=== PATIENT | male | born 2005 | race Caucasian/White ===

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

== ENCOUNTER 2024-08-09 22:30 | Emergency (ER) | payer SELFPAY ==
[2024-08-09 22:30] VITALS: BP 145/86; PULSE 87; RESP 18; TEMP 37.2; O2SAT 100; BMI 18.8
[2024-08-09] MEDS: KETOROLAC 30MG/ML VIAL 15 MG IV (22:37)
[2024-08-09 22:50] VITALS: BP 111/86; PULSE 67; RESP 18; TEMP 36.8; O2SAT 98
[2024-08-09] MEDS: ONDANSETRON 4MG/2ML VIAL 4 MG IV (22:50)
[2024-08-09] MEDS: LACTATED RINGERS 1000ML 1,000 ML 999 ML IV (22:50)
[2024-08-09] MEDS: ACETAMINOPHEN 500MG TAB 1000 MG PO (22:50)
[2024-08-10 01:16] LABS: Hematocrit 45.5 % (42.0-52.0); Hemoglobin 14.8 g/dL (14.1-18.0); Mean Corpuscular HGB Conc 32.6 g/dL (31.8-35.4); Mean Corpuscular Hemoglobin 31.8 pg (27.0-31.2); Mean Corpuscular Volume 97.8 fl (80-94); Mean Platelet Volume 7.8 fl (7.4-10.4); Platelet Count 264 K/mm3 (142-424); Red Blood Count 4.65 M/mm3 (4.60-6.20); Red Cell Distribution Width 13.8 % (11.5-17.5); White Blood Count 8.4 K/mm3 (4.5-13.0)
[2024-08-10 01:17] LABS: Basophils # 0.1 K/mm3 (0-0.2); Basophils % 0.6 % (0.1-2.0); Eosinophils # 0.2 K/mm3 (0.0-0.4); Eosinophils % 2.5 % (0.1-12.0); Lymphocytes # 2.5 K/mm3 (0.7-4.5); Monocytes # 0.5 K/mm3 (0.1-1.0); Monocytes % 5.4 % (1.7-9.3); Neutrophils # 5.2 K/mm3 (1.8-7.8)
[2024-08-10 01:18] LABS: Anion Gap 12.8 mEq/L (5-15); Blood Urea Nitrogen 16 mg/dl (9-20); Calcium 9.6 mg/dl (8.4-10.2); Carbon Dioxide 27 mmol/L (22.0-30.0); Chloride 104 mmol/L (98-107); Creatinine Clearance Estimated 85 mL/min (50-200); Estimated Glomerular Filt Rate 77 ml/min (>60); GFR (African American) 93 ML/MIN (>60); Glucose 101 mg/dl (74-100); Potassium 3.8 mmoL/L (3.5-5.1); Sodium 140 mmol/L (136-145)
[2024-08-10 01:19] LABS: Alanine Aminotransferase 23 U/L (12-78); Albumin Level 5.5 g/dl (3.5-5.0); Albumin/Globulin Ratio 1.6 (1.1-1.8); Aspartate Amino Transferase 32 U/L (17-59); Globulin 3.5 g/dL (1.3-3.2)
[2024-08-10 01:20] LABS: Alkaline Phosphatase 58 U/L (38-126); Amylase 76 U/L (30-110); Lipase 36 U/L (23-300)
--- NOTE | 2024-08-10 01:24 | PC.NURSE ---
2340- pt states he feels a little bit better. Decreased headache, nausea, abdominal pain. VS 111/66, HR60, RR 20 O2 sat 100%.
[2024-08-10 01:49] LABS: HIV (1&2) Antibody Rapid NONREACTIVE (NONREACTIVE)
--- NOTE | 2024-08-10 15:29 | HMH.EDGENADL ---
Discharge Plan Disposition Patient Disposition: Home, Self-Care Condition: Good Prescriptions Prescriptions: No Action ondansetron 4 MG tablet,disintegrating 4 mg PO BIDP PRN (Reason: Nausea) Qty: 10 0RF hydrocodone-acetaminophen 1 TAB tablet 1 tab PO Q6HP PRN (Reason: Moderate Pain) Qty: 10 0RF tamsulosin 0.4 MG capsule 0.4 mg PO DAILY Qty: 10 0RF Referrals Follow up/Referrals: Provider,Referral, MD [Primary Care Provider] - See instructions Clinical Impressions Clinical Impression: Abdominal pain, Hyperbilirubinemia Instructions Patient Instructions: DI for Acute Abdominal Pain Print Language Print Language: German Discharge ED Provider: Mee Douglas General Adult HPI <DO Leopoldo Fontanez Last Filed: 08/10/24 15:31> General Chief complaint: Abdominal Pain Stated complaint: nausea, FRITZ, abd pain Time Seen by Provider: 08/09/24 22:40 Mode of Arrival: Ambulatory Source of Information: Patient Limitations: No Limitations Description of Symptoms (Recalled from ER Triage Doc. by RN): pt ambulatory to ED with c/o nausea, headache, and generalized abd pain. History of Present Illness HPI narrative: This patient is a 18-year-old male who reports history of kidney stones in the past presenting to the emergency department for evaluation with concern for abdominal pain, nausea, and headache. Patient reports that he started feeling bad this morning with nausea and some upper abdominal pain, but no true localizable pain he just has overall his stomach does not feel well. He has had no vomiting. No changes in bowel movements, no urinary symptoms. He has mild headache but no visual disturbance, numbness, tingling, sore throat, cough, congestion, neck pain, or other concerns. Related Data Previous Rx's ?Medication ?Instructions ?Recorded hydrocodone 5 mg-acetaminophen 325 1 tab PO Q6HP PRN Moderate Pain 06/10/22 mg tablet #10 tabs ondansetron 4 mg disintegrating 4 mg PO BIDP PRN Nausea #10 tabs 06/10/22 tablet tamsulosin 0.4 mg capsule 0.4 mg PO DAILY #10 caps 06/10/22 Allergies Allergy/AdvReac Type Severity Reaction Status Date / Time No Known Allergies Allergy Verified 11/06/19 10:30 PFSH <DO Leopoldo Fontanez Last Filed: 08/10/24 15:31> PFSH Disclaimer: The information contained in this section may have been updated after the patient was seen, as this information can be updated by other users. Social History Smoking Status: Unknown if ever smoked alcohol intake: never substance use type: denies use current occupational status: student Travel in the last 8 weeks: None household members: family housing: house <Mee Douglas DO - Last Filed: 08/10/24 15:31> ROS Obtained: Yes All systems reviewed & no additional complaints except as documented Physical Exam <Mee Douglas DO - Last Filed: 08/10/24 15:31> General General appearance: alert and in no apparent distress Head Head exam: atraumatic and normocephalic Eye Eye exam: Present normal appearance, PERRL and EOMI ENT ENT exam: Present normal exam, normal oropharynx, mucous membranes moist and normal external ear exam Neck Neck exam: Present normal inspection, full ROM and trachea midline; Absent tenderness Chest Chest inspection: Present normal inspection and symmetric chest wall rise; Absent tenderness Respiratory Respiratory exam: Present normal lung sounds bilaterally; Absent respiratory distress, wheezes, stridor or accessory muscle use Cardiovascular Cardiovascular exam: Present regular rate and normal rhythm Abdominal Exam Abdominal exam: Present soft; Absent distention, tenderness or guarding Extremities Exam Extremities exam: Present normal inspection, full ROM and normal capillary refill; Absent tenderness or edema Back Exam Back exam: Present normal inspection and full ROM; Absent tenderness Neurological Exam Neurological exam: Present alert, oriented X3, CN II-XII intact and normal gait; Absent motor sensory deficit Psychiatric Psychiatric exam: Present normal affect and normal mood Skin Skin exam: Present warm and dry Medical Decision Making <Mee Douglas DO - Last Filed: 08/10/24 15:31> Medical Records Medical records reviewed: Yes I reviewed the patient's medical records. Screening: Per USPSTF and CDC recommendations, given the prevalence of disease in our region, it is our hospital?s policy to screen for HIV and viral Hepatitis for all patients aged 18 and over and those with ongoing risk factors. Jeferson Inquiry Pt receiving controlled substance: No Vital Signs: 08/09/24 22:30 08/09/24 22:50 Temperature 98.9 F 98.2 F Temperature Source Oral Oral Pulse Rate 67 Pulse Rate [Left Radial] 87 Respiratory Rate 18 18 Blood Pressure 111/86 Blood Pressure [Right Arm] 145/86 H Blood Pressure Mean [Right Arm] 105 Blood Pressure Source Automatic Cuff Blood Pressure Source [Right Arm] Automatic Cuff Blood Pressure Position Supine Blood Pressure Position [Right Arm] Sitting 02 Sat by Pulse Oximetry 100 Oxygen Delivery Method Room Air Room Air Lab Data Lab results reviewed: Yes I reviewed the patient's lab results. Lab Results 08/10/24 00:00: WBC 8.4, RBC 4.65, Hgb 14.8, Hct 45.5, MCV 97.8 H, MCH 31.8 H, MCHC 32.6, RDW 13.8, Plt Count 264, MPV 7.8, Neut % (Auto) 61.0, Lymph % (Auto) 29.0, [place] % (Auto) 5.4, Eos % (Auto) 2.5, Baso % (Auto) 0.6, Neut # (Auto) 5.2, Lymph # (Auto) 2.5, [place] # (Auto) 0.5, Eos # (Auto) 0.2, Baso # (Auto) 0.1, Sodium 140, Potassium 3.8, Chloride 104, Carbon Dioxide 27, Anion Gap 12.8, BUN 16, Creatinine 1.20, Estimated Creat Clear 85, Estimated GFR 77, Est GFR ( Amer) 93, Glucose 101 H, Calcium 9.6, Total Bilirubin 9.0 H, AST 32, ALT 23, Alkaline Phosphatase 58, Total Protein 9.0 H, Albumin 5.5 H, Globulin 3.5 H, Albumin/Globulin Ratio 1.6, Amylase 76, Lipase 36, HIV 1&2 Antibody Rapid Nonreactive 08/10/24 00:00 08/10/24 00:00 Orders (Tests/Meds): ED MEDICATIONS Discontinued Medications Generic Name Dose Route Start Last Admin Trade Name Freq PRN Reason Stop Dose Admin Acetaminophen 1,000 mg 08/09/24 22:37 08/09/24 22:50 Acetaminophen 500mg Tab PO 08/09/24 22:38 1,000 mg ONCE ONE Administration Lactated Ringer's 1,000 mls @ 999 mls/hr 08/09/24 22:37 08/09/24 22:50 Lactated Ringer's 1000 Ml Bag IV 08/09/24 23:37 999 mls/hr .Q1H1M ONE Administration Ketorolac Tromethamine 15 mg 08/10/24 22:37 Ketorolac 30mg/Ml Vial IV 08/10/24 22:38 ONCE ONE Ketorolac Tromethamine 15 mg 08/09/24 22:37 08/09/24 22:37 Ketorolac 30mg/Ml Vial IV 08/09/24 22:38 15 mg ONCE ONE Administration Ondansetron HCl 4 mg 08/09/24 22:37 08/09/24 22:50 Ondansetron 4mg/2ml Vial IV 08/09/24 22:38 4 mg ONCE ONE Administration ORDERS Category Date Time Status Amylase Stat Lab 08/10/24 00:00 Completed Complete Blood Count Auto Diff Stat Lab 08/10/24 00:00 Completed Comprehensive Metabolic Panel Stat Lab 08/10/24 00:00 Completed HIV (1&2) Antibody Rapid Stat Lab 08/10/24 00:00 Completed Hep C Ab with Reflex to RNA Stat Lab 08/10/24 00:00 Received Lipase Stat Lab 08/10/24 00:00 Completed Medical Decision Narrative: In summary, this patient is a 18-year-old male presenting to the Emergency Department for evaluation of headache, nausea, and abdominal discomfort. Differential diagnoses considered include but are not limited to viral syndrome, pancreatitis, gastritis, colitis, dehydration. Ruling out the most morbid conditions drove assessment. On exam, the patient is very well-appearing with benign abdominal exam. No localizable abdominal tenderness. He is neurologically intact. No pharyngeal exudates, sore throat, or other concerns to suggest acute bacterial pharyngitis. I feel he likely has a viral syndrome causing his symptoms, but will obtain basic labs to evaluate for other acute pathology. workup included CBC, CMP, lipase, urinalysis. He was given a bolus of IV fluids as well as IV Toradol, oral Tylenol, and IV Zofran. Will assess his ability to tolerate oral intake afterward and assess him for symptomatic improvement. Patient care signed out to Dr. Briceño. <Grayson Briceño MD - Last Filed: 08/11/24 01:22> Vital Signs: 08/09/24 22:30 08/09/24 22:50 Temperature 98.9 F 98.2 F Temperature Source Oral Oral Pulse Rate 67 Pulse Rate [Left Radial] 87 Respiratory Rate 18 18 Blood Pressure 111/86 Blood Pressure [Right Arm] 145/86 H Blood Pressure Mean [Right Arm] 105 Blood Pressure Source Automatic Cuff Blood Pressure Source [Right Arm] Automatic Cuff Blood Pressure Position Supine Blood Pressure Position [Right Arm] Sitting 02 Sat by Pulse Oximetry 100 Oxygen Delivery Method Room Air Room Air Lab Data Lab Results 08/10/24 00:00: WBC 8.4, RBC 4.65, Hgb 14.8, Hct 45.5, MCV 97.8 H, MCH 31.8 H, MCHC 32.6, RDW 13.8, Plt Count 264, MPV 7.8, Neut % (Auto) 61.0, Lymph % (Auto) 29.0, [place] % (Auto) 5.4, Eos % (Auto) 2.5, Baso % (Auto) 0.6, Neut # (Auto) 5.2, Lymph # (Auto) 2.5, [place] # (Auto) 0.5, Eos # (Auto) 0.2, Baso # (Auto) 0.1, Sodium 140, Potassium 3.8, Chloride 104, Carbon Dioxide 27, Anion Gap 12.8, BUN 16, Creatinine 1.20, Estimated Creat Clear 85, Estimated GFR 77, Est GFR ( Amer) 93, Glucose 101 H, Calcium 9.6, Total Bilirubin 9.0 H, AST 32, ALT 23, Alkaline Phosphatase 58, Total Protein 9.0 H, Albumin 5.5 H, Globulin 3.5 H, Albumin/Globulin Ratio 1.6, Amylase 76, Lipase 36, HIV 1&2 Antibody Rapid Nonreactive Orders (Tests/Meds): ED MEDICATIONS Discontinued Medications Generic Name Dose Route Start Last Admin Trade Name Mehdiq PRN Reason Stop Dose Admin Acetaminophen 1,000 mg 08/09/24 22:37 08/09/24 22:50 Acetaminophen 500mg Tab PO 08/09/24 22:38 1,000 mg ONCE ONE Administration Lactated Ringer's 1,000 mls @ 999 mls/hr 08/09/24 22:37 08/09/24 22:50 Lactated Ringer's 1000 Ml Bag IV 08/09/24 23:37 999 mls/hr .Q1H1M ONE Administration Ketorolac Tromethamine 15 mg 08/10/24 22:37 Ketorolac 30mg/Ml Vial IV 08/10/24 22:38 ONCE ONE Ketorolac Tromethamine 15 mg 08/09/24 22:37 08/09/24 22:37 Ketorolac 30mg/Ml Vial IV 08/09/24 22:38 15 mg ONCE ONE Administration Ondansetron HCl 4 mg 08/09/24 22:37 08/09/24 22:50 Ondansetron 4mg/2ml Vial IV 08/09/24 22:38 4 mg ONCE ONE Administration ORDERS Category Date Time Status Amylase Stat Lab 08/10/24 00:00 Completed Complete Blood Count Auto Diff Stat Lab 08/10/24 00:00 Completed Comprehensive Metabolic Panel Stat Lab 08/10/24 00:00 Completed HIV (1&2) Antibody Rapid Stat Lab 08/10/24 00:00 Completed Hep C Ab with Reflex to RNA Stat Lab 08/10/24 00:00 Received Lipase Stat Lab 08/10/24 00:00 Completed Medical Decision Narrative: In summary, this patient is a 18-year-old male presenting to the Emergency Department for evaluation of headache, nausea, and abdominal discomfort. Differential diagnoses considered include but are not limited to viral syndrome, pancreatitis, gastritis, colitis, dehydration. Ruling out the most morbid conditions drove assessment. On exam, the patient is very well-appearing with benign abdominal exam. No localizable abdominal tenderness. He is neurologically intact. No pharyngeal exudates, sore throat, or other concerns to suggest acute bacterial pharyngitis. I feel he likely has a viral syndrome causing his symptoms, but will obtain basic labs to evaluate for other acute pathology. workup included CBC, CMP, lipase, urinalysis. He was given a bolus of IV fluids as well as IV Toradol, oral Tylenol, and IV Zofran. Will assess his ability to tolerate oral intake afterward and assess him for symptomatic improvement. Patient care signed out to Dr. Briceño. On reassessment patient reports significant symptomatic improvement. Laboratory results interpreted by me and showed no evidence of leukocytosis, normal renal function. I communicated these findings with the patient. He was discharged in stable condition with prescription for Zofran. The laboratory results that I reviewed prior to discharge were on paper because our system was in downtime. Unfortunately, when I reentered the EMR in the next day to write his note, I reviewed his labs and noticed that his bilirubin was 9, which is markedly elevated. His previous bilirubin levels have been normal. I may have misread his bilirubin level on the paper chart at the time. I immediately called the patient. He reports that his nausea was improved but he was still having some discomfort. I have recommended that he return immediately to the ER for further assessment, he reported understanding and states that he will return to the ER. Critical Care <Mee Douglas, DO - Last Filed: 08/10/24 15:31> Critical Care Time Critical Care Time: No
[2024-08-11 06:15] LABS: HCV Ab Non Reactive (Non Reactive)
== END 2024-08-10 02:08 | disposition home or self-care (01) ==
PROVIDERS: Emergency Provider Emergency Medicine
DX: R10.84 Generalized abdominal pain (principal); E80.6 Other disorders of bilirubin metabolism; R11.0 Nausea; R51.9 Headache, unspecified
CPT/HCPCS: 80053; 82150; 83690; 85025; 86803; 87389; 96361; 96374; 96375; 99284; J1885; J2405; J7120

== ENCOUNTER 2025-04-02 15:46 | Emergency (ER) | payer BC, SELFPAY ==
--- NOTE | 2025-04-02 16:43 | ED_ITS ---
<Statement entered by Mee Douglas DO - 04/02/25 19:25> I was consulted by the MATI, and we discussed the complexity of the problems being addressed. I approved the treatment and management plan for this patient's care in the emergency department, thus performing a substantive portion of the medical decision making. Mee Douglas DO Discharge Plan Disposition Patient Disposition: Home, Self-Care Condition: Good Prescriptions Prescriptions: New zeisrpyzbujeful-zzavlobgm-NW [Bromfed DM] 2-30-10 mg/5 mL syrup 5 ml PO Q4H PRN (Reason: sinus symptoms) Qty: 118 0RF No Action ondansetron 4 MG tablet,disintegrating 4 mg PO BIDP PRN (Reason: Nausea) Qty: 10 0RF hydrocodone-acetaminophen 1 TAB tablet 1 tab PO Q6HP PRN (Reason: Moderate Pain) Qty: 10 0RF tamsulosin 0.4 MG capsule 0.4 mg PO DAILY Qty: 10 0RF Referrals Follow up/Referrals: Provider,Referral, MD [Primary Care Provider] - See instructions Activity Restrictions/Add. Instructions Additional Instructions/Restrictions: Recommend taking Tylenol alternating Motrin for your symptoms. Please check your portal tomorrow for your respiratory panel results. If you have any continued new or worsening signs or symptoms follow-up with your PCP return to the ER as needed. Clinical Impressions Clinical Impression: Pharyngitis Qualifiers: Pharyngitis/tonsillitis etiology: unspecified etiology Qualified Code(s): J02.9 - Acute pharyngitis, unspecified Stand Alone Forms Stand Alone Forms: Work/School Release Print Language Print Language: Persian Discharge ED Provider: Mee Douglas General Adult HPI General Chief complaint: Upper Respiratory Infection Stated complaint: Sore throat,FRITZ,Stuffy nose Time Seen by Provider: 04/02/25 16:43 History of Present Illness HPI narrative: Patient presents for evaluation of sore throat. Patient states that his symptoms began yesterday with a headache and sore throat. He reports myalgias and bodyaches no shortness of breath cough nausea vomiting diarrhea. He has not taken his temperature at home but feels like he has a fever. Related Data Previous Rx's ?Medication ?Instructions ?Recorded hydrocodone 5 mg-acetaminophen 325 1 tab PO Q6HP PRN Moderate Pain 06/10/ mg tablet #10 tabs ondansetron 4 mg disintegrating 4 mg PO BIDP PRN Nausea #10 tabs 06/10/22 tablet tamsulosin 0.4 mg capsule 0.4 mg PO DAILY #10 caps 06/10/22 xuelaicoshhiizl-edhujexencsixip-WN 5 ml PO Q4H PRN sinus symptoms 04/02/25 2 mg-30 mg-10 mg/5 mL oral syrup #118 mL (Bromfed DM) Allergies Allergy/AdvReac Type Severity Reaction Status Date / Time No Known Allergies Allergy Verified 11/06/19 10:30 [facility] Disclaimer: The information contained in this section may have been updated after the patient was seen, as this information can be updated by other users. Social History Smoking Status: Never smoker alcohol intake: never substance use type: denies use current occupational status: student Travel in the last 8 weeks?: None household members: family housing: house Have you lived/traveled outside [place] in past 30 days?: No Contact w/someone who lives/traveled outside [place] past 30 days?: No Exposure to someone with infectious disease in past 14 days?: No Do you have a fever (greater than 100.4 F or 38 C)?: No Have you tested positive for COVID-19?: No Exposed to someone with COVID-19 in past 14 days?: No Do you have a sore throat?: No Do you have a cough?: No Do you have any weakness?: No Do you have any diarrhea?: No Are you experiencing any unusual bleeding?: No Do you have any muscle aches/pain?: No Do you have any abdominal pain?: No Are you experiencing loss of taste or smell?: No Other Medical History Have you received the Flu Vaccine for this season: No Have you received the Pneumonia Vaccine: No ROS Obtained: Yes Systems reviewed as appropriate & no additional complaints except as documented Physical Exam General General appearance: alert and in no apparent distress Respiratory Respiratory exam: Present normal lung sounds bilaterally Cardiovascular Cardiovascular exam: Present regular rate Neurological Exam Neurological exam: Present alert and oriented X3 Medical Decision Making Medical Records Medical records reviewed: Yes I reviewed the patient's medical records. Screening: Per USPSTF and CDC recommendations, given the prevalence of disease in our region, it is our hospital?s policy to screen for HIV and viral Hepatitis for all patients aged 18 and over and those with ongoing risk factors. Jeferson Inquiry Pt receiving controlled substance: No Vital Signs: 04/02/25 16:48 Temperature 100.8 F H Temperature Source Oral Pulse Rate [Radial] 99 H Respiratory Rate 18 Blood Pressure [Right Arm] 122/78 Blood Pressure Mean [Right Arm] 92 Blood Pressure Source [Right Arm] Automatic Cuff Blood Pressure Position [Right Arm] Sitting 02 Sat by Pulse Oximetry 100 Oxygen Delivery Method Room Air Lab Data Lab results reviewed: Yes I reviewed the patient's lab results. Lab Results 04/02/25 16:51: Group A Strep Rapid Negative Orders (Tests/Meds): ED MEDICATIONS Discontinued Medications Generic Name Dose Route Start Last Admin Trade Name Freq PRN Reason Stop Dose Admin Acetaminophen 1,000 mg 04/02/25 16:48 04/02/25 17:00 Acetaminophen 500mg Tab PO 04/02/25 16:49 1,000 mg ONCE ONE Administration Ibuprofen 800 mg 04/02/25 16:48 04/02/25 17:00 Ibuprofen 400 Mg Tablet PO 04/02/25 16:49 800 mg ONCE ONE Administration ORDERS Category Date Time Status Full Resp Panel w/COVID ([facility]) Routine Lab 04/02/25 17:12 Ordered Rapid Strep Scrn Group A [Strep Scrn Group A (Rapid)] Lab 04/02/25 16:51 Completed Stat Strep Screen Confirmation Stat Micro 04/02/25 16:51 Received Medical Decision Narrative: In summary patient is a 19-year-old male who presents to the emergency department for evaluation of sore throat headache and fever. Patient is normotensive and hemodynamically stable upon arrival, with a temperature of 100. Physical exam is remarkable for erythematous posterior pharynx without do not see any exudate he does have bilateral cervical lymphadenopathy. Breath sounds critical bilaterally to the bases that adventitious sounds.. Differential diagnosis includes viral versus bacterial pharyngitis. Initial workup will be conducted with strep screen. Initial interventions include Tylenol and ibuprofen. Initial workup reviewed by me and a strep screen is negative. Given that I have ordered a full respiratory panel however I am not going to make the patient wait as its undetermined time for the results. I have recommended patient continue Tylenol alternating Motrin and should he have continued new or worsening signs or symptoms to follow-up with PCP return to the ER as needed.. Upon repeat evaluation Patient's temperatures come down to 99.8 after initial intervention. Critical Care Critical Care Time Critical Care Time: No
[2025-04-02 16:48] VITALS: BP 122/78; PULSE 99; RESP 18; TEMP 38.2; O2SAT 100; BMI 23.1
[2025-04-02] MEDS: IBUPROFEN 400 MG TABLET 800 MG PO (17:00)
[2025-04-02] MEDS: ACETAMINOPHEN 500MG TAB 1000 MG PO (17:00)
[2025-04-02 17:10] LABS: Strep Scrn Group A (Rapid) Negative (Negative)
[2025-04-02 17:17] VITALS: BP 113/59; PULSE 94; O2SAT 97
[2025-04-02 17:22] LABS: Adenovirus,PCR Not Detected (NotDetected); Bordetella Pertussis Not Detected (NotDetected); Chlamydophila Pneumoniae, PCR Not Detected (NotDetected); Coronavirus 19, PCR Not Detected (NotDetected); Coronavirus 229E Not Detected (NotDetected); Coronavirus NL63 Not Detected (NotDetected); Coronavirus OC43 Not Detected (NotDetected); Coronovirus HKU1,PCR Not Detected (NotDetected); Human Metapneumovirus Not Detected (NotDetected); Influenza A, PCR Not Detected (NotDetected); Influenza AH1, 2009 Not Detected (NotDetected); Influenza AH1, PCR Not Detected (NotDetected); Influenza AH3,PCR Not Detected (NotDetected); Influenza B, PCR Not Detected (NotDetected); Mycoplasma Pneumoniae, PCR Not Detected (NotDetected); Parainfluenza 1, PCR Not Detected (NotDetected); Parainfluenza 2, PCR Not Detected (NotDetected); Parainfluenza 3, PCR Not Detected (NotDetected); Parainfluenza 4, PCR Not Detected (NotDetected); Respiratory Syncytial Virus Not Detected (NotDetected)
[2025-04-02 17:41] VITALS: BP 116/78; PULSE 85; RESP 18; TEMP 37.2; O2SAT 98
[2025-04-02 19:15] LABS: Rhinovirus/Enterovirus Detected (NotDetected)
== END 2025-04-02 17:44 | disposition home or self-care (01) ==
PROVIDERS: Physician Assistant; Emergency Provider Emergency Medicine
DX: J02.8 Acute pharyngitis due to other specified organisms (principal); R50.9 Fever, unspecified; B34.1 Enterovirus infection, unspecified
CPT/HCPCS: 0223U; 87430; 87633; 99283

== ENCOUNTER 2025-04-23 12:14 | Emergency (ER) | payer BC, SELFPAY ==
[2025-04-23 12:30] VITALS: BP 142/74; PULSE 72; RESP 18; TEMP 36.7; O2SAT 100; BMI 22.1
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
--- NOTE | 2025-04-23 13:50 | PC.NURSE ---
Dr Wade and Meet in triage room assessing pt. XR looks ok. Giving him a sling and follow up with ortho Dr Veloz for possible tear
[2025-04-23 13:53] VITALS: BP 128/87; PULSE 78; RESP 16; TEMP 36.6; O2SAT 98
--- NOTE | 2025-04-23 14:12 | PC.NURSE ---
Made appointment for pt at Dr Veloz on 05/01/25 at 0930. Arm in sling, ice pack applied, work restrictions and note provided. No questions at this time
== END 2025-04-23 14:12 | disposition home or self-care (01) ==
PROVIDERS: Emergency Provider Emergency Medicine
DX: S49.92XA Unspecified injury of left shoulder and upper arm, initial encounter (principal); X50.0XXA Overexertion from strenuous movement or load, initial encounter
CPT/HCPCS: 73030; 99283

== ENCOUNTER 2025-06-05 13:14 | Emergency (ER) | payer BC, SELFPAY ==
--- OUTSIDE RECORDS SUMMARY | 2025-04-25 01:01 | XMS_ITS | Encounter Summary ---
Author Organization Healthcare Address [address] [place] [address] Care Team Providers Care Molder Machine Name Role Phone Unavailable Primary Care Provider Unavailabl e Reason for Visit * Reason Comments Shoulder Pain Encounter Details Date Type Department Care Team (Late st Contact Info) Description 04/25/2025 1:01 AM EDT - 04/25/2025 2:49 AM EDT Emergency [facility] [address] [place] [address] Gideon Carpenter MD [address] [place] [address] Acute pain of left shoulder (Primary Dx) Discharge Disposition: Home or Self Care Social History Tobacco Use Types Packs/Day Years Used Date Smoking Tobacco: Never Assessed Sex and Gender Information Value Date Recorded Sex Assigned at Not on file Legal Sex Male 12:56 AM EDT Gender Identity Not on file Sexual Orientation Not on file documented as of this encounter Last Filed Vital Signs Vital Sign Reading Time Taken Comments Blood Pressure 146/85 04/25/2025 1:01 AM EDT Pulse 73 04/25/2025 1:01 AM EDT Temperature 36.8 C (98.3 F) 04/25/2025 1:01 AM EDT Respiratory Rate 18 04/25/2025 1:01 AM EDT Oxygen Saturation 97% 04/25/2025 1:01 AM EDT Inhaled Oxygen Concentration - - Weight 68 kg (150 lb) 04/25/2025 1:01 AM EDT Height 177.8 cm (5' 10 ) 04/25/2025 1:01 AM EDT Body Mass Index 21.52 04/25/2025 1:01 AM EDT documented in this encounter Functional Status * Calculated C-SSRS Risk Score (Lifetime/Recent) Answer Date of Assessment Author No Risk Indicated 04/25/2025 1:56 AM EDT Elyse Muller RN * Question Answer Date of Assessment Author 1. Wish to be (Past 1 Month) No 025 1:56 AM EDT Elyse Muller RN 2. Non-Specific Active Suici abdullahi Thoughts (Past 1 Month) No 04/25/2025 1:56 AM EDT Vini Muller RN 6. Suicidal Behavior (Lifetime) No 1:56 AM EDT Elyse Muller RN documented as of this encounter Discharge Instructions * Discharge Instructions* Gideon Carpenter MD - 04/25/2025 2:18 AM EDT Please follow up with Orthopedics as previously scheduled. Please continue to keep your shoulder inthe sling. Please return to ED if your symptoms worsen, change in location, change in severity, new symptoms develop or if you become concerned for your health. [facility] [place] [address] 7 - 8 a.m., Mon - Fri. We treat sprains, strains, breaks and other unexpected injuries in patients 8 years and older, and sports-related concussions in patients 12 years and older. While your injury may not call for a tripto the emergency room, it may require the expertise of a application development specialist. Thanks to our narrative writer [facility], staffed by our Sports Medicine experts, receiving treatment for an injury is easy. Walk in, see a provider, receive a diagnosis and get treated -- all in one location. If you already have X-rays or other information about your injury from a associate trainer or another care provider, please bring that with you to the [facility]. The [facility] Medicine narrative writer [facility] offers care for: Broken bones Muscle sprains and strains Ligament tears Other sports injuries Imaging, casting and bracing is available at the [facility]. documented in this encounter Medications at Time of Discharge methocarbamol (Robaxin) 500 MG tablet Take 2 tablets by mouth 4 times a day as needed for muscle spasms for up to 10 days. 100 tablet 04/25/2025 lidocaine (Lidoderm) 5 % patch Apply 1 patch topically daily over 12 hours for 7 days. Remove & discard patch within 12 hours or as directed by . 20 patch 04/25/2025 5 documented as of this encounter Miscellaneous Notes * ED Provider Notes - Ina Diop MD - 04/25/2025 12:56 AM EDT Images from the original note were not included. - HPI Chief Complaint Patient presents with Shoulder Pain HPI Helder Montero is a 19 y.o. male who presents with Shoulder Pain Patient reports that 3 days ago he was lifting a heavy we will when he felt a pop in his left shoulder. Since that he has been having significant pain particularly with movement of his left arm. He was seen at outside hospital yesterday and had negative x-rays. He was given a sling and orthopedics referral with concern for possible rotator cuff injury. States that since then his pain has been worsening and he was concerned because earlier today he felt that his hand was locking up in his shoulder was spasming. He denies any fever, chills, paresthesias or numbness in his left arm. Patient History Past Medical History[1] Surgical History[2] Family History[3] Social History[4] Allergies: Allergies[5] Physical Exam ED Triage Vitals [04/25/25 0101] Temp Heart Rate Resp BP 36.8 ??C (98.3 ??F) 73 18 (!) 146/85 SpO2 Temp Source Heart Rate Source Patient Position 97 % Oral -- Sitting BP Location FiO2 (%) Right arm -- Physical Exam Vitals and nursing note reviewed. Constitutional: General: He is not in acute distress. Appearance: He is well-developed. HENT: Head: Normocephalic and atraumatic. Eyes: Conjunctiva/sclera: Conjunctivae normal. Cardiovascular: Rate and Rhythm: Normal rate and regular rhythm. Heart sounds: No murmur heard. Pulmonary: Effort: Pulmonary effort is normal. No respiratory distress. Breath sounds: Normal breath sounds. Abdominal: Palpations: Abdomen is soft. Tenderness: There is no abdominal tenderness. Musculoskeletal: General: No swelling. Left shoulder: Tenderness present. No swelling or deformity. Decreased range of motion (pain with AROM greater than PROM). Cervical back: Neck supple. Skin: General: Skin is warm and dry. Capillary Refill: Capillary refill takes less than 2 seconds. Neurological: Mental Status: He is alert. Psychiatric: Mood and Affect: Mood normal. No data recorded ED Course & MDM - Assessment: 19 y.o. male presents to ED with complaint of left shoulder pain. It should be noted that the chronic conditions includes none. Differential Diagnosis: Shoulder dislocation, rotator cuff injury, septic joint, among others In order to fully explore the differential diagnosis the following treatments and tests were ordered: ED Medication Administration from 04/25/2025 0056 to 04/25/20254 Date/Time Order Dose Route Action 04/25/2025209 EDT acetaminophen (Tylenol) tablet 1,000 mg 1,000 mg Oral Given 04/25/2025209 EDT ketorolac (Toradol) injection 30 mg 30 mg Intramuscular Given 04/25/2025209 EDT lidocaine (Lidoderm) 5 % patch 1 patch 1 patch Apply externally Medication Applied 04/25/2025209 EDT methocarbamol (Robaxin) tablet 1,500 mg 1,500 mg Oral Given All Other Orders Ordered Status Ordering Provider 04/25/25 0159 XR Shoulder Left 2+ Views (AP, Y-Lateral, Axillary) Once In process IAN DIOP ED Course as of 04/25/254 WedApr 25, 2025 020 Patient with clear mechanism of injury, no fevers or chills, vital signs stable. Concern for septic joint low at this point. Discussed possibility of obtaining labs to evaluate for possible septic joint which could lead to a arthrocentesis of the shoulder, however patient declined it at this point and would like to obtain x-rays and treat pain. [RM] 0217 XR Shoulder Left 2+ Views (AP, Y-Lateral, Axillary) On my interpretation of x-ray prior to formal radiology reading, I do not appreciate any obvious fracture, dislocation, bony malalignment, foreign body or other acute process. Will wait for formal radiology read to confirm. [RM] 0244 Patient reported improvement in his pain with multimodal pain control in the emergency department. Patient was given information for walking and sports Medicine Clinic. [RM] ED Course User Index [RM] Ina Diop MD Clinical Impressions as of 04/25/25 0244 Acute pain of left shoulder Social Determinates of Health Risks (including Economic Stability, Education and level of understanding, Healthcare access and quality and concerning social factors): Lives far away Ultimately, this patient was Was discharged Home (Discharge) The encounter diagnosis was Acute pain of left shoulder. . Patient was counseled on thediagnoses. Discharge medications if any are listed below. Listed medications are thought be either curative for listed diagnoses or will help control ongoing symptoms. Patient is requested to follow up with Sports medicine in order to obtain specialty care. Instructions on follow up as well as precautions to return to the ER provided verbally by the EM provider, as well as written in patients discharge education packet. ED Prescriptions Medication Sig Dispense Start Date End Date Auth. Provider methocarbamol (Robaxin) 500 MG tablet Take 2 tablets by mouth 4 times a day as needed for muscle spasms for up to 10 days. 100 tablet 04/25/2025 05/05/2025 Gideon Carpenter MD lidocaine (Lidoderm) 5 % patch Apply 1 patch topically daily over 12 hours for 7 days. Remove &discard patch within 12 hours or as directed by . 20 patch 04/25/2025 05/02/2025 Gideon Carpenter MD Discharge Instructions Please follow up with Orthopedics as previously scheduled. Please continue to keep your shoulder inthe sling. Please return to ED if your symptoms worsen, change in location, change in severity, new symptoms develop or if you become concerned for your health. [facility] [place] [id number] 7 - 8 a.m., Mon - Fri. We treat sprains, strains, breaks and other unexpected injuries in patients 8 years and older, and sports-related concussions in patients 12 years and older. While your injury may not call for a tripto the emergency room, it may require the expertise of a application development specialist. Thanks to our narrative [facility], staffed by our Sports Medicine experts, receiving treatment for an injury is easy. Walk in, see a provider, receive a diagnosis and get treated -- all in one location. If you already have X-rays or other information about your injury from a associate trainer or another care provider, please bring that with you to the [facility]. The [facility] narrative [facility] offers care for: Broken bones Muscle sprains and strains Ligament tears Other sports injuries Imaging, casting and bracing is available at the [facility]. Disposition Discharge - [1] History reviewed. No pertinent past medical history. [2] History reviewed. No pertinent surgical history. [3] No family history on file. [4] [5] No Known Allergies Ina Diop MD Resident 04/25/254 Cosigned by Gideon Carpenter MD at 04/25/2025 3:38 AM EDT Associated attestation - Gideon Carpenter MD - 04/25/2025 3:38 AM EDT I saw and evaluated the patient with the resident/fellow. I discussed the case with the resident/fellow and agree with the findings and plan as documented. * ED Triage Notes - Juana Yan RN - 04/25/2025 12:56 AM EDT Pt to ED c/o left shoulder pain since Wednesday. Pt went to OSH Wednesday and was referred to ortho outpt, but states the pain has gotten too severe and he is hardly able to move that arm anymore. +PMS, no obvious deformity. documented in this encounter Plan of Treatment Not on file documented as of this encounter Procedures Procedure Name Priority Date/Time Associated Diagnosis Comments XR SHOULDER LEFT 2+ VIEWS STAT 04/25/2025 2:17 AM EDT documented in this encounter Results * XR Shoulder Left 2+ Views (AP, Y-Lateral, Axillary) (04/25/2025 2:17 AM EDT) Anatomical Region Laterality Modality Upper Extremities, Shoulder Left Comp uted Radiography Impressions 04/25/2025 2:47 AM EDT No acute osseous findings of the left shoulder. CRITICAL RESULT: No. COMMUNICATION: Per this written report. Preliminary report signed by Osvaldo Mar MD on 04/25/2025 2:44 AM By electronically signing this report, I, the attending physician, attest that I have personally reviewed the images/data for the above examination(s) and agree with the final edited report. Drafted by Osvaldo Mar MD on 04/25/2025 2:40 AM Final report signed by Roxanne Skaggs MD on 04/25/2025 2:47 AM Narrative 04/25/2025 2:47 AM EDT CLINICAL INDICATION: felt pop when lifting tire, pain with active ROM TECHNIQUE: XR SHOULDER LEFT 2+ VIEWS COMPARISON: None. FINDINGS: No acute fracture or dislocation. Glenohumeral joint and AC joints are intact. No significant soft tissue swelling. No pneumothorax. Procedure Note Roxanne Skaggs MD - 04/25/2025 CLINICAL INDICATION: felt pop when lifting tire, pain with active ROM TECHNIQUE: XR SHOULDER LEFT 2+ VIEWS COMPARISON: None. FINDINGS: No acute fracture or dislocation. Glenohumeral joint and AC joints areintact. No significant soft tissue swelling. No pneumothorax. IMPRESSION: No acute osseous findings of the left shoulder. CRITICAL RESULT: No. COMMUNICATION: Per this written report. Preliminary report signed by Osvaldo Mar MD on 04/25/2025 2:44 AM By electronically signing this report, I, the attending physician, attestthat I have personally reviewed the images/data for the aboveexamination(s) and agree with the final edited report. Drafted by Osvaldo Mar MD on 04/25/2025 2:40 AM Final report signed by Roxanne Skaggs MD on 04/25/2025 2:47 AM Gideon Carpenter MD IMG XR PROCEDURES Final Resul t documented in this encounter Visit Diagnoses Diagnosis Acute pain of left shoulder- Primary documented in this encounter Administered Medications Inactive Administered Medications - up to 3 most recent administrations Medication Order MAR Action Action Date Dose Rate Site acetaminophen (Tylenol) tablet 1,000 mg 1,000 mg, Oral, Once, 1 dose, On Wed04/25/25 at 0200, STAT Given 04/25/2025 2:10 AM EDT 1,000 mg ketorolac (Toradol) injection 30 mg 30 mg, Intramuscular, Once, 1 dose, On Wed04/25/25 at 0200, STAT Given 04/25/2025 2:10 AM EDT 30 mg Right Deltoid lidocaine (Lidoderm) 5 % patch 1 patch 1 patch, Apply externally, Once, 1 dose, On Wed04/25/25 at 0200, Administer over 12 Hours, STAT Medication Applied 04/25/2025 2:10 AM EDT 1 patch Left Arm documented in this encounter Active and Recently Administered Medications Times are shown in EDT. Scheduled Medication Order 04/23/2025 04/24/2025 04/25/2025 acetaminophen (Tylenol) tablet 1,000 mg (COMPLETED) 1,000 mg, Oral, Once, 1 dose, On Wed04/25/25 at 0200, STAT 0210 (Given - Provid er: Elyse Muller RN) ketorolac (Toradol) injection 30 mg (COMPLETED) 30 mg, Intramuscular, Once, 1 dose, On Wed04/25/25 at 0200, STAT 0210 (Given - Provid er: Elyse Muller RN) lidocaine (Lidoderm) 5 % patch 1 patch 1 patch, Apply externally, Once, 1 dose, On Wed04/25/25 at 0200, Administer over 12 Hours, STAT 0210 (Medication Vu lied - Provider: Elyse Muller RN)0249 (Due: Medication Removed - Provider: Automatic Discharge Provider - Comment: Time automatically adjusted from order being discontinued) methocarbamol (Robaxin) tablet 1,500 mg 1,500 mg, Oral, Once, 1 dose, On Wed04/25/25 at 0200, STAT 0210 (Not Given - Pr ovider: Elyse Muller RN - Reason: Patient/family refused) documented in this encounter
[2025-06-05 13:14] VITALS: BP 89/49; PULSE 89; RESP 19; TEMP 36.7; O2SAT 99; BMI 24.7
[2025-06-05] MEDS: SODIUM CHLORIDE 0.9% 10ML FLUSH SYRINGE 10 ML IV ×2 (13:14→13:17)
[2025-06-05] MEDS: ETOMIDATE 40MG/20ML VIAL 20 MG IV (13:20)
[2025-06-05] MEDS: SUCCINYLCHOLINE 20MG/ML 10 ML MDV 100 MG IV (13:21)
[2025-06-05] MEDS: LACTATED RINGERS 1000ML 1,000 ML 999 ML IV ×3 (13:23→14:16)
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
[2025-06-05 13:50] LABS: Hematocrit 33.8 % (42.0-52.0); Hemoglobin 11.0 g/dL (14.1-18.0); Immature Granulocytes % 3.8 %; Mean Corpuscular HGB Conc 32.5 g/dL (31.8-35.4); Mean Corpuscular Hemoglobin 31.0 pg (27.0-31.2); Mean Corpuscular Volume 95.2 fl (80-94); Nucleated Red Blood Cells % 0.4 %; Platelet Count 239 K/mm3 (142-424); Red Blood Count 3.55 M/mm3 (4.60-6.20); Red Cell Distribution Width-SD 44.0 fL; White Blood Count 16.3 K/mm3 (4.8-10.8)
[2025-06-05 13:52] LABS: INR 1.43 (0.9-1.1); Prothrombin Time 15.5 seconds (10.1-12.5)
[2025-06-05 13:53] LABS: Alanine Aminotransferase 108 U/L (12-78); Albumin Level 3.0 g/dl (3.5-5.0); Albumin/Globulin Ratio 1.3 (1.1-1.8); Alkaline Phosphatase 49 U/L (38-126); Anion Gap 15.1 mEq/L (5-15); Aspartate Amino Transferase 171 U/L (17-59); Bilirubin,Total 0.4 mg/dl (0.2-1.3); Blood Urea Nitrogen 17 mg/dl (9-20); Calcium 7.7 mg/dl (8.4-10.2); Carbon Dioxide 22 mmol/L (22.0-30.0); Chloride 103 mmol/L (98-107); Creatinine,Serum 1.10 mg/dl (0.66-1.25); Estimated Glomerular Filt Rate 85 ml/min (>60); GFR (African American) 102 ML/MIN (>60); Globulin 2.3 g/dL (1.3-3.2); Glucose 254 mg/dl (74-100); Potassium 4.1 mmoL/L (3.5-5.1); Sodium 136 mmol/L (136-145); Total Protein,Serum 5.3 g/dl (6.3-8.2)
--- NOTE | 2025-06-05 13:54 | PC.NURSE ---
dr leung speaking with [facility]
--- NOTE | 2025-06-05 13:54 | PC.NURSE ---
at 1315 lab notified for emergent blood
[2025-06-05 13:55] LABS: Activated Partial Thrombo Time 66.1 seconds (22.8-30.6)
--- NOTE | 2025-06-05 13:55 | PC.NURSE ---
critical ptt 66.1. pt name and r/v. dr leung notified
--- NOTE | 2025-06-05 13:55 | PC.NURSE ---
1320 lab arrived with emergent blood
--- NOTE | 2025-06-05 13:56 | PC.NURSE ---
13[address] [place] [address] [place] declined for weather at 1325
--- NOTE | 2025-06-05 13:56 | PC.NURSE ---
1976 Nurse Dennis spoke with pts mother
--- OUTSIDE RECORDS SUMMARY | 2025-06-05 13:56 | XMS_ITS | Clinical Summary ---
Author Organization [facility] Address [address] [place] [address] Care Team Providers Care Clam Treader Name Role Phone Unavailable Primary Care Provider Unavailabl e Allergies No known active allergies Medications methocarbamol (Robaxin) 500 MG tablet Take 2 tablets by mouth 4 times a day as needed for muscle spasms for up to 10 days. 100 tablet 04/25/2025 Active Encounters Date Type Department Care Team Description 04/25/2025 1:01 AM EDT - 04/25/2025 2:49 AM EDT Emergency [facility] Emergency Department [address] [place] [address] Gideon Carpenter MD Acute pain of left shoulder (Primary Dx) Discharge Disposition: Home or Self Care 04/25/2025 Travel from Last 3 Months Social History Tobacco Use Types Packs/Day Years Used Date Smoking Tobacco: Never Assessed Sex and Gender Information Value Date Recorded Sex Assigned at Not on file Legal Sex Male 12:56 AM EDT Gender Identity Not on file Sexual Orientation Not on file Last Filed Vital Signs Vital Sign Reading [...] Mass Index 21.52 04/25/2025 1:01 AM EDT Plan of Treatment Health Maintenance Due Date Last Done Comments [facility]-Depression Screening 2003 [facility]-HIV Screening 2003 [facility]Hepatitis C Screening 2003 [facility]-Infant/Child/Adol SDOH Screenings 2003 HPV Vaccines (2 - Male 2-dose series) 12/16/2018 06/15/2018 [facility]-Hepatitis A Vaccines (2 of 2 - 2-dose series) 12/16/2018 06/15/2018 [facility]- SDOH Screenings 2021 [facility]-Adult SDOH Screenings 2021 DIF-ENXZT-35 Vaccine (1 - season) 2024 [facility]-DTaP,Tdap,and Td Vaccines (7 - Td or Tdap) 04/16/2025 04/16/2015, 11/25/2007, 11/26/2004, Additional history exists [facility]-Influenza Vaccine (#1) 2025 [facility]-Zoster Vaccines (1 of 2) 2053 04/16/2015, 11/26/2004 [facility]-HIB Vaccines Completed 11/26/2004, , 2003 [facility]-Hepatitis B Vaccines Completed 005, 03/06/2004, 2003 [facility]-IPV Vaccines Completed 11/25/2007, , 03/06/2004, Additional history exists [facility]-Varicella Vaccines Completed 04/16/2015, 2004 [facility]-Pneumococcal Vaccine: Pediatrics (0 to 5 Years) and At-Risk Patients (6 to 49 Years) Aged Out No longer eligible based on patient's age to complete this topic [facility]-Rotavirus Vaccines Aged Out No lo nger eligible based on patient's age to complete this topic Procedures Procedure Name Priority Date/Time Associated Diagnosis Comments XR SHOULDER LEFT 2+ VIEWS STAT 04/25/2025 2:17 AM EDT from Last 3 Months Results * XR Shoulder Left 2+ Views [...] the final edited report. Drafted by Osvaldo Mra MD on 04/25/2025 2:40 AM Final report signed by Roxanne Skaggs MD on 04/25/2025 2:47 AM us Gideon Carpenter MD IMG XR PROCEDURES Final Resul t from Last 3 Months Insurance [employer]
--- OUTSIDE RECORDS SUMMARY | 2025-06-05 13:56 | XMS_ITS | Encounter Summary ---
Author Organization Healthcare Address [address] [place] [address] Care Team Providers Care Airline Captain Name Role Phone Unavailable Primary Care Provider Unavailabl e Encounter Details Date Type Department Care Team (Latest Contact Info) Description 04/25/2025 Travel Social History Tobacco Use Types Packs/Day Years Used Date Smoking Tobacco: Never Assessed Sex and Gender Information Value Date Recorded Sex Assigned at Not on file Legal Sex Male 12:56 AM EDT Gender Identity Not on file Sexual Orientation Not on file documented as of this encounter Functional Status * Calculated C-SSRS [...] Muller RN documented as of this encounter Plan of Treatment Not on file documented as of this encounter Visit Diagnoses Not on filedocumented in this encounter
--- NOTE | 2025-06-05 13:57 | PC.NURSE ---
1345 family arrived for pt.
--- NOTE | 2025-06-05 13:57 | PC.NURSE ---
1350 lab platelet also called [facility] and they declined
--- NOTE | 2025-06-05 13:59 | PC.NURSE ---
1355 notified lab that we did not need the plasma
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
[2025-06-05 14:11] LABS: VBG HCO3 19.7 mmol/L (23-30); VBG PCO2 87.1 mmol/L (35-51); VBG PH 6.97 mmol/L (7.31-7.41); VBG PO2 50.4 mmol/L (28-40)
[2025-06-05 14:12] LABS: Lactate Venous 4.9 mmol/L (0.4-2.0)
[2025-06-05 14:24] LABS: Total Cells Counted 100
[2025-06-05] MEDS: IOPAMIDOL-370 (76%);100ML BOTTLE 80 ML IV ×2 (14:24)
[2025-06-05] MEDS: 0.9 % SODIUM CHLORIDE 50 ML VIAL IV ×2 (14:24)
[2025-06-05] MEDS: SODIUM CHLORIDE 0.9% 10ML SYR (RAD ONLY) 10 ML IV ×2 (14:24)
[2025-06-05 14:25] LABS: RBC Morphology Normal
[2025-06-05 14:26] LABS: ABG PH 7.04 mmol/L (7.35-7.45)
[2025-06-05 14:27] LABS: ABG HCO3 20.2 mmhg (22.0-26.0); ABG PCO2 76.3 mmhg (35.0-45.0); ABG PO2 181.4 mmhg (80-100); ABG TCO2 22.6 mmhg (23-27)
[2025-06-05 14:28] LABS: Source Right Femoral
--- NOTE | 2025-06-05 14:29 | XR_ITS ---
PROCEDURE INFORMATION: Exam: XR Chest Exam date and time: 06/05/2025 2:20 PM Age: 19 years old Clinical indication: Device placement; Chest tube; Additional info: Post chest tube TECHNIQUE: Imaging protocol: Radiologic exam of the chest. Views: 1 view. COMPARISON: CT ANGIO CHEST 06/05/2025 2:02 PM FINDINGS: Tubes, catheters and devices: Status post left-sided thoracostomy and chest tube placement with tip projecting over the left lung apex. Status post placement of transesophageal enteric tube with tip extending below the diaphragm and out of the field of view. Endotracheal tube in grossly stable position accounting for differences in projection/technique. Lungs: Airspace opacities, unchanged. Pleural spaces: Small bilateral pneumothoraces, not significantly changed. Heart/Mediastinum: Unchanged. Bones/joints: Unchanged. IMPRESSION: 1. Status post left-sided thoracostomy and chest tube placement with tip projecting over the left lung apex. 2. Status post placement of transesophageal enteric tube with tip extending below the diaphragm and out of the field of view. 3. No other significant interval change.
[2025-06-05 14:30] VITALS: BP 111/24; TEMP 35.2
[2025-06-05] MEDS: FENTANYL 100MCG/2ML VIAL 75 MCG IV (14:34)
[2025-06-05] MEDS: CALCIUM GLUC IN NACL, ISO-OSM 2 GM/100 ML BAG IV (14:34)
[2025-06-05] MEDS: FENTANYL CITRATE/PF 1,000 MCG in 0.9 % SODIUM CHLORIDE 80 ML 5 MCG IV (14:37)
--- NOTE | 2025-06-05 14:37 | PC.NURSE ---
SPEAKING WITH [facility]. FAMILY AT BEDSIDE WITH SECURITY INSPECTOR
[2025-06-05] MEDS: EPINEPHrine 0.1 MG/ML 10ML SYRINGE (CRASH CART) 1 MG IV (14:45)
[2025-06-05] MEDS: EPINEPHrine 5 MG in 0.9 % SODIUM CHLORIDE 250 ML 6.12 MG IV (14:45)
--- NOTE | 2025-06-05 14:46 | PC.NURSE ---
lab called for 1 unit emergent blood at this time.
--- NOTE | 2025-06-05 14:58 | PC.NURSE ---
1448 CRITICAL FINDINGS FROM [facility], PT NAME AND R/V REPORTED TO DR BLAND 1452 ADDITIONAL CRITICAL FINDINGS FROM [facility]. REPORTED TO DR BLAND. NO NEW ORDERS
[2025-06-05 15:00] VITALS: BP 91/43; PULSE 155; TEMP 35.3
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
[2025-06-05 15:15] VITALS: BP 91/43; PULSE 155; RESP 22; TEMP 35.3
[2025-06-05 15:28] VITALS: BMI 24.9
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
--- NOTE | 2025-06-05 16:09 | PC.NURSE ---
BLOOD ADMINISTRATION: UNIT #1: [id number] START:1328 STOP: 1330 UNIT# 2: [id number] START:1330 STOP:1345 UNIT #3: [id number] START: 1345 STOP: 1352 UNIT # 4: [id number] START:1352 STOP:1402 UNIT #5: [id number] START: 1452 STOP:1500 UNIT #6: FFP [id number] START: 1440 STOP: 1445 BLOOD ADMINISTERED PER Araceli GOLDEN RN
[2025-06-05] MEDS: NOREPINEPHRINE BITARTRATE 8 MG in 0.9 % SODIUM CHLORIDE 250 ML 15.48 MG IV (16:38)
[2025-06-05 17:26] LABS: Reflex Lactic Add Lactic Reflex
== END 2025-06-05 15:15 | disposition other institution (70) ==
PROVIDERS: Nurse Practitioner; Emergency Provider Student in an Organized Health Care Education/Training Program
DX: S72.91XB Unspecified fracture of right femur, initial encounter for open fracture type I or II (principal); J93.83 Other pneumothorax; S36.039A Unspecified laceration of spleen, initial encounter; S36.113A Laceration of liver, unspecified degree, initial encounter; S22.42XA Multiple fractures of ribs, left side, initial encounter for closed fracture; S27.322A Contusion of lung, bilateral, initial encounter; S01.01XA Laceration without foreign body of scalp, initial encounter; R40.2432 Glasgow coma scale score 3-8, at arrival to emergency department; V29.99XA Rider (driver) (passenger) of other motorcycle injured in unspecified traffic accident, initial encounter; Y92.410 Unspecified street and highway as the place of occurrence of the external cause
CPT/HCPCS: 12002; 31500; 32551; 36430; 51702; 70450; 70496; 70498; 71045; 71275; 72125; 72128; 72131; 72170; 74174; 80053; 82803; 85007; 85025; 85027; 85610; 85730; 86850; 92950; 96361; 96365; 96366; 96375; 99291; 99292; C1751; G0390; J0169; J0330; J0612; J3010; J7050; J7120; P9016; P9017; Q9967

== ENCOUNTER 2025-09-28 13:32 | Outpatient (CLI) | payer BC, SELFPAY ==
--- OUTSIDE RECORDS SUMMARY | 2025-08-17 16:49 | XMS_ITS | Encounter Summary ---
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 of your catheter vigorously with an antiseptic, such as a 70% alcohol swab, before each use. ? Checking for infection. The line is checked often for infection. It's removed as soon as you no longer need it. ? Cleaning your body every day with a soap called chlorhexidine gluconate (CHG). This soap helps reduce the risk for infection. ? Swabbing your nose with a povidine-iodine antiseptic several times during your hospital stay. This helps to prevent infections such as methyllin-resistant staphylococcus aureus (MRSA). What you can do to prevent infection Good handwashing helps prevent central line infections. Before you get a central line, ask questions. Find out why you need the line and where it will be placed. Learn what steps the hospital is taking to reduce your infection risk. After the line has been placed, you, your caregivers, and any visitors can help prevent infection by doing the following: ? Use good hand hygiene. Wash your hands often with soap and clean, running water (warm or cold), and use alcohol-based hand guide delegate with at least 60% alcohol as directed. To clean your hands well,follow the guidelines on this sheet. Visitors should wash their hands well when they arrive and when they leave. ? Make sure the health care staff and your visitors clean their hands. They should use soap and clean, running water or an alcohol-based hand guide delegate before and after checking the line. Don?t be afraid to remind them. ? Follow your hospital team's personal hygiene instructions. This may include bathing every day with CHG soap. ? Talk with your care team about how often your line needs to be used for drawing blood. If possible, have them draw blood from lower risk veins in your arm. ? Keep the line dry. Follow your doctor?s guidelines for bathing. If the dressing does get wet, tell your doctor right away. ? Limit touching your line. Even when your hands are clean, try not to touch the catheter or dressing. Remind visitors not to touch your line. ? Learn the sterile dressing technique. This is important if you will be caring for the line at home. Your care team will show you how to use sterile method to change your dressing. Tell your team ifthe dressing or area around it gets wet, dirty, or if the bandage is loose. ? At home, follow all instructions from your care team about how to care for your line and dressing. Change your dressing right away if it's loose or gets dirty. Risk for blood clot If a blood clot forms, it can block blood flow through the vein where the catheter is placed. Signsof a blood clot include pain or swelling in the neck, face, chest, or arm. If you have any of thesesymptoms, contact your doctor right away. You may need an ultrasound exam to locate the blood clot and receive treatment. Handwashing To protect the central line from germs, it?s very important to wash your hands often and clean themwell. You and anyone who comes in contact with you should follow these steps: ? Wet your hands with clean, running water (cold or warm). Don't use hot water. It can cause skin irritation when you wash your hands often. ? Apply enough soap to cover the entire surface of your hands, including your fingers. ? Rub your hands together briskly for at least 20 seconds. Make sure to rub the front and back of each hand up to the wrist, your fingers and fingernails, between the fingers, and each thumb. ? Rinse your hands with clean, running water. ? Dry your hands completely with a new, unused paper towel. Don?t use a cloth towel or other reusable towel. These can hold germs. ? Use the paper towel to turn off the faucet, then throw it away. If you?re in a bathroom, also usea paper towel to open the door instead of touching the handle. When you can't use soap and water, alcohol-based hand sanitizers are a good choice for cleaning your hands. The guide delegate should have at least 60% alcohol. Note that some germs can't be killed by alcohol. Your care team can answer any questions you have about when to use a hand guide delegate, or when it?s better to wash with soap and water. Follow these steps: ? Spread the hand guide delegate in the palm of one hand. (Check the package for specific guidelines.) ? Rub your hands together briskly. Clean the backs of your hands, the palms, between your fingers, and up your wrists. ? Rub until the guide delegate is gone and your hands are completely dry. When to contact your doctor Contact your doctor right away if you have a central line and: ? You have pain or burning in your shoulder, chest, back, arm, or leg. ? You have a fever of 100.4?? F ( 38??C) or higher, or as advised by your doctor. ? You have chills. ? You have pain, redness, drainage, burning, or stinging at the catheter site. ? You are coughing, wheezing, or feeling short of breath. ? You have a racing or irregular heartbeat. ? You have muscle stiffness or trouble moving. ? You hear gurgling noises coming from the catheter. ? Your catheter falls out, breaks, cracks, leaks, or has other damage. ? You bleed from the catheter or where it enters the skin. Last Reviewed Date: 2025 00:00:00 ?? [id number] [employer]. All rights reserved. This information is not intended as a substitute for professional medical care. Always follow your healthcare professional's instructions. * Efren Pitts - Niko Parikh RN - 08/23/2025 2:42 PM EDT Images from the original note were not included. [id number] Discharge Instructions: Caring for Your Peripherally Inserted Central Catheter (PICC) You are going home with a peripherally inserted central catheter (PICC). This small, soft tube has been placed in a vein in your arm. The tube was passed through a vein that leads to a larger vein near the heart (superior vena cava). A PICC is often used when treatment needs I.V. medicines, fluids,or nutrition for weeks or months. At home, you need to take care of your PICC to keep it working. APICC line has a high infection risk. So take extra care washing your hands and preventing the spread of germs. This sheet will help you remember what to do to care for your PICC at home. Understanding your role A nurse or other health care provider will teach you and your caregivers how to care for the PICC. Before leaving the hospital, make sure you understand what to do at home. Also ask how long you may need the PICC and when to have a follow-up visit. Write down important details about caring for your PICC, including: Follow-up visit date: PICC dressing change due date: Health care provider in charge of PICC care and their phone number: Who to contact with concerns about your PICC line and their phone number: Any other important information: Protecting the PICC If the PICC gets damaged, it won?t work right and could raise your chance of infection. Contact your care team right away if any damage occurs. To protect the PICC at home: ? Prevent infection. Use good hand hygiene by following the guidelines on this sheet. Don?t touch the catheter or dressing unless you need to. Always clean your hands before and after you come in contact with any part of the PICC. Your caregivers, family members, and any visitors should use good hand hygiene, too. ? Keep the PICC dry. The catheter and dressing must stay dry. Don?t take baths, go swimming, use a hot tub, or do other things that could get the PICC wet. Take a sponge bath to prevent getting your catheter wet, unless your health care provider tells you otherwise. Ask your provider about the bestway to keep your catheter dry when bathing or showering. If the dressing does get wet, change it only if you have been shown how. Otherwise, contact your care team right away for help. ? Don't damage the catheter. Don?t use any sharp or pointy objects around the catheter. This includes scissors, pins, knives, razors, or anything else that could cut it or put a hole in it (puncture it). Also, don?t let anything pull or rub on the catheter, such as clothing. Keep pets away from thePICC catheter. ? Watch for signs of problems. Pay attention to how much of the catheter sticks out from your skin.If this changes at all, let your provider know. Also watch for cracks, leaks, or other damage. If the dressing becomes dirty, loose, or wet, change it (if you have been directed to). Or contact your care team right away. ? Tell your care team if you vomit or have severe coughing. Although uncommon, coughing or vomitingmay move your catheter from its place. If a catheter moves, it may need to be inserted again. Protecting your arm The arm with the PICC is at risk for developing blood clots (thrombosis). This is a serious problem. To help prevent it: ? As much as possible, use the arm with the PICC in it for normal daily activities. Lack of movement can lead to blood clots. It?s important to move your arm as you normally would. Your care team maysuggest light arm exercises. ? Don't do activities or exercises that need major use of your arm, such as sports, unless your health care provider says it?s OK. ? Don't do any activities that cause pain in your arm. Talk to your care team if you have concerns about pain or range of motion. ? Don?t lift anything heavier than 10 pounds with the affected arm. ? Drink plenty of water. Staying hydrated helps keep clots from forming. Prevent infection with good hand hygiene A PICC can let germs into your body. This can lead to serious and sometimes deadly infections. To prevent infection, you, your caregivers, and others around you must practice good hand hygiene. This means washing your hands well with soap and water and cleaning them with an alcohol-based hand gel as directed. Never touch the PICC or dressing without first using one of these methods. To wash your hands with soap and water: ? Wet your hands with clean water. (Don't use hot water. It can irritate your skin when you wash your hands often.) ? Apply enough soap to cover the whole surface of your hands, including your fingers. ? Rub your hands together vigorously (using a lot of energy) for at least 20 seconds. Make sure to rub the front and back of each hand up to the wrist. Also rub your fingers and fingernails, between the fingers, and each thumb. ? Rinse your hands with clean water. ? Dry your hands completely with a new, unused paper towel. Don?t use a cloth towel or other reusable towel. These can harbor germs. ? Use the paper towel to turn off the faucet. Then throw it away. If you are in a bathroom, also use a paper towel to open the door instead of touching the handle. When you don?t have access to soap and water: Use an alcohol-based hand gel to clean your hands. The gel should have at least 60% alcohol. Let the alcohol fully dry. Follow the directions on the package. Your care team can answer any questions you have about when to use hand gel, or when it?s better to wash with soap and water. When to contact your doctor Contact your health care provider right away if you have: ? Pain or burning in your shoulder, chest, back, arm, or leg. ? A fever of 100.4??F ( 38??C) or higher, or as directed by your provider. ? Chills. ? Signs of infection at the catheter site (pain, redness, drainage, burning, or stinging). ? Coughing, wheezing, or shortness of breath. ? A racing or irregular heartbeat. ? Muscle stiffness or trouble moving. ? Tightness in your arm, above the catheter site. ? Gurgling noises coming from the catheter. ? A catheter that falls out, breaks, cracks, leaks, or has other damage. Last Reviewed Date: 2025 00:00:00 ?? [id number] [employer]. All rights reserved. This information is not intended as a substitute for professional medical care. Always follow your healthcare professional's instructions. * Efren Pitts - Niko Parikh RN - 08/23/2025 2:42 PM EDT Images from the original note were not included. Flushing Your Peripherally Inserted Central Catheter - Video Watch how regularly and safely cleaning your PICC line helps to keep your device working properly and prevent infection. To view the video go to this web address: [email or web address] Or, scan this QR code with your smart phone ?? [employer] * Efren OnSUKH - Niko Parikh RN - 08/23/2025 2:42 PM EDT Images from the original note were not included. [id number] Flushing Your PICC Line at Home Your peripherally inserted central catheter (PICC) line is used to deliver medicine or feedings. It?s a long, flexible tube (catheter) that goes into your vein, runs into larger veins, and ends up with the tip near where the superior vena cava enters your heart. To care for your PICC line, you willneed to flush it. This means you?ll need to clean it with a solution as directed by your health care provider. This keeps it from getting clogged or blocked. A clogged or blocked PICC line will need to be taken out and replaced. When to flush your PICC line You?ll need to flush your PICC line as often as directed by your health care provider. You may needto flush it after each use. If the PICC line is not in active use, you may need to flush it once a day. Or you may only need to flush it once a week. Talk with your provider about how often you should do this. What you?ll need ? Flushing solution. This is the liquid that you will send through the PICC line. Your health care provider will tell you what kind to use. In most cases, it is saline solution. This is a sterile mixof water and a tiny amount of salt. Your provider will also tell you how much to use. You may also need to flush with a heparin solution after the saline. Heparin is a medicine that thins the blood. It helps prevent blood from clotting in and around the catheter. ? A syringe. This is the device used to give an injection, or shot. A syringe is used to flush yourPICC line with the solution. You will probably use prefilled syringes. ? Alcohol wipes or rubbing alcohol and cotton balls. You?ll use these to clean some of the tools used to flush your line. This helps to prevent germs from going into your PICC line. ? Clean medical gloves. How to flush your PICC line Repeat these steps as often as your health care provider has instructed. Skip steps 2 and 3 if you are using prefilled syringes. Step 1. Wash your hands ? Wash your hands well with soap and clean running water for at least 20 seconds. Scrub them well, including the backs of your hands and between your fingers. ? If you don?t have access to soap and water, use an alcohol-based hand guide delegate. The gel should have at least 60% alcohol. Let the hands dry. ? Put on clean medical gloves. ? Only touch your PICC line with clean hands and when wearing clean gloves. This is to protect you from infection and to keep the line free from germs. Step 2. Fill the syringe ? Open a new bottle of the flushing solution. If you?re using a bottle that?s already open, use thealcohol to clean the top of the bottle. ? Remove the cap from the needle or tip of the syringe. Push the plunger of the syringe down all the way. ? Put the needle or tip of the syringe into the flushing solution. ? Pull the syringe plunger out. Stop when you have the right amount of flushing solution in the syringe. Your health care provider will tell you how much to use. Step 3. Remove air from the syringe ? Hold the syringe with the tip pointing up. ? Flick or tap the syringe with your finger. This will cause any large air bubbles to rise into thetip. ? Slowly push on the plunger until a tiny drop of flushing solution comes out of the needle or tip. ? Put the cap back on the needle or tip of the syringe. This will keep it germ- free until you use it. Step 4. Inject the flushing solution ? Scrub the top and sides of the port (end of the catheter) with an alcohol wipe for 15 seconds. Scrub using a twisting motion as if juicing an orange. Let it dry completely. Prevent it from touchinganything while drying. Don't blow on it. Don't reuse the alcohol wipe. Keep the port from touching anything until you connect the syringe. If you accidentally touch the port, clean it again. ? Open the clamp, if there is one. ? Take the cap off the needle or tip of the syringe. Insert the needle or tip into the port. Make sure you know if your PICC has a needleless connector. Ask your health care provider if you aren't sure. ? Push the plunger in slowly and smoothly. Don?t force the plunger. You shouldn?t feel any pressurewhen you push the fluid into the PICC line. If you do, stop and call your provider right away. Step 5. Finish flushing ? If there is a clamp, close it just before the syringe is empty. This stops blood from flowing back into the catheter. ? Remove the needle or tip of the syringe from the port. ? Put the syringe into a special container ([employer] container). When to contact your doctor Contact your health care provider right away if you have: ? A fever of 100.4??F (38??C) or higher, or as directed by your provider. ? Chills during or after flushing your line. ? Swelling, redness, drainage, or pain around the PICC site. ? Bleeding from the PICC site. ? Tubing that leaks or is pulling out. ? A feeling of new resistance when flushing the PICC line, or you can't flush it at all. ? Medicine or fluids that don't drain from the bag into your PICC. Last Reviewed Date: 2025 00:00:00 ?? [id number] [employer]. All rights reserved. This information is not intended as a substitute for professional medical care. Always follow your healthcare professional's instructions. * Efren Pitts - Niko Parikh RN - 08/23/2025 2:42 PM EDT Images from the original note were not included. [id number] PICC Line Care PICC stands for peripherally inserted central catheter. This is a short-term (temporary) tube that's used instead of a regular I.V. (intravenous) line. Reasons for using a PICC line A PICC line may be used because: ? It reduces the discomfort of putting in a new I.V. every time it's needed. ? Medicine or nutrition needs to be given over a period of weeks or even months. ? A PICC can stay in place longer than an I.V., so it reduces needle sticks. ? It reduces damage to small veins, where an I.V. is normally inserted. This can allow some substances that damage small veins to be infused safely and comfortably. ? A PICC may have more than one channel, so different fluids or medicines can be given at the same time. ? A PICC line allows for home therapy. Your PICC will need some care to keep it clean and working. This care includes: ? Changing the bandage (dressing). ? Flushing the catheter with fluids. ? Changing the cap on the end of the catheter. A nurse or other health care provider will teach you how to do each of these things. If you have any questions, contact your care team. Home care The following are general care guidelines that will help you care for your PICC line at home: ? You can use your arm. But stay away from any activity that causes pain. ? Don't pick at it or pull on the tubing. ? Don?t lift anything heavier than 10 pounds with the arm on the side of the PICC line. ? The PICC line and dressing should not get wet. When you bathe or shower, tape plastic wrap over the site to keep it dry. ? Don't put the PICC site under water. No swimming or hot tubs. If the dressing gets wet, change itright away if you've been trained to do so. If not, contact your care team. ? Always wash your hands with soap and clean, running water before and after touching any part of your PICC. ? Don't allow the tubing to hang freely. Make sure to keep the tubing covered and secured to your arm to prevent the PICC line from being pulled out by accident. ? Don?t use any sharp or pointy objects around the catheter. This includes scissors, pins, knives, and razors. The following tips will help you with dressing changes: ? Change the dressing over the site as directed. This is usually once a week. Change it sooner if the dressing gets wet or soiled. Check the dressing daily. ? You or a family member may be able to do the dressing change at home. Or you may be instructed toreturn to the office or clinic for dressing changes. ? Sterile technique must be used for PICC dressing change. If your dressing is changed at home, be sure you or your family member knows the sterile dressing technique. Contact your health care provider for instructions if you need them. Follow-up care Follow up as advised by your health care provider. When to get medical care Contact your health care provider right away if any of these occur: ? Fever of 100.4??F (38??C) or higher, or as advised by your provider ? Drainage from the PICC site ? Swelling or bulging around the PICC site, or anywhere above the insertion site ? Bleeding from the PICC site ? Skin pulling away from the PICC site ? Redness, warmth, or pus at the PICC site ? Tubing breaks, splits, or leaks ? More exposed tubing (tubing seems longer), or the tubing is pulled out completely ? Medicine or fluids don't drain from the bag into your PICC ? Coughing, wheezing, or shortness of breath ? A racing or irregular heartbeat ? Muscle stiffness or trouble moving the arm Last Reviewed Date: 2025 00:00:00 ?? [id number] [employer]. All rights reserved. This information is not intended as a substitute for professional medical care. Always follow your healthcare professional's instructions. * Niko Arambula RN - 08/23/2025 2:42 PM EDT Images from the original note were not included. [id number] * Niko Arambula RN - 08/23/2025 2:41 PM EDT Images from the original note were not included. [id number] Frequently Asked Questions about OPAT - Outpatient Parental Antimicrobial Therapy What is OPAT? Antibiotics are used to treat infections. They are often given either as pill to take by mouth or as a fluid to inject into a vein. Injecting medicines is called IV (intravenous) therapy or parenteral therapy. When IV antibiotic therapy is given at home, it?s called OPAT (Outpatients Parental Antibiotic therapy). To qualify for OPAT, you must: (1) be ready to leave the hospital, and (2) still need antibiotics. The OPAT team will also need to make sure you?ll be safe at home. What types of long-term IV lines are there? Peripherally Inserted Central Catheter (PICC)/Midline Central Venous Catheter (CVC) Port-a-Cath (PORT) After I leave the hospital, who will give me the IV antibiotics and care for my central line? 1. Before you leave the hospital, an OPAT Nurse Navigator will assess you. Then the nurse will teach you or a caregiver how to safely give IV antibiotics and care for the line. 2. You will receive supplies from the infusion company. The company will teach you about the IV antibiotics and delivery system. 3. At least once a week, you will need labs and PICC line care (dressing change). This will be doneby a home health nurse at your house or a medical facility. The wrapper caser/elementary school social worker will setthat up based on your insurance. Your infectious disease provider will check these labs. 4. The OPAT team may call to review your lab results. It?s important to answer your phone or returnthe phone call within 24 hours. How long will my antibiotic treatment last? This will depend on your infection and your infectious disease provider. Is it important to show up for OPAT clinic follow-up appointments? Yes. It is very important. During your appointment, the infectious disease provider will go over your labs and check for responses to the antibiotics. The provider will make sure the PICC line is safe and the antibiotics are working. What if I have questions or concerns about OPAT treatment? ? Call the OPAT team at (Select Option 3 for IV Antibiotics/PICC Issues) between 8 a.m.-5 p.m. ? After 5 p.m. or during weekends/[place] holidays, call the paging shell reprint operator at . Ask for the infectious disease fellow web content coordinator. Call the clinic if you have any of these: ? Fevers greater than 100.5??F ? An allergic reaction, such as rash ? Nausea, vomiting, or diarrhea ? New or returning redness near the IV line ? Redness, pain, swelling, or pus around the IV line * Progress Notes - Niko Parikh RN - 08/23/2025 2:31 PM EDT OPAT Enrollment Progress Note Patient: Helder Montero : 2005 Referring ID Team: Bone and Joint Indications for Use: Osteoarticular Infection, non-prosthetic (Additional Indications for Use comments may be attached to the order. To view those comments, please review the order in Chart Review) Evaluation Start Date: 08/23/25 Evaluation Status: Complete Enrollment Status: Standard OPAT Appropriate Standard Enrollment Plan: Rehab to Home Number of IV Medications: 1 Delivery Method: Elastomeric Continuous OPAT Nurse Navigator Eligibility and Assessment Note (Standard OPAT) Patient has met all established OPAT criteria to safely and successfully administer IV antibiotics at home via a central venous access device. It is the opinion of the ID team that the patient can bedischarged home to complete their IV antibiotic course. Patient Name: Helder Montero Primary ID Diagnosis: Osteoarticular Infection, non-prosthetic Referring ID Provider: Dr. Johnny Suresh IV Antimicrobial Therapy Plan: See OPAT MD intake note for final recommendations IV Recommendation: Single Lumen PICC Patient Specific Outpatient Circumstances: [address] [place] [address] [place] [address] Family Support: Extended Emergency Contact Information Primary Emergency Contact: Tyler Montero Mobile Relation: Father Secondary Emergency Contact: DonovanririIsabella Mobile Relation: Mother Jane Duong(grandmother) [phone] Contact information: Helder Montero [phone] (home) Outpatient services (including home infusion, home health, facility referral: See recent [facility] case management/social work note for finalization of services ID follow up appointment: Future Appointments Date Time Provider Department Center 09/14/2025 2:00 PM Inocente West MD [facility] 09/18/2025 9:30 AM Tyler Suresh MD [email or web address] [place] 09/21/2025 9:40 AM Chelsea Waters PA [facility] 09/21/2025 11:10 AM [facility] 09/27/2025 11:00 AM Michael Scales MD [facility] Patient Assessment I spoke with patient significant other and grandmother at bedside and completed an initial assessment with regarding eligibility for the Outpatient Parenteral Antimicrobial Therapy (OPAT) program. I explained the OPAT program and its service including IV antimicrobial management, lab monitoring, follow up appointments' reminders. Patient states Vianca Brown (significant other) [phone] and Jane Duong(grandmother) [phone] can help with IV antimicrobial administration at home. I have reached out to the patients' recognized support and family confirmed they will be able to assist the patient in IV antimicrobial a dministration after discharged. Transportation were identified and confirmed with help of significant other and grandmother. No barriers identified that would preclude participation in the Standard OPAT program at this time, the patient appeared to be a good candidate for the Standard OPAT program. Patient, significant other and grandmother was educated about how PICC line is placed, s/s of infection at the PICC line insertion site, how to keep the PICC line dressing dry while bathing, weight lifting limitations of 10 pounds or more, avoiding intense physical work and any repetitive motion within arm the PICC line was placed and how the PICC line dressing must be changed each week, weekly lab monitoring, and OPAT availability. Additionally, the patient was informed about IV antimicrobial therapy, including possible administration methods (continuous infusion, IV push, gravity method, IVpump), estimated duration of therapy, and the possibility of treatment adjustments based on cultureresults. Patient and family prefers elastomeric delivery system. Patient, significant other and grandmother verbalized understanding of information provided. They completed verbal teach-back and demonstrated teach- back to confirm competency regarding topics discussed above. Patient was provided the PICC /MIDLINE/CVC/PORT/ agreement and signed prior to conclusionof the discussion by the nurse navigator. Patient also consented to receive voicemail messages fromthe OPAT team on their cell phone. An OPAT program packet, including patient treatment information, education checklist and contact information, was provided to patient and significant other and grandmother for reference in case of questions or concerns. The OPAT nurse navigator will continue to follow the patient for any changes inthe discharge plan. Please direct questions to myself, another member of the OPAT team, or the ID consulting provider via secure chat or staff messaging in [employer]. Thank you for allowing us to participate in this patient's care. This note is not the final recommendations from the infectious diseases team, please refer to the most recent note for this information. *If patient is discharged Home, [facility] needs to Educate patient/ spouse/family/friend/significant other, prior to discharge. * Niko BENAVIDEZ, RN 08/23/2025 * Care Plan - Isabella Dunlap RN - 08/23/2025 1:51 PM EDT Problem: Wound Goal: Skin Health and Integrity Outcome: Ongoing, Progressing Intervention: Optimize Skin Protection Flowsheets (Taken 08/23/2025 1351) Pressure Reduction Techniques: weight shift assistance provided Skin Protection: protective dressing applied Note: Patient evaluated by WOCN, individualized orders placed and care plan interventions placed, see wound care note for further details. * Progress Notes - Isabella Dunlap RN - 08/23/2025 1:39 PM EDT Images from the original note were not included. Wound Care Consult Visit Date: 08/23/2025 Patient Name: Helder Montero Date of : 2005 Admit Date: 08/17/2025 Reason for Visit: Instillation wound vac placement Wound Assessment: Wound 07/17/25 Pressure Injury Coccyx (Active) Date First Assessed: 07/17/25 Present on Original Admission: No Primary Wound Type: Pressure InjuryVerified by WOCN?: Verified Pressure Injury Stage: Deep Tissue Injury Location: Coccyx Wound Description (Comments): deep purple non blanching Assessments 08/23/2025 10:58 AM Wound Image Discussed vac therapy with patient to provide education, patient agreeable to placement. Turned with one assist, cleansed wound and surrounding skin, placed one piece cleanse choice complete. Dermatec drape placed, suction achieved at 125mmHg. Instill 6ml for 10 minutes every 2 hours. Taped tubing to heel allevyn up to left hip to prevent pressure injury from tubing. Patient turned with pillows; discussed most vital aspect of wound care is offloading. Per primary RN patient refused 10am turn; pillow was present under patient but demonstrated to patient it was notproviding any offload. Demonstrated 30 degree turn with hand check to patient. Wound Assessment Red;White;Sloughing Mary-Wound Assessment Hyperpigmented Wound Length (cm) 5.5 cm Wound Width (cm) 5.7 cm Wound Surface Area (cm^2) 24.62 cm^2 Drainage Description Serosanguineous Drainage Amount Scant Treatments Cleansed;Saline Dressing Vacuum dressing Dressing Changed New Pressure Injury Stage Stage 4 Active Orders Date Order Priority Status Authorizing Provider 08/23/25 1335 Wound Vac Dressing Changes (With Instillation) Coccyx Pressure Injury Routine Active Monica Denny, DO - Who is to perform dressing change:: Nursing Staff - Wound Vac Instillation schedule: 10 minute instillation every 2 hours - mmHg:: 125 mmHg Change Saturday 08/25 then M/W/ Instillation 6ml every 2 hours for 10 minutes; instill fluid 0.125% Dakin's/sodium hypochlorite. With each change cleanse periwound skin with soap and water and pat dry. One piece cleanse choice complete foam cut to fit wound base with holes-side down, dermatec drape over top. (Dermatec drape does not require cavilon or window pane drape before foam placement). Wound team will follow weekly and PRN to support changes by nursing staff. Contact wound vac competent user on floor or super user for assistance with troubleshooting and MWF change. If unavailable, please contact wound ostomy team. Per policy, if vac off suction for more than 2 hours and unable to troubleshoot to achieve seal or replace vac, wound vac must be taken down and packed wet to dry until vac can be replaced. If new kati (bright red) blood/uncontrolled bleeding is noted in tubing or canister, immediately stop vac therapy, leave dressing in place, contact first call provider immediately. 08/18/25 0858 Positioning Patient (Pressure injury prevention) -No Supine. Reposition from side to side; Float Heels off the bed all times; Reposition patient while on bed every two hours, Repositionpatient in the chair at least every hour. Limit sitting to no... Routine Active Lena Sanchez R, DO - Supine:: No Supine. Reposition from side to side - Float heels:: Float Heels off the bed all times - Reposition patient:: Reposition patient while on bed every two hours - Reposition patient:: Reposition patient in the chair at least every hour. Limit sitting to no more than 2 hours at a time. Use air cushion while sitting - Reposition patient:: Float heels off the bed all times - Reposition patient:: Turn patient to 30 degress as medically appropriate Wound Team Plan: Wound care will follow up at regular intervals while inpatient; bedside nursing tofollow wound care recommendations as ordered and please re- consult sooner for new changes or concerns prior to follow up. Isabella Dunlap RN 08/23/2025 1:39 PM * Care Plan - Rebecca Kamara RN - 08/23/2025 10:16 AM EDT Problem: Adult Inpatient Plan of Care Goal: Plan of Care Review Outcome: Ongoing, Progressing Flowsheets (Taken 08/23/2025 0056 by Dorcas Anthony) Progress: no change Outcome Evaluation: Patient withdrawn and depressed. Not wanting to participate in POC planning. Plan of Care Reviewed With: patient Goal: Patient-Specific Goal (Individualized) Outcome: Ongoing, Progressing Flowsheets (Taken 08/23/2025 0900) Patient/Family-Specific Goals (Include Timeframe): pt will get wound vac placed today Individualized Care Needs: safety, wound care Anxieties, Fears or Concerns: None Goal: Absence of Hospital-Acquired Illness or Injury Outcome: Ongoing, Progressing Intervention: Identify and Manage Fall Risk Flowsheets (Taken 08/23/20251012) Safety Promotion/Fall Prevention: clutter-free environment maintained Intervention: Prevent Skin Injury Flowsheets (Taken 08/23/20251012) Body Position: refused by patient education provided Skin Protection: incontinence pads utilized Intervention: Prevent and Manage VTE (Venous Thromboembolism) Risk Flowsheets (Taken 08/23/20251012) VTE Prevention/Management: medication Intervention: Prevent Infection Flowsheets (Taken 08/23/20251012) Infection Prevention: hand hygiene promoted Goal: Optimal Comfort and Wellbeing Outcome: Ongoing, Progressing Intervention: Monitor Pain and Promote Comfort Flowsheets (Taken 08/23/20251012) Pain Management Interventions: pillow support provided Intervention: Provide Person-Centered Care Flowsheets (Taken 08/23/20251012) Trust Relationship/Rapport: care explained Problem: Wound Goal: Optimal Coping Outcome: Ongoing, Progressing Intervention: Support Patient and Family Response Flowsheets (Taken 08/23/20251012) Supportive Measures: active listening utilized Goal: Optimal Functional Ability Outcome: Ongoing, Progressing Intervention: Optimize Functional Ability Flowsheets (Taken 08/23/20251012) Activity Management: activity adjusted per tolerance Goal: Absence of Infection Signs and Symptoms Outcome: Ongoing, Progressing Intervention: Prevent or Manage Infection Flowsheets (Taken 08/23/20251012) Infection Management: aseptic technique maintained Goal: Improved Oral Intake Outcome: Ongoing, Progressing Intervention: Promote and Optimize Oral Intake Flowsheets (Taken 08/23/20251012) Nutrition Interventions: food preferences provided Goal: Optimal Pain Control and Function Outcome: Ongoing, Progressing Intervention: Prevent or Manage Pain Flowsheets (Taken 08/23/20251012) Pain Management Interventions: pillow support provided Sleep/Rest Enhancement: awakenings minimized Goal: Skin Health and Integrity Outcome: Ongoing, Progressing Intervention: Optimize Skin Protection Flowsheets (Taken 08/23/20251012) Activity Management: activity adjusted per tolerance Pressure Reduction Techniques: positioned off wounds Pressure Reduction Devices: heel offloading device utilized Head of Bed (HOB) Positioning: HOB at 30-45 degrees Goal: Optimal Wound Healing Outcome: Ongoing, Progressing Intervention: Promote Wound Healing Flowsheets (Taken 08/23/20251012) Sleep/Rest Enhancement: awakenings minimized Problem: Infection Goal: Absence of Infection Signs and Symptoms Outcome: Ongoing, Progressing Intervention: Prevent or Manage Infection Flowsheets (Taken 08/23/2025 1013) Infection Management: aseptic technique maintained Problem: Self-Care Deficit Goal: Improved Ability to Complete Activities of Daily Living Outcome: Ongoing, Progressing Intervention: Promote Activity and Functional [place] Flowsheets (Taken 08/23/2025 1013) Self-Care Promotion: meal set-up provided Problem: Mobility Impairment Goal: Optimal Mobility Outcome: Ongoing, Progressing Intervention: Optimize Mobility Flowsheets (Taken 08/23/2025 1013) Activity Management: activity adjusted per tolerance Problem: Fall Injury Risk Goal: Absence of Fall and Fall-Related Injury Outcome: Ongoing, Progressing Intervention: Identify and Manage Contributors Flowsheets (Taken 08/23/2025 1013) Self-Care Promotion: meal set-up provided Intervention: Promote Injury-Free Environment Flowsheets (Taken 08/23/2025 101) Safety Promotion/Fall Prevention: clutter-free environment maintained * Care Plan - Yohanl, Summer - 08/23/2025 1:01 AM EDT Care plan reviewed. Problem: Skin Injury Risk Increased Goal: Skin Health and Integrity Outcome: Ongoing, Not Progressing Intervention: Optimize Skin Protection Flowsheets Taken 08/23/2025 0000 Head of Bed (HOB) Positioning: HOB at 20-30 degrees Taken 08/22/20251999 Activity Management: activity adjusted per tolerance Pressure Reduction Techniques: heels elevated off bed positioned off wounds Pressure Reduction Devices: heel offloading device utilized Skin Protection: incontinence pads utilized Intervention: Promote and Optimize Oral Intake Flowsheets (Taken 08/22/20251999) Oral Nutrition Promotion: rest periods promoted Nutrition Interventions: food preferences provided Problem: Mobility Impairment Goal: Optimal Mobility Outcome: Ongoing, Not Progressing Intervention: Optimize Mobility Flowsheets (Taken 08/22/20251999) Activity Management: activity adjusted per tolerance Positioning/Transfer Devices: pillows Problem: Adult Inpatient Plan of Care Goal: Plan of Care Review Outcome: Ongoing, Progressing Flowsheets (Taken 08/23/2025 0056) Progress: no change Outcome Evaluation: Patient withdrawn and depressed. Not wanting to participate in POC planning. Plan of Care Reviewed With: patient Goal: Patient-Specific Goal (Individualized) Outcome: Ongoing, Progressing Flowsheets (Taken 08/22/20251999) Patient/Family-Specific Goals (Include Timeframe): pt. will remain free from further skin breakdownduring this shift Individualized Care Needs: turns Q2, wound care, emotional support, safety Anxieties, Fears or Concerns: having to stay in the hospital longer Goal: Absence of Hospital-Acquired Illness or Injury Outcome: Ongoing, Progressing Intervention: Identify and Manage Fall Risk Flowsheets (Taken 08/23/2025 0000) Safety Promotion/Fall Prevention: clutter-free environment maintained fall prevention program maintained room organization consistent safety round/check completed Intervention: Prevent Skin Injury Flowsheets Taken 08/23/2025 0056 Body Position: turned heels elevated Taken 08/22/20251999 Skin Protection: incontinence pads utilized Intervention: Prevent and Manage VTE (Venous Thromboembolism) Risk Flowsheets (Taken 08/22/20251999) VTE Prevention/Management: medication Intervention: Prevent Infection Flowsheets (Taken 08/22/20251999) Infection Prevention: environmental surveillance performed Goal: Optimal Comfort and Wellbeing Outcome: Ongoing, Progressing Intervention: Monitor Pain and Promote Comfort Flowsheets (Taken 08/22/20251999) Pain Management Interventions: pillow support provided position adjusted rest Intervention: Provide Person-Centered Care Flowsheets (Taken 08/22/20251999) Trust Relationship/Rapport: care explained choices provided emotional support provided empathic listening provided thoughts/feelings acknowledged Problem: Wound Goal: Optimal Coping Outcome: Ongoing, Progressing Intervention: Support Patient and Family Response Flowsheets (Taken 08/22/20251999) Supportive Measures: active listening utilized verbalization of feelings encouraged Family/Support System Care: presence promoted Goal: Optimal Functional Ability Outcome: Ongoing, Progressing Intervention: Optimize Functional Ability Flowsheets (Taken 08/22/20251999) Activity Management: activity adjusted per tolerance Goal: Absence of Infection Signs and Symptoms Outcome: Ongoing, Progressing Intervention: Prevent or Manage Infection Flowsheets (Taken 08/22/20251999) Infection Management: aseptic technique maintained Fever Reduction/Comfort Measures: lightweight bedding lightweight clothing Isolation Precautions: precautions maintained Goal: Improved Oral Intake Outcome: Ongoing, Progressing Intervention: Promote and Optimize Oral Intake Flowsheets (Taken 08/22/20251999) Nutrition Support Management: weight trending reviewed Oral Nutrition Promotion: rest periods promoted Nutrition Interventions: food preferences provided Goal: Optimal Pain Control and Function Outcome: Ongoing, Progressing Intervention: Prevent or Manage Pain Flowsheets (Taken 08/22/20251999) Pain Management Interventions: pillow support provided position adjusted rest Goal: Skin Health and Integrity Outcome: Ongoing, Progressing Intervention: Optimize Skin Protection Flowsheets Taken 08/23/2025 Head of Bed (HOB) Positioning: HOB at 20-30 degrees Taken 08/22/20251999 Activity Management: activity adjusted per tolerance Pressure Reduction Techniques: heels elevated off bed positioned off wounds Pressure Reduction Devices: heel offloading device utilized Skin Protection: heel offloading device utilized incontinence pads utilized Goal: Optimal Wound Healing Outcome: Ongoing, Progressing Intervention: Promote Wound Healing Flowsheets (Taken 08/22/20251999) Sleep/Rest Enhancement: awakenings minimized family presence promoted natural light exposure provided room darkened Problem: Infection Goal: Absence of Infection Signs and Symptoms Outcome: Ongoing, Progressing Intervention: Prevent or Manage Infection Flowsheets (Taken 08/22/20251999) Infection Management: aseptic technique maintained Fever Reduction/Comfort Measures: lightweight bedding lightweight clothing Isolation Precautions: precautions maintained Problem: Self-Care Deficit Goal: Improved Ability to Complete Activities of Daily Living Outcome: Ongoing, Progressing Intervention: Promote Activity and Functional [place] Flowsheets Taken 08/22/20251999 Self-Care Promotion: meal set-up provided Taken 08/21/20251999 Adaptive Equipment Use: use encouraged Problem: Fall Injury Risk Goal: Absence of Fall and Fall-Related Injury Outcome: Ongoing, Progressing Intervention: Identify and Manage Contributors Flowsheets (Taken 08/22/20251999) Medication Review/Management: medications reviewed Self-Care Promotion: meal set-up provided Intervention: Promote Injury-Free Environment Flowsheets (Taken 08/23/2025 0000) Safety Promotion/Fall Prevention: clutter-free environment maintained fall prevention program maintained room organization consistent safety round/check completed * Care Plan - Isabella Dunlap RN - 08/22/2025 5:10 PM EDT Problem: Wound Goal: Skin Health and Integrity Outcome: Ongoing, Progressing Intervention: Optimize Skin Protection Flowsheets (Taken 08/22/2025 1710) Pressure Reduction Techniques: weight shift assistance provided positioned off wounds heels elevated off bed Skin Protection: heel offloading device utilized protective dressing applied Note: Patient evaluated by WOCN, individualized orders placed and care plan interventions placed, see wound care note for further details. * Progress Notes - Isabella Dunlap RN - 08/22/2025 4:57 PM EDT Images from the original note were not included. Wound Care Consult Visit Date: 08/22/2025 Patient Name: Helder Montero Date of : 2005 Admit Date: 08/17/2025 Reason for Consult: IP Wound Orders (From admission, onward) Start Ordered 08/19/25 0240 Wound ostomy eval and treat Coccyx Pressure Injury Once Comments: Patient needs new approach for wound care to sacral area, needs : use santyl applied to wet moistened gauze , into wound bed, as a wet to dry dressing, cover with abd adding and allyven, Changed twice a day Question Answer Comment Reason for consult: Wound/pressure injury 08/19/25 0241 08/18/25 0548 Wound ostomy eval and treat Coccyx Pressure Injury Once Comments: Sacral decubitus ulcer d/t paraplegia and bedridden 08/18/25 0549 Wound Assessment: Wound 06/09/25 Surgical Leg Anterior;Distal;Right;Upper (Active) Date First Assessed: 06/09/25 Present on Original Admission: No Primary Wound Type: Surgical Location: Leg Wound Location Orientation: Anterior;Distal;Right;Upper Assessments 08/22/2025 3:57 PM Wound Image Right leg with scarred incisions; one small scab remaining, open to air. Wound Assessment Dry;Brown (scab) Mary-Wound Assessment Scarred Wound 06/25/25 Pressure Injury Heel Right (Active) Date First Assessed/Time First Assessed: 06/25/25 193 Present on Original Admission: Yes Primary Wound Type: Pressure Injury Pressure Injury Stage: Unstageable Location: Heel Wound Location Orientation: Right Assessments 08/22/2025 3:59 PM Wound Image Right heel pressure injury consistent with unstageable; 50% red granulation 50% soft black eschar. Continue with polymem daily. Heels offloaded in blue boots. Wound Assessment Dry;Black;Eschar;Red;Granulation Treatments Cleansed;Saline Dressing Foam (polymem and heel allevyn) Dressing Changed Changed Pressure Injury Stage Unstageable Active Orders Date Order Priority Status Authorizing Provider 08/22/251655 Apply/Change Wound Dressing 4 Wounds Associated Routine Active EduinTripp laguerrea M, DO - Dressing Type: Other Dressings - Other: Other (Comment) - Other dressing (comment):: Left lateral distal leg, left dorsal foot, bilateral heels - cleanse and apply polymem and dry dressing (allevyn or covaderm). Change polymem daily. Wound 06/25/25 Pressure Injury Heel Left (Active) Date First Assessed/Time First Assessed: 06/25/25 193 Present on Original Admission: Yes Primary Wound Type: Pressure Injury Pressure Injury Stage: Unstageable Location: Heel Wound Location Orientation: Left Assessments 08/22/2025 4:04 PM Wound Image Left heel eschar lifting at margins, trimmed with intact pink skin beneath. Centrally adherent. Placed foam dressing. Wound Assessment Dry;Brown;Eschar (lifting at margins, trimmed) Treatments Cleansed;Saline Dressing Foam (allevyn) Dressing Changed Changed Pressure Injury Stage Unstageable Active Orders Date Order Priority Status Authorizing Provider 08/22/251655 Apply/Change Wound Dressing 4 Wounds Associated Routine Active Tripp Dennya M, DO - Dressing Type: Other Dressings - Other: Other (Comment) - Other dressing (comment):: Left lateral distal leg, left dorsal foot, bilateral heels - cleanse and apply polymem and dry dressing (allevyn or covaderm). Change polymem daily. Wound 06/30/25 Toe (Comment which one) Anterior;Left (Active) Date First Assessed/Time First Assessed: 06/30/251999 Location: Toe (Comment which one) Wound Location Orientation: Anterior;Left Assessments 08/22/2025 3:58 PM Wound Image Continue with betadine for dry necrotic distal toes. Wound Assessment Black;Eschar Active Orders Date Order Priority Status Authorizing Provider 08/22/251654 Apply/Change Wound Dressing 2 Wounds Associated Routine Active Eduin, Monica M, DO - Dressing Type: Other Dressings - Other: Other (Comment) - Other dressing (comment):: Toes with eschar: Clean with soap and water, pat dry, paint with betadine twice daily. allow to dry, wrap with dry gauze or leave open to air Wound 06/30/25 Toe (Comment which one) Anterior;Right (Active) Date First Assessed/Time First Assessed: 06/30/251999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 08/21/2025799) Activity Management: activity adjusted per tolerance Positioning/Transfer Devices: pillows * Niko Arambula RN - 08/21/2025 7:43 AM EDT Images from the original note were not included. Flushing Your Peripherally Inserted Central Catheter - Video Watch how regularly and safely cleaning your PICC line helps to keep your device working properly and prevent infection. To view the video go to this web address: https://bit.[email or web address] Or, scan this QR code with your smart phone ?? [facility] * Niko Arambula RN - 08/21/2025 7:42 AM EDT Images from the original note were not included. Living With Your Peripherally Inserted Central Catheter - Video Watch these tips to keeping your long-term PICC line infection-free and in good working order, and how to recognize infections and serious health complications. To view the video go to this web address: https://bit.[email or web address] Or, scan this QR code with your smart phone ?? [facility] * Niko Arambula RN - 08/21/2025 7:42 AM EDT Images from the original note were not included. What is a Peripherally Inserted Central Catheter? - Video Learn how a peripherally inserted central catheter device is used to safely deliver long-term medications and draw blood samples. To view the video go to this web address: https://bit.ly/3UPNVjA Or, scan this QR code with your smart phone ?? [facility] * Niko Arambula RN - 08/21/2025 7:42 AM EDT Images from the original note were not included. [id number] Central Line Infections You need a central line as part of your treatment. It?s also called a central venous access device (CVAD) or central venous catheter (CVC). A small, soft tube called a catheter is put in a vein that leads to your heart. The central line is used instead of a standard I.V. (intravenous) line. It doesnot need to be replaced as often as a standard I.V. This means less pain and fewer needle sticks during treatment. But central lines come with a risk of infection. This sheet tells you more about central line infections and what hospitals are doing to prevent them. And it explains how an infection is treated if one happens. Types of central lines With a central line, a catheter is inserted into your body through a vein that leads to the large vein near the heart (vena cava). Types of central lines and their risk of infection are listed below.Which type is best for you depends on your needs and your overall health. Your doctor will talk with you which type of line you need, and why. ? Peripherally inserted central catheter (PICC). This is placed in a large vein in the upper arm, or near the bend of the elbow. ? Subclavian line. This is placed in a vein that runs behind the collarbone. ? Internal jugular line. This is placed in a large vein in the neck. Infection risk is higher here than with a PICC or subclavian line, but lower than with a femoral line. ? Femoral line. This may be placed in a large vein in the groin. This site is generally not used because of an increased risk for infection. ? Tunneled catheter. This is run through the soft tissue under the skin before it enters a vein. A small cuff helps hold the catheter in place. Both the tunnel and the cuff help lower your chances for infection. This type of catheter may be placed in any of the above locations. ? Port. This small device is placed completely under the skin on the arm or chest. It?s connected to a catheter that is threaded into the vena cava. Types of infections A central line provides a direct path into your bloodstream. This gives germs possible access into your body. All types of central lines are associated with some risk of infection. Often, the germs that cause a central line infection come from your own skin. There are two possible types of infection: ? Local infection. This can happen where the central line enters your body. Symptoms include redness, pain, or swelling at or near the catheter site. This is the area where the catheter enters your body. You may also have pain or tenderness along the path of the catheter, and drainage from the skinaround the catheter. ? Systemic infection (also called bacteremia). This can happen if germs get into the bloodstream. It is very serious and can be fatal. Symptoms include sudden fever, shaking chills, a racing heartbeat, confusion, changes in behavior, and a skin rash. Risk factors for infection Anyone who has a central line can get an infection. Your risk is higher if you: ? Are in the intensive care unit (ICU). ? Have a weak immune system or serious illness. ? Are getting bone marrow or chemotherapy. ? Have the line in for an extended time. ? Have a central line in your neck or groin. ? Have the catheter used often to draw blood or give you medicines. How central line infections are treated Treatment depends on the type of central line placed, how severe the infection is, and your overallhealth. Your doctor will prescribe antibiotics to fight the infection. The line may also need to beremoved. In some cases, the line may be flushed with high doses of antibiotics. This may kill the germs causing the infection, so the line doesn?t have to be removed. What hospitals do to prevent infection Hospitals have ways to reduce central line infections. They include: ? Using good hand hygiene. Hospital staff clean their hands before and after touching the line. They wash their hands with soap and water. Or they use an alcohol-based hand guide delegate containing at least 60% alcohol. ? Using sterile practices during placement. The doctor who places the line wears germ-free (sterile) clothing including a long-sleeved gown, a mask, hat, and gloves. Before the line is placed, your skin is cleaned with an antiseptic solution. During placement, you are fully covered with a large sterile sheet (a sterile drape). Only the spot where the line is being placed is exposed. After placement, the site where the line enters the body is covered with a sterile bandage (dressing). Whenever the dressing is soiled or loose, they change it right away. ? Choosing a lower-risk vein. Whenever possible, the line is placed in a vein that's right for yourtreatment and has the lowest infection risk. Some hospitals use lines coated with an antimicrobial substance to reduce the chance of infection. An antibiotic patch may also be placed over the line. ? Limiting how often blood is drawn from your central line. Each time your line is used, the risk for infection increases. ? Scrubbing the cap (hub) of your catheter vigorously with an antiseptic, such as a 70% alcohol swab, before each use. ? Checking for infection. The line is checked often for infection. It's removed as soon as you no longer need it. ? Cleaning your body every day with a soap called chlorhexidine gluconate (CHG). This soap helps reduce the risk for infection. ? Swabbing your nose with a povidine-iodine antiseptic several times during your hospital stay. This helps to prevent infections such as methyllin-resistant staphylococcus aureus (MRSA). What you can do to prevent infection Good handwashing helps prevent central line infections. Before you get a central line, ask questions. Find out why you need the line and where it will be placed. Learn what steps the hospital is taking to reduce your infection risk. After the line has been placed, you, your caregivers, and any visitors can help prevent infection by doing the following: ? Use good hand hygiene. Wash your hands often with soap and clean, running water (warm or cold), and use alcohol-based hand guide delegate with at least 60% alcohol as directed. To clean your hands well,follow the guidelines on this sheet. Visitors should wash their hands well when they arrive and when they leave. ? Make sure the health care staff and your visitors clean their hands. They should use soap and clean, running water or an alcohol-based hand guide delegate before and after checking the line. Don?t be afraid to remind them. ? Follow your hospital team's personal hygiene instructions. This may include bathing every day with CHG soap. ? Talk with your care team about how often your line needs to be used for drawing blood. If possible, have them draw blood from lower risk veins in your arm. ? Keep the line dry. Follow your doctor?s guidelines for bathing. If the dressing does get wet, tell your doctor right away. ? Limit touching your line. Even when your hands are clean, try not to touch the catheter or dressing. Remind visitors not to touch your line. ? Learn the sterile dressing technique. This is important if you will be caring for the line at home. Your care team will show you how to use sterile method to change your dressing. Tell your team ifthe dressing or area around it gets wet, dirty, or if the bandage is loose. ? At home, follow all instructions from your care team about how to care for your line and dressing. Change your dressing right away if it's loose or gets dirty. Risk for blood clot If a blood clot forms, it can block blood flow through the vein where the catheter is placed. Signsof a blood clot include pain or swelling in the neck, face, chest, or arm. If you have any of thesesymptoms, contact your doctor right away. You may need an ultrasound exam to locate the blood clot and receive treatment. Handwashing To protect the central line from germs, it?s very important to wash your hands often and clean themwell. You and anyone who comes in contact with you should follow these steps: ? Wet your hands with clean, running water (cold or warm). Don't use hot water. It can cause skin irritation when you wash your hands often. ? Apply enough soap to cover the entire surface of your hands, including your fingers. ? Rub your hands together briskly for at least 20 seconds. Make sure to rub the front and back of each hand up to the wrist, your fingers and fingernails, between the fingers, and each thumb. ? Rinse your hands with clean, running water. ? Dry your hands completely with a new, unused paper towel. Don?t use a cloth towel or other reusable towel. These can hold germs. ? Use the paper towel to turn off the faucet, then throw it away. If you?re in a bathroom, also usea paper towel to open the door instead of touching the handle. When you can't use soap and water, alcohol-based hand sanitizers are a good choice for cleaning your hands. The guide delegate should have at least 60% alcohol. Note that some germs can't be killed by alcohol. Your care team can answer any questions you have about when to use a hand guide delegate, or when it?s better to wash with soap and water. Follow these steps: ? Spread the hand guide delegate in the palm of one hand. (Check the package for specific guidelines.) ? Rub your hands together briskly. Clean the backs of your hands, the palms, between your fingers, and up your wrists. ? Rub until the guide delegate is gone and your hands are completely dry. When to contact your doctor Contact your doctor right away if you have a central line and: ? You have pain or burning in your shoulder, chest, back, arm, or leg. ? You have a fever of 100.4?? F ( 38??C) or higher, or as advised by your doctor. ? You have chills. ? You have pain, redness, drainage, burning, or stinging at the catheter site. ? You are coughing, wheezing, or feeling short of breath. ? You have a racing or irregular heartbeat. ? You have muscle stiffness or trouble moving. ? You hear gurgling noises coming from the catheter. ? Your catheter falls out, breaks, cracks, leaks, or has other damage. ? You bleed from the catheter or where it enters the skin. Last Reviewed Date: 2025 00:00:00 ?? [id number] [employer]. All rights reserved. This information is not intended as a substitute for professional medical care. Always follow your healthcare professional's instructions. * [facility] - Niko Parikh RN - 08/21/2025 7:39 AM EDT Images from the original note were not included. [id number] Flushing Your PICC Line at Home Your peripherally inserted central catheter (PICC) line is used to deliver medicine or feedings. It?s a long, flexible tube (catheter) that goes into your vein, runs into larger veins, and ends up with the tip near where the superior vena cava enters your heart. To care for your PICC line, you willneed to flush it. This means you?ll need to clean it with a solution as directed by your health care provider. This keeps it from getting clogged or blocked. A clogged or blocked PICC line will need to be taken out and replaced. When to flush your PICC line You?ll need to flush your PICC line as often as directed by your health care provider. You may needto flush it after each use. If the PICC line is not in active use, you may need to flush it once a day. Or you may only need to flush it once a week. Talk with your provider about how often you should do this. What you?ll need ? Flushing solution. This is the liquid that you will send through the PICC line. Your health care provider will tell you what kind to use. In most cases, it is saline solution. This is a sterile mixof water and a tiny amount of salt. Your provider will also tell you how much to use. You may also need to flush with a heparin solution after the saline. Heparin is a medicine that thins the blood. It helps prevent blood from clotting in and around the catheter. ? A syringe. This is the device used to give an injection, or shot. A syringe is used to flush yourPICC line with the solution. You will probably use prefilled syringes. ? Alcohol wipes or rubbing alcohol and cotton balls. You?ll use these to clean some of the tools used to flush your line. This helps to prevent germs from going into your PICC line. ? Clean medical gloves. How to flush your PICC line Repeat these steps as often as your health care provider has instructed. Skip steps 2 and 3 if you are using prefilled syringes. Step 1. Wash your hands ? Wash your hands well with soap and clean running water for at least 20 seconds. Scrub them well, including the backs of your hands and between your fingers. ? If you don?t have access to soap and water, use an alcohol-based hand guide delegate. The gel should have at least 60% alcohol. Let the hands dry. ? Put on clean medical gloves. ? Only touch your PICC line with clean hands and when wearing clean gloves. This is to protect you from infection and to keep the line free from germs. Step 2. Fill the syringe ? Open a new bottle of the flushing solution. If you?re using a bottle that?s already open, use thealcohol to clean the top of the bottle. ? Remove the cap from the needle or tip of the syringe. Push the plunger of the syringe down all the way. ? Put the needle or tip of the syringe into the flushing solution. ? Pull the syringe plunger out. Stop when you have the right amount of flushing solution in the syringe. Your health care provider will tell you how much to use. Step 3. Remove air from the syringe ? Hold the syringe with the tip pointing up. ? Flick or tap the syringe with your finger. This will cause any large air bubbles to rise into thetip. ? Slowly push on the plunger until a tiny drop of flushing solution comes out of the needle or tip. ? Put the cap back on the needle or tip of the syringe. This will keep it germ- free until you use it. Step 4. Inject the flushing solution ? Scrub the top and sides of the port (end of the catheter) with an alcohol wipe for 15 seconds. Scrub using a twisting motion as if juicing an orange. Let it dry completely. Prevent it from touchinganything while drying. Don't blow on it. Don't reuse the alcohol wipe. Keep the port from touching anything until you connect the syringe. If you accidentally touch the port, clean it again. ? Open the clamp, if there is one. ? Take the cap off the needle or tip of the syringe. Insert the needle or tip into the port. Make sure you know if your PICC has a needleless connector. Ask your health care provider if you aren't sure. ? Push the plunger in slowly and smoothly. Don?t force the plunger. You shouldn?t feel any pressurewhen you push the fluid into the PICC line. If you do, stop and call your provider right away. Step 5. Finish flushing ? If there is a clamp, close it just before the syringe is empty. This stops blood from flowing back into the catheter. ? Remove the needle or tip of the syringe from the port. ? Put the syringe into a special container (sharps container). When to contact your doctor Contact your health care provider right away if you have: ? A fever of 100.4??F (38??C) or higher, or as directed by your provider. ? Chills during or after flushing your line. ? Swelling, redness, drainage, or pain around the PICC site. ? Bleeding from the PICC site. ? Tubing that leaks or is pulling out. ? A feeling of new resistance when flushing the PICC line, or you can't flush it at all. ? Medicine or fluids that don't drain from the bag into your PICC. Last Reviewed Date: 2025 00:00:00 ?? [id number] [employer]. All rights reserved. This information is not intended as a substitute for professional medical care. Always follow your healthcare professional's instructions. * Efren SimmsSUKH - Niko Parikh RN - 08/21/2025 7:39 AM EDT Images from the original note were not included. [id number] PICC Line Care PICC stands for peripherally inserted central catheter. This is a short-term (temporary) tube that's used instead of a regular I.V. (intravenous) line. Reasons for using a PICC line A PICC line may be used because: ? It reduces the discomfort of putting in a new I.V. every time it's needed. ? Medicine or nutrition needs to be given over a period of weeks or even months. ? A PICC can stay in place longer than an I.V., so it reduces needle sticks. ? It reduces damage to small veins, where an I.V. is normally inserted. This can allow some substances that damage small veins to be infused safely and comfortably. ? A PICC may have more than one channel, so different fluids or medicines can be given at the same time. ? A PICC line allows for home therapy. Your PICC will need some care to keep it clean and working. This care includes: ? Changing the bandage (dressing). ? Flushing the catheter with fluids. ? Changing the cap on the end of the catheter. A nurse or other health care provider will teach you how to do each of these things. If you have any questions, contact your care team. Home care The following are general care guidelines that will help you care for your PICC line at home: ? You can use your arm. But stay away from any activity that causes pain. ? Don't pick at it or pull on the tubing. ? Don?t lift anything heavier than 10 pounds with the arm on the side of the PICC line. ? The PICC line and dressing should not get wet. When you bathe or shower, tape plastic wrap over the site to keep it dry. ? Don't put the PICC site under water. No swimming or hot tubs. If the dressing gets wet, change itright away if you've been trained to do so. If not, contact your care team. ? Always wash your hands with soap and clean, running water before and after touching any part of your PICC. ? Don't allow the tubing to hang freely. Make sure to keep the tubing covered and secured to your arm to prevent the PICC line from being pulled out by accident. ? Don?t use any sharp or pointy objects around the catheter. This includes scissors, pins, knives, and razors. The following tips will help you with dressing changes: ? Change the dressing over the site as directed. This is usually once a week. Change it sooner if the dressing gets wet or soiled. Check the dressing daily. ? You or a family member may be able to do the dressing change at home. Or you may be instructed toreturn to the office or clinic for dressing changes. ? Sterile technique must be used for PICC dressing change. If your dressing is changed at home, be sure you or your family member knows the sterile dressing technique. Contact your health care provider for instructions if you need them. Follow-up care Follow up as advised by your health care provider. When to get medical care Contact your health care provider right away if any of these occur: ? Fever of 100.4??F (38??C) or higher, or as advised by your provider ? Drainage from the PICC site ? Swelling or bulging around the PICC site, or anywhere above the insertion site ? Bleeding from the PICC site ? Skin pulling away from the PICC site ? Redness, warmth, or pus at the PICC site ? Tubing breaks, splits, or leaks ? More exposed tubing (tubing seems longer), or the tubing is pulled out completely ? Medicine or fluids don't drain from the bag into your PICC ? Coughing, wheezing, or shortness of breath ? A racing or irregular heartbeat ? Muscle stiffness or trouble moving the arm Last Reviewed Date: 2025 00:00:00 ?? [id number] [employer]. All rights reserved. This information is not intended as a substitute for professional medical care. Always follow your healthcare professional's instructions. * [facility] - Niko Parikh RN - 08/21/2025 7:38 AM EDT Images from the original note were not included. [id number] Discharge Instructions: Caring for Your Peripherally Inserted Central Catheter (PICC) You are going home with a peripherally inserted central catheter (PICC). This small, soft tube has been placed in a vein in your arm. The tube was passed through a vein that leads to a larger vein near the heart (superior vena cava). A PICC is often used when treatment needs I.V. medicines, fluids,or nutrition for weeks or months. At home, you need to take care of your PICC to keep it working. APICC line has a high infection risk. So take extra care washing your hands and preventing the spread of germs. This sheet will help you remember what to do to care for your PICC at home. Understanding your role A nurse or other health care provider will teach you and your caregivers how to care for the PICC. Before leaving the hospital, make sure you understand what to do at home. Also ask how long you may need the PICC and when to have a follow-up visit. Write down important details about caring for your PICC, including: Follow-up visit date: PICC dressing change due date: Health care provider in charge of PICC care and their phone number: Who to contact with concerns about your PICC line and their phone number: Any other important information: Protecting the PICC If the PICC gets damaged, it won?t work right and could raise your chance of infection. Contact your care team right away if any damage occurs. To protect the PICC at home: ? Prevent infection. Use good hand hygiene by following the guidelines on this sheet. Don?t touch the catheter or dressing unless you need to. Always clean your hands before and after you come in contact with any part of the PICC. Your caregivers, family members, and any visitors should use good hand hygiene, too. ? Keep the PICC dry. The catheter and dressing must stay dry. Don?t take baths, go swimming, use a hot tub, or do other things that could get the PICC wet. Take a sponge bath to prevent getting your catheter wet, unless your health care provider tells you otherwise. Ask your provider about the bestway to keep your catheter dry when bathing or showering. If the dressing does get wet, change it only if you have been shown how. Otherwise, contact your care team right away for help. ? Don't damage the catheter. Don?t use any sharp or pointy objects around the catheter. This includes scissors, pins, knives, razors, or anything else that could cut it or put a hole in it (puncture it). Also, don?t let anything pull or rub on the catheter, such as clothing. Keep pets away from thePICC catheter. ? Watch for signs of problems. Pay attention to how much of the catheter sticks out from your skin.If this changes at all, let your provider know. Also watch for cracks, leaks, or other damage. If the dressing becomes dirty, loose, or wet, change it (if you have been directed to). Or contact your care team right away. ? Tell your care team if you vomit or have severe coughing. Although uncommon, coughing or vomitingmay move your catheter from its place. If a catheter moves, it may need to be inserted again. Protecting your arm The arm with the PICC is at risk for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 Therapeutic decision making should be based on absolute values, rather than percentages. us Monica Denny DO LAB BLOOD ORDERABLES Final Re sult [facility] [address] [place] [address] * (ABNORMAL) C-Reactive Protein, Plasma (08/21/2025 4:08 AM EDT) CRP, Plasma 79.7(H) <=8.0 mg/L 08/21/2025 5:03 AM EDT [facility] Blood Venous blood specimen / Unknown Venipuncture / Unknown 08/21/2025 4:08 AM EDT 08/21/2025 4:16 AM EDT Narrative [facility] - 08/21/2025 5:03 AM EDT This CRP test is appropriate for assessment of infection, systemic inflammation and/or tissue injury. To assess cardiovascular disease risk order high sensitivity CRP (CRPH). us Monica Denny DO LAB BLOOD ORDERABLES Final Re sult [facility] [address] [place] [address] * (ABNORMAL) Comprehensive Metabolic Panel, Plasma (08/21/2025 4:08 AM EDT) Glucose, Plasma 81 74 - 99 mg/dL 08/21/2025 5:03 AM EDT [facility] BUN, Plasma 6(L) 7 - 21 mg/dL 08/21/2025 5:03 AM EDT [facility] Creatinine, Plasma 0.82 0.70 - 1.20 mg/dL 08/21/2025 5:03 AM EDT [facility] BUN/Creatinine Ratio 7 08/21/2025 5:03 AM EDT [facility] Sodium, Plasma 139 136 - 145 mmol/L 08/21/2025 5:03 AM EDT [facility] Potassium, Plasma 4.0 3.6 - 4.9 mmol/L 08/21/2025 5:03 AM EDT [facility] Chloride, Plasma 103 97 - 107 mmol/L 08/21/2025 5:03 AM EDT [facility] CO2, Plasma 23 22 - 29 mmol/L 08/21/2025 5:03 AM EDT [facility] Anion Gap 13 6 - 16 mmol/L 08/21/2025 5:03 AM EDT [facility] Total Calcium, Plasma 9.7 8.9 - 10.2 mg/dL 08/21/2025 5:03 AM EDT [facility] Total Protein 7.5 6.3 - 7.9 g/dL 08/21/2025 5:03 AM EDT [facility] Albumin, Plasma 3.4(L) 3.5 - 5.2 g/dL 08/21/2025 5:03 AM EDT [facility] AST, Plasma 18 10 - 50 U/L 08/21/2025 5:03 AM EDT [facility] ALT, Plasma 9(L) 10 - 50 U/L 08/21/2025 5:03 AM EDT [facility] Alkaline Phosphatase, Plasma 76 40 - 115 U/L 08/21/2025 5:03 AM EDT [facility] Total Bilirubin, Plasma 0.3 0.2 - 1.1 mg/dL 08/21/2025 5:03 AM EDT [facility] eGFRcr 128.2 mL/min/1.7 3m*2 08/21/2025 5:03 AM EDT [facility] Comment:Reported eGFRcr in m L/min/1.73m2 is based the CKD-EPI 2020 equation that does not use a race coefficient. Blood Venous blood specimen / Unknown Venipuncture / Unknown 08/21/2025 4:08 AM EDT 08/21/2025 4:16 AM EDT us Monica Denny DO LAB BLOOD ORDERABLES Final Re sult [facility] [address] [place] [address] * PICC SINGLE LUMEN (SMARTFORM LINK) (08/21/2025 3:10 AM EDT) Narrative Vamsi Garza RN - 08/21/2025 3:10 AM EDT Vamsi Garza RN 08/21/2025 4:03 AM Insert PICC line Performed by: Vamsi Garza, RN Authorized by: Monica Denny DO [place] Protocol: Verbal consent obtained?: Yes Written consent obtained?: Yes Risks and benefits: Risks, benefits and alternatives were discussed Consent given by: Patient Patient states understanding of procedure being performed: Yes Patient's understanding of procedure matches consent: Yes Procedure consent matches procedure scheduled: Yes Relevant documents present and verified: Yes Test results available and properly labeled: Yes Site marked: Yes Imaging studies available: Yes Patient identity confirmed: Verbally with patient, arm band and hospital-assigned identification number Time out: Immediately prior to the procedure a time out was called Indications: Vascular access (ID recommendations/antibiotics from 08/17-09/27/25.) Local anesthetic: Lidocaine 1% without epinephrine (3 ml) Sedation: Patient sedated: No Preparation: Skin prepped with 2% chlorhexidine and skin prepped with alcohol Skin prep agent dried: Skin prep agent completely dried prior to procedure Sterile barriers: All five maximal sterile barriers used - gloves, gown, cap, mask and large sterile sheet Hand hygiene: Hand hygiene performed prior to catheter insertion Orientation: Left Location (Adult): Basilic vein (largest vein, [id number] ratio 21%) Site selection rationale: Patient's preference, non-dominate arm. Patient position: Supine Catheter Lot #: [id number] Catheter modeler: Bard Power PICC Solo Catheter placed: Single lumen Catheter size: 4 Fr Catheter trimmed length: 46 Catheter threaded length: 46 Vein placed in: SVC Catheter cm indwellin Catheter cm outside: 0 Placement confirmed by: Sherlock 3CG technology Pre-procedure: Landmarks identified Ultrasound guidance: Yes Sterile ultrasound techniques: Sterile gel and sterile probe covers were used Number of attempts: 1 Post-procedure: Adhesive securement device and sterile access caps placed on each lumen Dressing applied: CHG tegaderm Assessment: Blood return through all ports Patient tolerated the procedure well with no immediate complications.: Yes PICC kit educational material was given to the patient.: Yes Comments: VAT consult for SL PICC per ID recommendations. Images of vein and Sherlock 3CG uploaded to PACS. Green alcohol cap placed on end of lumen hub/heplock. Roy limb precaution armband placed on left wrist for PICC precautions while PICC is in place (No sticks/BP's). VAT consult completed. us Monica Denny DO IV THERAPY ORDERABLES Edited Result - Final * Vancomycin, Peak, Plasma Please draw ~2 hours after 1630 dose of vancomycin finishes infusing. Consider obtaining level via peripheral stick. If peripheral stick is not feasible, please ensure that line is flushed well prior to drawing level. Tim... (08/19/2025 8:07 PM EDT) Vancomycin, Peak, Plasma 27.5 20.0 - 40.0 ug/mL 08/19/2025 8:53 PM EDT [facility] Blood Venous blood specimen / Unknown Venipuncture / Unknown 08/19/2025 8:07 PM EDT 08/19/2025 8:15 PM EDT Narrative [facility] - 08/19/2025 8:53 PM EDT Therapeutic Peak level: 20-40ug/mL Supra-therapeutic Peak level: >40 ug/mL [facility] [employer] LAB BLOOD ORDERABLES Final Resu lt Performing Organization Address [facility] Co de Phone Number [facility] [address] [place] [address] * Vancomycin, Trough, Plasma Please draw ~30 minutes prior to dose due at 1700 on Sunday 08/19. [place] NOT hold dose awaiting level to return.Consider obtaining level via peripheral stick. If peripheral stick is not feasible, please ensure that l... (08/19/2025 4:41 PM EDT) Vancomycin, Trough, Plasma 14.6 10.0 - 20.0 ug/mL 08/19/2025 5:27 PM EDT [facility] Blood Venous blood specimen / Unknown Venipuncture / Unknown 08/19/2025 4:41 PM EDT 08/19/2025 4:47 PM EDT Narrative [facility] - 08/19/2025 5:27 PM EDT Therapeutic Trough level: 10-20ug/mL Supra-therapeutic Trough level: >20 ug/mL [facility] Booster.lyLaura DO LAB BLOOD ORDERABLES Final Resu lt Performing Organization Address [facility] Co de Phone Number [facility] [address] [place] [address] * (ABNORMAL) Comprehensive metabolic panel (08/19/2025 4:43 AM EDT) Glucose, Plasma 121(H) 74 - 99 mg/dL 08/19/2025 5:29 AM EDT [facility] BUN, Plasma 6(L) 7 - 21 mg/dL 08/19/2025 5:29 AM EDT [facility] Creatinine, Plasma 0.31(L) 0.70 - 1.20 mg/dL 08/19/2025 5:29 AM EDT [facility] BUN/Creatinine Ratio 19 08/19/2025 5:29 AM EDT [facility] Sodium, Plasma 137 136 - 145 mmol/L 08/19/2025 5:29 AM EDT [facility] Potassium, Plasma 3.2(L) 3.6 - 4.9 mmol/L 08/19/2025 5:29 AM EDT [facility] Chloride, Plasma 100 97 - 107 mmol/L 08/19/2025 5:29 AM EDT [facility] CO2, Plasma 24 22 - 29 mmol/L 08/19/2025 5:29 AM EDT [facility] Anion Gap 13 6 - 16 mmol/L 08/19/2025 5:29 AM EDT [facility] Total Calcium, Plasma 9.7 8.9 - 10.2 mg/dL 08/19/2025 5:29 AM EDT [facility] Total Protein 7.4 6.3 - 7.9 g/dL 08/19/2025 5:29 AM EDT [facility] Albumin, Plasma 3.5 3.5 - 5.2 g/dL 08/19/2025 5:29 AM EDT [facility] AST, Plasma 10 10 - 50 U/L 08/19/2025 5:29 AM EDT [facility] ALT, Plasma 10 10 - 50 U/L 08/19/2025 5:29 AM EDT [facility] Alkaline Phosphatase, Plasma 77 40 - 115 U/L 08/19/2025 5:29 AM EDT [facility] Total Bilirubin, Plasma 0.3 0.2 - 1.1 mg/dL 08/19/2025 5:29 AM EDT [facility] eGFRcr 171.9 mL/min/1.7 3m*2 08/19/2025 5:29 AM EDT [facility] Comment:Reported eGFRcr in m L/min/1.73m2 is based the CKD-EPI 2020 equation that does not use a race coefficient. Blood Venous blood specimen / Unknown Venipuncture / Unknown 08/19/2025 4:43 AM EDT 08/19/2025 4:59 AM EDT us Lena Sanchez DO LAB BLOOD ORDERABLES Final Resu lt [facility] [address] [place] [address] * (ABNORMAL) CBC W/O Differential (08/19/2025 4:43 AM EDT) WBC Count 13.72(H) 3.70 - 10.30 10*3/uL LAB HEMATOLOGY METHOD 08/19/2025 4:52 AM EDT [facility] RBC Count 3.23(L) 4.60 - 6.10 10*6/uL LAB HEMATOLOGY METHOD 08/19/2025 4:52 AM EDT [facility] HGB 9.7(L) 13.7 - 17.5 g/dL LAB HEMATOLOGY METHOD 08/19/2025 4:52 AM EDT [facility] HCT 29.2(L) 40.0 - 51.0 % LAB HEMATOLOGY METHOD 08/19/2025 4:52 AM EDT [facility] Platelet Count 673(H) 155 - 369 10*3/uL LAB HEMATOLOGY METHOD 08/19/2025 4:52 AM EDT [facility] MCV 90 79 - 98 fL LAB HEMATOLOGY METHOD 08/19/2025 4:52 AM EDT [facility] MCH 30.0 26.0 - 32.0 pg LAB HEMATOLOGY METHOD 08/19/2025 4:52 AM EDT [facility] MCHC 33.2 30.7 - 35.5 g/dL LAB HEMATOLOGY METHOD 08/19/2025 4:52 AM EDT [facility] RDW 15.9(H) 11.5 - 14.5 % LAB HEMATOLOGY METHOD 08/19/2025 4:52 AM EDT [facility] MPV 8.9 8.8 - 12.5 fL LAB HEMATOLOGY METHOD 08/19/2025 4:52 AM EDT [facility] nRBC 0.0 <=0.0 per 100 WBCs LAB HEMATOLOGY METHOD 08/19/2025 4:52 AM EDT [facility] Blood Venous blood specimen / Unknown Venipuncture / Unknown 08/19/2025 4:43 AM EDT 08/19/2025 4:51 AM EDT Lena Sanchez DO LAB BLOOD ORDERABLES Final Resu lt Performing Organization Address [facility]/ZIP Co de Phone Number [facility] [address] [place] [address] * Methicillin Resistant Staphylococcus aureus (MRSA) by PCR (08/18/2025 6:30 AM EDT) Methicillin Resistant Staphylococcus aureus (MRSA) by PCR Not Detected Not Detected 08/18/2025 8:50 AM EDT [facility] Swab Both anterior nares / Unknown Non-blood Collection / Unknown 08/18/2025 6:30 AM EDT 08/18/2025 7:18 AM EDT Narrative [facility] - 08/18/2025 8:50 AM EDT This test is FDA approved for use with nares swab specimens using the eSwabs. This test is used for clinical purposes. It should not be regarded as investigational or for research. This laboratory is certified under the Clinical Laboratory improvement Amendments of 1988 (CLIA-88 as qualified to perform high complexity clinical laboratory testing. [facility] Tiffanie Laura DO LAB MICROBIOLOGY - GENERAL ORDE RABLES Final Result Performing Organization Address [facility] Co de Phone Number [facility] [address] [place] [address] * MR Pelvis w and wo IV Contrast (08/18/2025 4:48 AM EDT) Anatomical Region Laterality Modality Abdomen Magnetic Resonan ce Impressions 08/18/2025 1:43 PM EDT Osteomyelitis involving the S5 segment as well as the first and second coccygeal segment and likely the distal portion of the fourth sacral segment with associated right-sided sacrococcygeal decubitus ulcer with cellulitis and presacral fluid and inflammation. Edema within the gluteal and adductor musculature which may be related to denervation changes. CRITICAL RESULT: No. COMMUNICATION: Per this written report. Drafted by Bridger Calderon MD on 08/18/2025 1:37 PM Final report signed by Bridger Calderon MD on 08/18/2025 1:43 PM Narrative 08/18/2025 1:43 PM EDT CLINICAL INDICATION: Osteomyelitis suspected, pelvis, xray done TECHNIQUE: Multiplanar multisequence imaging of the bony pelvis was performed prior to and following intravenous administration of 6.1 mL Gadavist COMPARISON: CT scan 08/17/2025 FINDINGS: Artifact from right femoral nail and left femoral nail with femoral neck screw limits evaluation. Bone and bone marrow: Abnormally increased T2 signal with low T1 signal and enhancement is seen involving the fifth sacral segment with subtle bony destructive changes. There is similar but less pronounced signal abnormality involving the distal aspect of the fourth sacral segment. There is marked deformity of the first coccygeal segment with abnormal signal and enhancement involving the first and second coccygeal segments. Joints: No hip effusion. The sacroiliac joints and pubic symphysis are intact. Soft tissues: Edema is seen in the adductor musculature bilaterally. There is extensive edema in the bilateral gluteal musculature. There is a large sacrococcygeal decubitus ulcer seen right of midline with peripheral enhancement of the wound margins. There is associated cellulitis. No peripheral enhancing fluid collection to suggest abscess. Bladder catheter in place. Moderate presacral edema and enhancement. Small amount of presacral fluid. Procedure Note Bridger Claderon MD - 08/18/2025 CLINICAL INDICATION: Osteomyelitis suspected, pelvis, xray done TECHNIQUE: Multiplanar multisequence imaging of the bony pelvis was performed priorto and following intravenous administration of 6.1 mL Gadavist COMPARISON: CT scan 08/17/2025 FINDINGS: Artifact from right femoral nail and left femoral nail with femoral neckscrew limits evaluation. Bone and bone marrow: Abnormally increased T2 signal with low T1 signaland enhancement is seen involving the fifth sacral segment with subtlebony destructive changes. There is similar but less pronounced signalabnormality involving the distal aspect of the fourth sacral segment.There is marked deformity of the first coccygeal segment with abnormalsignal and enhancement involving the first and second coccygealsegments. Joints: No hip effusion. The sacroiliac joints and pubic symphysis areintact. Soft tissues: Edema is seen in the adductor musculature bilaterally. Thereis extensive edema in the bilateral gluteal musculature. There is a large sacrococcygeal decubitus ulcer seen right of midline withperipheral enhancement of the wound margins. There is associatedcellulitis. No peripheral enhancing fluid collection to suggest abscess. Bladder catheter in place. Moderate presacral edema and enhancement. Smallamount of presacral fluid. IMPRESSION: Osteomyelitis involving the S5 segment as well as the first and secondcoccygeal segment and likely the distal portion of the fourth sacralsegment with associated right-sided sacrococcygeal decubitus ulcer withcellulitis and presacral fluid and inflammation. Edema within the gluteal and adductor musculature which may be related todenervation changes. CRITICAL RESULT: No. COMMUNICATION: Per this written report. Drafted by Bridger Calderon MD on 08/18/2025 1:37 PM Final report signed by Bridger Calderon MD on 08/18/2025 1:43 PM us Bridger Calderon MD IMG MRI PROCEDURES Final Result * (ABNORMAL) Wound Culture and Gram Stain (08/17/2025 10:50 PM EDT) CULTURE READING WOUND Moderate Growth 08/20/2025 1:55 PM EDT [facility] CULTURE READING WOUND 4+ Mixed skin dedra(A) KLAUDIA 08/20/2025 1:55 PM EDT [facility] Comment:The organism value f or this result has been updated. These results have been appended to the previously preliminary verified report. CULTURE READING WOUND 4+ Staphylococcus aureus(A) KLAUDIA 08/20/2025 1:55 PM EDT [facility] Comment:The organism value f or this result has been updated. These results have been appended to the previously preliminary verified report. CULTURE READING WOUND 1+ Escherichia coli(A) KLAUDIA 08/20/2025 1:55 PM EDT [facility] Comment: This isolate has been identified using the FDA Approved [employer] System The organism value for this result has been updated. These results have been appended to the previously preliminary verified report. Edited result: Previously reported as Gram Negative Jovanny on 08/19/2025 at 1356 EDT. Gram Stain Result Numerous Polymorphonuclear leukocytes(A) 08/20/2025 1:55 PM EDT [facility] Gram Stain Result Numerous Gram positive cocci in pairs(A) 08/20/2025 1:55 PM EDT [facility] Swab Skin structure / Unknown Non-blood Collection / Unknown 08/17/2025 10:50 PM EDT 08/17/2025 11:20 PM EDT Narrative Organism Antibiotic Method Susceptibility Staphylococcus aureus Clindamycin KLAUDIA <=0.5 ug/ml: Susceptible Staphylococcus aureus Daptomycin KLAUDIA <=1 ug/ml: Susceptible Staphylococcus aureus Erythromycin KLAUDIA >4 ug/ml: Resistant Staphylococcus aureus Gentamicin KLAUDIA <=1 ug/ml: Susceptible Staphylococcus aureus Linezolid KLAUDIA <=1 ug/ml: Susceptible Staphylococcus aureus Minocycline KLAUDIA <=1 ug/ml: Susceptible Staphylococcus aureus Oxacillin KLAUDIA <=0.25 ug/ml: Susceptible Staphylococcus aureus Penicillin G KLAUDIA >1 ug/ml: Resistant Staphylococcus aureus Tetracycline KLAUDIA <=0.5 ug/ml: Susceptible Staphylococcus aureus Trimethoprim/Sulfa methoxazol e KLAUDIA <=0.5/9.5 ug/ml: Susceptible Staphylococcus aureus Vancomycin KLAUDIA 1 ug/ml: Susceptible Escherichia coli Amoxicillin/Clavulanate KLAUDIA <=4/2 ug/ml: Susceptible Escherichia coli Ampicillin KLAUDIA <=4 ug/ml: Susceptible Escherichia coli Ampicillin/Sulbactam KLAUDIA 2/1 ug/ml: Susceptible Escherichia coli Aztreonam KLAUDIA <=2 ug/ml: Susceptible Escherichia coli Cefazolin KLAUDIA <=1 ug/ml: Susceptible Escherichia coli Cefepime KLAUDIA <=0.5 ug/ml: Susceptible Escherichia coli Ceftriaxone KLAUDIA <=1 ug/ml: Susceptible Escherichia coli Ciprofloxacin KLAUDIA <=0.25 ug/ml: Susceptible Escherichia coli Ertapenem KLAUDIA <=0.25 ug/ml: Susceptible Escherichia coli Gentamicin KLAUDIA <=2 ug/ml: Susceptible Escherichia coli Levofloxacin KLAUDIA <=0.25 ug/ml: Susceptible Escherichia coli Meropenem KLAUDIA <=0.5 ug/ml: Susceptible Escherichia coli Piperacillin/Tazobactam KLAUDIA <=2/4 ug/ml: Susceptible Escherichia coli Tetracycline KLAUDIA <=2 ug/ml: Susceptible Escherichia coli Tobramycin KLAUDIA <=2 ug/ml: Susceptible Escherichia coli Trimethoprim/Sulfame thoxazol e KLAUDIA <=0.5/9.5 ug/ml: Susceptible us Jyoti Olivares MD LAB MICROBIOLOGY - GE NERAL ORDERABLES Final Result [address] [address] * CT Abdomen Pelvis w IV Contrast (08/17/2025 10:36 PM EDT) Anatomical Region Laterality Modality Abdomen, Pelvis Computed Tomogra phy Impressions 08/17/2025 11:07 PM EDT Decubitus ulcer extends to the coccyx and S5 sacral segment with changes of osteomyelitis as described above. No fluid collection to suggest abscess. Slightly irregular enhancement pattern of the left kidney suggestive of pyelonephritis. CRITICAL RESULT: No. COMMUNICATION: Per this written report. Drafted by Haresh Carranza MD on 08/17/2025 11:03 PM Final report signed by Haresh Carranza MD on 08/17/2025 11:07 PM Narrative 08/17/2025 11:07 PM EDT CLINICAL INDICATION: Abdominal pain, acute, nonlocalized TECHNIQUE: Imaging of the abdomen and pelvis was performed, from lung bases through pubic symphysis, using spiral technique, following administration of IV contrast, Omnipaque 300, 100 mL. Delayed (excretory phase) images were performed through the kidneys. Reformatted images in the coronal and sagittal planes were generated from the axial data set to facilitate diagnostic accuracy. Bone algorithm reformatted images of pelvis performed from previously performed CT abdomen and pelvis Total DLP (Dose-Length Product): 458.21 mGy.cm. Please note: The reported value represents the total of one or more individual components during the CT acquisition on this date and at this time, and as such, the same value may appear in more than one CT report depending on the interpreting/reporting physicians. COMPARISON: July 03, 2025 FINDINGS: Lung Bases: Dependent atelectasis Liver/Gallbladder/Biliary system: The liver demonstrates homogeneous enhancement. Normal Gallbladder. No intra- or extra-hepatic biliary ductal dilatation. Spleen: Absent. Pancreas: The pancreas enhances homogeneously. Adrenals: The adrenals are morphologically unremarkable. Kidneys: Left nephrolithiasis. No hydronephrosis or hydroureter. Slightly irregular enhancement pattern of the left kidney suggestive of pyelonephritis. Bowel/Mesentery: The small bowel loops are not dilated. The large bowel loops are not dilated. The appendix is visualized and normal. Vessels/Lymph Nodes: The abdominal aorta is unremarkable. No lymphadenopathy within the abdomen or pelvis. Fluid Survey: No free fluid in the abdomen. No free fluid in the pelvis. Pelvis: Urinary catheter in place. Layering dependent hyperdense material within the urinary bladder likely calculi. Body Wall: Decubitus ulcer overlying the coccyx extends to the coccyx with changes of osteomyelitis in the coccyx. There is also ostial lysis of the S5 sacral segment consistent with ostial lysis. No fluid collection to suggest abscess. There is presacral fat stranding related to the adjacent inflammation. Bones: No acute fracture. Procedure Note Haresh Carranza MD - 08/17/2025 CLINICAL INDICATION: Abdominal pain, acute, nonlocalized TECHNIQUE: Imaging of the abdomen and pelvis was performed, from lung bases throughpubic symphysis, using spiral technique, following administration of IVcontrast, Omnipaque 300, 100 mL. Delayed (excretory phase) images wereperformed through the kidneys. Reformatted images in the coronal andsagittal planes were generated from the axial data set to facilitatediagnostic accuracy. Bone algorithm reformatted images of pelvis performedfrom previously performed CT abdomen and pelvis Total DLP (Dose-Length Product): 458.21 mGy.cm. Please note: The reportedvalue represents the total of one or more individual components during theCT acquisition on this date and at this time, and as such, the same valuemay appear in more than one CT report depending on theinterpreting/reporting physicians. COMPARISON: July 03, 2025 FINDINGS: Lung Bases: Dependent atelectasis Liver/Gallbladder/Biliary system: The liver demonstrates homogeneousenhancement. Normal Gallbladder. No intra- or extra-hepatic biliary ductaldilatation. Spleen: Absent. Pancreas: The pancreas enhances homogeneously. Adrenals: The adrenals are morphologically unremarkable. Kidneys: Left nephrolithiasis. No hydronephrosis or hydroureter. Slightly irregular enhancement pattern of the left kidney suggestive ofpyelonephritis. Bowel/Mesentery: The small bowel loops are not dilated. The large bowelloops are not dilated. The appendix is visualized and normal. Vessels/Lymph Nodes: The abdominal aorta is unremarkable. Nolymphadenopathy within the abdomen or pelvis. Fluid Survey: No free fluid in the abdomen. No free fluid in the pelvis. Pelvis: Urinary catheter in place. Layering dependent hyperdense materialwithin the urinary bladder likely calculi. Body Wall: Decubitus ulcer overlying the coccyx extends to the coccyx withchanges of osteomyelitis in the coccyx. There is also ostial lysis of theS5 sacral segment consistent with ostial lysis. No fluid collection tosuggest abscess. There is presacral fat stranding related to the adjacentinflammation. Bones: No acute fracture. IMPRESSION: Decubitus ulcer extends to the coccyx and S5 sacral segment with changesof osteomyelitis as described above. No fluid collection to suggestabscess. Slightly irregular enhancement pattern of the left kidney suggestive ofpyelonephritis. CRITICAL RESULT: No. COMMUNICATION: Per this written report. Drafted by Haresh Carranza MD on 08/17/2025 11:03 PM Final report signed by Haresh Carranza MD on 08/17/2025 11:07 PM Jyoti Olivares MD IMG CT PROCEDURES Fin al Result * CT Bony Pelvis (08/17/2025 10:36 PM EDT) Anatomical Region Laterality Modality Pelvis Computed Tomogra phy Impressions 08/17/2025 11:58 PM EDT No pelvic fracture. Decubitus ulcer extends to the coccyx and S5 sacral segment with changes of osteomyelitis in the underlying bones. No fluid collection to suggest abscess. CRITICAL RESULT: No. COMMUNICATION: Per this written report. Drafted by Haresh Carranza MD on 08/17/2025 11:58 PM Final report signed by Haresh Carranza MD on 08/17/2025 11:58 PM Narrative 08/17/2025 11:58 PM EDT CLINICAL INDICATION: Sacral osteomyelitis TECHNIQUE: Bone algorithm reformatted images of pelvis performed from previously performed CT abdomen and pelvis Total DLP (Dose-Length Product): . Please note: The reported value represents the total of one or more individual components during the CT acquisition on this date and at this time, and as such, the same value may appear in more than one CT report depending on the interpreting/reporting physicians. COMPARISON: None. FINDINGS: No pelvic fracture. Decubitus ulcer extends to the coccyx and S5 sacral segment with changes of osteomyelitis in the underlying bones. No fluid collection to suggest abscess. Procedure Note Haresh Carranza MD - 08/17/2025 CLINICAL INDICATION: Sacral osteomyelitis TECHNIQUE: Bone algorithm reformatted images of pelvis performed from previouslyperformed CT abdomen and pelvis Total DLP (Dose-Length Product): . Please note: The reported valuerepresents the total of one or more individual components during the CTacquisition on this date and at this time, and as such, the same value mayappear in more than one CT report depending on the interpreting/reportingphysicians. COMPARISON: None. FINDINGS: No pelvic fracture. Decubitus ulcer extends to the coccyx and [id number] segment with changes of osteomyelitis in the underlying bones. Nofluid collection to suggest abscess. IMPRESSION: No pelvic fracture. Decubitus ulcer extends to the coccyx and S5 sacralsegment with changes of osteomyelitis in the underlying bones. No fluidcollection to suggest abscess. CRITICAL RESULT: No. COMMUNICATION: Per this written report. Drafted by Haresh Carranza MD on 08/17/2025 11:58 PM Final report signed by Haresh Carranza MD on 08/17/2025 11:58 PM Jyoti Olivares MD IMG CT PROCEDURES Fin al Result * SEND LUZMARIA MESSAGE (08/17/2025 9:14 PM EDT) Urine Urine specimen obtained by clean catch procedure / Unknown Non-blood Collection / Unknown 08/17/2025 9:14 PM EDT 08/17/2025 9:47 PM EDT Jyoti Olivares MD LAB URINE ORDERABLES Final Result [facility] [address] [place] [address] * Urine Culture (08/17/2025 9:14 PM EDT) Culture >=100,000 CFU/mL Mixed urogenital, fecal, or skin dedra present. 08/19/2025 7:46 AM EDT [facility] Urine Urine specimen obtained by clean catch procedure / Unknown Non-blood Collection / Unknown 08/17/2025 9:14 PM EDT 08/17/2025 9:47 PM EDT us Jyoti Olivares MD LAB MICROBIOLOGY - GE NERAL ORDERABLES Final Result Performing Organization Address [facility] Co de Phone Number [facility] [address] [place] [address] * Urinalysis Microscopic Examination (08/17/2025 9:14 PM EDT) Urine Urine specimen obtained by clean catch procedure / Unknown Non-blood Collection / Unknown 08/17/2025 9:14 PM EDT 08/17/2025 9:19 PM EDT us Jyoti Olivares MD LAB URINE ORDERABLES Final Result Performing Organization Address [facility] Phone Number [facility] [address] [place] [address] * Urine Venegas Panel (08/17/2025 9:14 PM EDT) Extra Sent for Culture 08/17/2025 11:01 PM EDT [facility] Urine Urine specimen obtained by clean catch procedure / Unknown Non-blood Collection / Unknown 08/17/2025 9:14 PM EDT 08/17/2025 9:47 PM EDT us Jyoti Olivares MD LAB URINE ORDERABLES Final Result Performing Organization Address [facility] de Phone Number [facility] [address] [place] [address] * (ABNORMAL) Urinalysis with reflex microscopic (Culture NOT Included) (08/17/2025 9:14 PM EDT) Color, Urine Yellow LAB URINALYSIS - AUTOMATED METHOD 08/17/2025 10:13 PM EDT [facility] Clarity, Urine Cloudy LAB URINALYSIS - AUTOMATED METHOD 08/17/2025 10:13 PM EDT [facility] Spec [place], Urine 1.018 1.005 - 1.030 LAB URINALYSIS - AUTOMATED METHOD 08/17/2025 10:13 PM EDT [facility] pH, Urine 6.0 5.0 - 8.0 LAB URINALYSIS - AUTOMATED METHOD 08/17/2025 10:13 PM EDT [facility] Protein, Urine Trace(A) Negative mg/dL LAB URINALYSIS - AUTOMATED METHOD 08/17/2025 10:13 PM EDT [facility] Glucose, Urine Negative Negative mg/dL LAB URINALYSIS - AUTOMATED METHOD 08/17/2025 10:13 PM EDT [facility] Ketones, Urine Negative Negative mg/dL LAB URINALYSIS - AUTOMATED METHOD 08/17/2025 10:13 PM EDT [facility] Blood, Urine Trace(A) Negative LAB URINALYSIS - AUTOMATED METHOD 08/17/2025 10:13 PM EDT [facility] Bilirubin, Urine Negative Negative LAB URINALYSIS - AUTOMATED METHOD 08/17/2025 10:13 PM EDT [facility] Urobilinogen, Urine 1.0 0.2 to 1.0 mg/dL LAB URINALYSIS - AUTOMATED METHOD 08/17/2025 10:13 PM EDT [facility] Leukocytes, Urine Large(A) Negative LAB URINALYSIS - AUTOMATED METHOD 08/17/2025 10:13 PM EDT [facility] Nitrite, Urine Negative Negative LAB URINALYSIS - AUTOMATED METHOD 08/17/2025 10:13 PM EDT [facility] RBC, Urine 1 0 to 3 /HPF LAB URINALYSIS - AUTOMATED METHOD 08/17/2025 10:13 PM EDT [facility] Comment:This result was prev iously suppressed from the chart. WBC, Urine >50(A) 0 to 5 /HPF LAB URINALYSIS - AUTOMATED METHOD 08/17/2025 10:13 PM EDT [facility] Comment:This result was prev iously suppressed from the chart. Squamous Epithelial Cells 0 - 2 0 to 5 /HPF LAB URINALYSIS - AUTOMATED METHOD 08/17/2025 10:13 PM EDT [facility] Comment:This result was prev iously suppressed from the chart. Hyaline Casts 0 - 2 0 to 5 /LPF LAB URINALYSIS - AUTOMATED METHOD 08/17/2025 10:13 PM EDT [facility] Comment:This result was prev iously suppressed from the chart. Bacteria, Urine Present Negative LAB URINALYSIS - AUTOMATED METHOD 08/17/2025 10:13 PM EDT [facility] Comment:This result was prev iously suppressed from the chart. Renal Tubular Cells Present Absent 08/17/2025 10:13 PM EDT [facility] Comment:This result was prev iously suppressed from the chart. Amorphous Crystals Present Absent 08/17/2025 10:13 PM EDT [facility] Comment:This result was prev iously suppressed from the chart. Urine Urine specimen obtained by clean catch procedure / Unknown Non-blood Collection / Unknown 08/17/2025 9:14 PM EDT 08/17/2025 9:19 PM EDT Narrative [facility] - 08/17/2025 10:13 PM EDT Performed by manual method us Jyoti Olivares MD LAB URINE ORDERABLES Final Result Performing Organization Address [facility]/ZIP Co de Phone Number [facility] [address] [place] [address] * Blood Culture (Aerobic/Anaerobet Set) (08/17/2025 8:17 PM EDT) Culture No growth at day 5 08/22/2025 9:01 PM EDT [facility] Blood Structure of left wrist region / Unknown Venipuncture / Unknown 08/17/2025 8:17 PM EDT 08/17/2025 8:38 PM EDT Narrative [facility] - 08/22/2025 9:01 PM EDT Low blood volume submitted, results may be compromised us Jyoti Olivares MD LAB MICROBIOLOGY - GE NERAL ORDERABLES Final Result [facility] [address] [place] [address] * Blood Culture (Aerobic/Anaerobet Set) (08/17/2025 8:17 PM EDT) Culture No growth at day 5 08/22/2025 9:01 PM EDT [facility] Blood Structure of left hand / Unknown Venipuncture / Unknown 08/17/2025 8:17 PM EDT 08/17/2025 8:38 PM EDT us Jyoti Olivares MD LAB MICROBIOLOGY - GE NERAL ORDERABLES Final Result [facility] [address] [place] [address] * XR Chest 1 View (08/17/2025 7:49 PM EDT) Anatomical Region Laterality Modality Chest Digital Radiogra phy Impressions 08/17/2025 8:31 PM EDT No acute finding CRITICAL RESULT: No. COMMUNICATION: Per this written report. Drafted by Dileep Leija MD on 08/17/2025 8:30 PM Final report signed by Dileep Leija MD on 08/17/2025 8:31 PM Narrative 08/17/2025 8:31 PM EDT CLINICAL INDICATION: Cough TECHNIQUE: XR CHEST 1 VIEW COMPARISON: 08/01/2025 FINDINGS: Tracheostomy tube remains in place. Prior posterior fixation of the upper thoracic spine. Unremarkable cardiomediastinal silhouette. Lungs are clear. Old bilateral rib fractures. Old right scapular fracture. Procedure Note Dileep Leija MD - 08/17/2025 CLINICAL INDICATION: Cough TECHNIQUE: XR CHEST 1 VIEW COMPARISON: 08/01/2025 FINDINGS: Tracheostomy tube remains in place. Prior posterior fixation of the upperthoracic spine. Unremarkable cardiomediastinal silhouette. Lungs areclear. Old bilateral rib fractures. Old right scapular fracture. IMPRESSION: No acute finding CRITICAL RESULT: No. COMMUNICATION: Per this written report. Drafted by Dileep Leija MD on 08/17/2025 8:30 PM Final report signed by Dileep Leija MD on 08/17/2025 8:31 PM us Jyoti Olivares MD IMG XR PROCEDURES Fin al Result * (ABNORMAL) Procalcitonin (08/17/2025 6:52 PM EDT) Procalcitonin, Plasma 0.12(H) <0.09 ng/mL 08/17/2025 7:32 PM EDT [facility] Blood Venous blood specimen / Unknown Venipuncture / Unknown 08/17/2025 6:52 PM EDT 08/17/2025 6:57 PM EDT Narrative [facility] - 08/17/2025 7:32 PM EDT Procalcitonin concentrations in healthy individuals are <0.09 ng/mL. Published data support the following interpretive risk assessment: An elevated procalcitonin result does not always indicate sepsis. Various non-infectious conditions are known to increase procalcitonin. Results should be considered in the context of clinical symptoms and other laboratory tests. Procalcitonin >2.0 ng/mL: Concentrations >2.0 ng/mL on the first day of ICU admission are associated with a higher risk of progression to severe sepsis and/or septic shock. The change in PCT over time may help predict 28 day mortality risk. Please consult www.nttjtp-zhr-iavltzepij.com for more information. Test performed at [facility]. us Jyoti Olivares MD LAB BLOOD ORDERABLES Final Result [facility] [address] [place] [address] * (ABNORMAL) Sed rate, automated (08/17/2025 6:52 PM EDT) Sedimentation Rate 84(H) <15 mm/hr 2024 7:41 PM EDT [facility] Blood Venous blood specimen / Unknown Venipuncture / Unknown 08/17/2025 6:52 PM EDT 08/17/2025 7:00 PM EDT us Jyoti Olivares MD LAB BLOOD ORDERABLES Final Result [facility] [address] [place] [address] * (ABNORMAL) C-Reactive protein (08/17/2025 6:52 PM EDT) CRP, Plasma 123.2(H) <=8.0 mg/L 08/17/2025 7:32 PM EDT [facility] Blood Venous blood specimen / Unknown Venipuncture / Unknown 08/17/2025 6:52 PM EDT 08/17/2025 6:57 PM EDT Narrative [facility] - 08/17/2025 7:32 PM EDT This CRP test is appropriate for assessment of infection, systemic inflammation and/or tissue injury. To assess cardiovascular disease risk order high sensitivity CRP (CRPH). us Jyoti Olivares MD LAB BLOOD ORDERABLES Final Result Performing Organization Address [facility]/ZIP Co de Phone Number [facility] [address] [place] [address] * Lactic acid, venous (08/17/2025 6:52 PM EDT) [facility] Lactate, Venous, Whole Blood 1.6 0.5 - 2.2 mmol/L LAB HEMATOLOGY METHOD 08/17/2025 7:09 PM EDT [facility] Blood Venous blood specimen / Unknown Venipuncture / Unknown 08/17/2025 6:52 PM EDT 08/17/2025 7:07 PM EDT us Jyoti Olivares MD LAB BLOOD ORDERABLES Final Result [facility] [address] [place] [address] * Phosphorus (08/17/2025 6:52 PM EDT) Pathologist [facility] Phosphorus, Plasma 4.2 2.5 - 4.5 mg/dL 08/17/2025 7:32 PM EDT [facility] Blood Venous blood specimen / Unknown Venipuncture / Unknown 08/17/2025 6:52 PM EDT 08/17/2025 6:57 PM EDT us Jyoti Olivares MD LAB BLOOD ORDERABLES Final Result [facility] [address] [place] [address] * (ABNORMAL) Magnesium (08/17/2025 6:52 PM EDT) Magnesium, Plasma 1.6(L) 1.9 - 2.4 mg/dL 08/17/2025 7:32 PM EDT [facility] Blood Venous blood specimen / Unknown Venipuncture / Unknown 08/17/2025 6:52 PM EDT 08/17/2025 6:57 PM EDT Jyoti Olivares MD LAB BLOOD ORDERABLES Final Result Performing Organization Address [facility]/ZIP Co de Phone Number [facility] [address] [place] [address] * (ABNORMAL) CMP (08/17/2025 6:52 PM EDT) Glucose, Plasma 107(H) 74 - 99 mg/dL 08/17/2025 7:32 PM EDT [facility] BUN, Plasma 9 7 - 21 mg/dL 08/17/2025 7:32 PM EDT [facility] Creatinine, Plasma 0.38(L) 0.70 - 1.20 mg/dL 08/17/2025 7:32 PM EDT [facility] BUN/Creatinine Ratio 24 08/17/2025 7:32 PM EDT [facility] Sodium, Plasma 133(L) 136 - 145 mmol/L 08/17/2025 7:32 PM EDT [facility] Potassium, Plasma 3.8 3.6 - 4.9 mmol/L 08/17/2025 7:32 PM EDT [facility] Chloride, Plasma 96(L) 97 - 107 mmol/L 08/17/2025 7:32 PM EDT [facility] CO2, Plasma 23 22 - 29 mmol/L 08/17/2025 7:32 PM EDT [facility] Anion Gap 14 6 - 16 mmol/L 08/17/2025 7:32 PM EDT [facility] Total Calcium, Plasma 10.1 8.9 - 10.2 mg/dL 08/17/2025 7:32 PM EDT [facility] Total Protein 8.1(H) 6.3 - 7.9 g/dL 08/17/2025 7:32 PM EDT [facility] Albumin, Plasma 3.9 3.5 - 5.2 g/dL 08/17/2025 7:32 PM EDT [facility] AST, Plasma 11 10 - 50 U/L 08/17/2025 7:32 PM EDT [facility] ALT, Plasma 10 10 - 50 U/L 08/17/2025 7:32 PM EDT [facility] Alkaline Phosphatase, Plasma 88 40 - 115 U/L 08/17/2025 7:32 PM EDT [facility] Total Bilirubin, Plasma 0.3 0.2 - 1.1 mg/dL 08/17/2025 7:32 PM EDT [facility] eGFRcr 161.7 mL/min/1.7 3m*2 08/17/2025 7:32 PM EDT [facility] Comment:Reported eGFRcr in m L/min/1.73m2 is based the CKD-EPI 2020 equation that does not use a race coefficient. Blood Venous blood specimen / Unknown Venipuncture / Unknown 08/17/2025 6:52 PM EDT 08/17/2025 6:57 PM EDT us Jyoti Olivares MD LAB BLOOD ORDERABLES Final Result [facility] [address] [place] [address] * (ABNORMAL) PT-INR (08/17/2025 6:52 PM EDT) Prothrombin Time 15.7(H) 12.0 - 14.3 sec 08/17/2025 7:18 PM EDT [facility] INR 1.2(H) 0.9 - 1.1 08/17/2025 7:18 PM EDT [facility] Blood Venous blood specimen / Unknown Venipuncture / Unknown 08/17/2025 6:52 PM EDT 08/17/2025 6:57 PM EDT Narrative [facility] - 08/17/2025 7:18 PM EDT OPTIMAL INR RANGES FOR PATIENT ON ORAL ANTICOAGULANT THERAPY Prevention of venous thromboembolism INR 2.0 to 3.0 In patients with heart disease: Atrial fibrillation INR 2.0 to 3.0 Valvular heart disease INR 2.0 to 3.0 Tissue heart valves INR 2.0 to 3.0 Mechanical prosthetic valves INR 2.5 to 3.5 Prevention of recurrent WI INR 2.5 to 3.5 us Jyoti Olivares MD LAB BLOOD ORDERABLES Final Result [facility] [address] [place] [address] * (ABNORMAL) CBC w/diff (08/17/2025 6:52 PM EDT) WBC Count 20.25(H) 3.70 - 10.30 10*3/uL LAB HEMATOLOGY METHOD 08/17/2025 7:04 PM EDT [facility] RBC Count 3.38(L) 4.60 - 6.10 10*6/uL LAB HEMATOLOGY METHOD 08/17/2025 7:04 PM EDT [facility] HGB 10.0(L) 13.7 - 17.5 g/dL LAB HEMATOLOGY METHOD 08/17/2025 7:04 PM EDT [facility] HCT 29.9(L) 40.0 - 51.0 % LAB HEMATOLOGY METHOD 08/17/2025 7:04 PM EDT [facility] Platelet Count 728(H) 155 - 369 10*3/uL LAB HEMATOLOGY METHOD 08/17/2025 7:04 PM EDT [facility] MCV 89 79 - 98 fL LAB HEMATOLOGY METHOD 08/17/2025 7:04 PM EDT [facility] MCH 29.6 26.0 - 32.0 pg LAB HEMATOLOGY METHOD 08/17/2025 7:04 PM EDT [facility] MCHC 33.4 30.7 - 35.5 g/dL LAB HEMATOLOGY METHOD 08/17/2025 7:04 PM EDT [facility] RDW 15.9(H) 11.5 - 14.5 % LAB HEMATOLOGY METHOD 08/17/2025 7:04 PM EDT [facility] MPV 9.2 8.8 - 12.5 fL LAB HEMATOLOGY METHOD 08/17/2025 7:04 PM EDT [facility] nRBC 0.0 <=0.0 per 100 WBCs LAB HEMATOLOGY METHOD 08/17/2025 7:04 PM EDT [facility] Differential Type Automated LAB HEMATOLOGY METHOD 08/17/2025 7:04 PM EDT [facility] Neutrophils % 69 % LAB HEMATOLOGY METHOD 08/17/2025 7:04 PM EDT [facility] Lymphocytes % 19 % LAB HEMATOLOGY METHOD 08/17/2025 7:04 PM EDT [facility] Monocytes % 9 % LAB HEMATOLOGY METHOD 08/17/2025 7:04 PM EDT [facility] Eosinophils % 2 % LAB HEMATOLOGY METHOD 08/17/2025 7:04 PM EDT [facility] Basophils % 0 % LAB HEMATOLOGY METHOD 08/17/2025 7:04 PM EDT [facility] Immature Granulocytes % 1 % LAB HEMATOLOGY METHOD 08/17/2025 7:04 PM EDT [facility] Neutrophils Absolute 14.06(H) 1.60 - 6.10 10*3/uL LAB HEMATOLOGY METHOD 08/17/2025 7:04 PM EDT [facility] Lymphocytes Absolute 3.84 1.20 - 3.90 10*3/uL LAB HEMATOLOGY METHOD 08/17/2025 7:04 PM EDT [facility] Monocytes Absolute 1.84(H) 0.30 - 0.90 10*3/uL LAB HEMATOLOGY METHOD 08/17/2025 7:04 PM EDT [facility] Eosinophils Absolute 0.31 0.00 - 0.50 10*3/uL LAB HEMATOLOGY METHOD 08/17/2025 7:04 PM EDT [facility] Basophils Absolute 0.09 0.00 - 0.10 10*3/uL LAB HEMATOLOGY METHOD 08/17/2025 7:04 PM EDT [facility] Immature Granulocytes Absolute 0.11(H) 0.00 - 0.06 10*3/uL LAB HEMATOLOGY METHOD 08/17/2025 7:04 PM EDT [facility] Blood Venous blood specimen / Unknown Venipuncture / Unknown 08/17/2025 6:52 PM EDT 08/17/2025 7:00 PM EDT Narrative [facility] - 08/17/2025 7:04 PM EDT Therapeutic decision making should be based on absolute values, rather than percentages. Jyoti Olivares MD LAB BLOOD ORDERABLES Final Result [facility] [address] [place] [address] * [place] DEBRIDEMENT OPEN WOUND 20 SQ CM< (08/17/2025 4:42 PM EDT) Narrative Chan Zhang DO - 08/17/2025 4:42 PM EDT Chan Zhang DO 09/20/2025 8:14 PM Debridement Performed by: Shelbi Bowling MD Authorized by: Chan Zhang DO Consent Consent obtained? verbal Consent given by: patient Risks discussed? procedural risks discussed Immediately prior to the procedure a time out was called and the performing provider verified the correct patient, procedure, equipment, senior administrative support, and site/side marked as required. Debridement Details Performed by: resident Debridement type: conservative sharp Is excisional: Yes Pain control: none Pre-debridement measurements Length (cm): 5.5 Width (cm): 5.5 Depth (cm): 0.5 Surface Area (cm^2): 23.76 Post-debridement measurements Length (cm): 6 Width (cm): 5.7 Depth (cm): 0.75 Percent debrided: 5% Surface Area (cm^2): 26.86 Area Debrided (cm^2): 1.34 Volume (cm^3): 13.43 Tissue and other material debrided: dermis, epidermis and subcutaneous tissue Devitalized tissue debrided: callus, exudate, fibrin and necrotic debris Instrument(s) utilized: scissors Bleeding: none Procedural pain (0-10): insensate Post-procedural pain: insensate Response to treatment: procedure was tolerated well Chan Zhang DO IN CLINIC/BEDSIDE ORDERABLES F inal Result documented in this encounter Visit Diagnoses Diagnosis Osteomyelitis of other site, unspecified type- Primary Pyelonephritis Unspecified pyelonephritis Osteomyelitis of other site, unspecified type Skin ulcer of sacrum, unspecified ulcer stage ([facility]) documented in this encounter Admitting Diagnoses Diagnosis Osteomyelitis of other site, unspecified type documented in this encounter Administered Medications Inactive Administered Medications - up to 3 most recent administrations Medication Order MAR Action Action Date Dose Rate Site aspirin chewable tablet 81 mg 81 mg, Oral, Daily, First dose on Wed08/18/25 at 0900, Until Discontinued, Routine Given 08/23/2025 9:32 AM EDT 81 mg Given 08/22/2025 9:07 AM EDT 81 mg Given 08/21/2025 9:40 AM EDT 81 mg bisacodyl (Dulcolax) EC tablet 10 mg 10 mg, Oral, Daily PRN, Starting on Wed08/23/25 at 1329, Until Wed08/23/25 at 1842, Routine, constipation Given 08/23/2025 3:06 PM EDT 10 mg bisacodyl (Dulcolax) suppository 10 mg 10 mg, Rectal, Once, 1 dose, On Wed08/21/25 at 0615, Routine Given 08/21/2025 5:51 AM EDT 10 mg bisacodyl (Dulcolax) suppository 10 mg 10 mg, Rectal, Once, 1 dose, On Wed08/21/25 at 2145, Routine Given 08/21/2025 9:12 PM EDT 10 mg bisacodyl (Dulcolax) suppository 10 mg 10 mg, Rectal, Daily PRN, Starting on Wed08/22/25 at 1112, Until Wed08/23/25 at 1842, Routine, constipation Given 08/22/2025 2:11 PM EDT 10 mg ceFAZolin (Ancef) injection 2 g 2 g, Intravenous, Every 8 hours, 115 doses, First dose on Wed08/20/25 at 2100, Last dose on Wed09/27/25 at 2100, Routine Given 08/23/2025 1:11 PM EDT 2 g Given 08/23/2025 6:00 AM EDT 2 g Given 08/22/2025 10:56 PM EDT 2 g enoxaparin (Lovenox) syringe 40 mg 40 mg, Subcutaneous, Daily, First dose on 08/18/25 at 0900, Until Discontinued, Routine Given 08/23/2025 9:34 AM EDT 40 mg Left Lower Abdomen Given 08/22/2025 9:07 AM EDT 40 mg Le ft Upper Abdomen Given 08/21/2025 9:40 AM EDT 40 mg Ri ght Lower Abdomen esomeprazole (NexIUM) packet for suspension 40 mg 40 mg, Oral, Daily before breakfast, First dose on 08/20/25 at 0730, Until Discontinued, Routine Given 08/21/2025 11:00 AM EDT 40 mg Given 08/20/2025 8:31 AM EDT 40 mg FLUoxetine (PROzac) capsule 10 mg 10 mg, Oral, Daily, First dose on 08/18/25 at 0900, Until Discontinued, Routine Given 08/21/2025 9:41 AM EDT 10 mg Given 08/20/2025 8:31 AM EDT 10 mg Given 08/19/2025 8:25 AM EDT 10 mg gabapentin (Neurontin) capsule 100 mg 100 mg, Oral, 3 times daily, First dose on 08/18/25 at 0900, Until Discontinued, Routine Given 08/22/2025 9:06 AM EDT 100 mg Given 08/21/2025 3:32 PM EDT 100 mg Given 08/21/2025 9:40 AM EDT 100 mg gadobutrol (Gadavist) injection 6.1 mL 6.1 mL (rounded from 6.12 mL = 0.1 mL/kg 61.2 kg), Intravenous, Once in imaging, 1 dose, Starting on 08/18/25 at 0414, Until Wed08/18/25 at 0437, Routine, Imaging Protocol Orders Given 08/18/2025 4:37 AM EDT 6.1 mL Left Forearm iohexol (OMNIPaque) 300 MG/ML injection 100 mL 100 mL, Intravenous, Once in imaging, 1 dose, Starting on Wed08/17/25 at 2217, Until Wed08/17/25 at 2217, Routine, Imaging Protocol Orders Given 08/17/2025 10:17 PM EDT 100 mL Chucho powder 1 packet 1 packet, Oral, 2 times daily, First dose on 08/18/25 at 1050, Until Discontinued, Routine Given 08/21/2025 9:40 AM EDT 1 packet Given 08/20/2025 8:38 PM EDT 1 packet Given 08/19/2025 8:59 AM EDT 1 packet levothyroxine (Synthroid, Levoxyl) tablet 50 mcg 50 mcg, Oral, Every morning, First dose on 08/18/25 at 0620, Until Discontinued, Routine Given 08/23/2025 6:04 AM EDT 50 mcg Given 08/22/2025 5:33 AM EDT 50 mcg Given 08/21/2025 5:51 AM EDT 50 mcg magnesium sulfate IVPB 2 g 2 g, Intravenous, Once, 1 dose, On Wed08/17/25 at 2310, STAT New Bag 08/18/2025 12:05 AM EDT 2 g 25 m L/hr metroNIDAZOLE (Flagyl) tablet 500 mg 500 mg, Oral, 3 times daily, 115 doses, First dose on 08/20/25 at 2100, Last dose on Carlota 09/27/25 at 2100, Routine Given 08/23/2025 3:07 PM EDT 500 mg Given 08/23/2025 9:32 AM EDT 500 mg Given 08/22/2025 9:07 AM EDT 500 mg mirabegron ER (Myrbetriq) tablet 50 mg 50 mg, Oral, Daily, First dose on 08/18/25 at 1640, Until Discontinued, Routine Given 08/23/2025 9:32 AM EDT 50 mg Given 08/22/2025 9:07 AM EDT 50 mg Given 08/21/2025 9:40 AM EDT 50 mg mirtazapine (Remeron) tablet 7.5 mg 7.5 mg, Oral, Nightly, First dose on 08/18/25 at 2100, Until Discontinued, Routine Given 08/22/2025 10:5 8 PM EDT 7.5 mg Given 08/20/2025 8:32 PM EDT 7.5 mg Given 08/19/2025 8:37 PM EDT 7.5 mg mupirocin (Bactroban) 2 % ointment 1 Application Each Nostril, 2 times daily, 18 doses, First dose on 08/18/25 at 2100, Last dose on Wed08/27/25 at 0900, Routine Given 08/22/2025 9:13 AM EDT 1 Application Given 08/21/2025 9:40 AM EDT 1 Application Given 08/20/2025 8:32 PM EDT 1 Application ondansetron (Zofran) 4 MG/5ML solution 4 mg 4 mg, Oral, Every 6 hours PRN, Starting on 08/18/25 at 0602, Until [place]ota 08/23/25 at 1842, Routine, nausea, vomiting ondansetron (Zofran) injection 4 mg 4 mg, Intravenous, Once, 1 dose, On 08/18/25 at 0410, STAT Given 08/18/2025 4:36 AM EDT 4 mg ondansetron (Zofran) injection 4 mg 4 mg, Intravenous, Every 6 hours PRN, Starting on 08/18/25 at 0602, Until [place] 08/23/25 at 1842, Routine, vomiting, nausea ondansetron ODT (Zofran-ODT) disintegrating tablet 4 mg 4 mg, Oral, Every 6 hours PRN, Starting on 08/18/25 at 0602, Until [place] 08/23/25 at 1842, Routine, nausea, vomiting Given 08/22/2025 8:12 PM EDT 4 mg Given 08/22/2025 2:15 PM EDT 4 mg Given 08/21/2025 9:18 PM EDT 4 mg piperacillin-tazobactam (Zosyn) 4.5 g in sodium chloride 0.9% 100 mL IVPB (vial adapter required) 4.5 g, Intravenous, Once, 1 dose, On Wed08/17/25 at 2045, STAT New Bag 08/18/2025 1:51 AM EDT 4.5 g 22 0 mL/hr piperacillin-tazobactam (Zosyn) 4.5 g in sodium chloride 0.9% 100 mL IVPB (vial adapter required) 4.5 g, Intravenous, Once, 1 dose, On 08/18/25 at 0600, STAT New Bag 08/18/2025 9:22 AM EDT 4.5 g 22 0 mL/hr piperacillin-tazobactam (Zosyn) 4.5 g in sodium chloride 0.9% 100 mL IVPB (vial adapter required) 4.5 g, Intravenous, Every 6 hours, First dose on 08/18/25 at 1935, Until Discontinued, STAT New Bag 08/20/2025 1:54 PM EDT 4.5 g 36.7 m L/hr New Bag 08/20/2025 8:30 AM EDT 4.5 g 36.7 mL/hr New Bag 08/20/2025 2:11 AM EDT 4.5 g 36.7 mL/hr polyethylene glycol (Miralax) packet 17 g 17 g, Oral, Daily, First dose on Wed08/21/25 at 1630, Until Discontinued, Routine Given 08/21/2025 3:39 PM EDT 17 g potassium chloride (Klor-Con) packet 40 mEq 40 mEq, Oral, Once, 1 dose, On Wed08/19/25 at 0940, Routine Given 08/19/2025 10:40 AM EDT 40 mEq senna (Senokot) tablet 8.6 mg 8.6 mg, Oral, Nightly, First dose on Wed08/21/25 at 1630, Until Discontinued, Routine Given 08/22/2025 10:5 8 PM EDT 8.6 mg Given 08/21/2025 3:39 PM EDT 8.6 mg sodium chloride 0.9 % flush 10 mL 10 mL, Intravenous, Every 12 hours, First dose on Wed08/18/25 at 0535, Until Discontinued, Routine Given 08/21/2025 6:15 PM EDT 10 mL Given 08/20/2025 5:07 PM EDT 10 mL Given 08/20/2025 6:08 AM EDT 10 mL sodium chloride 0.9 % flush 10 mL 10 mL, Intravenous, As needed, Starting on [facility] 08/18/25 at 0527, Until [place]ota 08/23/25 at 1842, Routine, line care sodium chloride 0.9 % flush 10 mL 10 mL, Intravenous, Every 12 hours, First dose on Wed08/21/25 at 0430, Until Discontinued, Routine Given 08/22/2025 5:01 PM EDT 10 mL Given 08/21/2025 3:32 PM EDT 10 mL sodium chloride 0.9 % flush 10 mL 10 mL, Intravenous, Every 1 hour PRN, Starting on Wed08/21/25 at 0339, Until [place] 08/23/25 at 1842, Routine, Flush Before and After EVERY dose of medication. sodium chloride 0.9 % flush 20 mL 20 mL, Intravenous, Every 1 hour PRN, Starting on Wed08/21/25 at 0339, Until [place] 08/23/25 at 1842, Routine, After blood draws and if any blood seen in tubing. sodium hypochlorite (Dakin's (QUARTER-Strength)) external solution 473 mL Irrigation, 2 times daily PRN, Starting on Wed08/23/25 at 0927, Until Wed08/23/25 at 1842, Routine, wound care Given 08/23/2025 2:32 PM EDT 473 mL vancomycin (Vancocin) 500 mg in sodium chloride 0.9 % 100 mL IVPB 500 mg, Intravenous, Every 8 hours, First dose (after last modification) on 08/20/25 at 0100, Until Discontinued, at 115 mL/hr, Routine New Bag 08/20/2025 4:07 PM EDT 500 mg 115 mL/hr New Bag 08/20/2025 8:31 AM EDT 500 mg 115 mL/hr New Bag 08/20/2025 12:39 AM EDT 500 mg 115 mL/hr vancomycin HCl (Vancocin) 750 mg in sodium chloride 0.9% 250 mL IVPB (vial adapter required) 750 mg, Intravenous, Every 8 hours, First dose on 08/18/25 at 1530, Until Discontinued, at 275 mL/hr, Routine New Bag 08/19/2025 4:41 PM EDT 750 mg 275 mL/hr New Bag 08/19/2025 8:57 AM EDT 750 mg 275 mL/hr New Bag 08/18/2025 11:13 PM EDT 750 mg 275 mL/hr vancomycin in NS (Vancocin) IVPB 1,250 mg 1,250 mg (rounded from 1,224 mg = 20 mg/kg 61.2 kg), Intravenous, Once, 1 dose, On 08/18/25 at 0630, at 200 mL/hr, Routine New Bag 08/18/2025 7:29 AM EDT 1,250 mg 200 mL/hr documented in this encounter Active and Recently Administered Medications Times are shown in EDT. Scheduled Medication Order 08/21/2025 08/22/2025 08/23/2025 aspirin chewable tablet 81 mg 81 mg, Oral, Daily, First dose on Wed08/18/25 at 0900, Until Discontinued, Routine 0940 (Given - Provider: Donna Laboy RN) 0907 (Given - Provider: Keyla Houston) 0932 (Given - Provider: Rebecca Kamara, LETY) bisacodyl (Dulcolax) suppository 10 mg (COMPLETED) 10 mg, Rectal, Once, 1 dose, On Wed08/21/25 at 0615, Routine 0551 (Given - Provider: Dorcas Anthony) bisacodyl (Dulcolax) suppository 10 mg (COMPLETED) 10 mg, Rectal, Once, 1 dose, On Wed08/21/25 at 2145, Routine 2111 (Given - Provider: Dorcas Anthony) ceFAZolin (Ancef) injection 2 g 2 g, Intravenous, Every 8 hours, 115 doses, First dose on Wed08/20/25 at 2100, Last dose on Wed09/27/25 at 2100, Routine 0551 (Given - Provider: Dorcas Anthony)1404 (Given - Provider: Donna Laboy RN)2024 (Given - Provider: Dorcsa Anthony) 0533 (Given - Provider: Dorcas Anthony)1410 (Given - Provider: Keyla Houston)2256 (Given - Provider: Dorcas Anthony) 0600 (Given - Provider: Dorcas Anthony)1311 (Given - Provider: Rebecca Kamara, LETY) enoxaparin (Lovenox) syringe 40 mg 40 mg, Subcutaneous, Daily, First dose on Wed08/18/25 at 0900, Until Discontinued, Routine 0940 (Given - Provider: Donna Laboy RN) 0907 (Given - Provider: Keyla Houston) 0934 (Given - Provider: Rebecca Kamara, LETY) esomeprazole (NexIUM) packet for suspension 40 mg 40 mg, Oral, Daily before breakfast, First dose on Wed08/20/25 at 0730, Until Discontinued, Routine 1100 (Given - Provider: Donna Laboy RN) 0907 (Not Given - Provider: Keyla Houston - Reason: Patient/family refused) 0928 (Not Given - Provider: Rebecca Kamara RN - Reason: Patient/family refused) FLUoxetine (PROzac) capsule 10 mg 10 mg, Oral, Daily, First dose on 08/18/25 at 0900, Until Discontinued, Routine 0941 (Given - Provider: Donna Laboy RN) 09 (Not Given - Provider: Keyla Houston - Reason: Patient/family refused) 09 (Not Given - Provider: Rebecca Kamara RN - Reason: Patient/family refused) gabapentin (Neurontin) capsule 100 mg 100 mg, Oral, 3 times daily, First dose on 08/18/25 at 0900, Until Discontinued, Routine 0940 (Given - Provider: Donna Laboy RN)1532 (Given - Provider: Donna Laboy, LETY)2023 (Not Given - Provider: Dorcas Anthony - Reason: Patient/family refused - Comment: pt. stated he would take later d/t nausea. Later found in bed.) 09 (Given - Provider: Keyla Houston)170 (Not Given - Provider: Keyla Houston - Reason: Patient/family refused)225 (Not Given - Provider: Dorcas Anthony - Reason: Patient/family refused) 09 (Not Given - Provider: Rebecca Kamara RN - Reason: Patient/family refused)1512 (Not Given - Provider: Rebecca Kamara RN - Reason: Patient/family refused) Chucho powder 1 packet 1 packet, Oral, 2 times daily, First dose on 08/18/25 at 1050, Until Discontinued, Routine 0940 (Given - Provider: Donna Laboy RN)2023 (Not Given - Provider: Dorcas Anthony - Reason: Patient/family refused) 0913 (Not Given - Provider: Keyla Houston - Reason: Patient/family refused)225 (Not Given - Provider: Dorcas Anthony - Reason: Patient/family refused) 0928 (Not Given - Provider: Rebecca Kamara RN - Reason: Patient/family refused) levothyroxine (Synthroid, Levoxyl) tablet 50 mcg 50 mcg, Oral, Every morning, First dose on 08/18/25 at 0620, Until Discontinued, Routine 0551 (Given - Provider: Dorcas Anthony) 0533 (Given - Provider: Dorcas Anthony) 0604 (Given - Provider: Dorcas Anthony) metroNIDAZOLE (Flagyl) tablet 500 mg 500 mg, Oral, 3 times daily, 115 doses, First dose on 08/20/25 at 2100, Last dose on [place] 09/27/25 at 2100, Routine 0940 (Given - Provider: Donna Laboy RN)1532 (Given - Provider: Donna Laboy RN)2023 (Not Given - Provider: Dorcas Anthony - Reason: Patient/family refused - Comment: given to pt. for him to take. Pt. stated he would try later. Pt. left on bedside table) 0907 (Given - Provider: Keyla Houston)1658 (Not Given - Provider: Dorcas Anthony - Reason: Patient/family refused - Comment: found on bedside table with nighttime meds)225 (Not Given - Provider: Dorcas Anthony - Reason: Patient/family refused) 0932 (Given - Provider: Rebecca Kamara, LETY)1507 (Given - Provider: Rebecca Kamara, LETY) mirabegron ER (Myrbetriq) tablet 50 mg 50 mg, Oral, Daily, First dose on 08/18/25 at 1640, Until Discontinued, Routine 0940 (Given - Provider: Donna Laboy RN) 0907 (Given - Provider: Keyla Houston) 0932 (Given - Provider: Rebecca Kamara, LETY) mirtazapine (Remeron) tablet 7.5 mg 7.5 mg, Oral, Nightly, First dose on 08/18/25 at 2100, Until Discontinued, Routine 2023 (Not Given - Provider: Dorcas Anthony - Reason: Patient/family refused) 225 (Given - Provider: Dorcas Anthony) mupirocin (Bactroban) 2 % ointment 1 Application Each Nostril, 2 times daily, 18 doses, First dose on 08/18/25 at 2100, Last dose on 08/27/25 at 0900, Routine 0940 (Given - Provider: Donna Laboy RN)2023 (Not Given - Provider: Dorcas Anthony - Reason: Patient/family refused) 0913 (Given - Provider: Keyla Houston)225 (Not Given - Provider: Dorcas Anthony - Reason: Patient/family refused) 0929 (Not Given - Provider: Rebecca Kamara RN - Reason: Patient/family refused) polyethylene glycol (Miralax) packet 17 g (CANCELED) 17 g, Oral, Daily, First dose on Wed08/21/25 at 1630, Until Discontinued, Routine 1539 (Given - Provider: Donna Laboy RN) 0907 (Not Given - Provider: Keyla Houston - Reason: Patient/family refused) senna (Senokot) tablet 8.6 mg 8.6 mg, Oral, Nightly, First dose on Wed08/21/25 at 1630, Until Discontinued, Routine 1539 (Given - Provider: Donna Laboy RN)202 (Not Given - Provider: Dorcas Anthony - Reason: Patient/family refused) 2258 (Given - Provider: Dorcas Anthony) sodium chloride 0.9 % flush 10 mL(Linked Group 1) 10 mL, Intravenous, Every 12 hours, First dose on Wed08/18/25 at 0535, Until Discontinued, Routine 0535 (Canceled Entry - Provider: Dorcas Anthony)1815 (Given - Provider: Donna Laboy RN) 0535 (Canceled Entry - Provider: Dorcas Anthony)1701 (Not Given - Provider: Keyla Houston - Reason: Order parameters not met - Comment: duplicate order) 0535 (Canceled Entry - Provider: Dorcas Anthony)1735 (Canceled Entry - Provider: Automatic Discharge Provider - Comment: Automatically canceled at discontinue of medication order) sodium chloride 0.9 % flush 10 mL 10 mL, Intravenous, Every 12 hours, First dose on Wed08/21/25 at 0430, Until Discontinued, Routine 0340 (Canceled Entry - Provider: Dorcas Anthony)1532 (Given - Provider: Donna Laboy RN) 0430 (Canceled Entry - Provider: Dorcas Anthony)1701 (Given - Provider: Keyla Houston) 0430 (Canceled Entry - Provider: Dorcas Anthony)1630 (Canceled Entry - Provider: Automatic Discharge Provider - Comment: Automatically canceled at discontinue of medication order) PRN Medication Order 08/21/2025 08/22/2025 08/23/2025 bisacodyl (Dulcolax) EC tablet 10 mg 10 mg, Oral, Daily PRN, Starting on [place] 08/23/25 at 1329, Until [place] 08/23/25 at 1842, Routine, constipation 1431 (Not Given - Provider: Rebecca Kamara RN - Reason: Hold for condition: must add comment - Comment: dropped on floor)1506 (Given - Provider: Rebecca Kamara RN) bisacodyl (Dulcolax) suppository 10 mg 10 mg, Rectal, Daily PRN, Starting on 08/22/25 at 1112, Until [place] 08/23/25 at 1842, Routine, constipation 1411 (Given - Provider: Keyla Houston) hydrOXYzine pamoate (Vistaril) capsule 50 mg 50 mg, Oral, Every 6 hours PRN, Starting on 08/18/25 at 0610, Until [place] 08/23/25 at 1842, Routine, anxiety ondansetron (Zofran) 4 MG/5ML solution 4 mg(Linked Group 2) 4 mg, Oral, Every 6 hours PRN, Starting on 08/18/25 at 0602, Until [place]ota 08/23/25 at 1842, Routine, nausea, vomiting 2117 (See Alternative - Provider: Dorcas Anthony) 1415 (See Alternative - Provider: Keyla Houston)2011 (See Alternative - Provider: Dorcas Anthony) ondansetron (Zofran) injection 4 mg(Linked Group 2) 4 mg, Intravenous, Every 6 hours PRN, Starting on 08/18/25 at 0602, Until [place] 08/23/25 at 1842, Routine, vomiting, nausea 2117 (See Alternative - Provider: Dorcas Anthony) 1415 (See Alternative - Provider: Keyla Houston)2011 (See Alternative - Provider: Dorcas Anthony) ondansetron ODT (Zofran-ODT) disintegrating tablet 4 mg(Linked Group 2) 4 mg, Oral, Every 6 hours PRN, Starting on 08/18/25 at 0602, Until [place] 08/23/25 at 1842, Routine, nausea, vomiting 2117 (Given - Provider: Dorcas Anthony) 1415 (Given - Provider: Keyla Houston)2011 (Given - Provider: Dorcas Kaiser sodium chloride 0.9 % flush 10 mL(Linked Group 1) 10 mL, Intravenous, As needed, Starting on 08/18/25 at 0527, Until [place]ota 08/23/25 at 1842, Routine, line care sodium chloride 0.9 % flush 10 mL 10 mL, Intravenous, Every 1 hour PRN, Starting on 08/21/25 at 0339, Until [place]ota 08/23/25 at 1842, Routine, Flush Before and After EVERY dose of medication. sodium chloride 0.9 % flush 20 mL 20 mL, Intravenous, Every 1 hour PRN, Starting on 08/21/25 at 0339, Until [place]ota 08/23/25 at 1842, Routine, After blood draws and if any blood seen in tubing. sodium hypochlorite (Dakin's (QUARTER-Strength)) external solution 473 mL Irrigation, 2 times daily PRN, Starting on [place] 08/23/25 at 0927, Until [place]ota 08/23/25 at 1842, Routine, wound care 1432 (Given - Provider: Rebecca Kamara RN) Linked Groups Order Group 1: Insert peripheral IV (CANCELED) Once, On 08/18/25 at 0528, For 1 occurrence And Saline lock IV (CANCELED) Once, On 08/18/25 at 0528, For 1 occurrence And sodium chloride 0.9 % flush 10 mLJump to med 10 mL, Intravenous, Every 12 hours, First dose on 08/18/25 at 0535, Until Discontinued, Routine And sodium chloride 0.9 % flush 10 mLJump to med 10 mL, Intravenous, As needed, Starting on 08/18/25 at 0527, Until [place]ota 08/23/25 at 1842, Routine, line care Group 2: ondansetron ODT (Zofran-ODT) disintegrating tablet 4 mgJump to med 4 mg, Oral, Every 6 hours PRN, Starting on 08/18/25 at 0602, Until [place] 08/23/25 at 1842, Routine, nausea, vomiting Or ondansetron (Zofran) injection 4 mgJump to med 4 mg, Intravenous, Every 6 hours PRN, Starting on 08/18/25 at 0602, Until [place]ota 08/23/25 at 1842, Routine, vomiting, nausea Or ondansetron (Zofran) 4 MG/5ML solution 4 mgJump to med 4 mg, Oral, Every 6 hours PRN, Starting on 08/18/25 at 0602, Until [place]ota 08/23/25 at 1842, Routine, nausea, vomiting documented in this encounter Additional Health Concerns Assessment Noted Time A Body Mass Index follow-up plan has been documented for the patient 08/23/2025 4:03 PM EDT documented as of this encounter Care Teams Manager Sound Relationship Specialty Start Date End Date Pcp, No [address] [place] [address] PCP - General Family Medicine 06/04/25 Mariel Varela Clinical Material Handler Railcar Switchman 08/20/25 08/23/25 documented as of this encounter
--- OUTSIDE RECORDS SUMMARY | 2025-09-05 03:23 | XMS_ITS | Encounter Summary ---
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 for treatment, please order an add on susceptibility for etest Pseudomonas aeruginosa MDR Levofloxacin ETEST 4.0 ug/ml: Resistant Peggy Darper MD LAB MICROBIOLOGY - GENERAL ESTHELA MELISSA Final Result Performing Organization Address [facility] Co de Phone Number [facility] [address] [place] [address] * Urinalysis Microscopic Examination (09/05/2025 9:59 AM EDT) Urine Urine specimen obtained by clean catch procedure / Unknown Non-blood Collection / Unknown 09/05/2025 9:59 AM EDT 09/05/2025 10:02 AM EDT Peggy Draper MD LAB URINE ORDERABLES Final Resu lt Performing Organization Address [facility] Co de Phone Number [facility] [address] [place] [address] * Urine Venegas Panel (09/05/2025 9:59 AM EDT) Extra Sent for Culture 09/05/2025 12:02 PM EDT [facility] Urine Urine specimen obtained by clean catch procedure / Unknown Non-blood Collection / Unknown 09/05/2025 9:59 AM EDT 09/05/2025 10:22 AM EDT Peggy Draper MD LAB URINE ORDERABLES Final Resu lt Performing Organization Address [facility] Co de Phone Number [facility] [address] [place] [address] * (ABNORMAL) Urinalysis with reflex microscopic (Culture NOT Included) (09/05/2025 9:59 AM EDT) Color, Urine Yellow LAB URINALYSIS - AUTOMATED METHOD 09/05/2025 10:39 AM EDT [facility] Clarity, Urine Cloudy LAB URINALYSIS - AUTOMATED METHOD 09/05/2025 10:39 AM EDT [facility] Spec Mather, Urine 1.023 1.005 - 1.030 LAB URINALYSIS - AUTOMATED METHOD 09/05/2025 10:39 AM EDT [facility] pH, Urine 6.0 5.0 - 8.0 LAB URINALYSIS - AUTOMATED METHOD 09/05/2025 10:39 AM EDT [facility] Protein, Urine 30(A) Negative mg/dL LAB URINALYSIS - AUTOMATED METHOD 09/05/2025 10:39 AM EDT [facility] Glucose, Urine Negative Negative mg/dL LAB URINALYSIS - AUTOMATED METHOD 09/05/2025 10:39 AM EDT [facility] Ketones, Urine Trace(A) Negative mg/dL LAB URINALYSIS - AUTOMATED METHOD 09/05/2025 10:39 AM EDT [facility] Blood, Urine Negative Negative LAB URINALYSIS - AUTOMATED METHOD 09/05/2025 10:39 AM EDT [facility] Bilirubin, Urine Negative Negative LAB URINALYSIS - AUTOMATED METHOD 09/05/2025 10:39 AM EDT [facility] Urobilinogen, Urine 0.2 0.2 to 1.0 mg/dL LAB URINALYSIS - AUTOMATED METHOD 09/05/2025 10:39 AM T [facility] Leukocytes, Urine Large(A) Negative LAB URINALYSIS - AUTOMATED METHOD 09/05/2025 10:39 AM EDT [facility] Nitrite, Urine Negative Negative LAB URINALYSIS - AUTOMATED METHOD 09/05/2025 10:39 AM T [facility] RBC, Urine <1 0 to 3 /HPF LAB URINALYSIS - AUTOMATED METHOD 09/05/2025 10:39 AM EDT [facility] Comment:This result was prev iously suppressed from the chart. WBC, Urine >50(A) 0 to 5 /HPF LAB URINALYSIS - AUTOMATED METHOD 09/05/2025 10:39 AM EDT [facility] Comment:This result was prev iously suppressed from the chart. Squamous Epithelial Cells 0 - 2 0 to 5 /HPF LAB URINALYSIS - AUTOMATED METHOD 09/05/2025 10:39 AM EDT [facility] Comment:This result was prev iously suppressed from the chart. Hyaline Casts 3 - 5 0 to 5 /LPF LAB URINALYSIS - AUTOMATED METHOD 09/05/2025 10:39 AM EDT [facility] Comment:This result was prev iously suppressed from the chart. Bacteria, Urine Negative Negative LAB URINALYSIS - AUTOMATED METHOD 09/05/2025 10:39 AM EDT [facility] Comment:This result was prev iously suppressed from the chart. Urine Urine specimen obtained by clean catch procedure / Unknown Non-blood Collection / Unknown 09/05/2025 9:59 AM EDT 09/05/2025 10:02 AM EDT us Peggy Draper MD LAB URINE ORDERABLES Final Resu lt Performing Organization Address City/[facility]/ZIP Co de Phone Number [facility] [address] [place] [address] * POCT glucose meter (09/05/2025 9:35 AM EDT) [facility] POCT Glucose 91 74 - 99 mg/dL 09/05/2025 9:36 AM EDT [facility] Comment:Accuracy of a glucos e result obtained from a capillary whole blood specimen relies upon adequate, non-compromised capillary blood flow. If the capillary glucose result is not consistent with the patient's clinical signs and symptoms, glucose testing should be repeated with either an arterial or venous sample on the glucometer or sent to the main labortory for testing. Comment 09/05/2025 9:36 AM EDT [facility] Supervisor Chlorine Liquefaction ID Ashley Cordero 09/05/2025 9:36 AM EDT [facility] Device ID [id number] 09/05/2025 9:36 AM EDT [facility] Specimen Type POC Capillary 09/05/2025 9:36 AM EDT [facility] Blood Capillary blood specimen / Unknown 09/05/2025 9:35 AM EDT 09/05/2025 9:36 AM EDT us Zenia Velasquez MD LAB POINT OF CARE T EST DOCKED DEVICE UNSOLICITED RESULTS Final Result Performing Organization Address City/[facility] Co de Phone Number [facility] [address] [place] [address] * (ABNORMAL) Troponin T, High Sensitivity, 2 Hour, Plasma (09/05/2025 8:00 AM EDT) [facility] Troponin T, High Sensitivity, 2 Hour 20(H) <19 ng/L 09/05/2025 8:25 AM EDT [facility] Troponin Delta 6 <10 ng/L 09/05/2025 8:25 AM EDT [facility] Troponin Delta Interpretation Not Significant 09/05/2025 8:25 AM EDT [facility] Comment:Not Significant. No acute change in troponin observed between the baseline and 2 hour samples. Blood Venous blood specimen / Unknown Venipuncture / Unknown 09/05/2025 8:00 AM EDT 09/05/2025 8:02 AM EDT us Peggy Draper MD LAB BLOOD ORDERABLES Final Resu lt Performing Organization Address City/[facility] Co de Phone Number [facility] [address] [place] [address] * EKG now - STAT (adult) (09/05/2025 5:05 AM EDT) Pathologist [facility] EKG DIAGNOSIS CLASS Abnormal MUSE ECG Ventricular Rate 93 BPM MUSE ECG Atrial Rate 93 BPM MUSE ECG NE Interval 128 ms MUSE ECG QRSD Interval 88 ms MUSE ECG QT Interval 336 ms MUSE ECG QTC Interval 417 ms MUSE ECG P [place] 58 degrees MUSE ECG R [place] 71 degrees MUSE ECG T Wave [place] -53 degrees MUSE ECG Diagnosis Normal sinus rhythm MUSE ECG Diagnosis Nonspecific T wave abnormality MUSE ECG Diagnosis Abnormal ECG MUSE ECG Diagnosis MUSE ECG Diagnosis Confirmed by Tre Balderas ([id number]) on 09/05/2025 11:43:06 AM MUSE ECG 09/05/2025 5:05 AM EDT 09/05/2025 11:43 AM EDT us Peggy Draper MD ECG ORDERABLES Final Result Performing Organization Address City/[facility]/ZIP Co de Phone Number MUSE ECG * Difficult Crossmatch, Pathologist Interpretation (09/05/2025 5:03 AM EDT) Pathologist [facility] Clinical Diagnosis, Difficult Crossmatch Anemia 09/06/2025 11:03 AM EDT BLOOD BANK Interpretation , Difficult Crossmatch CONSULTATION FOR DIFFICULT CROSSMATCH Blood Bank testing performed on the specimen collected 09/05/2025 revealed the presence of one or more antibodies against the following corresponding antigens (antigen negative prevalence): Antibody of Undetermined Specificity (AUSP). Previously identified and/or historic antibodies against the following corresponding antigens are noted (antigen negative prevalence): None AUSP: weak nonspecific reactivity is seen in 1 of 3 screen cells and in 0 of 11 cells in the associated panel. The presence of inconclusive antibodies is generally considered to be clinically insignificant, although it may prolong the time needed to find crossmatch-compati ble RBC units. RECOMMENDATIONS - This patient should receive crossmatch-compati ble RBCs. - Please prepare an Epic order for anticipated RBC transfusions. As discussed above, advance notice may mitigate delays in making available crossmatch-compati ble RBCs for transfusion. - Platelets, plasma, and cryoprecipitate are not affected by these antibodies. These products may be ordered accordingly. - Please discuss this finding with the patient, patient's parent(s), or legal guardian(s) so they are aware that they are a difficult crossmatch. A resident was involved in the service. I attest I examined the relevant preparations for the specimens and confirmed the diagnosis or interpretation. 09/06/2025 11:03 AM EDT BLOOD BANK Pathologist Signature, Difficult Crossmatch Reviewed by: Danny Jean MD 09/06/2025 11:03 AM EDT [facility]LO[facility]ANK LAB CP ASR DISCLAIMER Yes 09/06/2025 11:03 AM EDT BLOOD BANK Blood Venous blood specimen / Unknown Venipuncture / Unknown 09/05/2025 5:03 AM EDT 09/05/2025 5:10 AM EDT us Peggy Draper MD LAB BLOOD BANK TEST ORDERABLES Final Result BLOOD BANK [address] [place] [address], * Antibody Identification (09/05/2025 5:03 AM EDT) Antibody ID Non-specif ic [place]ia 09/05/2025 8:51 AM EDT BLOOD BANK Blood Venous blood specimen / Unknown Venipuncture / Unknown 09/05/2025 5:03 AM EDT 09/05/2025 5:10 AM EDT Peggy Draper MD LAB BLOOD BANK TEST ORDERABLES Final Result Performing Organization Address City/[facility]/ZIP Co de Phone Number BLOOD BANK [address] [place] [address], [place] * [place] Screen (09/05/2025 5:03 AM EDT) [place] Screen Negative 09/05/2025 7:44 AM EDT BLOOD BANK Blood Venous blood specimen / Unknown Venipuncture / Unknown 09/05/2025 5:03 AM EDT 09/05/2025 5:10 AM EDT Peggy Draper MD LAB BLOOD BANK TEST ORDERABLES Final Result Performing Organization Address [facility] de Phone Number BLOOD BANK [address] [place] [address], [place] * (ABNORMAL) FINN IgG Gel (09/05/2025 5:03 AM EDT) FINN IgG Positive(A) 09/05/2025 7:37 AM EDT BLOOD BANK Blood Venous blood specimen / Unknown Venipuncture / Unknown 09/05/2025 5:03 AM EDT 09/05/2025 5:10 AM EDT Peggy Draper MD LAB BLOOD BANK TEST ORDERABLES Final Result Performing Organization Address City/[facility] Co de Phone Number BLOOD BANK [address] [place] [address], [place] * (ABNORMAL) Sed rate, automated (09/05/2025 5:03 AM EDT) Sedimentation Rate 97(H) <15 mm/hr 2024 6:00 AM EDT [facility] Blood Venous blood specimen / Unknown Venipuncture / Unknown 09/05/2025 5:03 AM EDT 09/05/2025 5:10 AM EDT Peggy Draper MD LAB BLOOD ORDERABLES Final Resu lt [facility] [address] [place] [address] * (ABNORMAL) C-reactive protein (09/05/2025 5:03 AM EDT) CRP, Plasma 67.7(H) <=8.0 mg/L 09/05/2025 6:16 AM EDT [facility] Blood Venous blood specimen / Unknown Venipuncture / Unknown 09/05/2025 5:03 AM EDT 09/05/2025 5:15 AM EDT Narrative [facility] - 09/05/2025 6:16 AM EDT This CRP test is appropriate for assessment of infection, systemic inflammation and/or tissue injury. To assess cardiovascular disease risk order high sensitivity CRP (CRPH). Peggy Draper MD LAB BLOOD ORDERABLES Final Resu lt Performing Organization Address [facility]/ZIP Co de Phone Number [facility] [address] [place] [address] * (ABNORMAL) Troponin now and 120 min (09/05/2025 5:03 AM EDT) [facility] Troponin T, High Sensitivity, 0 Hour 26(H) <19 ng/L 09/05/2025 6:16 AM EDT [facility] Blood Venous blood specimen / Unknown Venipuncture / Unknown 09/05/2025 5:03 AM EDT 09/05/2025 5:15 AM EDT Peggy Draper MD LAB BLOOD ORDERABLES Final Resu lt Performing Organization Address City/[facility]/ZIP Co de Phone Number [facility] [address] [place] [address] * (ABNORMAL) Magnesium (09/05/2025 5:03 AM EDT) Magnesium, Plasma 1.3(L) 1.9 - 2.4 mg/dL 09/05/2025 6:16 AM EDT [facility] Blood Venous blood specimen / Unknown Venipuncture / Unknown 09/05/2025 5:03 AM EDT 09/05/2025 5:15 AM EDT us Peggy Draper MD LAB BLOOD ORDERABLES Final Resu lt Performing Organization Address City/[facility]/ZIP Co de Phone Number [facility] [address] [place] [address] * (ABNORMAL) Type and screen (09/05/2025 5:03 AM EDT) ABO/Rh O Positive 09/05/2025 5:10 AM EDT BLOOD BANK Antibody Screen Positive(A) 09/05/2025 5:10 AM EDT BLOOD BANK Specimen Expiration 09/08/2025 23:59 09/05/2025 5:10 AM EDT BLOOD BANK Blood Venous blood specimen / Unknown Venipuncture / Unknown 09/05/2025 5:03 AM EDT 09/05/2025 5:10 AM EDT us Peggy Draper MD LAB BLOOD BANK TEST ORDERABLES Final Result Performing Organization Address [facility] de Phone Number BLOOD BANK [address] [place] [address], * (ABNORMAL) CMP (09/05/2025 5:03 AM EDT) Glucose, Plasma 86 74 - 99 mg/dL 09/05/2025 6:16 AM EDT [facility] BUN, Plasma 5(L) 7 - 21 mg/dL 09/05/2025 6:16 AM EDT [facility] Creatinine, Plasma 0.26(L) 0.70 - 1.20 mg/dL 09/05/2025 6:16 AM EDT [facility] BUN/Creatinine Ratio 19 09/05/2025 6:16 AM EDT [facility] Sodium, Plasma 136 136 - 145 mmol/L 09/05/2025 6:16 AM EDT [facility] Potassium, Plasma 3.5(L) 3.6 - 4.9 mmol/L 09/05/2025 6:16 AM EDT [facility] Chloride, Plasma 103 97 - 107 mmol/L 09/05/2025 6:16 AM EDT [facility] CO2, Plasma 23 22 - 29 mmol/L 09/05/2025 6:16 AM EDT [facility] Anion Gap 10 6 - 16 mmol/L 09/05/2025 6:16 AM EDT [facility] Total Calcium, Plasma 9.3 8.9 - 10.2 mg/dL 09/05/2025 6:16 AM EDT [facility] Total Protein 7.2 6.3 - 7.9 g/dL 09/05/2025 6:16 AM EDT [facility] Albumin, Plasma 3.2(L) 3.5 - 5.2 g/dL 09/05/2025 6:16 AM EDT [facility] AST, Plasma 12 10 - 50 U/L 09/05/2025 6:16 AM EDT [facility] ALT, Plasma <5(L) 10 - 50 U/L 09/05/2025 6:16 AM EDT [facility] Alkaline Phosphatase, Plasma 63 40 - 115 U/L 09/05/2025 6:16 AM EDT [facility] Total Bilirubin, Plasma 0.2 0.2 - 1.1 mg/dL 09/05/2025 6:16 AM EDT [facility] eGFRcr 181.3 mL/min/1.7 3m*2 09/05/2025 6:16 AM EDT [facility] Comment:Reported eGFRcr in m L/min/1.73m2 is based the CKD-EPI 2020 equation that does not use a race coefficient. Blood Venous blood specimen / Unknown Venipuncture / Unknown 09/05/2025 5:03 AM EDT 09/05/2025 5:15 AM EDT us Peggy Draper MD LAB BLOOD ORDERABLES Final Resu lt [facility] [address] [place] [address] * (ABNORMAL) CBC w/diff (09/05/2025 5:03 AM EDT) WBC Count 10.69(H) 3.70 - 10.30 10*3/uL LAB HEMATOLOGY METHOD 09/05/2025 5:21 AM EDT [facility] RBC Count 2.79(L) 4.60 - 6.10 10*6/uL LAB HEMATOLOGY METHOD 09/05/2025 5:21 AM EDT [facility] HGB 8.1(L) 13.7 - 17.5 g/dL LAB HEMATOLOGY METHOD 09/05/2025 5:21 AM EDT [facility] HCT 25.5(L) 40.0 - 51.0 % LAB HEMATOLOGY METHOD 09/05/2025 5:21 AM EDT [facility] Platelet Count 914(H) 155 - 369 10*3/uL LAB HEMATOLOGY METHOD 09/05/2025 5:21 AM EDT [facility] MCV 91 79 - 98 fL LAB HEMATOLOGY METHOD 09/05/2025 5:21 AM EDT [facility] MCH 29.0 26.0 - 32.0 pg LAB HEMATOLOGY METHOD 09/05/2025 5:21 AM EDT [facility] MCHC 31.8 30.7 - 35.5 g/dL LAB HEMATOLOGY METHOD 09/05/2025 5:21 AM EDT [facility] RDW 16.1(H) 11.5 - 14.5 % LAB HEMATOLOGY METHOD 09/05/2025 5:21 AM EDT [facility] MPV 9.1 8.8 - 12.5 fL LAB HEMATOLOGY METHOD 09/05/2025 5:21 AM EDT [facility] nRBC 0.0 <=0.0 per 100 WBCs LAB HEMATOLOGY METHOD 09/05/2025 5:21 AM EDT [facility] Differential Type Automated LAB HEMATOLOGY METHOD 09/05/2025 5:21 AM EDT [facility] Neutrophils % 52 % LAB HEMATOLOGY METHOD 09/05/2025 5:21 AM EDT [facility] Lymphocytes % 30 % LAB HEMATOLOGY METHOD 09/05/2025 5:21 AM EDT [facility] Monocytes % 15 % LAB HEMATOLOGY METHOD 09/05/2025 5:21 AM EDT [facility] Eosinophils % 2 % LAB HEMATOLOGY METHOD 09/05/2025 5:21 AM EDT [facility] Basophils % 1 % LAB HEMATOLOGY METHOD 09/05/2025 5:21 AM EDT [facility] Immature Granulocytes % 0 % LAB HEMATOLOGY METHOD 09/05/2025 5:21 AM EDT [facility] Neutrophils Absolute 5.64 1.60 - 6.10 10*3/uL LAB HEMATOLOGY METHOD 09/05/2025 5:21 AM EDT [facility] Lymphocytes Absolute 3.16 1.20 - 3.90 10*3/uL LAB HEMATOLOGY METHOD 09/05/2025 5:21 AM EDT [facility] Monocytes Absolute 1.59(H) 0.30 - 0.90 10*3/uL LAB HEMATOLOGY METHOD 09/05/2025 5:21 AM EDT [facility] Eosinophils Absolute 0.19 0.00 - 0.50 10*3/uL LAB HEMATOLOGY METHOD 09/05/2025 5:21 AM EDT [facility] Basophils Absolute 0.08 0.00 - 0.10 10*3/uL LAB HEMATOLOGY METHOD 09/05/2025 5:21 AM EDT [facility] Immature Granulocytes Absolute 0.03 0.00 - 0.06 10*3/uL LAB HEMATOLOGY METHOD 09/05/2025 5:21 AM EDT [facility] Blood Venous blood specimen / Unknown Venipuncture / Unknown 09/05/2025 5:03 AM EDT 09/05/2025 5:10 AM EDT Narrative [facility] - 09/05/2025 5:21 AM EDT Therapeutic decision making should be based on absolute values, rather than percentages. us Peggy Draper MD LAB BLOOD ORDERABLES Final Resu lt [facility] [address] [place] [address] documented in this encounter Visit Diagnoses Diagnosis Abnormal laboratory test result- Primary Other abnormal clinical finding documented in this encounter Administered Medications Inactive Administered Medications - up to 3 most recent administrations Medication Order MAR Action Action Date Dose Rate Site magnesium oxide (Mag-Ox) tablet 400 mg 400 mg, Oral, Once, 1 dose, On Wed09/05/25 at 0645, Routine Given 09/05/2025 6:47 AM EDT 400 mg documented in this encounter Active and Recently Administered Medications Times are shown in EDT. Scheduled Medication Order 09/03/2025 09/04/2025 09/05/2025 magnesium oxide (Mag-Ox) tablet 400 mg (COMPLETED) 400 mg, Oral, Once, 1 dose, On Wed09/05/25 at 0645, Routine 0647 (Given - Provid er: Donna Shetty RN) documented in this encounter Additional Health Concerns Assessment Noted Time A Body Mass Index follow-up plan has been documented for the patient 08/24/2025 9:15 AM EDT documented as of this encounter Care Teams [employer] Relationship Specialty Start Date End Date Pcp, Nia [address] [place] [address] PCP - General Family Medicine 06/04/25 documented as of this encounter
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
[2025-09-28 13:33] VITALS: BMI 18.1
[2025-09-28] MEDS: NEOSPORIN OINTMENT 0.9GM UDP 1 EACH TP (13:35)
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
--- OUTSIDE RECORDS SUMMARY | 2025-09-28 13:38 | XMS_ITS | Encounter Summary ---
Author Organization [facility] Address [address] [place] [address] Care Team Providers Care Desk Assistant Name Role Phone Pcp, No Primary Care Provider UnavailMariel Doan Unavailable Unavailable Encounter Details Date Type Department Care Team (Late st Contact Info) Description 06/25/2025 Lab Requisition [facility] [address] [place] [address] Karthik Latham MD [address] [facility] [address] [place] [address] Encounter for general adult medical [...] any time in the past 12 m [facility], were you homeless or living in a retirement (including now)? No 06/06/2025 Utilities Answer Date [...] Date of Assessment Author No Risk Indicated 06/28/2025 8:00 AM EDT Juana Martinez RN * Question Answer Date of Assessment Author 1. Wish to be (Past 1 Month) No 06/28/2025 8:00 AM EDT Crys Ruggiero, RN 2. Non-Specific Active Suicidal Thoughts (Past 1 Month) No 06/28/2025 8:00 AM TOLUT Crys Ruggiero, RN 6. Suicidal Behavior (Lifetime) No 06/28/2025 8:00 AM TOLUT Crys Ruggiero, RN documented as of this encounter Plan of Treatment Upcoming Encounters Date Type Department Care Team (Late st Contact Info) Description 10/11/2025 1:30 PM EST Office Visit [facility] [address] [place] [address] Michael Scales MD [address] [facility] [address] [place] [phone] 10/16/2025 8:30 AM EST Office Visit [facility] [address] [facility] [place] [phone] Tyler Suresh MD [address] [facility] [address] [place] [address] documented as of this encounter Procedures Procedure Name Priority Date/Time Associated Diagnosis Comments MULTI DRUG RESISTANCE TEST Routine 06/25/2025 8:15 AM EDT Encounter for general adult medical examination without abnormal findings documented in this encounter Results * Multi Drug Resistance Test (06/25/2025 8:15 AM EDT) Culture No Multi Drug Resistant Organisms Isolated 06/27/2025 7:21 AM EDT [facility] Swab Both anterior nares / Unknown 06/25/2025 8:15 AM EDT 06/25/2025 5:00 PM EDT Narrative [facility] - 06/27/2025 7:21 AM EDT This test was developed and its performance characteristics determined by the [facility]. Although the media is FDA-approved, it is not FDA-approved for all specimen types submitted. The FDA has determined that such clearance or approval is not necessary. This test is used for surveillance purposes. It should not be regarded as investigational or for research. The [facility] is certified under the Clinical Laboratory Improvement Amendments of 1988 (CLIA-88) as qualified to perform high complexity clinical laboratory testing. us Karthik Latham MD LAB MICROBIOLOGY - GEN ERAL ORDERABLES Final Result [facility] [address] [place] [address] documented in this encounter Visit Diagnoses Diagnosis [...] documented as of this encounter Care Teams Desk Assistant Relationship Specialty Start Date End Date Pcp, Nia [address] [place] [address] PCP - General Family Medicine 06/04/25 Mariel Varela Credit Operations Specialist Extra Gang Supervisor 08/20/25 08/23/25 documented as of this encounter
--- OUTSIDE RECORDS SUMMARY | 2025-09-28 13:39 | XMS_ITS ---
Author Organization [facility] Address [address] [place] [address] Care Team Providers Care Production Staff Worker Name Role Phone Pcp, No Primary Care Provider Unavailabl e LINK Program Status:Closed (Closed) Start date:08/20/2025 Enrollment reason:Identified using hospital discharge data End date:08/23/2025 Close reason:In Treatment Overview Patient closed from [facility] at this time due to ED disposition. Patient remains eligible for [facility] program upon discharge. Contact card provided for patient follow-up. Continued Care and Services Coordination
--- OUTSIDE RECORDS SUMMARY | 2025-09-28 13:39 | XMS_ITS | Encounter Summary ---
Author Organization [facility] Address [address] [place] [address] Care Team Providers Care Silverware Buffing Machine Operator Name Role Phone Pcp, No Primary Care Provider Unavailabl e Encounter Details Date Type Department Care Team (Latest Contact Info) Description 09/18/2025 Travel Social History Tobacco Use Types Packs/Day [...] any time in the past 12 m onths, were you homeless or living in a long term (including now)? No 08/20/2025 [facility] Utilities Answer Date Recorded In the [...] Visit Physical Medicine & Rehabilitation Clinic at [facility] [address] [place] [address] Michael Scales MD [address] [facility] [address] [place] [address] 10/16/2025 8:30 AM EST Office Visit [facility] [address] [place] [address] Tyler Suresh MD [address] [facility] [address] [place] [address] documented as of this encounter Visit Diagnoses Not on filedocumented in this encounter Additional Health Concerns Infection [...] documented as of this encounter Care Teams Silverware Buffing Machine Operator Relationship Specialty Start Date End Date Pcp, [place] [address] PCP - General Family Medicine 06/04/25 documented as of this encounter
--- OUTSIDE RECORDS SUMMARY | 2025-09-28 13:39 | XMS_ITS | Encounter Summary ---
Author Organization [facility] Address [address] [place] [address] Care Team Providers Care Block Saw Operator Name Role Phone Pcp, No Primary Care Provider Unavailabl e Encounter Details Date Type Department Care Team (Late st Contact Info) Description 09/19/2025 Results Follow-Up [facility] [address] [place] [address] Tyler Suresh MD [address] [facility] [address] [place] [address] Social History Tobacco Use Types Packs/Day Years [...] were you homeless or living in a care home (including now)? No 08/20/2025 [facility] Utilities Answer Date Recorded In the past [...] Visit [facility] Medicine [facility] at [facility] [address] [place] [address] Michael Scales MD [address] [facility] [address] [place] [address] 10/16/2025 8:30 AM EST Office Visit [place] [address] [place] [address] Tyler Suresh MD [address] [facility] [address] [place] [address] [phone] (work) documented as of this encounter Visit Diagnoses [...] documented as of this encounter Care Teams Block Saw Operator Relationship Specialty Start Date End Date Pcp, [place] [address] PCP - General Family Medicine 06/04/25 documented as of this encounter
--- OUTSIDE RECORDS SUMMARY | 2025-09-28 13:39 | XMS_ITS | Encounter Summary ---
Author Organization [facility] Address [address] [place] [address] Care Team Providers Care Instructional Coach Name Role Phone Pcp, No Primary Care Provider Unavailabl e Encounter Details Date Type Department Care Team (Late st Contact Info) Description 09/19/2025 External Documentati on Encounter [facility] [address] [place] [phone] Darya Li LPN [facility] Social History Tobacco Use Types Packs/Day Years [...] any time in the past 12 m [facility], were you homeless or living in a intermediate (including now)? No 08/20/2025 [facility] Utilities Answer Date Recorded In the [...] Visit Physical Medicine & Rehabilitation Clinic at [facility] [address] [place] [address] Michael Scales MD [address] [facility] [address] [place] [address] 10/16/2025 8:30 AM EST Office Visit [facility] [address] [place] [address] Tyler Suresh MD [address] [place] [address] [address] [place] [address] documented as of this encounter Visit Diagnoses [...] documented as of this encounter Care Teams Instructional Coach Relationship Specialty Start Date End Date Pcp, [place] [address] PCP - General Family Medicine 06/04/25 documented as of this encounter
--- OUTSIDE RECORDS SUMMARY | 2025-09-28 13:40 | XMS_ITS | Encounter Summary ---
Author Organization [facility] Address [address] [place] [address] Care Team Providers Care Kersey Department Supervisor Name Role Phone Pcp, No Primary Care Provider Unavailabl e Reason for Visit * Reason Onset Date Comments [facility] Clinical Concern/Question 09/27/2025 Encounter Details Date Type Department Care Team (Late st Contact Info) Description 09/27/2025 Telephone Physical Medicine & Rehabilitation Clinic at [facility] [address] [place] [address] Michael Scales MD [address] [facility] [address] [place] [address] [facility] Clinical Concern/Question Social History Tobacco Use Types Packs/Day Years [...] any time in the past 12 m [facility], were you homeless or living in a snf (including now)? No 08/20/2025 [facility] Utilities Answer Date Recorded In the past 12 months has th e electric, gas, oil, or water company threatened to shut off services in your home? No 08/20/2025 Sex and Gender Information Value Date Recorded Sex Assigned at Not on file Legal Sex Male 12:56 AM EDT Gender Identity Not on file Sexual Orientation Not on file documented as of this encounter Miscellaneous Notes * Telephone Encounter - Michael Scales MD - 09/28/2025 10:34 AM EST Sounds good. thanks * Telephone Encounter - Lenka Fontana - 09/28/2025 10:27 AM EST I spoke with pt he stated that he has an upcoming appt with urology and will discuss with them. He also has an appt with you on 10/11 and will discuss trach removal. * Telephone Encounter - Tyler Kinney - 09/27/2025 4:29 PM EST Status Update Call #1 1st call regarding the status of the initial request. Best contact number: [phone] (mobile) Optimal time of day to reach caller: ANYTIME Additional comments/information from caller: None Note: Please do not reply to this message. Follow-up communication and further actions as a result of this message need to be communicated with the patient directly, if the patient is not active onMyChart. If the patient is active on MyChart, they will receive notification of the communication/outcome via [employer]. * Telephone Encounter - Lenka Fontana - 09/27/2025 2:55 PM EST I called pt back I left a VM will await for a return call * Telephone Encounter - Michael Scales MD - 09/27/2025 12:05 PM EST I will need to see patient in clinic to obtain a follow-up lung test in order to clear him for trach removal. He also needs to be seen by urology to eval his bladder function as he may need a procedure to help him stop leaking. If he does not have an appointment upcoming already I can place a referral. He is on the max does of the mirabegron currently if that is the pill he is referencing. We candiscuss adding a second agent possibly when I see him in clinic. Thanks * Telephone Encounter - Lenka Fontana - 09/27/2025 11:54 AM EST I spoke with pt, he stated that he is on a bladder pill and does not know the name of it but he thinks it's not working as he cath 4-5 x a day but still leaks in between. Also he wants to know if he can remove the trach because he has been of for 5 weeks and he seems just fine. * Telephone Encounter - Rebecca Lopez - 09/27/2025 10:38 AM EST Clinical Concern/Question Reason for Call: Dr Scales/ Patient would like a return call from nurse in regards to medication. Please call to advise, thanks Best contact number: [phone] (mobile) Optimal time of day to reach caller: ANYTIME Additional comments/information from caller: None Note: Please do not reply to this message. Follow-up communication and further actions as a result of this message need to be communicated with the patient directly, if the patient is not active onMyChart. If the patient is active on MyChart, they will receive notification of the communication/outcome via [employer]. documented in this encounter Plan of Treatment Upcoming Encounters Date Type Department Care Team (Late st Contact Info) Description 10/11/2025 1:30 PM EST Office Visit Physical Medicine & Rehabilitation Clinic at [facility] [address] [place] [address] Michael Scales MD [address] [facility] [address] [place] [address] 10/16/2025 8:30 AM EST Office Visit [address] [address] Tyler Suresh MD [address] [place] [address] [address] [place] [address] documented as of this encounter [...] documented as of this encounter Care Teams Kersey Department Supervisor Relationship Specialty Start Date End Date Pcp, [place] [address] PCP - General Family Medicine 06/04/25 documented as of this encounter
--- OUTSIDE RECORDS SUMMARY | 2025-09-28 13:40 | XMS_ITS | Encounter Summary ---
Author Organization Healthcare Address [address] [place] [address] Care Team Providers Care Water Supervisor Name Role Phone Pcp, No Primary Care Provider Unavailabl e Encounter Details Date Type Department Care Team (Late st Contact Info) Description 08/24/2025 Clinical Support [facility] [address] [place] [address] Ayush Umana, PharmD [address] [facility] [address] [place] [address] Social History Tobacco Use Types [...] living in a mcc (including now)? No 08/20/2025 [facility] Utilities Answer Date Recorded In the [...] Visit Physical Medicine & Rehabilitation Clinic at [facility] [address] [address] Michael Scales MD [address] [facility] [address] [place] [address] 10/16/2025 8:30 AM EST Office Visit [facility] [address] [place] [address] Tyler Suresh MD [address] [facility] [address] [place] [address] (work) documented as of this encounter Visit Diagnoses Not on filedocumented in this encounter Additional Health Concerns Assessment Noted Time A Body Mass Index follow-up plan has been documented for the patient 08/24/2025 9:15 AM EDT documented as of this encounter Care Teams Water Supervisor Relationship Specialty Start Date End Date Pcp, [place] [address] PCP - General Family Medicine 06/04/25 documented as of this encounter
--- OUTSIDE RECORDS SUMMARY | 2025-09-28 13:40 | XMS_ITS | Encounter Summary ---
Author Organization [facility] Address [address] [place] [address] Care Team Providers Care Instrument Technician Name Role Phone Pcp, No Primary Care Provider Unavailabl e Encounter Details Date Type Department Care Team (Latest Contact Info) Description 09/05/2025 Travel Social History Tobacco Use Types Packs/Day [...] were you homeless or living in a chcf (including now)? No 08/20/2025 [facility] Utilities Answer Date Recorded In [...] Yoon RN documented as of this encounter Plan of Treatment Upcoming Encounters Date Type Department Care Team (Late st Contact Info) Description 10/11/2025 1:30 PM EST Office Visit [facility] [address] [place] [address] Michael Scales MD [address] [place] [address] 10/16/2025 8:30 AM EST Office Visit [facility] [address] [place] [address] Tyler Suresh MD [address] [facility] [address] [place] [address] documented as of this encounter Visit Diagnoses Not on filedocumented in this encounter Additional Health Concerns Assessment Noted Time A Body Mass Index follow-up plan has been documented for the patient 08/24/2025 9:15 AM EDT documented as of this encounter Care Teams Instrument Technician Relationship Specialty Start Date End Date Pcp, [place] [address] PCP - General Family Medicine 06/04/25 documented as of this encounter
--- OUTSIDE RECORDS SUMMARY | 2025-09-28 13:40 | XMS_ITS | Encounter Summary ---
Author Organization [facility] Address [address] [place] [address] Care Team Providers Care Puller Machine Name Role Phone Pcp, No Primary Care Provider Unavailabl e Mariel Varela Unavailable Unavailable Reason for Visit * Reason Comments Link Encounter Details Date Type Department Care Team (Late st Contact Info) Description 08/20/2025 Patient Outreach [facility] [address], [address] [place] [address] Mariel Varela Link Social History Tobacco Use Types Packs/Day Years [...] any time in the past 12 m [facility], were you homeless or living in a long-term (including now)? No 08/20/2025 [facility] Utilities Answer Date Recorded In [...] Date of Assessment Author No Risk Indicated 08/20/2025 4:00 AM EDT Marylu Ross RN * Question Answer Date of Assessment Author 1. Wish to be (Past 1 Month) No 025 4:00 AM EDT Marylu Ross RN 2. Non-Specific Active Suici abdullahi Thoughts (Past 1 Month) No 08/20/2025 4:00 AM EDT Shayy Ross RN 6. Suicidal Behavior (Lifetime) No 4:00 AM TOLUT Marylu Ross RN documented as of this encounter Miscellaneous Notes * Progress Notes - Mariel Varela - 08/20/2025 4:46 PM EDT [facility] SW attempted contact with pt bedside for introductions and review of the [facility] program. Pt was occupied with care team; [facility] SW will re- attempt contact at a later date. documented in this encounter Plan of Treatment Upcoming Encounters Date Type Department Care Team (Late st Contact Info) Description 10/11/2025 1:30 PM EST Office Visit [facility] [address] [place] [address] Michael Scales MD [address] [facility] [address] [place] [address] 10/16/2025 8:30 AM EST Office Visit [facility] [address] [place] [address] Tyler Suresh MD [address] [facility] [address] [place] [address] documented as of this encounter Visit Diagnoses Not on filedocumented in this encounter Additional Health Concerns Assessment Noted Time A Body Mass Index follow-up plan has been documented for the patient 08/23/2025 4:03 PM EDT documented as of this encounter Care Teams Puller Machine Relationship Specialty Start Date End Date Pcp, [place] [address] PCP - General Family Medicine 06/04/25 Mariel Varela Door Furring Installer Stroboroma Operator 08/20/25 08/23/25 documented as of this encounter
--- OUTSIDE RECORDS SUMMARY | 2025-09-28 13:40 | XMS_ITS | Encounter Summary ---
Author Organization [facility] Address [address] [place] [address] Care Team Providers Care Heat Treater Name Role Phone Pcp, No Primary Care Provider Unavailabl e Mariel Varela Unavailable Unavailable Reason for Visit * Reason Comments Link Encounter Details Date Type Department Care Team (Late st Contact Info) Description 08/21/2025 Patient Outreach [facility] [address] [place] [address] Mariel Varela Link Social History [...] any time in the past 12 m [facility], were you homeless or living in a fdc (including now)? No 08/20/2025 [facility] Utilities Answer Date Recorded In the past [...] Month) No 08/21/2025 8:00 AM EDT Donna Laboy RN 6. Suicidal Behavior (Lifetime) No 8:00 AM EDT Donna Laboy, RN documented as of this encounter Miscellaneous Notes * Progress Notes - Mariel Varela - 08/21/2025 2:35 PM EDT [facility] SW met with pt bedside for introductions and review of [facility] program; pt was asleep and his maternal grandmother was bedside and engaged in conversation with SW. [facility] SW reviewed option for pt to receive f/u call from [facility] nurse after discharge home from [facility] and reviewed that pt/his family can contact [facility] SW to arrange; pt's grandmother verbalized understanding. [facility] SW provided contact card for f/u questions. Mariel Varela, LIVESTOCK NUTRITION TERRITORY MANAGER, TELESALES AGENT Population Health [email or web address] documented in this encounter Plan of Treatment Upcoming Encounters Date Type Department Care Team (Late st Contact Info) Description 10/11/2025 1:30 PM EST Office Visit [facility] at [facility] [address] [facility] [place] [address] Michael Scales MD [address] [facility] [address] [place] [address] 10/16/2025 8:30 AM EST Office Visit [facility] [address] [place] [address] Tyler Suresh MD [address] [facility] [address] [place] [address] documented as of this encounter Visit Diagnoses Not on filedocumented in this encounter Additional Health Concerns Assessment Noted Time A Body Mass Index follow-up plan has been documented for the patient 08/23/2025 4:03 PM EDT documented as of this encounter Care Teams Heat Treater Relationship Specialty Start Date End Date Pcp, Nia [address] [place] [address] PCP - General Family Medicine 06/04/25 Mariel Varela Billing Clerk In Flight Refueling Operator 08/20/25 08/23/25 documented as of this encounter
--- OUTSIDE RECORDS SUMMARY | 2025-09-28 13:40 | XMS_ITS | Encounter Summary ---
Author Organization Healthcare Address [address] 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 No 08/20/2025 [facility] Utilities Answer Date Recorded In the past [...] Visit [facility] & Rehabilitation Clinic at [facility] [address] [place] [address] Michael Scales MD [address] [facility] [address] [place] [address] 10/16/2025 8:30 AM EST Office [facility] [address] [place] [address] Tyler Suresh MD 3101 [facility] [address] [place] [address] Scheduled Orders Name Type Priority Associated Diagnoses Orde r Schedule XR Thoracic Spine 2 Views Imaging Routine Fusion of spine of cervicothoracic region 1 Occurrences starting 09/17/2025 until 03/21/2027 documented as of this encounter Visit Diagnoses Diagnosis Fusion of spine of cervicothoracic region- Primary documented in this encounter Additional Health Concerns [...] documented as of this encounter Care Teams Rotary Shear Worker Helper Relationship Specialty Start Date End Date Pcp, [place] [address] PCP - General Family Medicine 06/04/25 documented as of this encounter
--- OUTSIDE RECORDS SUMMARY | 2025-09-28 13:40 | XMS_ITS | Encounter Summary ---
Author Organization [facility] Address [address] [place] [address] Care Team Providers Care Dispatcher Relay Name Role Phone Pcp, No Primary Care Provider Unavailabl e Encounter Details Date Type Department Care Team (Late st Contact Info) Description 09/28/2025 Telephone [facility] [address] [place] [address] Darya Li LPN [facility] Social History Tobacco Use Types Packs/Day Years [...] any time in the past 12 m [facility], were you homeless or living in a custodial (including now)? No 08/20/2025 [facility] Utilities Answer Date Recorded In the [...] [facility] [address] [place] [place] [address] Michael Scales MD [address] [facility] [address] [place] [address] 10/16/2025 8:30 AM EST Office Visit [place] [id number] [place] [address] Tyler Suresh MD [address] [facility] [address] [place] [address] documented as of this encounter Visit Diagnoses [...] documented as of this encounter Care Teams Dispatcher Relay Relationship Specialty Start Date End Date Pcp, [place] [address] PCP - General Family Medicine 06/04/25 documented as of this encounter
--- OUTSIDE RECORDS SUMMARY | 2025-09-28 13:40 | XMS_ITS | Encounter Summary ---
Author Organization [facility] Address [address] [place] [address] Care Team Providers Care Power Tong Operator Name Role Phone Pcp, No Primary Care Provider Unavailabl e Encounter Details Date Type Department Care Team (Late st Contact Info) Description 09/24/[address] [facility] [address] [place] [phone] Darya Li LPN [facility] Social History Tobacco Use Types Packs/Day Years [...] time in the past 12 m [facility], were you homeless or living in a chcf (including now)? No 08/20/2025 [facility] [...] Visit Physical Medicine & Rehabilitation Clinic at [facility] [address] [place] [address] Michael Scales MD [address] [facility] [address] [place] [address] 10/16/2025 8:30 AM EST Office Visit [facility] [address] [place] [address] Tyler Suresh MD [address] [place] [address] [address] [place] [address] documented as of this encounter Visit Diagnoses [...] documented as of this encounter Care Teams Power Tong Operator Relationship Specialty Start Date End Date Pcp, [place] [address] PCP - General Family Medicine 06/04/25 documented as of this encounter
--- OUTSIDE RECORDS SUMMARY | 2025-09-28 13:40 | XMS_ITS | Encounter Summary ---
Author Organization Healthcare Address [address] [place] [address] Care Team Providers Care Construction Trades Contractor Name Role Phone Pcp, No Primary Care Provider Unavailabl e Encounter Details Date Type Department Care Team (Late st Contact Info) Description 09/12/2025 Telephone [facility] [address] [place] [address] Inocente West MD [address] [facility] [address] [place] [address] Social History Tobacco Use Types Packs/Day Years [...] were you homeless or living in a senior living (including now)? No 08/20/2025 [facility] Utilities Answer Date Recorded In the [...] encounter Miscellaneous Notes * Telephone Encounter - Shaq Ramirez - 09/12/2025 10:28 AM EDT Received message from Dr. West to reschedule pt with different provider. LVM informing that we need to reschedule with different provider. Gave clinic number to call back to discuss documented in this encounter Plan of Treatment Upcoming Encounters Date Type Department Care Team (Late st Contact Info) Description 10/11/2025 1:30 PM EST Office Visit [facility] [address] [place] [address] Michael Scales MD [address] [place] [address] 10/16/2025 8:30 AM EST Office Visit [facility] [address] [place] [address] Tyler Suresh MD [address] [facility] [address] [place] [address] documented as of this encounter [...] documented as of this encounter Care Teams Construction Trades Contractor Relationship Specialty Start Date End Date Pcp, [place] [address] PCP - General Family Medicine 06/04/25 documented as of this encounter
--- OUTSIDE RECORDS SUMMARY | 2025-09-28 13:40 | XMS_ITS | Encounter Summary ---
Author Organization Healthcare Address [address] [place] [address] Care Team Providers Care Software Development Intern Name Role Phone Pcp, No Primary Care Provider Unavailabl e Encounter Details Date Type Department Care Team (Late st Contact Info) Description 09/18/2025 Orders Only [facility] [address] [place] [address] Tyler Suresh MD [address] [facility] [address] [place] [address] Therapeutic drug monitoring (Primary Dx); Encounter for central line care Social History Tobacco Use Types Packs/Day Years [...] any time in the past 12 m [facility], were you homeless or living in a mcfp (including now)? No 08/20/2025 [facility] Utilities Answer Date Recorded In the past [...] [facility] [address] [place] [address] Michael Scales MD [address] [facility] [address] [place] [address] 10/16/2025 8:30 AM EST Office Visit [facility] [address] [place] [address] Tyler Suresh MD [address] [facility] [address] [place] [address] Scheduled Orders Name Type Priority Associated Diagnoses Orde r Schedule CBC and differential Lab Routine Therapeutic drug monitoring 10 Occurrences starting 09/18/2025 until 11/18/2025, 1 completed C-reactive protein Lab Routine Therapeutic drug monitoring 10 Occurrences starting 09/18/2025 until 11/18/2025, 1 completed Urea Nitrogen, Plasma Lab Routine Therapeutic drug monitoring 10 Occurrences starting 09/18/2025 until 11/18/2025, 1 completed Creatinine, plasma Lab Routine Therapeutic drug monitoring 10 Occurrences starting 09/18/2025 until 11/18/2025, 1 completed documented as of this encounter Results * (ABNORMAL) Creatinine, plasma (09/18/2025 10:16 AM EDT) Creatinine, Plasma 0.19(L) 0.70 - 1.20 mg/dL 09/18/2025 1:[address] [facility] eGFRcr 199.3 mL/min/1.7 3m*2 09/18/2025 1:[address] [facility] Comment:Reported eGFRcr in m L/min/1.73m2 is based the CKD-EPI 2020 equation that does not use a race coefficient. Blood Venous blood specimen / Unknown Venipuncture / Unknown 09/18/2025 10:16 AM EDT 09/18/2025 10:59 AM EDT Tyler Suresh MD LAB BLOOD ORDERABLES Final Re sult [facility] [address] [place] [address] * Urea Nitrogen, Plasma (09/18/2025 10:16 AM EDT) BUN, Plasma 7 7 - 21 mg/dL 09/18/2025 1:[address] [facility] Blood Venous blood specimen / Unknown Venipuncture / Unknown 09/18/2025 10:16 AM EDT 09/18/2025 10:59 AM EDT Tyler Suresh MD LAB BLOOD ORDERABLES Final Re sult Performing Organization Address [facility]/ZIP Co de Phone Number [facility] [address] [place] [address] * (ABNORMAL) C-reactive protein (09/18/2025 10:16 AM EDT) Pathologist [facility] CRP, Plasma 9.8(H) <=8.0 mg/L 09/18/2025 1:[address] [facility] Blood Venous blood specimen / Unknown Venipuncture / Unknown 09/18/2025 10:16 AM EDT 09/18/2025 10:[address] [facility] - 09/18/2025 1:32 PM EDT This CRP test is appropriate for assessment of infection, systemic inflammation and/or tissue injury. To assess cardiovascular disease risk order high sensitivity CRP (CRPH). Tyler Suresh MD LAB BLOOD ORDERABLES Final [facility] Performing Organization Address [facility] Co de Phone Number [facility] [address] [place] [address] * (ABNORMAL) CBC and differential (09/18/2025 10:16 AM EDT) [facility] WBC Count 15.34(H) 3.70 - 10.30 10*3/uL LAB HEMATOLOGY METHOD 09/18/2025 2:[address] [facility] RBC Count 3.14(L) 4.60 - 6.10 10*6/uL LAB HEMATOLOGY METHOD 09/18/2025 2:[address] [facility] HGB 9.2(L) 13.7 - 17.5 g/dL LAB HEMATOLOGY METHOD 09/18/2025 2:[address] [facility] HCT 29.7(L) 40.0 - 51.0 % LAB HEMATOLOGY METHOD 09/18/2025 2:[address] [facility] Platelet Count 998(H) 155 - 369 10*3/uL LAB HEMATOLOGY METHOD 09/18/2025 2:[address] [facility] MCV 95 79 - 98 fL LAB HEMATOLOGY METHOD 09/18/2025 2:[address] [facility] MCH 29.3 26.0 - 32.0 pg LAB HEMATOLOGY METHOD 09/18/2025 2:[address] [facility] MCHC 31.0 30.7 - 35.5 g/dL LAB HEMATOLOGY METHOD 09/18/2025 2:[address] [facility] RDW 16.8(H) 11.5 - 14.5 % LAB HEMATOLOGY METHOD 09/18/2025 2:[address] [facility] MPV 9.5 8.8 - 12.5 fL LAB HEMATOLOGY METHOD 09/18/2025 2:[address] [facility] nRBC 0.0 <=0.0 per 100 WBCs LAB HEMATOLOGY METHOD 09/18/2025 2:[address] [facility] Differential Type Automated LAB HEMATOLOGY METHOD 09/18/2025 2:[address] [facility] Neutrophils % 74 % LAB HEMATOLOGY METHOD 09/18/2025 2:[address] [facility] Lymphocytes % 19 % LAB HEMATOLOGY METHOD 09/18/2025 2:[address] [facility] Monocytes % 6 % LAB HEMATOLOGY METHOD 09/18/2025 2:[address] [facility] Eosinophils % 1 % LAB HEMATOLOGY METHOD 09/18/2025 2:[address] [facility] Basophils % 0 % LAB HEMATOLOGY METHOD 09/18/2025 2:[address] [facility] Immature Granulocytes % 0 % LAB HEMATOLOGY METHOD 09/18/2025 2:[address] [facility] Neutrophils Absolute 11.25(H) 1.60 - 6.10 10*3/uL LAB HEMATOLOGY METHOD 09/18/2025 2:[address] [facility] Lymphocytes Absolute 2.96 1.20 - 3.90 10*3/uL LAB HEMATOLOGY METHOD 09/18/2025 2:[address] [facility] Monocytes Absolute 0.88 0.30 - 0.90 10*3/uL LAB HEMATOLOGY METHOD 09/18/2025 2:[address] [facility] Eosinophils Absolute 0.16 0.00 - 0.50 10*3/uL LAB HEMATOLOGY METHOD 09/18/2025 2:[address] [facility] Basophils Absolute 0.04 0.00 - 0.10 10*3/uL LAB HEMATOLOGY METHOD 09/18/2025 2:[address] [facility] Immature Granulocytes Absolute 0.05 0.00 - 0.06 10*3/uL LAB HEMATOLOGY METHOD 09/18/2025 2:[address] [facility] Blood Venous blood specimen / Unknown Venipuncture / Unknown 09/18/2025 10:16 AM EDT 09/18/2025 10:[address] [facility] - 09/18/2025 2:03 PM EDT Therapeutic decision making should be based on absolute values, rather than percentages. us Tyler Suresh MD LAB BLOOD ORDERABLES Final Re sult [facility] [address] [place] [address] documented in this encounter Visit Diagnoses Diagnosis Therapeutic drug monitoring- Primary Encounter for therapeutic drug monitoring Encounter for central line care documented in this encounter Additional Health Concerns [...] documented as of this encounter Care Teams Software Development Intern Relationship Specialty Start Date End Date Pcp, No [address] [place] [address] PCP - General Family Medicine 06/04/25 documented as of this encounter
--- OUTSIDE RECORDS SUMMARY | 2025-09-28 13:40 | XMS_ITS | Encounter Summary ---
Author Organization [facility] Address [address] [place] [address] Care Team Providers Care Public Health Name Role Phone Pcp, No Primary Care Provider Unavailabl e Encounter Details Date Type Department Care Team (Latest Contact Info) Description 08/24/2025 Travel Social History Tobacco Use Types Packs/Day [...] any time in the past 12 [facility], were you homeless or living in a half-way (including now)? No 08/20/2025 [facility] Utilities Answer Date Recorded In the [...] [facility] [address] [place] [address] Michael Scales MD [address] [facility] [address] [place] [address] 10/16/2025 8:30 AM EST Office Visit [facility] [address] [place] [address] Tyler Suresh MD [address] [facility] [address] [place] [address] documented as of this encounter Visit Diagnoses Not on filedocumented in this encounter Additional Health Concerns Assessment Noted Time A Body Mass Index follow-up plan has been documented for the patient 08/24/2025 9:15 AM EDT documented as of this encounter Care Teams Public Health Relationship Specialty Start Date End Date Pcp, No [address] [place] [address] PCP - General Family Medicine 06/04/25 documented as of this encounter
--- OUTSIDE RECORDS SUMMARY | 2025-09-28 13:40 | XMS_ITS | Encounter Summary ---
Author Organization Healthcare Address [address] [place] [address] Care Team Providers Care Intervention Analyst Name Role Phone Pcp, No Primary Care Provider Unavailabl e Encounter Details Date Type Department Care Team (Late st Contact Info) Description 08/27/2025 Telephone [facility] [address] [place] [address] AlciraAyush kc MD [address] [place] [address] Social History Tobacco Use Types [...] any time in the past 12 m [facility], were you homeless or living in a halfway (including now)? No 08/20/2025 [facility] Utilities Answer Date Recorded In [...] Yoon RN documented as of this encounter Miscellaneous Notes * Telephone Encounter - Zafar Kulkarni - 09/10/2025 11:38 AM EDT Voice mail was left with appointment information for 09/21 call back number was given documented in this encounter Plan of Treatment Upcoming Encounters Date Type Department Care Team (Late st Contact Info) Description 10/11/2025 1:30 PM EST Office Visit [facility] [address] [place] [address] Michael Scales MD [address] [place] [address] 10/16/2025 8:30 AM EST Office Visit [facility] [address] [place] [address] Tyler Suresh MD [address] [facility] [address] [place] [address] documented as of this encounter [...] documented as of this encounter Care Teams Intervention Analyst Relationship Specialty Start Date End Date Pcp, Nia [address] [place] [address] PCP - General Family Medicine 06/04/25 documented as of this encounter
--- OUTSIDE RECORDS SUMMARY | 2025-09-28 13:40 | XMS_ITS | Encounter Summary ---
Author Organization Healthcare Address [address] [place] [id number] Care Team Providers Care Auto Job Estimator Name Role Phone Pcp, No Primary Care Provider Unavailabl e Encounter Details Date Type Department Care Team (Late st Contact Info) Description 09/08/2025 Results Follow-Up [facility] [address] [place] [address] Greg Santacruz, PharmD [place] [address] Social History Tobacco Use Types Packs/Day Years [...] in a long-term (including now)? No 08/20/2025 [facility] Utilities Answer Date Recorded In the [...] as of this encounter Miscellaneous Notes * Result Encounter Note - Greg Santacruz PharmD - 09/08/2025 9:20 AM EDT Per ED MD note: Urinalysis with some white blood cells, can be accounted for with reported repeatedin and out catheterization. No evidence of active UTI. No changes to treatment needed. documented in this encounter Plan of Treatment Upcoming Encounters Date Type Department Care Team (Late st Contact Info) Description 10/11/2025 1:30 PM EST Office Visit [facility] [address] [place] [address] Michael Scales MD [address] [place] [address] 10/16/2025 8:30 AM EST Office Visit [facility] [address] [place] [address] Tyler Suresh MD [address] [facility] [address] [place] [address] documented as of this encounter Visit Diagnoses [...] documented as of this encounter Care Teams Auto Job Estimator Relationship Specialty Start Date End Date Pcp, [place] [address] PCP - General Family Medicine 06/04/25 documented as of this encounter
--- OUTSIDE RECORDS SUMMARY | 2025-09-28 13:42 | XMS_ITS | Clinical Summary ---
Author Organization [facility] Address [address] [place] [address] Care Team Providers Care Record Clerk Salesperson Name Role Phone Pcp, No Primary Care Provider Unavailabl e Allergies No known active allergies Medications chlorhexidine (Peridex) 0.12 % solution Use 15 mL in the mouth or throat 2 times a day. 08/04/20 25 Active collagenase 250 UNIT/GM ointment Topical daily Pressure injury on coccyx Dimensions 8cm L x 10cm W 08/05/20 25 Active Wheat Dextrin (Fiber) pack 2 packets by Nasoduodenal route 2 times a day. 08/04/20 25 Active lidocaine (Lidoderm) 5 % patch Apply 1 patch topically once a day, every 24 hours as needed for mild pain over 12 hours. Remove & discard patch within 12 hours or as directed by MD. 08/04/20 25 Active magnesium hydroxide (Milk of Magnesia) 400 MG/5ML suspension Take 30 mL by mouth daily as needed for constipation. 08/04/20 25 Active ondansetron ODT (Zofran-ODT) 4 MG disintegrating tablet Dissolve 1 tablet on the tongue every 6 hours as needed for nausea or vomiting. 08/04/20 25 Active QUEtiapine (SEROquel) 25 MG tablet Take 1 tablet by mouth at night as needed (anxiety). 08/04/20 25 Active scopolamine (Transderm-Scop) 1 MG/3DAYS patch [address] 1 patch on the skin every 3rd day over 72 hours. 08/07/20 25 Active lubiprostone (Amitiza) 24 MCG capsule Take 1 capsule by mouth 2 times a day with meals. Active magnesium, as gluconate, (Magonate) 500 (27 Mg) MG tablet Take 1 tablet by mouth 2 times a day. Active mirabegron ER (Myrbetriq) 50 MG tablet Take 1 tablet by mouth daily. Active mirtazapine (Remeron) 15 MG tablet Take 0.5 tablets by mouth nightly. Active sodium hypochlorite (Dakin's, QUARTER-Strength, ) external solution Apply 473 mL topically daily. Active traMADol (Ultram) 50 MG tablet Take 0.5 tablets by mouth every 6 hours as needed for severe pain. Active enoxaparin (Lovenox) 40 MG/0.4ML solution prefilled syringe Inject 0.4 mL under the skin daily. Active cholecalciferol (Vitamin D3) 25 MCG (1000 UT) tablet Take 1 tablet by mouth daily. Active ipratropium-albut alecia (Duo-Neb) 0.5-2.5 mg/3 mL nebulizer solution Take 3 mL by nebulization every 4 hours as needed for wheezing. 08/23/20 25 Active melatonin tablet Take 1 tablet by mouth nightly. 08/23/20 25 Active methocarbamol (Robaxin) 750 MG tablet Take 1 tablet by mouth every 6 hours as needed for muscle spasms. 08/23/20 25 Active naloxone (Narcan) 4 mg/0.1 mL nasal spray 1. Give 1 spray in nostril for no/slow breathing or cannot wake after opioid use 2. Call 911 3. Repeat in other nostril if symptoms continue 1 each 08/23/20 25 Active senna-docusate (Mary-Colace) 8.6-50 MG tablet 2 tablets by Nasogastric route 2 times a day. 08/23/20 25 Active aspirin 81 MG chewable tablet Chew 1 tablet daily. 08/24/20 25 Active bisacodyl (Dulcolax) 10 MG suppository Insert 1 suppository into the rectum daily as needed for constipation. 12 suppository 08/23/20 25 Active esomeprazole (NexIUM) 40 MG packet Take 40 mg by mouth daily before breakfast. 08/24/20 25 Active FLUoxetine (PROzac) 10 MG capsule Take 1 capsule by mouth daily. 10/03/20 25 Active gabapentin (Neurontin) 100 MG capsule Take 1 capsule by mouth 3 times a day. 08/23/20 Active hydrOXYzine pamoate (Vistaril) 50 MG capsule Take 1 capsule by mouth every 6 hours as needed for anxiety. 30 capsule 08/23/20 Active levothyroxine (Synthroid, Levoxyl) 50 MCG tablet Take 1 tablet by mouth every morning. 08/24/20 Active sodium hypochlorite (Dakin's, QUARTER-Strength, ) external solution Apply 473 mL topically 2 times a day as needed for wound care. 08/23/20 Active ceFAZolin (Ancef) 1 g injectionIndicati ons:Osteomyelitis of other site, unspecified type Infuse 2 g into a venous catheter every 8 hours for 106 doses. 180 each 1 08/23/202024 Active metroNIDAZOLE (Flagyl) 500 MG tabletIndications :Osteomyelitis of other site, unspecified type Take 1 tablet by mouth 3 times a day for 109 doses. 08/23/202024 Active bisacodyl (Dulcolax) 5 MG EC tablet Take 2 tablets by mouth daily as needed for constipation. Do not crush, chew, or split. 30 tablet 08/23/20 Active Probiotic Product (acidophilus probiotic blend) capsule Take 1 capsule by mouth daily. Active ondansetron (Zofran) 4 MG tablet Take 1 tablet by mouth every 8 hours as needed for nausea or vomiting. Active acetaminophen (Tylenol) 500 MG tablet Take 2 tablets by mouth every 8 hours as needed for pain. 08/23/202024 Hospital, Clinic, or Other Facility Administered Medication Ordered Dose Route Frequency Start Date End Date Status sodium chloride 0.9 % flush 10 mLIndications:Encounter for central line care 10 mL IV As needed 09/18/2025 11/16/2025 Act vladimir Active Problems Problem Noted Date Diagnosed Date Osteomyelitis of other site, unspecified type Depressed mood 07/25/2025 Assessment & Plan (08/03/2025 2:10 PM EDT): Patient with depressed mood on evaluation but declines social work or psychiatric evaluation. Did not endorse SI or HI to care team. SSRI. Assessment & Plan (08/02/2025 11:41 AM EDT): Patient with depressed mood on evaluation but declines social work or psychiatric evaluation. Did not endorse SI or HI to care team. SSRI. Assessment & Plan (08/01/2025 12:55 PM EDT): Patient with depressed mood on evaluation but declines social work or psychiatric evaluation. Did not endorse SI or HI to care team. SSRI. Assessment & Plan (07/31/2025 3:31 PM EDT): Patient with depressed mood on evaluation but declines social work or psychiatric evaluation. Did not endorse SI or HI to care team. SSRI. Assessment & Plan (07/30/2025 9:43 AM EDT): Patient with depressed mood on evaluation but declines social work or psychiatric evaluation. Did not endorse SI or HI to care team. SSRI. Assessment & Plan (07/29/2025 3:07 PM EDT): Patient with depressed mood on evaluation but declines social work or psychiatric evaluation. Did not endorse SI or HI to care team. SSRI. Assessment & Plan (07/28/2025 8:16 AM EDT): Patient with depressed mood on evaluation but declines social work or psychiatric evaluation. Did not endorse SI or HI to care team. SSRI. Assessment & Plan (07/28/2025 11:31 PM EDT): Patient with depressed mood on evaluation but declines social work or psychiatric evaluation. Did not endorse SI or HI to care team. SSRI. Assessment & Plan (07/26/2025 9:39 AM EDT): Patient with depressed mood on evaluation but declines social work or psychiatric evaluation. Did not endorse SI or HI to care team. SSRI. Assessment & Plan (07/25/2025 7:57 AM EDT): Patient endorsing depressed mood on evaluation but declines social work or psychiatric evaluation. Did not endorse SI or HI to care team. Trapped lung 07/19/2025 Assessment & Plan (08/03/2025 2:10 PM EDT): Maintain elevated PEEP 8/28: Left chest tube placed 07/23: left chest tube removed Continue to monitor for change. Maintain elevated PEEP 8/28: Left chest tube placed 07/23: left chest tube removed Monitor O2 needs Assessment & Plan (08/02/2025 11:41 AM EDT): Maintain elevated PEEP 8/28: Left chest tube placed 07/23: left chest tube removed Continue to monitor for change. Maintain elevated PEEP 8/28: Left chest tube placed 07/23: left chest tube removed Serial CXRs with resolution of PTX Assessment & Plan (08/01/2025 12:55 PM EDT): Maintain elevated PEEP 8/28: Left chest tube placed 07/23: left chest tube removed Continue to monitor for change. Maintain elevated PEEP 828: Left chest tube placed 07/23: left chest tube removed Serial CXRs with resolution of PTX Assessment & Plan (07/31/2025 3:31 PM EDT): Maintain elevated PEEP 8/28: Left chest tube placed 07/23: left chest tube removed Continue to monitor for change. Maintain elevated PEEP 8/28: Left chest tube placed 07/23: left chest tube removed Serial CXRs with resolution of PTX Assessment & Plan (07/30/2025 9:43 AM EDT): Maintain elevated PEEP 8/28: Left chest tube placed 07/23: left chest tube removed Continue to monitor for change. Maintain elevated PEEP 8/28: Left chest tube placed 07/23: left chest tube removed Serial CXRs with resolution of PTX Assessment & Plan (07/29/2025 3:07 PM EDT): Maintain elevated PEEP 8/28: Left chest tube placed 07/23: left chest tube removed Continue to monitor for change. Maintain elevated PEEP 8/28: Left chest tube placed 07/23: left chest tube removed Serial CXRs with resolution of PTX Assessment & Plan (07/28/2025 8:16 AM EDT): Maintain elevated PEEP 8/28: Left chest tube placed 07/23: left chest tube removed Continue to monitor for change. Maintain elevated PEEP 8/28: Left chest tube placed 07/23: left chest tube removed Serial CXRs with resolution of PTX Assessment & Plan (07/28/2025 11:31 PM EDT): Maintain elevated PEEP 8/28: Left chest tube placed 07/23: left chest tube removed Continue to monitor for change. Maintain elevated PEEP 8/28: Left chest tube placed 07/23: left chest tube removed Serial CXRs with resolution of PTX Assessment & Plan (07/26/2025 9:39 AM EDT): Maintain elevated PEEP 8/28: Left chest tube placed 07/23: left chest tube removed Continue to monitor for change. Maintain elevated PEEP 8/28: Left chest tube placed 07/23: left chest tube removed Assessment & Plan (07/25/2025 7:57 AM EDT): Maintain elevated PEEP 8/28: Left chest tube placed 07/23: left chest tube removed Assessment & Plan (07/24/2025 10:29 AM EDT): Maintain elevated PEEP 8/28: Left chest tube placed 07/23: left chest tube removed Assessment & Plan (07/23/2025 3:33 PM EDT): Maintain elevated PEEP 8/28: Left chest tube placed Keep CT to suction Assessment & Plan (07/23/2025 3:34 PM EDT): Maintain elevated PEEP 8/28: Left chest tube placed Keep CT to suction Assessment & Plan (07/23/2025 3:33 PM EDT): Maintain elevated PEEP 8/28: Left chest tube placed Keep CT to suction Assessment & Plan (07/23/2025 4:43 PM EDT): Maintain elevated PEEP 8/28: Left chest tube placed Keep CT to suction Assessment & Plan (07/23/2025 4:38 PM EDT): Maintain elevated PEEP 07/19: Left chest tube placed Keep CT to suction Pharyngeal dysphagia 07/19/2025 Assessment & Plan (08/03/2025 2:10 PM EDT): FEES 9/8- regular diet texture (no mixed consistencies), IDDSI 2 mildly nectar thick liquids via SINGLE CUP/STRAW SIP, meds whole in puree/pudding, OK for ice chips, PMV in place w/ all PO Assessment & Plan (08/02/2025 11:41 AM EDT): FEES 9/8- regular diet texture (no mixed consistencies), IDDSI 2 mildly nectar thick liquids via SINGLE CUP/STRAW SIP, meds whole in puree/pudding, OK for ice chips, PMV in place w/ all PO Assessment & Plan (08/01/2025 12:55 PM EDT): FEES 9/8- regular diet texture (no mixed consistencies), IDDSI 2 mildly nectar thick liquids via SINGLE CUP/STRAW SIP, meds whole in puree/pudding, OK for ice chips, PMV in place w/ all PO Assessment & Plan (07/31/2025 3:31 PM EDT): FEES 9/8- regular diet texture (no mixed consistencies), IDDSI 2 mildly nectar thick liquids via SINGLE CUP/STRAW SIP, meds whole in puree/pudding, OK for ice chips, PMV in place w/ all PO Assessment & Plan (07/30/2025 1:03 PM EDT): FEES 9/8- regular diet texture (no mixed consistencies), IDDSI 2 mildly nectar thick liquids via SINGLE CUP/STRAW SIP, meds whole in puree/pudding, OK for ice chips, PMV in place w/ all PO Assessment & Plan (07/29/2025 3:07 PM EDT): Continue tube feeding per DHT Tube feeds per Nutrition recs CELL ROOM OPERATOR following: hold further studies until pt weaned off MV FEES when off MV. Continue tube feeding per DHT Tube feeds per Nutrition recs CELL ROOM OPERATOR following: hold further studies until pt weaned off MV Assessment & Plan (07/28/2025 8:16 AM EDT): Continue tube feeding per DHT Tube feeds per Nutrition recs CELL ROOM OPERATOR following: hold further studies until pt weaned off MV FEES when off MV. Continue tube feeding per DHT Tube feeds per Nutrition recs CELL ROOM OPERATOR following: hold further studies until pt weaned off MV Assessment & Plan (07/28/2025 11:31 PM EDT): Continue tube feeding per DHT Tube feeds per Nutrition recs CELL ROOM OPERATOR following: hold further studies until pt weaned off MV FEES when off MV. Continue tube feeding per DHT Tube feeds per Nutrition recs CELL ROOM OPERATOR following: hold further studies until pt weaned off MV Assessment & Plan (07/26/2025 9:39 AM EDT): Continue tube feeding per DHT Tube feeds per Nutrition recs CELL ROOM OPERATOR following: hold further studies until pt weaned off MV FEES when off MV. Continue tube feeding per DHT Tube feeds per Nutrition recs CELL ROOM OPERATOR following: hold further studies until pt weaned off MV Assessment & Plan (07/25/2025 7:57 AM EDT): Continue tube feeding per DHT Tube feeds per Nutrition recs CELL ROOM OPERATOR following: hold further studies until pt weaned off MV Assessment & Plan (07/24/2025 9:30 AM EDT): Continue tube feeding per DHT Tube feeds per Nutrition recs CELL ROOM OPERATOR following: hold further studies until pt weaned off MV Assessment & Plan (07/23/2025 3:33 PM EDT): Continue tube feeding per DHT Tube feeds per Nutrition recs CELL ROOM OPERATOR following: hold further studies until pt weaned off MV Assessment & Plan (07/23/2025 3:34 PM EDT): Continue tube feeding per DHT Tube feeds per Nutrition recs CELL ROOM OPERATOR following: hold further studies until pt weaned off MV Assessment & Plan (07/23/2025 3:33 PM EDT): Continue tube feeding per DHT Tube feeds per Nutrition recs CELL ROOM OPERATOR following: hold further studies until pt weaned off MV Assessment & Plan (07/23/2025 4:43 PM EDT): Continue tube feeding per DHT Tube feeds per Nutrition recs CELL ROOM OPERATOR following: hold further studies until pt weaned off MV Assessment & Plan (07/23/2025 4:38 PM EDT): Continue tube feeding per DHT Tube feeds per Nutrition recs CELL ROOM OPERATOR following: hold further studies until pt weaned off MV Superficial venous thrombosis of arm, bilateral 07/11/2025 Assessment & Plan (08/03/2025 2:10 PM EDT): 8/ left cephalic vein and right cephalic and basilic veins Assessment & Plan (08/02/2025 11:41 AM EDT): 8/ left cephalic vein and right cephalic and basilic veins Assessment & Plan (08/01/2025 12:55 PM EDT): 8/ left cephalic vein and right cephalic and basilic veins Assessment & Plan (07/31/2025 3:31 PM EDT): 8/ left cephalic vein and right cephalic and basilic veins Assessment & Plan (07/30/2025 9:43 AM EDT): 8/ left cephalic vein and right cephalic and basilic veins Assessment & Plan (07/29/2025 3:07 PM EDT): 8/ left cephalic vein and right cephalic and basilic veins Assessment & Plan (07/28/2025 8:16 AM EDT): 8/ left cephalic vein and right cephalic and basilic veins Assessment & Plan (07/28/2025 11:31 PM EDT): 8/19 left cephalic vein and right cephalic and basilic veins Assessment & Plan (07/26/2025 9:39 AM EDT): 8/19 left cephalic vein and right cephalic and basilic veins Assessment & Plan (07/25/2025 7:57 AM EDT): 8/19 left cephalic vein and right cephalic and basilic veins Assessment & Plan (07/24/2025 9:30 AM EDT): 8/19 left cephalic vein and right cephalic and basilic veins Assessment & Plan (07/23/2025 3:33 PM EDT): 8/19 left cephalic vein and right cephalic and basilic veins Assessment & Plan (07/23/2025 3:34 PM EDT): 8/19 left cephalic vein and right cephalic and basilic veins Assessment & Plan (07/23/2025 3:33 PM EDT): 8/19 left cephalic vein and right cephalic and basilic veins Assessment & Plan (07/23/2025 4:43 PM EDT): 8/19 left cephalic vein and right cephalic and basilic veins Assessment & Plan (07/23/2025 4:38 PM EDT): 8/19 left cephalic vein and right cephalic and basilic veins Assessment & Plan (07/23/2025 4:36 PM EDT): 8/19 left cephalic vein and right cephalic and basilic veins Assessment & Plan (07/23/2025 4:34 PM EDT): 8/19 left cephalic vein and right cephalic and basilic veins Assessment & Plan (07/23/2025 4:29 PM EDT): 8/19 left cephalic vein and right cephalic and basilic veins Assessment & Plan (07/22/2025 3:19 PM EDT): 8/19 left cephalic vein and right cephalic and basilic veins Assessment & Plan (07/22/2025 3:17 PM EDT): 8/19 left cephalic vein and right cephalic and basilic veins Assessment & Plan (07/13/2025 4:02 PM EDT): 8/19 left cephalic vein and right cephalic and basilic veins Assessment & Plan (07/13/2025 7:18 AM EDT): 8/19 left cephalic vein and right cephalic and basilic veins Assessment & Plan (07/12/2025 7:45 AM EDT): 8/19 left cephalic vein and right cephalic and basilic veins Ischemic necrosis of toe 07/11/2025 Assessment & Plan (08/03/2025 2:10 PM EDT): Likely vasopressor induced iso severe sepsis All left toes and fifth right toe Will allow to demarcate and consult Vascular when appropriate Wound care following Betadine BID Continue to monitor, outpt fu with vascular Assessment & Plan (08/02/2025 11:41 AM EDT): Likely vasopressor induced iso severe sepsis All left toes and fifth right toe Will allow to demarcate and consult Vascular when appropriate Wound care following Betadine BID Continue to monitor Assessment & Plan (08/01/2025 12:55 PM EDT): Likely vasopressor induced iso severe sepsis All left toes and fifth right toe Will allow to demarcate and consult Vascular when appropriate Wound care following Betadine BID Continue to monitor Assessment & Plan (07/31/2025 3:31 PM EDT): Likely vasopressor induced iso severe sepsis All left toes and fifth right toe Will allow to demarcate and consult Vascular when appropriate Wound care following Betadine BID Continue to monitor Assessment & Plan (07/30/2025 9:43 AM EDT): Likely vasopressor induced iso severe sepsis All left toes and fifth right toe Will allow to demarcate and consult Vascular when appropriate Wound care following Betadine BID Continue to monitor Assessment & Plan (07/29/2025 3:07 PM EDT): Likely vasopressor induced iso severe sepsis All left toes and fifth right toe Will allow to demarcate and consult Vascular when appropriate Wound care following Betadine BID Continue to monitor Assessment & Plan (07/28/2025 8:16 AM EDT): Likely vasopressor induced iso severe sepsis All left toes and fifth right toe Will allow to demarcate and consult Vascular when appropriate Wound care following Betadine BID Continue to monitor Assessment & Plan (07/28/2025 11:31 PM EDT): Likely vasopressor induced iso severe sepsis All left toes and fifth right toe Will allow to demarcate and consult Vascular when appropriate Wound care following Betadine BID Continue to monitor Assessment & Plan (07/26/2025 9:39 AM EDT): Likely vasopressor induced iso severe sepsis All left toes and fifth right toe Will allow to demarcate and consult Vascular when appropriate Wound care following Betadine BID Continue to monitor Assessment & Plan (07/25/2025 7:57 AM EDT): Likely vasopressor induced iso severe sepsis All left toes and fifth right toe Will allow to demarcate and consult Vascular when appropriate Wound care following Betadine BID Continue to monitor Assessment & Plan (07/24/2025 9:30 AM EDT): Likely vasopressor induced iso severe sepsis All left toes and fifth right toe Will allow to demarcate and consult Vascular when appropriate Wound care following Betadine BID Continue to monitor Assessment & Plan (07/23/2025 3:33 PM EDT): Likely vasopressor induced iso severe sepsis All left toes and fifth right toe Will allow to demarcate and consult Vascular when appropriate Wound care following Betadine BID Continue to monitor Assessment & Plan (07/23/2025 3:34 PM EDT): Likely vasopressor induced iso severe sepsis All left toes and fifth right toe Will allow to demarcate and consult Vascular when appropriate Wound care following Betadine BID Continue to monitor Assessment & Plan (07/23/2025 3:33 PM EDT): Likely vasopressor induced iso severe sepsis All left toes and fifth right toe Will allow to demarcate and consult Vascular when appropriate Wound care following Betadine BID Continue to monitor Assessment & Plan (07/23/2025 4:43 PM EDT): Likely vasopressor induced iso severe sepsis All left toes and fifth right toe Will allow to demarcate and consult Vascular when appropriate Wound care following Betadine BID Continue to monitor Assessment & Plan (07/23/2025 4:38 PM EDT): Likely vasopressor induced iso severe sepsis All left toes and fifth right toe Will allow to demarcate and consult Vascular when appropriate Wound care following Betadine BID Continue to monitor Assessment & Plan (07/23/2025 4:36 PM EDT): Likely vasopressor induced iso severe sepsis All left toes and fifth right toe Will allow to demarcate and consult Vascular when appropriate Wound care following Betadine BID Continue to monitor Assessment & Plan (07/23/2025 4:34 PM EDT): Likely vasopressor induced iso severe sepsis All left toes and fifth right toe Will allow to demarcate and consult Vascular when appropriate Wound care following Betadine BID Continue to monitor Assessment & Plan (07/23/2025 4:29 PM EDT): Likely vasopressor induced iso severe sepsis All left toes and fifth right toe Will allow to demarcate and consult Vascular when appropriate Wound care following Betadine BID Continue to monitor Assessment & Plan (07/22/2025 3:19 PM EDT): Likely vasopressor induced iso severe sepsis All left toes and fifth right toe Will allow to demarcate and consult Vascular when appropriate Wound care following Betadine BID Continue to monitor Assessment & Plan (07/22/2025 3:17 PM EDT): Likely vasopressor induced iso severe sepsis All left toes and fifth right toe Will allow to demarcate and consult Vascular when appropriate Wound care following Betadine BID Continue to monitor Assessment & Plan (07/13/2025 4:02 PM EDT): Likely vasopressor induced iso severe sepsis All left toes and fifth right toe Will allow to demarcate and consult Vascular when appropriate Wound care following Betadine BID Continue to monitor Assessment & Plan (07/13/2025 7:18 AM EDT): Likely vasopressor induced iso severe sepsis All left toes and fifth right toe Will allow to demarcate and consult Vascular when appropriate Wound care following Betadine BID Continue to monitor Urinary retention 07/09/2025 Assessment & Plan (08/03/2025 2:10 PM EDT): Lipscomb re-anchored 07/09 due to retention Continue Doxazosin Bladder scan, I/o cath if > 450. Assessment & Plan (08/02/2025 11:41 AM EDT): Lipscomb re-anchored 18 due to retention Continue Doxazosin Bladder scan, I/o cath if > 450. Assessment & Plan (08/01/2025 12:55 PM EDT): Lipscomb re-anchored 8/18 due to retention Continue Doxazosin Bladder scan, I/o cath if > 450. Assessment & Plan (07/31/2025 3:31 PM EDT): Lipscomb re-anchored 18 due to retention Continue Doxazosin Bladder scan, I/o cath if > 450. Assessment & Plan (07/30/2025 9:43 AM EDT): Lipscomb re-anchored 8/18 due to retention Continue Doxazosin Bladder scan, I/o cath if > 450. Assessment & Plan (07/29/2025 3:07 PM EDT): Lipscomb re-anchored 8/18 due to retention Continue Doxazosin Bladder scan, I/o cath if > 450. Assessment & Plan (07/28/2025 8:16 AM EDT): Lipscomb re-anchored 8/18 due to retention Continue Doxazosin Bladder scan, I/o cath if > 450. Assessment & Plan (07/28/2025 11:31 PM EDT): Lipscomb re-anchored 818 due to retention Continue Doxazosin Bladder scan, I/o cath if > 450. Assessment & Plan (07/26/2025 9:39 AM EDT): Lipscomb re-anchored 818 due to retention Continue Doxazosin Bladder scan, I/o cath if > 450. Assessment & Plan (07/25/2025 7:57 AM EDT): Lipscomb re-anchored 818 due to retention Continue Doxazosin Assessment & Plan (07/24/2025 9:30 AM EDT): Lipscomb re-anchored 818 due to retention Continue Doxazosin Assessment & Plan (07/23/2025 3:33 PM EDT): Lipscomb re-anchored 818 due to retention Continue Doxazosin Assessment & Plan (07/23/2025 3:34 PM EDT): Lipscomb re-anchored 818 due to retention Continue Doxazosin Assessment & Plan (07/23/2025 3:33 PM EDT): Lipscomb re-anchored 818 due to retention Continue Doxazosin Assessment & Plan (07/23/2025 4:43 PM EDT): Lipscomb re-anchored 8/18 due to retention Continue Doxazosin Assessment & Plan (07/23/2025 4:38 PM EDT): Lipscomb re-anchored 8/18 due to retention Continue Doxazosin Assessment & Plan (07/23/2025 4:36 PM EDT): Lipscomb re-anchored 8/18 due to retention Continue Doxazosin Assessment & Plan (07/23/2025 4:34 PM EDT): Lipscomb re-anchored 8/18 due to retention Continue Doxazosin Assessment & Plan (07/23/2025 4:29 PM EDT): Lipscomb re-anchored 8/18 due to retention Continue Doxazosin Assessment & Plan (07/22/2025 3:19 PM EDT): Lipscomb re-anchored 8/18 due to retention Continue Doxazosin Hold anticholinergics during voiding trial Assessment & Plan (07/22/2025 3:17 PM EDT): Lipscomb re-anchored 8/18 due to retention Continue Doxazosin Hold anticholinergics during voiding trial Assessment & Plan (07/13/2025 4:02 PM EDT): Lipscomb re-anchored 8/18 due to retention Continue Doxazosin Hold anticholinergics during voiding trial Assessment & Plan (07/13/2025 7:18 AM EDT): Lipscomb re-anchored 8/18 due to retention Continue Doxazosin Hold anticholinergics during voiding trial Assessment & Plan (07/12/2025 7:45 AM EDT): Lipscomb re-anchored 8/18 due to retention Continue Doxazosin Consider holding anticholinergics prior to next voiding trial Assessment & Plan (07/11/2025 7:37 AM EDT): Lipscomb re-anchored 8/18 due to retention Continue Doxazosin Consider holding anticholinergics prior to next voiding trial Assessment & Plan (07/10/2025 7:25 AM EDT): Lipscomb re-anchored 8/18 due to retention Doxazosin ordered Difficulty weaning from ventilator 07/05/2025 Assessment & Plan (08/03/2025 2:10 PM EDT): Tracheostomy 8/15 Assessment & Plan (08/02/2025 11:41 AM EDT): Tracheostomy 8/15 Assessment & Plan (08/01/2025 12:55 PM EDT): Tracheostomy 8/15 Assessment & Plan (07/31/2025 3:31 PM EDT): Tracheostomy 8/ Assessment & Plan (07/30/2025 9:43 AM EDT): Tracheostomy 8/15 Assessment & Plan (07/29/2025 3:07 PM EDT): Tracheostomy 8/15 Assessment & Plan (07/28/2025 8:16 AM EDT): Tracheostomy 8/15 Assessment & Plan (07/28/2025 11:31 PM EDT): Tracheostomy 8/15 Assessment & Plan (07/26/2025 9:39 AM EDT): Tracheostomy 8/15 Assessment & Plan (07/25/2025 7:57 AM EDT): Tracheostomy 8/15 Assessment & Plan (07/24/2025 9:30 AM EDT): Tracheostomy 8/15 Assessment & Plan (07/23/2025 3:34 PM EDT): Tracheostomy 8/15 Assessment & Plan (07/23/2025 3:33 PM EDT): Tracheostomy 8/15 Assessment & Plan (07/23/2025 4:43 PM EDT): Tracheostomy 8/15 Assessment & Plan (07/23/2025 4:38 PM EDT): Tracheostomy 8/15 Assessment & Plan (07/23/2025 4:36 PM EDT): Tracheostomy 8/15 Assessment & Plan (07/23/2025 4:34 PM EDT): Tracheostomy 8/15 Assessment & Plan (07/23/2025 4:29 PM EDT): Tracheostomy 8/15 Assessment & Plan (07/22/2025 3:19 PM EDT): Tracheostomy 8/15 Assessment & Plan (07/22/2025 3:17 PM EDT): Tracheostomy 8/15 Assessment & Plan (07/13/2025 4:02 PM EDT): Tracheostomy 8/15 Assessment & Plan (07/13/2025 7:18 AM EDT): Tracheostomy 8/15 Assessment & Plan (07/12/2025 7:45 AM EDT): Tracheostomy 8/15 Assessment & Plan (07/11/2025 7:37 AM EDT): Tracheostomy 8/15 Assessment & Plan (07/10/2025 7:25 AM EDT): Tracheostomy 8/15 Assessment & Plan (07/12/2025 4:04 PM EDT): Plan for Tracheostomy 8/15 Assessment & Plan (07/08/2025 12:35 PM EDT): Plan for Tracheostomy 07/06 Assessment & Plan (07/07/2025 3:17 PM EDT): Plan for Tracheostomy 07/06 Assessment & Plan (07/12/2025 4:02 PM EDT): Plan for Tracheostomy 07/06 Recurrent right pleural effusion 07/04/2025 Assessment & Plan (08/03/2025 2:10 PM EDT): Chest tube removed 8/20 Improved Diurese as needed, not needed at this time. Assessment & Plan (08/02/2025 11:41 AM EDT): Chest tube removed 8/20 Improved Diurese as needed, not needed at this time. Assessment & Plan (08/01/2025 12:55 PM EDT): Chest tube removed 8/20 Improved Diurese as needed, not needed at this time. Assessment & Plan (07/31/2025 3:31 PM EDT): Chest tube removed 8/20 Improved Diurese as needed, not needed at this time. Assessment & Plan (07/30/2025 9:43 AM EDT): Chest tube removed 8/20 Improved Diurese as needed, not needed at this time. Assessment & Plan (07/29/2025 3:07 PM EDT): Chest tube removed 8/20 Improved Diurese as needed, not needed at this time. Assessment & Plan (07/28/2025 8:16 AM EDT): Chest tube removed 8/20 Improved Diurese as needed, not needed at this time. Assessment & Plan (07/28/2025 11:31 PM EDT): Chest tube removed 8/20 Improved Diurese as needed, not needed at this time. Assessment & Plan (07/26/2025 9:39 AM EDT): Chest tube removed 8/20 Improved Diurese as needed, not needed at this time. Assessment & Plan (07/25/2025 7:57 AM EDT): Chest tube removed 8/20 Improved Diurese as needed Assessment & Plan (07/24/2025 9:30 AM EDT): Chest tube removed 8/20 Improved Diurese as needed Assessment & Plan (07/23/2025 3:33 PM EDT): Chest tube removed 8/20 Improved Diurese as needed Assessment & Plan (07/23/2025 3:34 PM EDT): Chest tube removed 8/20 Improved Diurese as needed Assessment & Plan (07/23/2025 3:33 PM EDT): Chest tube removed 8/20 Improved Diurese as needed Assessment & Plan (07/23/2025 4:43 PM EDT): Chest tube removed 8/20 Improved Diurese as needed Assessment & Plan (07/23/2025 4:38 PM EDT): Chest tube removed 8/20 Improved Diurese as needed Assessment & Plan (07/23/2025 4:36 PM EDT): Chest tube removed 8/20 Diurese as needed Assessment & Plan (07/13/2025 7:18 AM EDT): S/p chest tube placement 8/13, water seal 8/16 Chest tube removed 8/20 Assessment & Plan (07/12/2025 7:45 AM EDT): S/p chest tube placement 8/13, water seal 8/16 Resolving Assessment & Plan (07/11/2025 7:37 AM EDT): S/p chest tube placement 8/13, water seal 8/16 Resolving Assessment & Plan (07/10/2025 7:25 AM EDT): S/p chest tube placement 8/13, water seal 8/16 Assessment & Plan (07/12/2025 4:04 PM EDT): S/p chest tube placement 8/13, water seal 8/16 Assessment & Plan (07/08/2025 12:35 PM EDT): S/p chest tube placement 8/13, water seal 8/16 Assessment & Plan (07/07/2025 3:17 PM EDT): S/p chest tube placement 8/13, water seal 8/16 Assessment & Plan (07/12/2025 4:02 PM EDT): Exudative per lights criteria Continue chest tube to LWS Feeding difficulty 07/03/2025 Assessment & Plan (08/03/2025 2:10 PM EDT): FEES 9/- regular diet texture (no mixed consistencies), IDDSI 2 mildly nectar thick liquids via SINGLE CUP/STRAW SIP, meds whole in puree/pudding, OK for ice chips, PMV in place w/ all PO Assessment & Plan (08/02/2025 11:41 AM EDT): FEES 9/8- regular diet texture (no mixed consistencies), IDDSI 2 mildly nectar thick liquids via SINGLE CUP/STRAW SIP, meds whole in puree/pudding, OK for ice chips, PMV in place w/ all PO Assessment & Plan (08/01/2025 12:55 PM EDT): FEES 9/8- regular diet texture (no mixed consistencies), IDDSI 2 mildly nectar thick liquids via SINGLE CUP/STRAW SIP, meds whole in puree/pudding, OK for ice chips, PMV in place w/ all PO Assessment & Plan (07/31/2025 3:31 PM EDT): FEES 9/8- regular diet texture (no mixed consistencies), IDDSI 2 mildly nectar thick liquids via SINGLE CUP/STRAW SIP, meds whole in puree/pudding, OK for ice chips, PMV in place w/ all PO Assessment & Plan (07/30/2025 1:03 PM EDT): FEES 9/8- regular diet texture (no mixed consistencies), IDDSI 2 mildly nectar thick liquids via SINGLE CUP/STRAW SIP, meds whole in puree/pudding, OK for ice chips, PMV in place w/ all PO Assessment & Plan (07/29/2025 3:07 PM EDT): Continue tube feeding per DHT Tube feeds per Nutrition recs CELL ROOM OPERATOR following: hold further studies until pt weaned off MV FEES when off MV. Continue tube feeding per DHT Tube feeds per Nutrition recs CELL ROOM OPERATOR following: hold further studies until pt weaned off MV Assessment & Plan (07/28/2025 8:16 AM EDT): Continue tube feeding per DHT Tube feeds per Nutrition recs CELL ROOM OPERATOR following: hold further studies until pt weaned off MV FEES when off MV. Continue tube feeding per DHT Tube feeds per Nutrition recs CELL ROOM OPERATOR following: hold further studies until pt weaned off MV Assessment & Plan (07/28/2025 11:31 PM EDT): Continue tube feeding per DHT Tube feeds per Nutrition recs CELL ROOM OPERATOR following: hold further studies until pt weaned off MV FEES when off MV. Continue tube feeding per DHT Tube feeds per Nutrition recs CELL ROOM OPERATOR following: hold further studies until pt weaned off MV Assessment & Plan (07/26/2025 9:39 AM EDT): Continue tube feeding per DHT Tube feeds per Nutrition recs CELL ROOM OPERATOR following: hold further studies until pt weaned off MV FEES when off MV. Continue tube feeding per DHT Tube feeds per Nutrition recs CELL ROOM OPERATOR following: hold further studies until pt weaned off MV Assessment & Plan (07/25/2025 7:57 AM EDT): Continue tube feeding per DHT Tube feeds per Nutrition recs CELL ROOM OPERATOR following: hold further studies until pt weaned off MV Assessment & Plan (07/24/2025 9:30 AM EDT): Continue tube feeding per DHT Tube feeds per Nutrition recs CELL ROOM OPERATOR following: hold further studies until pt weaned off MV Assessment & Plan (07/23/2025 3:33 PM EDT): Continue tube feeding per DHT Tube feeds per Nutrition recs CELL ROOM OPERATOR following: hold further studies until pt weaned off MV Assessment & Plan (07/23/2025 3:34 PM EDT): Continue tube feeding per DHT Tube feeds per Nutrition recs CELL ROOM OPERATOR following: hold further studies until pt weaned off MV Assessment & Plan (07/23/2025 3:33 PM EDT): Continue tube feeding per DHT Tube feeds per Nutrition recs CELL ROOM OPERATOR following: hold further studies until pt weaned off MV Assessment & Plan (07/23/2025 4:43 PM EDT): Continue tube feeding per DHT Tube feeds per Nutrition recs CELL ROOM OPERATOR following: hold further studies until pt weaned off MV Assessment & Plan (07/23/2025 4:38 PM EDT): Continue tube feeding per DHT Tube feeds per Nutrition recs CELL ROOM OPERATOR following: hold further studies until pt weaned off MV Assessment & Plan (07/23/2025 4:36 PM EDT): Continue tube feeding per DHT Tube feeds per Nutrition recs CELL ROOM OPERATOR following Assessment & Plan (07/23/2025 4:34 PM EDT): Continue tube feeding per DHT Tube feeds per Nutrition recs CELL ROOM OPERATOR following Assessment & Plan (07/23/2025 4:29 PM EDT): Continue tube feeding per DHT Tube feeds per Nutrition recs CELL ROOM OPERATOR following Assessment & Plan (07/22/2025 3:19 PM EDT): Continue tube feeding per DHT Tube feeds per Nutrition recs CELL ROOM OPERATOR following Assessment & Plan (07/22/2025 3:17 PM EDT): Continue tube feeding per DHT Tube feeds per Nutrition recs CELL ROOM OPERATOR following Assessment & Plan (07/13/2025 4:02 PM EDT): Continue tube feeding per DHT Tube feeds per Nutrition recs CELL ROOM OPERATOR following Assessment & Plan (07/13/2025 7:18 AM EDT): Continue tube feeding per DHT Tube feeds per Nutrition recs CELL ROOM OPERATOR following Assessment & Plan (07/12/2025 7:45 AM EDT): Continue tube feeding per DHT Tube feeds per Nutrition recs Assessment & Plan (07/11/2025 7:37 AM EDT): Continue tube feeding per DHT Tube feeds per Nutrition recs Assessment & Plan (07/10/2025 7:25 AM EDT): Continue tube feeding per DHT Tube feeds per Nutrition recs Assessment & Plan (07/12/2025 4:04 PM EDT): Continue tube feeding per DHT Tube feeds per Nutrition recs Assessment & Plan (07/08/2025 12:35 PM EDT): Continue tube feeding per DHT Tube feeds per Nutrition recs Assessment & Plan (07/07/2025 3:17 PM EDT): Continue tube feeding per DHT Tube feeds per Nutrition recs Assessment & Plan (07/12/2025 4:02 PM EDT): Continue tube feeding per DHT Tube feeds per Nutrition recs Assessment & Plan (07/09/2025 5:35 PM EDT): Continue tube feeding per DHT Tube feeds per Nutrition recs Assessment & Plan (07/11/2025 11:20 PM EDT): Continue tube feeding per DHT Tube feeds per Nutrition recs Anxiety 07/02/2025 Assessment & Plan (08/04/2025 12:59 PM EDT): Continue [facility] Psychiatry consulted 07/19, has signed off SSRI Assessment & Plan (08/03/2025 2:10 PM EDT): Continue [facility] Psychiatry consulted 07/19, has signed off Valium scheduled, taper ordered SSRI Assessment & Plan (08/02/2025 11:41 AM EDT): Continue [facility] Psychiatry consulted 07/19, has signed off Valium scheduled, taper ordered SSRI Assessment & Plan (08/01/2025 12:55 PM EDT): Continue [facility] Psychiatry consulted 07/19, has signed off Valium scheduled, taper ordered SSRI Assessment & Plan (07/31/2025 3:31 PM EDT): Continue [facility] Psychiatry consulted 07/19, has signed off Valium scheduled, taper ordered SSRI Assessment & Plan (07/30/2025 9:43 AM EDT): Continue [facility] Psychiatry consulted 07/19, has signed off Valium scheduled, taper ordered SSRI Assessment & Plan (07/29/2025 3:07 PM EDT): [facility] Psychiatry consulted 07/19, has signed off Valium scheduled, taper ordered SSRI Assessment & Plan (07/28/2025 8:16 AM EDT): [facility] Psychiatry consulted 07/19, has signed off Valium scheduled, taper ordered SSRI Assessment & Plan (07/28/2025 11:31 PM EDT): [facility] Psychiatry consulted 07/19, has signed off Valium scheduled, taper ordered SSRI Assessment & Plan (07/26/2025 9:39 AM EDT): Continue [facility] Psychiatry consulted 07/19, has signed off Valium scheduled, taper ordered SSRI Assessment & Plan (07/25/2025 7:57 AM EDT): Continue [facility] Psychiatry consulted 07/19, has signed off Valium scheduled, taper ordered Start SSRI Assessment & Plan (07/24/2025 9:30 AM EDT): Continue [facility] Psychiatry consulted 07/19, has signed off Valium scheduled, taper ordered Start SSRI Assessment & Plan (07/23/2025 3:33 PM EDT): Continue [facility] Psychiatry consulted 07/19, has signed off Valium scheduled, taper ordered Start SSRI Assessment & Plan (07/23/2025 3:34 PM EDT): Continue [facility] Psychiatry consulted 07/19, has signed off Valium scheduled, taper ordered Start SSRI Assessment & Plan (07/23/2025 3:33 PM EDT): Continue [facility] Psychiatry consulted 07/19, has signed off Valium scheduled, taper ordered Start SSRI Assessment & Plan (07/23/2025 4:43 PM EDT): Continue [facility] Psychiatry consulted 07/19, has signed off Valium scheduled, taper ordered Start SSRI Assessment & Plan (07/23/2025 4:38 PM EDT): Valium scheduled Continue [facility] Psychiatry consulted; appreciate recs Assessment & Plan (07/23/2025 4:36 PM EDT): Valium scheduled Continue Seroquel Assessment & Plan (07/23/2025 4:34 PM EDT): Valium scheduled Continue Seroquel Assessment & Plan (07/23/2025 4:29 PM EDT): Valium scheduled Continue Seroquel Assessment & Plan (07/22/2025 3:19 PM EDT): Valium scheduled Continue Seroquel Assessment & Plan (07/22/2025 3:17 PM EDT): Valium scheduled Continue Seroquel Assessment & Plan (07/13/2025 4:02 PM EDT): Valium scheduled Continue Seroquel Assessment & Plan (07/13/2025 7:18 AM EDT): Valium scheduled Continue Seroquel Assessment & Plan (07/12/2025 7:45 AM EDT): - Previously on scheduled Valium - Atarax PRN - Valium scheduled - Start Seroquel Assessment & Plan (07/11/2025 7:37 AM EDT): - Previously on scheduled Valium - Atarax PRN - Valium scheduled - Start Seroquel Assessment & Plan (07/10/2025 7:25 AM EDT): - Previously on scheduled Valium - Atarax PRN - Valium scheduled Assessment & Plan (07/12/2025 4:04 PM EDT): - Previously on scheduled Valium - Atarax and Valium PRN - Maximize anti-anxiety Assessment & Plan (07/08/2025 12:35 PM EDT): - Previously on scheduled Valium - Atarax and Valium PRN - Maximize anti-anxiety Assessment & Plan (07/07/2025 3:17 PM EDT): - Previously on scheduled Valium - Atarax and Valium PRN Assessment & Plan (07/12/2025 4:02 PM EDT): - Previously on scheduled Valium - Atarax and Valium PRN Assessment & Plan (07/09/2025 5:35 PM EDT): - Previously on scheduled Valium - Vistaril PRN Assessment & Plan (07/11/2025 11:20 PM EDT): - Previously on scheduled Valium - Vistaril PRN Assessment & Plan (07/03/2025 9:26 AM EDT): - Previously on scheduled Valium - Failing SAT - Start Vistaril PRN H/O extracorporeal membrane oxygenation treatmen t 06/23/2025 Assessment & Plan (08/03/2025 2:10 PM EDT): Cannulated 06/14, Decannulated 8/4 Assessment & Plan (08/02/2025 11:41 AM EDT): - Cannulated 06/14, Decannulated 8/4 Assessment & Plan (08/01/2025 12:55 PM EDT): - Cannulated 06/14, Decannulated 8/4 Assessment & Plan (07/31/2025 3:31 PM EDT): - Cannulated 06/14, Decannulated 8/4 Assessment & Plan (07/30/2025 9:43 AM EDT): - Cannulated /24, Decannulated 8/4 Assessment & Plan (07/29/2025 3:07 PM EDT): - Cannulated 7/24, Decannulated 8/4 Assessment & Plan (07/28/2025 8:16 AM EDT): - Cannulated 724, Decannulated 8/4 Assessment & Plan (07/28/2025 11:31 PM EDT): - Cannulated 06/14, Decannulated 8/4 Assessment & Plan (07/26/2025 9:39 AM EDT): - Cannulated 06/14, Decannulated 8/4 Assessment & Plan (07/25/2025 7:57 AM EDT): - Cannulated 06/14, Decannulated 8/4 Assessment & Plan (07/24/2025 9:30 AM EDT): - Cannulated 06/14, Decannulated 8/4 Assessment & Plan (07/23/2025 3:33 PM EDT): - Cannulated 06/14, Decannulated 8/4 Assessment & Plan (07/23/2025 3:34 PM EDT): - Cannulated 06/14, Decannulated 8/4 Assessment & Plan (07/23/2025 3:33 PM EDT): - Cannulated 06/14, Decannulated 8/4 Assessment & Plan (07/23/2025 4:43 PM EDT): - Cannulated 06/14, Decannulated 8/4 Assessment & Plan (07/23/2025 4:38 PM EDT): - Cannulated 06/14, Decannulated 8/4 Assessment & Plan (07/23/2025 4:36 PM EDT): - Cannulated 06/14, Decannulated 8/4 Assessment & Plan (07/23/2025 4:34 PM EDT): - Cannulated 06/14, Decannulated 8/4 Assessment & Plan (07/23/2025 4:29 PM EDT): - Cannulated 06/14, Decannulated 8/4 Assessment & Plan (07/22/2025 3:19 PM EDT): - Cannulated 06/14, Decannulated 8/4 Assessment & Plan (07/22/2025 3:17 PM EDT): - Cannulated 06/14, Decannulated 8/4 Assessment & Plan (07/13/2025 4:02 PM EDT): - Cannulated 06/14, Decannulated 8/4 Assessment & Plan (07/13/2025 7:18 AM EDT): - Cannulated 06/14, Decannulated 8/4 Assessment & Plan (07/12/2025 7:45 AM EDT): - Cannulated 06/14, Decannulated 8/4 Assessment & Plan (07/11/2025 7:37 AM EDT): - Cannulated 06/14, Decannulated 8/4 Assessment & Plan (07/10/2025 7:25 AM EDT): - Cannulated 06/14, Decannulated 8/4 Assessment & Plan (07/12/2025 4:04 PM EDT): - Cannulated 06/14, Decannulated 8/4 Assessment & Plan (07/08/2025 12:35 PM EDT): - Cannulated 06/14, Decannulated 8/4 Assessment & Plan (07/07/2025 3:17 PM EDT): - Cannulated 06/14, Decannulated 8/4 Assessment & Plan (07/12/2025 4:02 PM EDT): - Cannulated 06/14, Decannulated 8/4 Assessment & Plan (07/09/2025 5:35 PM EDT): - Cannulated 06/14, Decannulated 8/4 Assessment & Plan (07/11/2025 11:20 PM EDT): - Cannulated 06/14, Decannulated 8 Assessment & Plan (07/03/2025 9:26 AM EDT): - Cannulated 06/14, Decannulated 06/25 Assessment & Plan (07/01/2025 11:01 AM EDT): -decannulated 06/25 Assessment & Plan (06/30/2025 12:00 PM EDT): -decannulated 06/25 Assessment & Plan (07/05/2025 1:39 AM EDT): -decannulated 06/25 Assessment & Plan (07/05/2025 1:36 AM EDT): -decannulated 06/25 Assessment & Plan (07/05/2025 1:34 AM EDT): -decannulated 06/25 Assessment & Plan (06/25/2025 12:10 PM EDT): -Monitor per protocol. Assessment & Plan (06/24/2025 10:05 PM EDT): -Monitor per protocol. Assessment & Plan (07/05/2025 6:19 AM EDT): -Monitor per protocol. Assessment & Plan (06/23/2025 10:30 PM EDT): -Monitor per protocol. Assessment & Plan (07/05/2025 6:20 AM EDT): -Monitor per protocol. Low T4 06/18/2025 Overview (06/18/2025): Levothyroxine started Assessment & Plan (08/03/2025 2:10 PM EDT): Free T4 0.3, TSH 2.53 Continue levothyroxine Assessment & Plan (08/02/2025 11:41 AM EDT): - Free T4 0.3, TSH 2.53 - Continue levothyroxine Assessment & Plan (08/01/2025 12:55 PM EDT): - Free T4 0.3, TSH 2.53 - Continue levothyroxine Assessment & Plan (07/31/2025 3:31 PM EDT): - Free T4 0.3, TSH 2.53 - Continue levothyroxine Assessment & Plan (07/30/2025 9:43 AM EDT): - Free T4 0.3, TSH 2.53 - Continue levothyroxine Assessment & Plan (07/29/2025 3:07 PM EDT): - Free T4 0.3, TSH 2.53 - Continue levothyroxine Assessment & Plan (07/28/2025 8:16 AM EDT): - Free T4 0.3, TSH 2.53 - Continue levothyroxine Assessment & Plan (07/28/2025 11:31 PM EDT): - Free T4 0.3, TSH 2.53 - Continue levothyroxine Assessment & Plan (07/26/2025 9:39 AM EDT): - Free T4 0.3, TSH 2.53 - Continue levothyroxine Assessment & Plan (07/25/2025 7:57 AM EDT): - Free T4 0.3, TSH 2.53 - Continue levothyroxine Assessment & Plan (07/24/2025 9:30 AM EDT): - Free T4 0.3, TSH 2.53 - Continue levothyroxine Assessment & Plan (07/23/2025 3:33 PM EDT): - Free T4 0.3, TSH 2.53 - Continue levothyroxine Assessment & Plan (07/23/2025 3:34 PM EDT): - Free T4 0.3, TSH 2.53 - Continue levothyroxine Assessment & Plan (07/23/2025 3:33 PM EDT): - Free T4 0.3, TSH 2.53 - Continue levothyroxine Assessment & Plan (07/23/2025 4:43 PM EDT): - Free T4 0.3, TSH 2.53 - Continue levothyroxine Assessment & Plan (07/23/2025 4:38 PM EDT): - Free T4 0.3, TSH 2.53 - Continue levothyroxine Assessment & Plan (07/23/2025 4:36 PM EDT): - Free T4 0.3, TSH 2.53 - Continue levothyroxine Assessment & Plan (07/23/2025 4:34 PM EDT): - Free T4 0.3, TSH 2.53 - Continue levothyroxine Assessment & Plan (07/23/2025 4:29 PM EDT): - Free T4 0.3, TSH 2.53 - Continue levothyroxine Assessment & Plan (07/22/2025 3:19 PM EDT): - Free T4 0.3, TSH 2.53 - Continue levothyroxine Assessment & Plan (07/22/2025 3:17 PM EDT): - Free T4 0.3, TSH 2.53 - Continue levothyroxine Assessment & Plan (07/13/2025 4:02 PM EDT): - Free T4 0.3, TSH 2.53 - Continue levothyroxine Assessment & Plan (07/13/2025 7:18 AM EDT): - Free T4 0.3, TSH 2.53 - Continue levothyroxine Assessment & Plan (07/12/2025 7:45 AM EDT): - Free T4 0.3, TSH 2.53 - Continue levothyroxine Assessment & Plan (07/11/2025 7:37 AM EDT): - Free T4 0.3, TSH 2.53 - Continue levothyroxine Assessment & Plan (07/10/2025 7:25 AM EDT): - Free T4 0.3, TSH 2.53 - Continue levothyroxine Assessment & Plan (07/12/2025 4:04 PM EDT): - Free T4 0.3, TSH 2.53 - Continue levothyroxine Assessment & Plan (07/08/2025 12:35 PM EDT): - Free T4 0.3, TSH 2.53 - Continue levothyroxine Assessment & Plan (07/07/2025 3:17 PM EDT): - Free T4 0.3, TSH 2.53 - Continue levothyroxine Assessment & Plan (07/12/2025 4:02 PM EDT): - Free T4 0.3, TSH 2.53 - Continue levothyroxine Assessment & Plan (07/09/2025 5:35 PM EDT): - Free T4 0.3, TSH 2.53 - Continue levothyroxine Assessment & Plan (07/11/2025 11:20 PM EDT): - Free T4 0.3, TSH 2.53 - Continue levothyroxine Assessment & Plan (07/03/2025 9:26 AM EDT): - Free T4 0.3, TSH 2.53 - Continue levothyroxine Assessment & Plan (07/01/2025 11:01 AM EDT): - on levothyroxine Assessment & Plan (06/30/2025 12:00 PM EDT): - on levothyroxine Assessment & Plan (07/05/2025 1:39 AM EDT): - on levothyroxine Assessment & Plan (07/05/2025 1:36 AM EDT): - on levothyroxine Assessment & Plan (07/05/2025 1:34 AM EDT): - on levothyroxine Assessment & Plan (06/25/2025 12:10 PM EDT): Maintenance levothyroxine started Assessment & Plan (06/24/2025 10:05 PM EDT): Levothyroxine started Assessment & Plan (07/05/2025 6:19 AM EDT): Levothyroxine started Assessment & Plan (06/23/2025 10:30 PM EDT): Levothyroxine started Assessment & Plan (07/05/2025 6:20 AM EDT): Levothyroxine started Assessment & Plan (06/22/2025 10:48 PM EDT): Levothyroxine started Assessment & Plan (06/22/2025 3:20 PM EDT): Levothyroxine started Assessment & Plan (06/21/2025 10:37 PM EDT): Levothyroxine started Assessment & Plan (06/21/2025 4:53 PM EDT): Levothyroxine started Assessment & Plan (06/21/2025 7:17 AM EDT): Levothyroxine started Assessment & Plan (06/20/2025 3:30 PM EDT): Levothyroxine started Assessment & Plan (06/19/2025 10:39 PM EDT): Levothyroxine started Assessment & Plan (06/19/2025 3:46 PM EDT): Levothyroxine started Assessment & Plan (06/18/2025 10:41 PM EDT): Levothyroxine started Assessment & Plan (06/18/2025 3:57 PM EDT): Levothyroxine started Anemia 06/15/2025 Assessment & Plan (08/03/2025 2:10 PM EDT): ABLA Monitor and transfuse for goal Hgb > 7 Assessment & Plan (08/02/2025 11:41 AM EDT): ABLA Monitor and transfuse for goal Hgb > 7 Assessment & Plan (08/01/2025 12:55 PM EDT): ABLA Monitor and transfuse for goal Hgb > 7 Assessment & Plan (07/31/2025 3:31 PM EDT): ABLA Monitor and transfuse for goal Hgb > 7 Assessment & Plan (07/30/2025 9:43 AM EDT): ABLA Monitor and transfuse for goal Hgb > 7 Assessment & Plan (07/29/2025 3:07 PM EDT): ABLA Monitor and transfuse for goal Hgb > 7 Assessment & Plan (07/28/2025 8:16 AM EDT): ABLA Monitor and transfuse for goal Hgb > 7 Assessment & Plan (07/28/2025 11:31 PM EDT): ABLA Monitor and transfuse for goal Hgb > 7 Assessment & Plan (07/26/2025 9:39 AM EDT): ABLA Monitor and transfuse for goal Hgb > 7 Assessment & Plan (07/25/2025 7:57 AM EDT): ABLA Monitor and transfuse for goal Hgb > 7 Assessment & Plan (07/24/2025 9:30 AM EDT): ABLA Monitor and transfuse for goal Hgb > 7 Assessment & Plan (07/23/2025 3:33 PM EDT): ABLA Monitor and transfuse for goal Hgb > 7 Assessment & Plan (07/23/2025 3:34 PM EDT): ABLA Monitor and transfuse for goal Hgb > 7 Assessment & Plan (07/23/2025 3:33 PM EDT): ABLA Monitor and transfuse for goal Hgb > 7 Assessment & Plan (07/23/2025 4:43 PM EDT): ABLA Monitor and transfuse for goal Hgb > 7 Assessment & Plan (07/23/2025 4:38 PM EDT): ABLA Monitor and transfuse for goal Hgb > 7 Assessment & Plan (07/23/2025 4:36 PM EDT): ABLA Monitor and transfuse for goal Hgb > 7 Assessment & Plan (07/23/2025 4:34 PM EDT): ABLA Monitor and transfuse for goal Hgb > 7 Assessment & Plan (07/23/2025 4:29 PM EDT): ABLA Monitor and transfuse for goal Hgb > 7 Assessment & Plan (07/22/2025 3:19 PM EDT): ABLA Monitor and transfuse for goal Hgb > 7 Assessment & Plan (07/22/2025 3:17 PM EDT): ABLA Monitor and transfuse for goal Hgb > 7 Assessment & Plan (07/13/2025 4:02 PM EDT): ABLA Monitor and transfuse for goal Hgb > 7 Assessment & Plan (07/13/2025 7:18 AM EDT): ABLA Monitor and transfuse for goal Hgb > 7 Assessment & Plan (07/12/2025 7:45 AM EDT): ABLA Recheck hemogram and transfuse as necessary Assessment & Plan (07/11/2025 7:37 AM EDT): ABLA Recheck hemogram and transfuse as necessary Assessment & Plan (07/10/2025 7:25 AM EDT): ABLA Recheck hemogram and transfuse as necessary Assessment & Plan (07/12/2025 4:04 PM EDT): ABLA Recheck hemogram and transfuse as necessary Assessment & Plan (07/08/2025 12:35 PM EDT): ABLA Recheck hemogram and transfuse as necessary Assessment & Plan (07/07/2025 3:17 PM EDT): ABLA Recheck hemogram and transfuse as necessary Assessment & Plan (07/12/2025 4:02 PM EDT): ABLA - Last transfused 07/02 - Transfuse for symptomatic anemia to keep Hgb > 7 Assessment & Plan (07/09/2025 5:35 PM EDT): ABLA - Last transfused 8/8 - Transfuse for symptomatic anemia to keep Hgb > 7 Assessment & Plan (07/11/2025 11:20 PM EDT): ABLA - Last transfused 8/8 - Transfuse for symptomatic anemia to keep Hgb > 7 Assessment & Plan (07/03/2025 9:26 AM EDT): ABLA - Last transfused 8/8 - Transfuse for symptomatic anemia to keep Hgb > 7 Assessment & Plan (07/01/2025 11:01 AM EDT): ABLA Transfuse for symptomatic anemia Assessment & Plan (06/30/2025 12:00 PM EDT): ABLA Transfuse for symptomatic anemia Assessment & Plan (06/25/2025 12:10 PM EDT): - 2/2 traumatic injury and critical illness - trend and transfuse as necessary Assessment & Plan (06/24/2025 10:05 PM EDT): - 2/2 traumatic injury and critical illness - trend and transfuse as necessary Assessment & Plan (07/05/2025 6:19 AM EDT): - 2/2 traumatic injury and critical illness - trend and transfuse as necessary Assessment & Plan (06/23/2025 10:30 PM EDT): - 2/2 traumatic injury and critical illness - trend and transfuse as necessary Assessment & Plan (07/05/2025 6:20 AM EDT): - 2/2 traumatic injury and critical illness - trend and transfuse as necessary Assessment & Plan (06/22/2025 10:48 PM EDT): - 2/2 traumatic injury and critical illness - trend and transfuse as necessary Assessment & Plan (06/22/2025 3:20 PM EDT): - 2/2 traumatic injury and critical illness - trend and transfuse as necessary Assessment & Plan (06/21/2025 10:37 PM EDT): - 2/2 traumatic injury and critical illness - trend and transfuse as necessary Assessment & Plan (06/21/2025 4:53 PM EDT): - 2/2 traumatic injury and critical illness - trend and transfuse as necessary Assessment & Plan (06/21/2025 7:17 AM EDT): - 2/2 traumatic injury and critical illness - trend and transfuse as necessary Assessment & Plan (06/20/2025 3:30 PM EDT): - 2/2 traumatic injury and critical illness - trend and transfuse as necessary Assessment & Plan (06/19/2025 10:39 PM EDT): - 2/2 traumatic injury and critical illness - trend and transfuse as necessary Assessment & Plan (06/19/2025 3:46 PM EDT): - 2/2 traumatic injury and critical illness - trend and transfuse as necessary Assessment & Plan (06/18/2025 10:41 PM EDT): - 2/2 traumatic injury and critical illness - trend and transfuse as necessary Assessment & Plan (06/18/2025 3:57 PM EDT): - 2/2 traumatic injury and critical illness - trend and transfuse as necessary Assessment & Plan (06/18/2025 6:21 AM EDT): - 2/2 traumatic injury and critical illness - trend and transfuse as necessary Assessment & Plan (06/17/2025 5:22 AM EDT): - 2/2 traumatic injury and critical illness - trend and transfuse as necessary Assessment & Plan (06/20/2025 8:06 AM EDT): - 2/2 traumatic injury and critical illness - trend and transfuse as necessary Assessment & Plan (06/16/2025 6:49 AM EDT): - 2/2 traumatic injury and critical illness - trend and transfuse as necessary Assessment & Plan (06/17/2025 10:20 PM EDT): - 2/2 traumatic injury and critical illness - trend and transfuse as necessary Electrolyte abnormality 06/14/2025 Assessment & Plan (08/03/2025 2:10 PM EDT): Monitor and replete per protocol and as needed Assessment & Plan (08/02/2025 11:41 AM EDT): Monitor and replete per protocol and as needed Assessment & Plan (08/01/2025 12:55 PM EDT): Monitor and replete per protocol and as needed Assessment & Plan (07/31/2025 3:31 PM EDT): Monitor and replete per protocol and as needed Assessment & Plan (07/30/2025 9:43 AM EDT): Monitor and replete per protocol and as needed Assessment & Plan (07/29/2025 3:07 PM EDT): Monitor and replete per protocol and as needed Assessment & Plan (07/28/2025 8:16 AM EDT): Monitor and replete per protocol and as needed Assessment & Plan (07/28/2025 11:31 PM EDT): Monitor and replete per protocol and as needed Assessment & Plan (07/26/2025 9:39 AM EDT): Monitor and replete per protocol and as needed Assessment & Plan (07/25/2025 7:57 AM EDT): Monitor and replete per protocol and as needed Assessment & Plan (07/24/2025 9:30 AM EDT): Monitor and replete per protocol and as needed Assessment & Plan (07/23/2025 3:33 PM EDT): Monitor and replete per protocol and as needed Assessment & Plan (07/23/2025 3:34 PM EDT): Monitor and replete per protocol and as needed Assessment & Plan (07/23/2025 3:33 PM EDT): Monitor and replete per protocol and as needed Assessment & Plan (07/23/2025 4:43 PM EDT): Monitor and replete per protocol and as needed Assessment & Plan (07/23/2025 4:38 PM EDT): Monitor and replete per protocol and as needed Assessment & Plan (07/23/2025 4:36 PM EDT): Monitor and replete per protocol and as needed Assessment & Plan (07/23/2025 4:34 PM EDT): Monitor and replete per protocol and as needed Assessment & Plan (07/23/2025 4:29 PM EDT): Monitor and replete per protocol and as needed Assessment & Plan (07/22/2025 3:19 PM EDT): Monitor and replete per protocol and as needed Assessment & Plan (07/22/2025 3:17 PM EDT): Monitor and replete per protocol and as needed Assessment & Plan (07/13/2025 4:02 PM EDT): Monitor and replete per protocol and as needed Assessment & Plan (07/13/2025 7:18 AM EDT): Monitor and replete per protocol and as needed Assessment & Plan (07/12/2025 7:45 AM EDT): Monitor and replete per protocol and as needed Assessment & Plan (07/11/2025 7:37 AM EDT): Monitor and replete per protocol and as needed Assessment & Plan (07/10/2025 7:25 AM EDT): Monitor and replete per protocol and as needed Assessment & Plan (07/12/2025 4:04 PM EDT): Monitor and replete per protocol and as needed Assessment & Plan (07/08/2025 12:35 PM EDT): Monitor and replete per protocol and as needed Assessment & Plan (07/07/2025 3:17 PM EDT): Monitor and replete per protocol and as needed Assessment & Plan (07/12/2025 4:02 PM EDT): - Monitor and replete per protocol and as needed Assessment & Plan (07/09/2025 5:35 PM EDT): - Monitor and replete per protocol and as needed Assessment & Plan (07/11/2025 11:20 PM EDT): - Monitor and replete per protocol and as needed Assessment & Plan (07/03/2025 9:26 AM EDT): - Monitor and replete per protocol and as needed Assessment & Plan (07/01/2025 11:01 AM EDT): Replace Assessment & Plan (06/30/2025 12:00 PM EDT): Replace Assessment & Plan (06/25/2025 12:10 PM EDT): - replace per ICU protocol Assessment & Plan (06/24/2025 10:05 PM EDT): - replace per ICU protocol Assessment & Plan (07/05/2025 6:19 AM EDT): - replace per ICU protocol Assessment & Plan (06/23/2025 10:30 PM EDT): - replace per ICU protocol Assessment & Plan (07/05/2025 6:20 AM EDT): - replace per ICU protocol Assessment & Plan (06/22/2025 10:48 PM EDT): - replace per ICU protocol Assessment & Plan (06/22/2025 3:20 PM EDT): - replace per ICU protocol Assessment & Plan (06/21/2025 10:37 PM EDT): - replace per ICU protocol Assessment & Plan (06/21/2025 4:53 PM EDT): - replace per ICU protocol Assessment & Plan (06/21/2025 7:17 AM EDT): - replace per ICU protocol Assessment & Plan (06/20/2025 3:30 PM EDT): - replace per ICU protocol Assessment & Plan (06/19/2025 10:39 PM EDT): - replace per ICU protocol Assessment & Plan (06/19/2025 3:46 PM EDT): - replace per ICU protocol Assessment & Plan (06/18/2025 10:41 PM EDT): - replace per ICU protocol Assessment & Plan (06/18/2025 3:57 PM EDT): - replace per ICU protocol Assessment & Plan (06/18/2025 6:21 AM EDT): - replace per ICU protocol Assessment & Plan (06/17/2025 5:22 AM EDT): - replace per ICU protocol Assessment & Plan (06/20/2025 8:06 AM EDT): - replace per ICU protocol Assessment & Plan (06/16/2025 6:49 AM EDT): - replace per ICU protocol Assessment & Plan (06/17/2025 10:20 PM EDT): - replace per ICU protocol Assessment & Plan (06/14/2025 5:44 PM EDT): - replace per ICU protocol Thoracic spine fracture 06/09/2025 Overview (06/09/2025): C7-T3 flexion/distraction injury Assessment & Plan (08/03/2025 2:10 PM EDT): ORT spine consult, s/p cervical fusion C5-T5 with laminectomy 06/09 Assessment & Plan (08/02/2025 11:41 AM EDT): ORT spine consult, s/p cervical fusion C5-T5 with laminectomy 06/09 Assessment & Plan (08/01/2025 12:55 PM EDT): ORT spine consult, s/p cervical fusion C5-T5 with laminectomy 7/ Assessment & Plan (07/31/2025 3:31 PM EDT): ORT spine consult, s/p cervical fusion C5-T5 with laminectomy 7/ Assessment & Plan (07/30/2025 9:43 AM EDT): ORT spine consult, s/p cervical fusion C5-T5 with laminectomy 7/19 Assessment & Plan (07/29/2025 3:07 PM EDT): ORT spine consult, s/p cervical fusion C5-T5 with laminectomy 7/19 Assessment & Plan (07/28/2025 8:16 AM EDT): ORT spine consult, s/p cervical fusion C5-T5 with laminectomy 7/19 Assessment & Plan (07/28/2025 11:31 PM EDT): ORT spine consult, s/p cervical fusion C5-T5 with laminectomy 7/19 Assessment & Plan (07/26/2025 9:39 AM EDT): ORT spine consult, s/p cervical fusion C5-T5 with laminectomy 7/19 Assessment & Plan (07/25/2025 7:57 AM EDT): ORT spine consult, s/p cervical fusion C5-T5 with laminectomy 7/19 Assessment & Plan (07/24/2025 9:30 AM EDT): ORT spine consult, s/p cervical fusion C5-T5 with laminectomy 7/19 Assessment & Plan (07/23/2025 3:33 PM EDT): ORT spine consult, s/p cervical fusion C5-T5 with laminectomy 7/19 Assessment & Plan (07/23/2025 3:34 PM EDT): ORT spine consult, s/p cervical fusion C5-T5 with laminectomy 7/19 Assessment & Plan (07/23/2025 3:33 PM EDT): ORT spine consult, s/p cervical fusion C5-T5 with laminectomy 7/19 Assessment & Plan (07/23/2025 4:43 PM EDT): ORT spine consult, s/p cervical fusion C5-T5 with laminectomy 7/19 Assessment & Plan (07/23/2025 4:38 PM EDT): ORT spine consult, s/p cervical fusion C5-T5 with laminectomy 7/19 Assessment & Plan (07/23/2025 4:36 PM EDT): ORT spine consult, s/p cervical fusion C5-T5 with laminectomy 7/19 Assessment & Plan (07/23/2025 4:34 PM EDT): ORT spine consult, s/p cervical fusion C5-T5 with laminectomy 7/19 Assessment & Plan (07/23/2025 4:29 PM EDT): ORT spine consult, s/p cervical fusion C5-T5 with laminectomy 7/19 Assessment & Plan (07/22/2025 3:19 PM EDT): ORT spine consult, s/p cervical fusion C5-T5 with laminectomy 7/19 Assessment & Plan (07/22/2025 3:17 PM EDT): ORT spine consult, s/p cervical fusion C5-T5 with laminectomy 7/19 Assessment & Plan (07/13/2025 4:02 PM EDT): ORT spine consult, s/p cervical fusion C5-T5 with laminectomy 7/19 Assessment & Plan (07/13/2025 7:18 AM EDT): ORT spine consult, s/p cervical fusion C5-T5 with laminectomy 7/19 Assessment & Plan (07/12/2025 7:45 AM EDT): ORT spine consult, s/p cervical fusion C5-T5 with laminectomy 7/19 Assessment & Plan (07/11/2025 7:37 AM EDT): ORT spine consult, s/p cervical fusion C5-T5 with laminectomy 7/19 Assessment & Plan (07/10/2025 7:25 AM EDT): ORT spine consult, s/p cervical fusion C5-T5 with laminectomy 7/19 Assessment & Plan (07/12/2025 4:04 PM EDT): ORT spine consult, s/p cervical fusion C5-T5 with laminectomy 7/19 Assessment & Plan (07/08/2025 12:35 PM EDT): ORT spine consult, s/p cervical fusion C5-T5 with laminectomy 7/19 Assessment & Plan (07/07/2025 3:17 PM EDT): ORT spine consult, s/p cervical fusion C5-T5 with laminectomy 7/19 Assessment & Plan (07/12/2025 4:02 PM EDT): ORT spine consulted Repaired Assessment & Plan (07/09/2025 5:35 PM EDT): ORT spine consulted Repaired Assessment & Plan (07/11/2025 11:20 PM EDT): ORT spine consulted Repaired Assessment & Plan (07/03/2025 9:26 AM EDT): ORT spine consulted Repaired Assessment & Plan (07/01/2025 11:01 AM EDT): ORT spine consulted Repaired Assessment & Plan (06/30/2025 12:00 PM EDT): ORT spine consulted Repaired Assessment & Plan (07/05/2025 1:39 AM EDT): ORT spine consulted Plan for OR with ORT spine 7/19 Assessment & Plan (07/05/2025 1:36 AM EDT): ORT spine consulted Plan for OR with ORT spine 7/19 Assessment & Plan (07/05/2025 1:34 AM EDT): ORT spine consulted Plan for OR with ORT spine 7/19 Assessment & Plan (07/05/2025 1:31 AM EDT): ORT spine consulted Plan for OR with ORT spine 7/19 Assessment & Plan (06/25/2025 10:52 AM EDT): ORT spine consulted Plan for OR with ORT spine 7/19 Assessment & Plan (06/25/2025 12:10 PM EDT): -C7-T3 flexion/distraction injury - s/p C5-T5 posterior spinal fusion with laminectomy at C7, T1, T2 Assessment & Plan (06/24/2025 10:05 PM EDT): -C7-T3 flexion/distraction injury - s/p C5-T5 posterior spinal fusion with laminectomy at C7, T1, T2 Assessment & Plan (06/24/2025 5:44 PM EDT): ORT spine consulted Plan for OR with ORT spine 06/09 Assessment & Plan (07/05/2025 6:19 AM EDT): -C7-T3 flexion/distraction injury - s/p C5-T5 posterior spinal fusion with laminectomy at C7, T1, T2 Assessment & Plan (06/23/2025 10:30 PM EDT): -C7-T3 flexion/distraction injury - s/p C5-T5 posterior spinal fusion with laminectomy at C7, T1, T2 Assessment & Plan (06/23/2025 5:02 PM EDT): ORT spine consulted Plan for OR with ORT spine 7/19 Assessment & Plan (07/05/2025 6:20 AM EDT): -C7-T3 flexion/distraction injury - s/p C5-T5 posterior spinal fusion with laminectomy at C7, T1, T2 Assessment & Plan (06/22/2025 10:48 PM EDT): -C7-T3 flexion/distraction injury - s/p C5-T5 posterior spinal fusion with laminectomy at C7, T1, T2 Assessment & Plan (06/22/2025 3:20 PM EDT): -C7-T3 flexion/distraction injury - s/p C5-T5 posterior spinal fusion with laminectomy at C7, T1, T2 Assessment & Plan (06/21/2025 10:37 PM EDT): -C7-T3 flexion/distraction injury - s/p C5-T5 posterior spinal fusion with laminectomy at C7, T1, T2 Assessment & Plan (06/21/2025 1:06 PM EDT): ORT spine consulted Plan for OR with ORT spine 06/09 Assessment & Plan (06/21/2025 4:53 PM EDT): -C7-T3 flexion/distraction injury - s/p C5-T5 posterior spinal fusion with laminectomy at C7, T1, T2 Assessment & Plan (06/21/2025 7:17 AM EDT): -C7-T3 flexion/distraction injury - s/p C5-T5 posterior spinal fusion with laminectomy at C7, T1, T2 Assessment & Plan (06/20/2025 2:38 PM EDT): ORT spine consulted Plan for OR with ORT spine 06/09 Assessment & Plan (06/20/2025 3:30 PM EDT): -C7-T3 flexion/distraction injury - s/p C5-T5 posterior spinal fusion with laminectomy at C7, T1, T2 Assessment & Plan (06/19/2025 10:39 PM EDT): -C7-T3 flexion/distraction injury - s/p C5-T5 posterior spinal fusion with laminectomy at C7, T1, T2 Assessment & Plan (06/19/2025 3:46 PM EDT): -C7-T3 flexion/distraction injury - s/p C5-T5 posterior spinal fusion with laminectomy at C7, T1, T2 Assessment & Plan (06/18/2025 10:41 PM EDT): -C7-T3 flexion/distraction injury - s/p C5-T5 posterior spinal fusion with laminectomy at C7, T1, T2 Assessment & Plan (06/18/2025 3:57 PM EDT): -C7-T3 flexion/distraction injury - s/p C5-T5 posterior spinal fusion with laminectomy at C7, T1, T2 Assessment & Plan (06/18/2025 11:52 AM EDT): ORT spine consulted Plan for OR with ORT spine 06/09 Assessment & Plan (06/18/2025 6:21 AM EDT): -C7-T3 flexion/distraction injury - s/p C5-T5 posterior spinal fusion with laminectomy at C7, T1, T2 Assessment & Plan (06/17/2025 5:22 AM EDT): -C7-T3 flexion/distraction injury - s/p C5-T5 posterior spinal fusion with laminectomy at C7, T1, T2 Assessment & Plan (06/20/2025 8:06 AM EDT): -C7-T3 flexion/distraction injury - s/p C5-T5 posterior spinal fusion with laminectomy at C7, T1, T2 Assessment & Plan (06/16/2025 6:49 AM EDT): -C7-T3 flexion/distraction injury - s/p C5-T5 posterior spinal fusion with laminectomy at C7, T1, T2 Assessment & Plan (06/17/2025 10:20 PM EDT): -C7-T3 flexion/distraction injury - s/p C5-T5 posterior spinal fusion with laminectomy at C7, T1, T2 Assessment & Plan (06/14/2025 5:44 PM EDT): -C7-T3 flexion/distraction injury - s/p C5-T5 posterior spinal fusion with laminectomy at C7, T1, T2 Assessment & Plan (06/21/2025 3:45 PM EDT): ORT spine consulted Plan for OR with ORT spine 06/09 Assessment & Plan (06/21/2025 3:43 PM EDT): ORT spine consulted Plan for OR with ORT spine 06/09 Assessment & Plan (06/21/2025 3:42 PM EDT): ORT spine consulted Plan for OR with ORT spine 06/09 Assessment & Plan (06/19/2025 7:18 PM EDT): ORT spine consulted Plan for OR with ORT spine 06/09 Assessment & Plan (06/19/2025 7:14 PM EDT): ORT spine consulted Plan for OR with ORT spine 06/09 Thoracic aorta injury, initial encounter 025 Overview (06/06/2025): Vascular surgery consultation No intervention at this time Assessment & Plan (08/03/2025 2:10 PM EDT): Repeat CTA stable ASA81 Assessment & Plan (08/02/2025 11:41 AM EDT): Repeat CTA stable ASA. Assessment & Plan (08/01/2025 12:55 PM EDT): Repeat CTA stable ASA. Assessment & Plan (07/31/2025 3:31 PM EDT): Repeat CTA stable ASA. Assessment & Plan (07/30/2025 9:43 AM EDT): Repeat CTA stable ASA. Assessment & Plan (07/29/2025 3:14 PM EDT): Repeat CTA stable ASA. Assessment & Plan (07/28/2025 8:16 AM EDT): Repeat CTA stable ASA. Assessment & Plan (07/28/2025 11:31 PM EDT): Repeat CTA stable ASA. Assessment & Plan (07/26/2025 9:39 AM EDT): Repeat CTA stable ASA. Assessment & Plan (07/25/2025 7:57 AM EDT): Repeat CTA stable ASA Assessment & Plan (07/24/2025 9:30 AM EDT): Repeat CTA stable ASA Assessment & Plan (07/23/2025 3:33 PM EDT): Repeat CTA stable ASA Assessment & Plan (07/23/2025 3:34 PM EDT): Repeat CTA stable ASA Assessment & Plan (07/23/2025 3:33 PM EDT): Repeat CTA stable ASA Assessment & Plan (07/23/2025 4:43 PM EDT): Repeat CTA stable ASA Assessment & Plan (07/23/2025 4:38 PM EDT): Repeat CTA stable ASA Assessment & Plan (07/23/2025 4:36 PM EDT): Repeat CTA stable ASA Assessment & Plan (07/23/2025 4:34 PM EDT): Repeat CTA stable ASA Assessment & Plan (07/23/2025 4:29 PM EDT): Repeat CTA stable ASA Assessment & Plan (07/22/2025 3:19 PM EDT): Repeat CTA stable ASA Assessment & Plan (07/22/2025 3:17 PM EDT): Repeat CTA stable ASA Assessment & Plan (07/13/2025 4:02 PM EDT): Repeat CTA stable ASA Assessment & Plan (07/13/2025 7:18 AM EDT): Repeat CTA stable ASA Assessment & Plan (07/12/2025 7:45 AM EDT): Repeat CTA stable ASA Assessment & Plan (07/11/2025 7:37 AM EDT): Repeat CTA stable ASA Assessment & Plan (07/10/2025 7:25 AM EDT): Repeat CTA stable ASA Assessment & Plan (07/12/2025 4:04 PM EDT): Repeat CTA stable ASA Assessment & Plan (07/08/2025 12:35 PM EDT): Repeat CTA stable ASA Assessment & Plan (07/07/2025 3:17 PM EDT): Repeat CTA stable ASA Assessment & Plan (07/12/2025 4:02 PM EDT): repeat CTA stable ASA Assessment & Plan (07/09/2025 5:35 PM EDT): repeat CTA stable ASA Assessment & Plan (07/11/2025 11:20 PM EDT): repeat CTA stable ASA Assessment & Plan (07/03/2025 9:26 AM EDT): repeat CTA stable ASA Assessment & Plan (07/01/2025 11:01 AM EDT): repeat CTA stable ASA Assessment & Plan (06/30/2025 12:00 PM EDT): repeat CTA stable ASA Assessment & Plan (07/05/2025 1:39 AM EDT): - Vascular surgery: repeat CTA 48-72 hours, ASA/statin when able Assessment & Plan (07/05/2025 1:36 AM EDT): - Vascular surgery: repeat CTA 48-72 hours, ASA/statin when able Assessment & Plan (07/05/2025 1:34 AM EDT): - Vascular surgery: repeat CTA 48-72 hours, ASA/statin when able Assessment & Plan (07/05/2025 1:31 AM EDT): - Vascular surgery: repeat CTA 48-72 hours, ASA/statin when able Assessment & Plan (06/25/2025 10:52 AM EDT): - Vascular surgery: repeat CTA 48-72 hours, ASA/statin when able Assessment & Plan (06/25/2025 12:10 PM EDT): -grade 1 thoracic aortic injury - Vascular surgery consultation - no intervention at this time - repeat CTA chest 06/14 showed no thoracic identified on this CT Assessment & Plan (06/24/2025 10:05 PM EDT): -grade 1 thoracic aortic injury - Vascular surgery consultation - no intervention at this time - repeat CTA chest 06/14 showed no thoracic identified on this CT Assessment & Plan (06/24/2025 5:44 PM EDT): - Vascular surgery: repeat CTA 48-72 hours, ASA/statin when able Assessment & Plan (07/05/2025 6:19 AM EDT): -grade 1 thoracic aortic injury - Vascular surgery consultation - no intervention at this time - repeat CTA chest 06/14 showed no thoracic identified on this CT Assessment & Plan (06/23/2025 10:30 PM EDT): -grade 1 thoracic aortic injury - Vascular surgery consultation - no intervention at this time - repeat CTA chest 7/24 showed no thoracic identified on this CT Assessment & Plan (06/23/2025 5:02 PM EDT): - Vascular surgery: repeat CTA 48-72 hours, ASA/statin when able Assessment & Plan (07/05/2025 6:20 AM EDT): -grade 1 thoracic aortic injury - Vascular surgery consultation - no intervention at this time - repeat CTA chest 7/24 showed no thoracic identified on this CT Assessment & Plan (06/22/2025 10:48 PM EDT): -grade 1 thoracic aortic injury - Vascular surgery consultation - no intervention at this time - repeat CTA chest 724 showed no thoracic identified on this CT Assessment & Plan (06/22/2025 3:20 PM EDT): -grade 1 thoracic aortic injury - Vascular surgery consultation - no intervention at this time - repeat CTA chest 7 showed no thoracic identified on this CT Assessment & Plan (06/21/2025 10:37 PM EDT): -grade 1 thoracic aortic injury - Vascular surgery consultation - no intervention at this time - repeat CTA chest 724 showed no thoracic identified on this CT Assessment & Plan (06/21/2025 1:06 PM EDT): - Vascular surgery: repeat CTA 48-72 hours, ASA/statin when able Assessment & Plan (06/21/2025 4:53 PM EDT): -grade 1 thoracic aortic injury - Vascular surgery consultation - no intervention at this time - repeat CTA chest 7/24 showed no thoracic identified on this CT Assessment & Plan (06/21/2025 7:17 AM EDT): -grade 1 thoracic aortic injury - Vascular surgery consultation - no intervention at this time - repeat CTA chest 7/24 showed no thoracic identified on this CT Assessment & Plan (06/20/2025 2:38 PM EDT): - Vascular surgery: repeat CTA 48-72 hours, ASA/statin when able Assessment & Plan (06/20/2025 3:30 PM EDT): -grade 1 thoracic aortic injury - Vascular surgery consultation - no intervention at this time - repeat CTA chest 06/14 showed no thoracic identified on this CT Assessment & Plan (06/19/2025 10:39 PM EDT): -grade 1 thoracic aortic injury - Vascular surgery consultation - no intervention at this time - repeat CTA chest 06/14 showed no thoracic identified on this CT Assessment & Plan (06/19/2025 3:46 PM EDT): -grade 1 thoracic aortic injury - Vascular surgery consultation - no intervention at this time - repeat CTA chest 06/14 showed no thoracic identified on this CT Assessment & Plan (06/18/2025 10:41 PM EDT): -grade 1 thoracic aortic injury - Vascular surgery consultation - no intervention at this time - repeat CTA chest 06/14 showed no thoracic identified on this CT Assessment & Plan (06/18/2025 3:57 PM EDT): -grade 1 thoracic aortic injury - Vascular surgery consultation - no intervention at this time - repeat CTA chest 06/14 showed no thoracic identified on this CT Assessment & Plan (06/18/2025 11:52 AM EDT): - Vascular surgery: repeat CTA 48-72 hours, ASA/statin when able Assessment & Plan (06/18/2025 6:21 AM EDT): -grade 1 thoracic aortic injury - Vascular surgery consultation - no intervention at this time - repeat CTA chest 06/14 showed no thoracic identified on this CT Assessment & Plan (06/17/2025 5:22 AM EDT): -grade 1 thoracic aortic injury - Vascular surgery consultation - no intervention at this time - repeat CTA chest 06/14 showed no thoracic identified on this CT Assessment & Plan (06/20/2025 8:06 AM EDT): -grade 1 thoracic aortic injury - Vascular surgery consultation - no intervention at this time - repeat CTA chest 06/14 showed no thoracic identified on this CT Assessment & Plan (06/16/2025 6:49 AM EDT): -grade 1 thoracic aortic injury - Vascular surgery consultation - no intervention at this time - repeat CTA chest 06/14 showed no thoracic identified on this CT Assessment & Plan (06/17/2025 10:20 PM EDT): -grade 1 thoracic aortic injury - Vascular surgery consultation - no intervention at this time - repeat CTA chest 06/14 showed no thoracic identified on this CT Assessment & Plan (06/14/2025 5:44 PM EDT): -grade 1 thoracic aortic injury - Vascular surgery consultation - no intervention at this time - repeat CTA chest 06/14 Assessment & Plan (06/21/2025 3:45 PM EDT): - Vascular surgery: repeat CTA 48-72 hours, ASA/statin when able Assessment & Plan (06/21/2025 3:43 PM EDT): - Vascular surgery: repeat CTA 48-72 hours, ASA/statin when able Assessment & Plan (06/21/2025 3:42 PM EDT): - Vascular surgery: repeat CTA 48-72 hours, ASA/statin when able Assessment & Plan (06/19/2025 7:18 PM EDT): - Vascular surgery: repeat CTA 48-72 hours, ASA/statin when able Assessment & Plan (06/19/2025 7:14 PM EDT): - Vascular surgery: repeat CTA 48-72 hours, ASA/statin when able Traumatic injury of spleen 06/06/2025 Overview (06/09/2025): 06/05: OR for splenectomy Will need vaccines Assessment & Plan (08/03/2025 2:10 PM EDT): 06/05: Ex-lap with splenectomy, s/p asplenia vaccines 06/20 Assessment & Plan (08/02/2025 11:41 AM EDT): 06/05: Ex-lap with splenectomy, s/p asplenia vaccines 06/20 Assessment & Plan (08/01/2025 12:55 PM EDT): 06/05: Ex-lap with splenectomy, s/p asplenia vaccines 06/20 Assessment & Plan (07/31/2025 3:31 PM EDT): 06/05: Ex-lap with splenectomy, s/p asplenia vaccines 06/20 Assessment & Plan (07/30/2025 9:43 AM EDT): 06/05: Ex-lap with splenectomy, s/p asplenia vaccines 06/20 Assessment & Plan (07/29/2025 3:07 PM EDT): 06/05: Ex-lap with splenectomy, s/p asplenia vaccines 06/20 Assessment & Plan (07/28/2025 8:16 AM EDT): 06/05: Ex-lap with splenectomy, s/p asplenia vaccines 06/20 Assessment & Plan (07/28/2025 11:31 PM EDT): 06/05: Ex-lap with splenectomy, s/p asplenia vaccines 06/20 Assessment & Plan (07/26/2025 9:39 AM EDT): 06/05: Ex-lap with splenectomy, s/p asplenia vaccines 06/20 Assessment & Plan (07/25/2025 7:57 AM EDT): 06/05: Ex-lap with splenectomy, s/p asplenia vaccines 06/20 Assessment & Plan (07/24/2025 10:29 AM EDT): 06/05: Ex-lap with splenectomy, s/p asplenia vaccines 06/20 Assessment & Plan (07/23/2025 3:33 PM EDT): 06/05: Ex-lap with splenectomy, s/p asplenia vaccines 06/20 Assessment & Plan (07/23/2025 3:34 PM EDT): 06/05: Ex-lap with splenectomy, s/p asplenia vaccines 06/20 Assessment & Plan (07/23/2025 3:33 PM EDT): 06/05: Ex-lap with splenectomy, s/p asplenia vaccines 06/20 Assessment & Plan (07/23/2025 4:43 PM EDT): 06/05: Ex-lap with splenectomy, s/p asplenia vaccines 06/20 Assessment & Plan (07/23/2025 4:38 PM EDT): 06/05: Ex-lap with splenectomy, s/p asplenia vaccines 06/20 Assessment & Plan (07/23/2025 4:36 PM EDT): 06/05: Ex-lap with splenectomy, s/p asplenia vaccines 06/20 Assessment & Plan (07/23/2025 4:34 PM EDT): 06/05: Ex-lap with splenectomy, s/p asplenia vaccines 06/20 Assessment & Plan (07/23/2025 4:29 PM EDT): 06/05: Ex-lap with splenectomy, s/p asplenia vaccines 06/20 Assessment & Plan (07/22/2025 3:19 PM EDT): 06/05: Ex-lap with splenectomy, s/p asplenia vaccines 06/20 Assessment & Plan (07/22/2025 3:17 PM EDT): 06/05: Ex-lap with splenectomy, s/p asplenia vaccines 06/20 Assessment & Plan (07/13/2025 4:02 PM EDT): 06/05: Ex-lap with splenectomy, s/p asplenia vaccines 06/20 Assessment & Plan (07/13/2025 7:18 AM EDT): 06/05: Ex-lap with splenectomy, s/p asplenia vaccines 06/20 Assessment & Plan (07/12/2025 7:45 AM EDT): 06/05: Ex-lap with splenectomy, s/p asplenia vaccines 06/20 Assessment & Plan (07/11/2025 7:37 AM EDT): 06/05: Ex-lap with splenectomy, s/p asplenia vaccines 06/20 Assessment & Plan (07/10/2025 7:25 AM EDT): 06/05: Ex-lap with splenectomy, s/p asplenia vaccines 06/20 Assessment & Plan (07/12/2025 4:04 PM EDT): 06/05: Ex-lap with splenectomy, s/p asplenia vaccines 06/20 Assessment & Plan (07/08/2025 12:35 PM EDT): 06/05: Ex-lap with splenectomy, s/p asplenia vaccines 06/20 Assessment & Plan (07/07/2025 3:17 PM EDT): 06/05: Ex-lap with splenectomy, s/p asplenia vaccines 06/20 Assessment & Plan (07/12/2025 4:02 PM EDT): 06/05: Ex-lap with splenetomy Assessment & Plan (07/09/2025 5:35 PM EDT): 06/05: Ex-lap with splenetomy Assessment & Plan (07/11/2025 11:20 PM EDT): 06/05: Ex-lap with splenetomy Assessment & Plan (07/03/2025 9:26 AM EDT): 06/05: Ex-lap with splenetomy Assessment & Plan (07/01/2025 11:01 AM EDT): 06/05: Ex-lap with splenetomy Assessment & Plan (06/30/2025 12:00 PM EDT): 06/05: Ex-lap with splenetomy Assessment & Plan (07/05/2025 1:39 AM EDT): 06/05: Ex-lap with splenetomy Assessment & Plan (07/05/2025 1:36 AM EDT): 06/05: Ex-lap with splenetomy Assessment & Plan (07/05/2025 1:34 AM EDT): 06/05: Ex-lap with splenetomy Assessment & Plan (07/05/2025 1:31 AM EDT): 06/05: Ex-lap with splenetomy Assessment & Plan (06/25/2025 10:52 AM EDT): 06/05: Ex-lap with splenetomy Assessment & Plan (06/25/2025 12:10 PM EDT): 06/05: OR for splenectomy Received vaccines on 06/20 Assessment & Plan (06/24/2025 10:05 PM EDT): 06/05: OR for splenectomy Received vaccines on 06/20 Assessment & Plan (06/24/2025 5:44 PM EDT): 06/05: Ex-lap with splenetomy Assessment & Plan (07/05/2025 6:19 AM EDT): 06/05: OR for splenectomy Received vaccines on 06/20 Assessment & Plan (06/23/2025 10:30 PM EDT): 06/05: OR for splenectomy Received vaccines on 06/20 Assessment & Plan (06/23/2025 5:02 PM EDT): 06/05: Ex-lap with splenetomy Assessment & Plan (07/05/2025 6:20 AM EDT): 06/05: OR for splenectomy Received vaccines on 06/20 Assessment & Plan (06/22/2025 10:48 PM EDT): 06/05: OR for splenectomy Received vaccines on 06/20 Assessment & Plan (06/22/2025 3:20 PM EDT): 06/05: OR for splenectomy Received vaccines on 06/20 Assessment & Plan (06/21/2025 10:37 PM EDT): 06/05: OR for splenectomy Received vaccines on 06/20 Assessment & Plan (06/21/2025 1:06 PM EDT): 06/05: Ex-lap with splenetomy Assessment & Plan (06/21/2025 4:53 PM EDT): 06/05: OR for splenectomy Received vaccines on 06/20 Assessment & Plan (06/21/2025 7:17 AM EDT): 06/05: OR for splenectomy Getting vaccines today Assessment & Plan (06/20/2025 2:38 PM EDT): 06/05: Ex-lap with splenetomy Assessment & Plan (06/20/2025 3:30 PM EDT): 06/05: OR for splenectomy Getting vaccines today Assessment & Plan (06/19/2025 10:39 PM EDT): 06/05: OR for splenectomy Will need vaccines Assessment & Plan (06/19/2025 3:46 PM EDT): 06/05: OR for splenectomy Will need vaccines Assessment & Plan (06/18/2025 10:41 PM EDT): 06/05: OR for splenectomy Will need vaccines Assessment & Plan (06/18/2025 3:57 PM EDT): 06/05: OR for splenectomy Will need vaccines Assessment & Plan (06/18/2025 11:52 AM EDT): 06/05: Ex-lap with splenetomy Assessment & Plan (06/18/2025 6:21 AM EDT): 06/05: OR for splenectomy Will need vaccines Assessment & Plan (06/17/2025 5:22 AM EDT): 06/05: OR for splenectomy Will need vaccines Assessment & Plan (06/20/2025 8:06 AM EDT): 06/05: OR for splenectomy Will need vaccines Assessment & Plan (06/16/2025 6:49 AM EDT): 06/05: OR for splenectomy Will need vaccines Assessment & Plan (06/17/2025 10:20 PM EDT): 06/05: OR for splenectomy Will need vaccines Assessment & Plan (06/14/2025 5:44 PM EDT): 06/05: OR for splenectomy Will need vaccines Assessment & Plan (06/21/2025 3:45 PM EDT): 06/05: Ex-lap with splenetomy Assessment & Plan (06/21/2025 3:43 PM EDT): 06/05: Ex-lap with splenetomy Assessment & Plan (06/21/2025 3:42 PM EDT): 06/05: Ex-lap with splenetomy Assessment & Plan (06/19/2025 7:18 PM EDT): 06/05: Ex-lap with splenetomy Assessment & Plan (06/19/2025 7:14 PM EDT): 06/05: Ex-lap with splenetomy Closed traumatic displaced fracture of shaft of left femur 06/06/2025 Overview (06/06/2025): Orthopedic surgery consultation Assessment & Plan (08/03/2025 2:10 PM EDT): ORF consult, s/p ORIF done Assessment & Plan (08/02/2025 11:41 AM EDT): ORF consult, s/p ORIF done Assessment & Plan (08/01/2025 12:55 PM EDT): ORF consult, s/p ORIF done Assessment & Plan (07/31/2025 3:31 PM EDT): ORF consult, s/p ORIF done Assessment & Plan (07/30/2025 9:43 AM EDT): ORF consult, s/p ORIF done Assessment & Plan (07/29/2025 3:07 PM EDT): ORF consult, s/p ORIF done Assessment & Plan (07/28/2025 8:16 AM EDT): ORF consult, s/p ORIF done Assessment & Plan (07/28/2025 11:31 PM EDT): ORF consult, s/p ORIF done Assessment & Plan (07/26/2025 9:39 AM EDT): ORF consult, s/p ORIF done Assessment & Plan (07/25/2025 7:57 AM EDT): ORF consult, s/p ORIF done Assessment & Plan (07/24/2025 9:30 AM EDT): ORF consult, s/p ORIF done Assessment & Plan (07/23/2025 3:33 PM EDT): ORF consult, s/p ORIF done Assessment & Plan (07/23/2025 3:34 PM EDT): ORF consult, s/p ORIF done Assessment & Plan (07/23/2025 3:33 PM EDT): ORF consult, s/p ORIF done Assessment & Plan (07/23/2025 4:43 PM EDT): ORF consult, s/p ORIF done Assessment & Plan (07/23/2025 4:38 PM EDT): ORF consult, s/p ORIF done Assessment & Plan (07/23/2025 4:36 PM EDT): ORF consult, s/p ORIF done Assessment & Plan (07/23/2025 4:34 PM EDT): ORF consult, s/p ORIF done Assessment & Plan (07/23/2025 4:29 PM EDT): ORF consult, s/p ORIF done Assessment & Plan (07/22/2025 3:19 PM EDT): ORF consult, s/p ORIF done Assessment & Plan (07/22/2025 3:17 PM EDT): ORF consult, s/p ORIF done Assessment & Plan (07/13/2025 4:02 PM EDT): ORF consult, s/p ORIF done Assessment & Plan (07/13/2025 7:18 AM EDT): ORF consult, s/p ORIF done Assessment & Plan (07/12/2025 7:45 AM EDT): ORF consult, s/p ORIF done Assessment & Plan (07/11/2025 7:37 AM EDT): ORF consult, s/p ORIF done Assessment & Plan (07/10/2025 7:25 AM EDT): ORF consult, s/p ORIF done Assessment & Plan (07/12/2025 4:04 PM EDT): ORF consult, s/p ORIF done Assessment & Plan (07/08/2025 12:35 PM EDT): ORF consult, s/p ORIF done Assessment & Plan (07/07/2025 3:17 PM EDT): Ortho ORIF done Assessment & Plan (07/12/2025 4:02 PM EDT): Ortho ORIF done Assessment & Plan (07/09/2025 5:35 PM EDT): Ortho ORIF done Assessment & Plan (07/11/2025 11:20 PM EDT): Ortho ORIF done Assessment & Plan (07/03/2025 9:26 AM EDT): Ortho ORIF done Assessment & Plan (07/01/2025 11:01 AM EDT): Ortho ORIF done Assessment & Plan (06/30/2025 12:00 PM EDT): Ortho ORIF done Assessment & Plan (07/05/2025 1:39 AM EDT): ORT: traction, OR post Spine Assessment & Plan (07/05/2025 1:36 AM EDT): ORT: traction, OR post Spine Assessment & Plan (07/05/2025 1:34 AM EDT): ORT: traction, OR post Spine Assessment & Plan (07/05/2025 1:31 AM EDT): ORT: traction, OR post Spine Assessment & Plan (06/25/2025 10:52 AM EDT): ORT: traction, OR post Spine Assessment & Plan (06/25/2025 12:10 PM EDT): -Ortho consulted and following - s/p ex fix on 06/09 Assessment & Plan (06/24/2025 10:05 PM EDT): -Ortho consulted and following - s/p ex fix on 06/09 Assessment & Plan (06/24/2025 5:44 PM EDT): ORT: traction, OR post Spine Assessment & Plan (07/05/2025 6:19 AM EDT): -Ortho consulted and following - s/p ex fix on 06/09 Assessment & Plan (06/23/2025 10:30 PM EDT): -Ortho consulted and following - s/p ex fix on 06/09 Assessment & Plan (06/23/2025 5:02 PM EDT): ORT: traction, OR post Spine Assessment & Plan (07/05/2025 6:20 AM EDT): -Ortho consulted and following - s/p ex fix on 06/09 Assessment & Plan (06/22/2025 10:48 PM EDT): -Ortho consulted and following - s/p ex fix on 06/09 Assessment & Plan (06/22/2025 3:20 PM EDT): -Ortho consulted and following - s/p ex fix on 06/09 Assessment & Plan (06/21/2025 10:37 PM EDT): -Ortho consulted and following - s/p ex fix on 06/09 Assessment & Plan (06/21/2025 1:06 PM EDT): ORT: traction, OR post Spine Assessment & Plan (06/21/2025 4:53 PM EDT): -Ortho consulted and following - s/p ex fix on 06/09 Assessment & Plan (06/21/2025 7:17 AM EDT): -Ortho consulted and following - s/p ex fix on 06/09 Assessment & Plan (06/20/2025 2:38 PM EDT): ORT: traction, OR post Spine Assessment & Plan (06/20/2025 3:30 PM EDT): -Ortho consulted and following - s/p ex fix on 06/09 Assessment & Plan (06/19/2025 10:39 PM EDT): -Ortho consulted and following - s/p ex fix on 06/09 Assessment & Plan (06/19/2025 3:46 PM EDT): -Ortho consulted and following - s/p ex fix on 06/09 Assessment & Plan (06/18/2025 10:41 PM EDT): -Ortho consulted and following - s/p ex fix on 06/09 Assessment & Plan (06/18/2025 3:57 PM EDT): -Ortho consulted and following - s/p ex fix on 06/09 Assessment & Plan (06/18/2025 11:52 AM EDT): ORT: traction, OR post Spine Assessment & Plan (06/18/2025 6:21 AM EDT): -Ortho consulted and following - s/p ex fix on 06/09 Assessment & Plan (06/17/2025 5:22 AM EDT): -Ortho consulted and following - s/p ex fix on 06/09 Assessment & Plan (06/20/2025 8:06 AM EDT): -Ortho consulted and following - s/p ex fix on 06/09 Assessment & Plan (06/16/2025 6:49 AM EDT): -Ortho consulted and following - s/p ex fix on 06/09 Assessment & Plan (06/17/2025 10:20 PM EDT): -Ortho consulted and following - s/p ex fix on 06/09 Assessment & Plan (06/14/2025 5:44 PM EDT): -Ortho consulted - s/p ex fix on 06/09 Assessment & Plan (06/21/2025 3:45 PM EDT): ORT: traction, OR post Spine Assessment & Plan (06/21/2025 3:43 PM EDT): ORT: traction, OR post Spine Assessment & Plan (06/21/2025 3:42 PM EDT): ORT: traction, OR post Spine Assessment & Plan (06/19/2025 7:18 PM EDT): ORT: traction, OR post Spine Assessment & Plan (06/19/2025 7:14 PM EDT): ORT: traction, OR post Spine Traumatic subarachnoid hemor rhage with loss of consciousness of unspecified duration, initial encounter 06/06/2025 Overview (06/06/2025): Neurosurgery consultation ICP monitor placement Assessment & Plan (08/03/2025 2:10 PM EDT): DOM has signed off Assessment & Plan (08/02/2025 11:41 AM EDT): DOM has signed off Assessment & Plan (08/01/2025 12:55 PM EDT): RACHEL has signed off Assessment & Plan (07/31/2025 3:31 PM EDT): DOM has signed off Assessment & Plan (07/30/2025 9:43 AM EDT): GY has signed off Assessment & Plan (07/29/2025 3:07 PM EDT): DOM has signed off Assessment & Plan (07/28/2025 8:16 AM EDT): GY has signed off Assessment & Plan (07/28/2025 11:31 PM EDT): DOM has signed off Assessment & Plan (07/26/2025 9:39 AM EDT): DOM has signed off Assessment & Plan (07/25/2025 7:57 AM EDT): DOM has signed off Assessment & Plan (07/24/2025 9:30 AM EDT): RACHEL has signed off Assessment & Plan (07/23/2025 3:33 PM EDT): NSGY has signed off Assessment & Plan (07/23/2025 3:34 PM EDT): NSGY has signed off Assessment & Plan (07/23/2025 3:33 PM EDT): NSGY has signed off Assessment & Plan (07/23/2025 4:43 PM EDT): NSGY has signed off Assessment & Plan (07/23/2025 4:38 PM EDT): NSGY has signed off Assessment & Plan (07/23/2025 4:36 PM EDT): NSGY has signed off Assessment & Plan (07/23/2025 4:34 PM EDT): NSGY has signed off Assessment & Plan (07/23/2025 4:29 PM EDT): NSGY has signed off Assessment & Plan (07/22/2025 3:19 PM EDT): NSGY has signed off Assessment & Plan (07/22/2025 3:17 PM EDT): NSGY has signed off Assessment & Plan (07/13/2025 4:02 PM EDT): NSGY has signed off Assessment & Plan (07/13/2025 7:18 AM EDT): NSGY has signed off Assessment & Plan (07/12/2025 7:45 AM EDT): NSGY has signed off Assessment & Plan (07/11/2025 7:37 AM EDT): NSGY has signed off Assessment & Plan (07/10/2025 7:25 AM EDT): NSGY has signed off Assessment & Plan (07/12/2025 4:04 PM EDT): NSGY has signed off Assessment & Plan (07/08/2025 12:35 PM EDT): NSGY has signed off Assessment & Plan (07/07/2025 3:17 PM EDT): NSGY has signed off Assessment & Plan (07/12/2025 4:02 PM EDT): NSGY has signed off Assessment & Plan (07/09/2025 5:35 PM EDT): DOMGY has signed off Assessment & Plan (07/11/2025 11:20 PM EDT): NSGY has signed off Assessment & Plan (07/03/2025 9:26 AM EDT): DOMGY has signed off Assessment & Plan (07/01/2025 2:40 PM EDT): RACHEL was following, now off ICP monitor initially, now out GCS has remained stabled Assessment & Plan (06/30/2025 12:00 PM EDT): NSGY ICP monitor initially Assessment & Plan (07/05/2025 1:39 AM EDT): NSGY ICP monitor Hold AC/AP x 24 hours Assessment & Plan (07/05/2025 1:36 AM EDT): NSGY ICP monitor Hold AC/AP x 24 hours Assessment & Plan (07/05/2025 1:34 AM EDT): NSGY ICP monitor Hold AC/AP x 24 hours Assessment & Plan (07/05/2025 1:31 AM EDT): NSGY ICP monitor Hold AC/AP x 24 hours Assessment & Plan (06/25/2025 10:52 AM EDT): NSGY ICP monitor Hold AC/AP x 24 hours Assessment & Plan (06/25/2025 12:10 PM EDT): - Neurosurgery consultation - Codman placed and removed on 06/12 - Received heparin for VV cannulation - Repeat CT head 06/14: unchanged hemorrhage in occipital horn -EEG in the setting of depressed GCS on 06/18 revealing diffuse cerebral dysfunction -Stable; Continue to monitor Assessment & Plan (06/24/2025 10:05 PM EDT): - Neurosurgery consultation - Codman placed and removed on 06/12 - Received heparin for VV cannulation - Repeat CT head 06/14: unchanged hemorrhage in occipital horn -EEG in the setting of depressed GCS on 06/18 revealing diffuse cerebral dysfunction -Stable; Continue to monitor Assessment & Plan (06/24/2025 5:44 PM EDT): NSGY ICP monitor Hold AC/AP x 24 hours Assessment & Plan (07/05/2025 6:19 AM EDT): - Neurosurgery consultation - Codman placed and removed on 06/12 - Received heparin for VV cannulation - Repeat CT head 06/14: unchanged hemorrhage in occipital horn -EEG in the setting of depressed GCS on 06/18 revealing diffuse cerebral dysfunction -Stable; Continue to monitor Assessment & Plan (06/23/2025 10:30 PM EDT): - Neurosurgery consultation - Codman placed and removed on 06/12 - Received heparin for VV cannulation - Repeat CT head 06/14: unchanged hemorrhage in occipital horn -EEG in the setting of depressed GCS on 06/18 revealing diffuse cerebral dysfunction -Stable; Continue to monitor Assessment & Plan (06/23/2025 5:02 PM EDT): NSGY ICP monitor Hold AC/AP x 24 hours Assessment & Plan (07/05/2025 6:20 AM EDT): - Neurosurgery consultation - Codman placed and removed on 06/12 - Received heparin for VV cannulation - Repeat CT head 06/14: unchanged hemorrhage in occipital horn -EEG in the setting of depressed GCS on 06/18 revealing diffuse cerebral dysfunction -Stable; Continue to monitor Assessment & Plan (06/22/2025 10:48 PM EDT): - Neurosurgery consultation - Codman placed and removed on 06/12 - Received heparin for VV cannulation - Repeat CT head 06/14: unchanged hemorrhage in occipital horn -EEG in the setting of depressed GCS on 06/18 revealing diffuse cerebral dysfunction -Stable; Continue to monitor Assessment & Plan (06/22/2025 3:20 PM EDT): - Neurosurgery consultation - Codman placed and removed on 06/12 - Received heparin for VV cannulation - Repeat CT head 06/14: unchanged hemorrhage in occipital horn -EEG in the setting of depressed GCS on 06/18 revealing diffuse cerebral dysfunction -Stable; Continue to monitor Assessment & Plan (06/21/2025 10:37 PM EDT): - Neurosurgery consultation - Codman placed and removed on 06/12 - Received heparin for VV cannulation - Repeat CT head 06/14: unchanged hemorrhage in occipital horn -EEG in the setting of depressed GCS on 06/18 revealing diffuse cerebral dysfunction -Stable; Continue to monitor Assessment & Plan (06/21/2025 1:06 PM EDT): NSGY ICP monitor Hold AC/AP x 24 hours Assessment & Plan (06/21/2025 4:53 PM EDT): - Neurosurgery consultation - Codman placed and removed on 06/12 - Received heparin for VV cannulation - Repeat CT head 06/14: unchanged hemorrhage in occipital horn -EEG in the setting of depressed GCS on 06/18 revealing diffuse cerebral dysfunction -Stable; Continue to monitor Assessment & Plan (06/21/2025 7:17 AM EDT): - Neurosurgery consultation - Codman placed and removed on 06/12 - Received heparin for VV cannulation - Repeat CT head 06/14: unchanged hemorrhage in occipital horn -EEG in the setting of depressed GCS on 06/18 revealing diffuse cerebral dysfunction -Obtaining Repeat imaging today Assessment & Plan (06/20/2025 2:38 PM EDT): NSGY ICP monitor Hold AC/AP x 24 hours Assessment & Plan (06/20/2025 3:30 PM EDT): - Neurosurgery consultation - Codman placed and removed on 06/12 - Received heparin for VV cannulation - Repeat CT head 06/14: unchanged hemorrhage in occipital horn -EEG in the setting of depressed GCS on 06/18 revealing diffuse cerebral dysfunction -Obtaining Repeat imaging today Assessment & Plan (06/19/2025 10:39 PM EDT): - Neurosurgery consultation - Codman placed and removed on 06/12 - Received heparin for VV cannulation - Repeat CT head 06/14: unchanged hemorrhage in occipital horn -EEG in the setting of depressed GCS on 06/18 revealing diffuse cerebral dysfunction -Obtaining Repeat imaging today Assessment & Plan (06/19/2025 3:46 PM EDT): - Neurosurgery consultation - Codman placed and removed on 06/12 - Received heparin for VV cannulation - Repeat CT head 06/14: unchanged hemorrhage in occipital horn -EEG in the setting of depressed GCS on 06/18 revealing diffuse cerebral dysfunction -Obtaining Repeat imaging today Assessment & Plan (06/18/2025 10:41 PM EDT): - Neurosurgery consultation - Codman placed and removed on 06/12 - Received heparin for VV cannulation - Repeat CT head 06/14: unchanged hemorrhage in occipital horn -EEG in the setting of depressed GCS today Assessment & Plan (06/18/2025 3:57 PM EDT): - Neurosurgery consultation - Codman placed and removed on 06/12 - Received heparin for VV cannulation - Repeat CT head 06/14: unchanged hemorrhage in occipital horn -EEG in the setting of depressed GCS today Assessment & Plan (06/18/2025 11:52 AM EDT): NSGY ICP monitor Hold AC/AP x 24 hours Assessment & Plan (06/18/2025 6:21 AM EDT): - Neurosurgery consultation - Codman placed and removed on 06/12 - Received heparin for VV cannulation - Repeat CT head 06/14: unchanged hemorrhage in occipital horn Assessment & Plan (06/17/2025 5:22 AM EDT): - Neurosurgery consultation - Codman placed and removed on 06/12 - Received heparin for VV cannulation - Repeat CT head 06/14: unchanged hemorrhage in occipital horn Assessment & Plan (06/20/2025 8:06 AM EDT): - Neurosurgery consultation - Codman placed and removed on 06/12 - Received heparin for VV cannulation - Repeat CT head 06/14: unchanged hemorrhage in occipital horn Assessment & Plan (06/16/2025 6:49 AM EDT): - Neurosurgery consultation - Codman placed and removed on 06/12 - Received heparin for VV cannulation - Repeat CT head 06/14: unchanged hemorrhage in occipital horn Assessment & Plan (06/17/2025 10:20 PM EDT): - Neurosurgery consultation - Codman placed and removed on 06/12 - Received heparin for VV cannulation - Repeat CT head 06/14: unchanged hemorrhage in occipital horn Assessment & Plan (06/14/2025 5:44 PM EDT): - Neurosurgery consultation - Codman placed and removed on 06/12 - Received heparin for VV cannulation - Repeat CT head 06/14 Assessment & Plan (06/21/2025 3:45 PM EDT): NSGY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 Assessment & Plan (08/01/2025 12:55 PM EDT): Maintain elevated PEEP 8/28: Left chest tube placed 07/23: left chest tube removed Continue to monitor for change. Maintain elevated PEEP 8/28: Left chest tube placed 07/23: left chest tube removed Serial CXRs with resolution of PTX Assessment & Plan (07/31/2025 3:31 PM EDT): Maintain elevated PEEP 8/28: Left chest tube placed 07/23: left chest tube removed Continue to monitor for change. Maintain elevated PEEP 8/28: Left chest tube placed 07/23: left chest tube removed Serial CXRs with resolution of PTX Assessment & Plan (07/30/2025 9:43 AM EDT): Maintain elevated PEEP 8/28: Left chest tube placed 07/23: left chest tube removed Continue to monitor for change. Maintain elevated PEEP 8/28: Left chest tube placed 07/23: left chest tube removed Serial CXRs with resolution of PTX Assessment & Plan (07/29/2025 3:07 PM EDT): Maintain elevated PEEP 8/28: Left chest tube placed 07/23: left chest tube removed Continue to monitor for change. Maintain elevated PEEP 8/28: Left chest tube placed 07/23: left chest tube removed Serial CXRs with resolution of PTX Assessment & Plan (07/28/2025 8:16 AM EDT): Maintain elevated PEEP 8/28: Left chest tube placed 07/23: left chest tube removed Continue to monitor for change. Maintain elevated PEEP 8/28: Left chest tube placed 07/23: left chest tube removed Serial CXRs with resolution of PTX Assessment & Plan (07/28/2025 11:31 PM EDT): Maintain elevated PEEP 8/28: Left chest tube placed 07/23: left chest tube removed Continue to monitor for change. Maintain elevated PEEP 8/28: Left chest tube placed 07/23: left chest tube removed Serial CXRs with resolution of PTX Assessment & Plan (07/26/2025 9:39 AM EDT): Maintain elevated PEEP 8/28: Left chest tube placed 07/23: left chest tube removed Continue to monitor for change. Maintain elevated PEEP 8/28: Left chest tube placed 07/23: left chest tube removed Assessment & Plan (07/25/2025 7:57 AM EDT): Maintain elevated PEEP 8/28: Left chest tube placed 07/23: left chest tube removed Assessment & Plan (07/24/2025 10:29 AM EDT): Maintain elevated PEEP 8/28: Left chest tube placed 07/23: left chest tube removed Assessment & Plan (07/23/2025 3:33 PM EDT): Maintain elevated PEEP 8/28: Left chest tube placed Keep CT to suction Assessment & Plan (07/23/2025 3:34 PM EDT): Maintain elevated PEEP 8/28: Left chest tube placed Keep CT to suction Assessment & Plan (07/23/2025 3:33 PM EDT): Maintain elevated PEEP 8/28: Left chest tube placed Keep CT to suction Assessment & Plan (07/23/2025 4:43 PM EDT): Maintain elevated PEEP 8/28: Left chest tube placed Keep CT to suction Assessment & Plan (07/23/2025 4:38 PM EDT): Maintain elevated PEEP 8/28: Left chest tube placed Keep CT to suction Assessment & Plan (07/23/2025 4:36 PM EDT): Maintain elevated PEEP Continue to monitor Assessment & Plan (07/23/2025 4:34 PM EDT): Resolving Continue to monitor Assessment & Plan (07/23/2025 4:29 PM EDT): Resolving Continue to monitor Assessment & Plan (07/22/2025 3:19 PM EDT): Improving Maintain increased PEEP Continue to monitor Assessment & Plan (07/22/2025 3:17 PM EDT): Improving Maintain increased PEEP Continue to monitor Assessment & Plan (07/13/2025 4:02 PM EDT): Improving Maintain increased PEEP Continue to monitor Assessment & Plan (07/13/2025 7:18 AM EDT): Maintain increased PEEP Continue to monitor Assessment & Plan (07/12/2025 7:45 AM EDT): Maintain increased PEEP Continue to monitor Fever 07/05/2025 07/16/2025 Assessment & Plan (07/22/2025 3:19 PM EDT): See 'Bacteremia' overview Continue cooling blanket as needed to target normothermia Assessment & Plan (07/22/2025 3:17 PM EDT): See 'Bacteremia' overview Continue cooling blanket as needed to target normothermia Assessment & Plan (07/13/2025 4:02 PM EDT): See 'Bacteremia' overview Continue cooling blanket as needed to target normothermia Assessment & Plan (07/13/2025 7:18 AM EDT): See 'Bacteremia' overview Continue cooling blanket to target normothermia Assessment & Plan (07/12/2025 7:45 AM EDT): See 'Bacteremia' overview Continue cooling blanket to target normothermia Assessment & Plan (07/11/2025 7:37 AM EDT): See 'Bacteremia' overview Continue cooling blanket to target normothermia Assessment & Plan (07/10/2025 7:25 AM EDT): See 'Bacteremia' overview Continue cooling blanket to target normothermia Assessment & Plan (07/08/2025 12:35 PM EDT): See 'Bacteremia' overview Continue cooling blanket to target normothermia Assessment & Plan (07/07/2025 3:17 PM EDT): See 'Bacteremia' overview Continue cooling blanket to target normothermia Assessment & Plan (07/12/2025 4:02 PM EDT): See 'Bacteremia' overview Continue cooling blanket to target normothermia Pneumonia 06/30/2025 07/16/2025 Assessment & Plan (07/23/2025 4:29 PM EDT): BAL (06/24): Klebsiella + Acinetobacter PAL (07/08): Acinetobacter Assessment & Plan (07/22/2025 3:19 PM EDT): BAL (06/24): Klebsiella + Acinetobacter PAL (07/08): Acinetobacter Assessment & Plan (07/22/2025 3:17 PM EDT): BAL (06/24): Klebsiella + Acinetobacter PAL (07/08): Acinetobacter Assessment & Plan (07/13/2025 4:02 PM EDT): BAL (06/24): Klebsiella + Acinetobacter PAL (07/08): Acinetobacter Assessment & Plan (07/13/2025 7:18 AM EDT): BAL (06/24): Klebsiella + Acinetobacter PAL (07/08): Acinetobacter Assessment & Plan (07/12/2025 7:45 AM EDT): BAL (06/24): Klebsiella + Acinetobacter PAL (07/08): Acinetobacter Meropenem and Minocycline Assessment & Plan (07/11/2025 7:37 AM EDT): BAL (06/24): Klebsiella + Acinetobacter PAL (07/08): Acinetobacter Meropenem and Minocycline Assessment & Plan (07/10/2025 7:25 AM EDT): BAL (06/24): Klebsiella + Acinetobacter PAL (07/08): Acinetobacter Transition Ceftriaxone to Meropenem Assessment & Plan (06/30/2025 12:00 PM EDT): Treated Hypertension 06/24/2025 06/30/2025 Assessment & Plan (06/25/2025 12:10 PM EDT): - 8/3: increased HTN, prn hydralazine. Patient denies pain or anxiety. Assessment & Plan (06/24/2025 10:05 PM EDT): - 8/3: increased HTN, prn hydralazine. Patient denies pain or anxiety. Assessment & Plan (07/05/2025 6:19 AM EDT): - 8/3: increased HTN, prn hydralazine. Patient denies pain or anxiety. Chronic hypernatremia 06/23/20252024 Assessment & Plan (06/25/2025 12:10 PM EDT): -Monitor per protocol. Assessment & Plan (06/24/2025 10:05 PM EDT): -Monitor per protocol. Assessment & Plan (07/05/2025 6:19 AM EDT): -Monitor per protocol. Assessment & Plan (06/23/2025 10:30 PM EDT): -Monitor per protocol. Assessment & Plan (07/05/2025 6:20 AM EDT): -Monitor per protocol. Acute infective tracheobronchitis 06/20/2025 07/20/2025 Assessment & Plan (06/30/2025 12:00 PM EDT): No antibiotics now Assessment & Plan (06/25/2025 12:10 PM EDT): BAL with Acinetobacter and Klebsiella On Unasyn per ID Assessment & Plan (06/24/2025 10:05 PM EDT): BAL with Acinetobacter and Klebsiella On Meropenem and Minocycline Assessment & Plan (07/05/2025 6:19 AM EDT): BAL with Acinetobacter and Klebsiella On Meropenem and Minocycline Assessment & Plan (06/23/2025 10:30 PM EDT): BAL with Acinetobacter and Klebsiella On Meropenem and Minocycline Assessment & Plan (07/05/2025 6:20 AM EDT): BAL with Acinetobacter and Klebsiella On Meropenem and Minocycline Assessment & Plan (06/22/2025 10:48 PM EDT): BAL with Acinetobacter and Klebsiella On Meropenem and Minocycline Assessment & Plan (06/22/2025 3:20 PM EDT): BAL with Acinetobacter and Klebsiella On Meropenem and Minocycline Assessment & Plan (06/21/2025 10:37 PM EDT): BAL with Acinetobacter and Klebsiella On Meropenem and Minocycline Assessment & Plan (06/21/2025 4:53 PM EDT): BAL with Acinetobacter and Klebsiella On Meropenem and Minocycline Assessment & Plan (06/21/2025 7:17 AM EDT): BAL with Acinetobacter and Klebsiella On Meropenem and Minocycline Assessment & Plan (06/20/2025 3:30 PM EDT): BAL with Acinetobacter and Klebsiella On Meropenem and Minocycline Elevated CK 06/18/2025 06/30/2025 Assessment & Plan (06/25/2025 12:10 PM EDT): CK 11,866 Trend with CK every 12 hours Concern for rhabdo vs Fat emboli Currently downtrending monitor per protocol Assessment & Plan (06/24/2025 10:05 PM EDT): CK 11,866 Trend with CK every 12 hours Concern for rhabdo vs Fat emboli Currently downtrending monitor per protocol Assessment & Plan (07/05/2025 6:19 AM EDT): CK 11,866 Trend with CK every 12 hours Concern for rhabdo vs Fat emboli Currently downtrending monitor per protocol Assessment & Plan (06/23/2025 10:30 PM EDT): CK 11,866 Trend with CK every 12 hours Concern for rhabdo vs Fat emboli Currently downtrending monitor per protocol Assessment & Plan (07/05/2025 6:20 AM EDT): CK 11,866 Trend with CK every 12 hours Concern for rhabdo vs Fat emboli Currently downtrending monitor per protocol Assessment & Plan (06/22/2025 10:48 PM EDT): CK 11,866 Trend with CK every 12 hours Concern for rhabdo vs Fat emboli Currently downtrending monitor per protocol Assessment & Plan (06/22/2025 3:20 PM EDT): CK 11,866 Trend with CK every 12 hours Concern for rhabdo vs Fat emboli Currently downtrending monitor per protocol Assessment & Plan (06/21/2025 10:37 PM EDT): CK 11,866 Trend with CK every 12 hours Concern for rhabdo vs Fat emboli Currently downtrending monitor per protocol Assessment & Plan (06/21/2025 4:53 PM EDT): CK 11,866 Trend with CK every 12 hours Concern for rhabdo vs Fat emboli Currently downtrending monitor per protocol Assessment & Plan (06/21/2025 7:17 AM EDT): CK 11,866 Trend with CK every 12 hours Concern for rhabdo vs Fat emboli Currently downtrending monitor per protocol Assessment & Plan (06/20/2025 3:30 PM EDT): CK 11,866 Trend with CK every 12 hours Concern for rhabdo vs Fat emboli Currently downtrending monitor per protocol Assessment & Plan (06/19/2025 10:39 PM EDT): CK 11,866 Trend with CK every 12 hours Concern for rhabdo vs Fat emboli Currently downtrending monitor per protocol Assessment & Plan (06/19/2025 3:46 PM EDT): CK 11,866 Trend with CK every 12 hours Concern for rhabdo vs Fat emboli Currently downtrending monitor per protocol Assessment & Plan (06/18/2025 10:41 PM EDT): CK 11,866 Trend with CK every 12 hours Concern for rhabdo vs Fat emboli Assessment & Plan (06/18/2025 3:57 PM EDT): CK 11,866 Trend with CK every 12 hours Concern for rhabdo vs Fat emboli Hypertriglyceridemia 06/18/2025 025 Assessment & Plan (07/11/2025 7:37 AM EDT): Due to propofol Continue to monitor Assessment & Plan (07/10/2025 7:25 AM EDT): Due to propofol Assessment & Plan (07/12/2025 4:04 PM EDT): Due to propofol Assessment & Plan (07/08/2025 12:35 PM EDT): Due to propofol Assessment & Plan (07/07/2025 3:17 PM EDT): Due to propofol Assessment & Plan (07/12/2025 4:02 PM EDT): Due to propofol Assessment & Plan (07/09/2025 5:35 PM EDT): Due to propofol Assessment & Plan (07/11/2025 11:20 PM EDT): Due to propofol Assessment & Plan (07/03/2025 9:26 AM EDT): Due to propofol Assessment & Plan (07/01/2025 11:01 AM EDT): Due to propofol Assessment & Plan (06/30/2025 12:00 PM EDT): Due to propofol Assessment & Plan (06/25/2025 12:10 PM EDT): TG 530 while on propofol D/c Propofol gtt CTM Assessment & Plan (06/24/2025 10:05 PM EDT): TG 530 while on propofol D/c Propofol gtt CTM Assessment & Plan (07/05/2025 6:19 AM EDT): TG 530 while on propofol D/c Propofol gtt CTM Assessment & Plan (06/23/2025 10:30 PM EDT): TG 530 while on propofol D/c Propofol gtt CTM Assessment & Plan (07/05/2025 6:20 AM EDT): TG 530 while on propofol D/c Propofol gtt CTM Assessment & Plan (06/22/2025 10:48 PM EDT): TG 530 while on propofol D/c Propofol gtt CTM Assessment & Plan (06/22/2025 3:20 PM EDT): TG 530 while on propofol D/c Propofol gtt CTM Assessment & Plan (06/21/2025 10:37 PM EDT): TG 530 while on propofol D/c Propofol gtt CTM Assessment & Plan (06/21/2025 4:53 PM EDT): TG 530 while on propofol D/c Propofol gtt CTM Assessment & Plan (06/21/2025 7:17 AM EDT): TG 530 while on propofol D/c Propofol gtt CTM Assessment & Plan (06/20/2025 3:30 PM EDT): TG 530 while on propofol D/c Propofol gtt CTM Assessment & Plan (06/19/2025 10:39 PM EDT): TG 530 while on propofol D/c Propofol gtt CTM Assessment & Plan (06/19/2025 3:46 PM EDT): TG 530 while on propofol D/c Propofol gtt CTM Assessment & Plan (06/18/2025 10:41 PM EDT): TG 530 while on propofol D/c Propofol gtt CTM Assessment & Plan (06/18/2025 3:57 PM EDT): TG 530 while on propofol D/c Propofol gtt CTM Altered mental status 06/18/20252024 Overview (06/18/2025): Suspected multifactorial however will Obtain EEG today to eval further Assessment & Plan (06/25/2025 12:10 PM EDT): Suspected multifactorial however will Obtain EEG today to eval further CT head 06/18 No midline shift, mass effect, parenchymal hemorrhage, or evidence of acute territorial infarct. Noted Small volume hemorrhage in the occipital horn of left lateral ventricle. Small volume subdural hemorrhage along the posterior falx Repeat Head CTH 06/19 stable MRI rec'd if concern persists Assessment & Plan (06/24/2025 10:05 PM EDT): Suspected multifactorial however will Obtain EEG today to eval further CT head 06/18 No midline shift, mass effect, parenchymal hemorrhage, or evidence of acute territorial infarct. Noted Small volume hemorrhage in the occipital horn of left lateral ventricle. Small volume subdural hemorrhage along the posterior falx Repeat Head CTH 06/19 stable MRI rec'd if concern persists Assessment & Plan (07/05/2025 6:19 AM EDT): Suspected multifactorial however will Obtain EEG today to eval further CT head 06/18 No midline shift, mass effect, parenchymal hemorrhage, or evidence of acute territorial infarct. Noted Small volume hemorrhage in the occipital horn of left lateral ventricle. Small volume subdural hemorrhage along the posterior falx Repeat Head CTH 06/19 stable MRI rec'd if concern persists Assessment & Plan (06/23/2025 10:30 PM EDT): Suspected multifactorial however will Obtain EEG today to eval further CT head 06/18 No midline shift, mass effect, parenchymal hemorrhage, or evidence of acute territorial infarct. Noted Small volume hemorrhage in the occipital horn of left lateral ventricle. Small volume subdural hemorrhage along the posterior falx Repeat Head CTH 06/19 stable MRI rec'd if concern persists Assessment & Plan (07/05/2025 6:20 AM EDT): Suspected multifactorial however will Obtain EEG today to eval further CT head 06/18 No midline shift, mass effect, parenchymal hemorrhage, or evidence of acute territorial infarct. Noted Small volume hemorrhage in the occipital horn of left lateral ventricle. Small volume subdural hemorrhage along the posterior falx Repeat Head CTH 06/19 stable MRI rec'd if concern persists Assessment & Plan (06/22/2025 10:48 PM EDT): Suspected multifactorial however will Obtain EEG today to eval further CT head 06/18 No midline shift, mass effect, parenchymal hemorrhage, or evidence of acute territorial infarct. Noted Small volume hemorrhage in the occipital horn of left lateral ventricle. Small volume subdural hemorrhage along the posterior falx Repeat Head CTH 06/19 stable MRI rec'd if concern persists Assessment & Plan (06/22/2025 3:20 PM EDT): Suspected multifactorial however will Obtain EEG today to eval further CT head 06/18 No midline shift, mass effect, parenchymal hemorrhage, or evidence of acute territorial infarct. Noted Small volume hemorrhage in the occipital horn of left lateral ventricle. Small volume subdural hemorrhage along the posterior falx Repeat Head CTH 06/19 stable MRI rec'd if concern persists Assessment & Plan (06/21/2025 10:37 PM EDT): Suspected multifactorial however will Obtain EEG today to eval further CT head 06/18 No midline shift, mass effect, parenchymal hemorrhage, or evidence of acute territorial infarct. Noted Small volume hemorrhage in the occipital horn of left lateral ventricle. Small volume subdural hemorrhage along the posterior falx Repeat Head CTH 06/19 stable MRI rec'd if concern persists Assessment & Plan (06/21/2025 4:53 PM EDT): Suspected multifactorial however will Obtain EEG today to eval further CT head 06/18 No midline shift, mass effect, parenchymal hemorrhage, or evidence of acute territorial infarct. Noted Small volume hemorrhage in the occipital horn of left lateral ventricle. Small volume subdural hemorrhage along the posterior falx Repeat Head CTH 06/19 stable MRI rec'd if concern persists Assessment & Plan (06/21/2025 7:17 AM EDT): Suspected multifactorial however will Obtain EEG today to eval further CT head 06/18 No midline shift, mass effect, parenchymal hemorrhage, or evidence of acute territorial infarct. Noted Small volume hemorrhage in the occipital horn of left lateral ventricle. Small volume subdural hemorrhage along the posterior falx Repeat Head CTH 06/19 stable MRI rec'd if concern persists Assessment & Plan (06/20/2025 3:30 PM EDT): Suspected multifactorial however will Obtain EEG today to eval further CT head 06/18 No midline shift, mass effect, parenchymal hemorrhage, or evidence of acute territorial infarct. Noted Small volume hemorrhage in the occipital horn of left lateral ventricle. Small volume subdural hemorrhage along the posterior falx Repeat Head CTH 06/19 stable MRI rec'd if concern persists Assessment & Plan (06/19/2025 10:39 PM EDT): Suspected multifactorial however will Obtain EEG today to eval further CT head 06/18 No midline shift, mass effect, parenchymal hemorrhage, or evidence of acute territorial infarct. Noted Small volume hemorrhage in the occipital horn of left lateral ventricle. Small volume subdural hemorrhage along the posterior falx MRI rec'd if concern persists Assessment & Plan (06/19/2025 3:46 PM EDT): Suspected multifactorial however will Obtain EEG today to eval further CT head 06/18 No midline shift, mass effect, parenchymal hemorrhage, or evidence of acute territorial infarct. Noted Small volume hemorrhage in the occipital horn of left lateral ventricle. Small volume subdural hemorrhage along the posterior falx MRI rec'd if concern persists Assessment & Plan (06/18/2025 10:41 PM EDT): Suspected multifactorial however will Obtain EEG today to eval further CT head 06/18 No midline shift, mass effect, parenchymal hemorrhage, or evidence of acute territorial infarct. Noted Small volume hemorrhage in the occipital horn of left lateral ventricle. Small volume subdural hemorrhage along the posterior falx MRI rec'd if concern persists Assessment & Plan (06/18/2025 3:57 PM EDT): Suspected multifactorial however will Obtain EEG today to eval further CT head 06/18 No midline shift, mass effect, parenchymal hemorrhage, or evidence of acute territorial infarct. Noted Small volume hemorrhage in the occipital horn of left lateral ventricle. Small volume subdural hemorrhage along the posterior falx MRI rec'd if concern persists Elevated platelet count 06/18/202507/23 Assessment & Plan (08/03/2025 2:10 PM EDT): Likely reactive iso bacteremia Continue to monitor Assessment & Plan (08/02/2025 11:41 AM EDT): Likely reactive iso bacteremia Continue to monitor Assessment & Plan (08/01/2025 12:55 PM EDT): Likely reactive iso bacteremia Continue to monitor Assessment & Plan (07/31/2025 3:31 PM EDT): Likely reactive iso bacteremia Continue to monitor Assessment & Plan (07/30/2025 9:43 AM EDT): Likely reactive iso bacteremia Continue to monitor Assessment & Plan (07/29/2025 3:07 PM EDT): Likely reactive iso bacteremia Continue to monitor Assessment & Plan (07/28/2025 8:16 AM EDT): Likely reactive iso bacteremia Continue to monitor Assessment & Plan (07/28/2025 11:31 PM EDT): Likely reactive iso bacteremia Continue to monitor Assessment & Plan (07/26/2025 9:39 AM EDT): Likely reactive iso bacteremia Continue to monitor Assessment & Plan (07/25/2025 7:57 AM EDT): Likely reactive iso bacteremia Continue to monitor Assessment & Plan (07/24/2025 9:30 AM EDT): Likely reactive iso bacteremia Continue to monitor Assessment & Plan (07/23/2025 3:33 PM EDT): Likely reactive iso bacteremia Continue to monitor Assessment & Plan (07/23/2025 3:34 PM EDT): Likely reactive iso bacteremia Continue to monitor Assessment & Plan (07/23/2025 3:33 PM EDT): Likely reactive iso bacteremia Continue to monitor Assessment & Plan (07/23/2025 4:43 PM EDT): Likely reactive iso bacteremia Continue to monitor Assessment & Plan (07/23/2025 4:38 PM EDT): Likely reactive iso bacteremia Continue to monitor Assessment & Plan (07/23/2025 4:36 PM EDT): Likely reactive iso bacteremia Continue to monitor Assessment & Plan (07/23/2025 4:34 PM EDT): Likely reactive iso bacteremia Continue to monitor Assessment & Plan (07/23/2025 4:29 PM EDT): Likely reactive iso bacteremia Continue to monitor Assessment & Plan (07/07/2025 3:17 PM EDT): - Continue to monitor Assessment & Plan (07/12/2025 4:02 PM EDT): - Continue to monitor Assessment & Plan (07/09/2025 5:35 PM EDT): - Continue to monitor Assessment & Plan (07/11/2025 11:20 PM EDT): - Continue to monitor Assessment & Plan (07/03/2025 9:26 AM EDT): - Continue to monitor Assessment & Plan (07/01/2025 11:01 AM EDT): NTD Assessment & Plan (06/30/2025 12:00 PM EDT): NTD Assessment & Plan (06/25/2025 12:10 PM EDT): Heme consulted with low concern for TTP PLASMIC score 6 [id number] normal HIT panel set Resolved; stable and wnl. Started heparin DVT prophylaxis Assessment & Plan (06/24/2025 10:05 PM EDT): Heme consulted with low concern for TTP PLASMIC score 6 [id number] normal HIT panel set Uptrending; CTM and hold DVT ppx Assessment & Plan (07/05/2025 6:19 AM EDT): Heme consulted with low concern for TTP PLASMIC score 6 [id number] normal HIT panel set Uptrending; CTM and hold DVT ppx Assessment & Plan (06/23/2025 10:30 PM EDT): Heme consulted with low concern for TTP PLASMIC score 6 [id number] normal HIT panel set Uptrending; CTM and hold DVT ppx Assessment & Plan (07/05/2025 6:20 AM EDT): Heme consulted with low concern for TTP PLASMIC score 6 [id number] normal HIT panel set Uptrending; CTM and hold DVT ppx Assessment & Plan (06/22/2025 10:48 PM EDT): Heme consulted with low concern for TTP PLASMIC score 6 [id number] normal HIT panel set Uptrending; CTM and hold DVT ppx Assessment & Plan (06/22/2025 3:20 PM EDT): Heme consulted with low concern for TTP PLASMIC score 6 [id number] normal HIT panel set Uptrending; CTM and hold DVT ppx Assessment & Plan (06/21/2025 10:37 PM EDT): Heme consulted with low concern for TTP PLASMIC score 6 [id number] normal HIT panel set Uptrending; CTM and hold DVT ppx Assessment & Plan (06/21/2025 4:53 PM EDT): Heme consulted with low concern for TTP PLASMIC score 6 [id number] normal HIT panel set Uptrending; CTM and hold DVT ppx Assessment & Plan (06/21/2025 7:17 AM EDT): Heme following, appreciate recs PLASMIC score 6 [id number] pending HIT panel set Assessment & Plan (06/20/2025 3:30 PM EDT): Heme following, appreciate recs PLASMIC score 6 [id number] pending HIT panel set Assessment & Plan (06/19/2025 10:39 PM EDT): Heme following, appreciate recs PLASMIC score 6 [id number] pending HIT panel set Assessment & Plan (06/19/2025 3:46 PM EDT): Heme following, appreciate recs PLASMIC score 6 [id number] pending HIT panel set Assessment & Plan (06/18/2025 10:41 PM EDT): Heme consult pending PLASMIC score 6 [id number] pending Assessment & Plan (06/18/2025 3:57 PM EDT): Heme consult pending PLASMIC score 6 [id number] pending Sinus pause 06/18/2025 07/20/2025 Assessment & Plan (07/23/2025 4:43 PM EDT): Code event 8/ Isoproterenol weaned off 07/17 Cardiology EP has signed off Assessment & Plan (07/23/2025 4:38 PM EDT): Code event 8/ Isoproterenol weaned off 07/17 Cardiology EP following; appreciate recs Assessment & Plan (07/23/2025 4:36 PM EDT): Code event 8/ Isoproterenol weaned off 07/17 Cardiology EP following; appreciate recs Assessment & Plan (07/23/2025 4:34 PM EDT): Code event 06/28 Continue Isuprel Cardiology EP following: reasonable to attempt Isuprel wean or plan for PM once bacteremia fully resolved Assessment & Plan (07/23/2025 4:29 PM EDT): Code event 06/28 Continue Isuprel Cardiology EP following: reasonable to attempt Isuprel wean or plan for PM once bacteremia fully resolved Assessment & Plan (07/22/2025 3:19 PM EDT): Code event 06/28 Continue Isuprel Cardiology EP following: plan for PM once bacteremia fully resolved Assessment & Plan (07/22/2025 3:17 PM EDT): Code event 8 Continue Isuprel Cardiology EP following: plan for PM once bacteremia fully resolved Assessment & Plan (07/13/2025 4:02 PM EDT): Code event 8 Continue Isuprel Cardiology EP following: plan for PM once bacteremia fully resolved Assessment & Plan (07/13/2025 7:18 AM EDT): Code event 8 Continue Isuprel Cardiology EP following: plan for PM once bacteremia fully resolved Assessment & Plan (07/12/2025 7:45 AM EDT): Code event 06/28 Continue Isuprel Cardiology EP following: plan for PM once bacteremia fully resolved Assessment & Plan (07/11/2025 7:37 AM EDT): Code event 06/28 Continue Isuprel Cardiology EP following: plan for PM once bacteremia fully resolved Assessment & Plan (07/10/2025 7:25 AM EDT): Code event 06/28 Continue Isuprel Cardiology EP following: plan for PM once bacteremia fully resolved Assessment & Plan (07/12/2025 4:04 PM EDT): Code event 06/28 Continue Isuprel Cardiology EP following: plan for PM once bacteremia fully resolved Assessment & Plan (07/08/2025 12:35 PM EDT): Code event 06/28 Continue Isuprel Cardiology EP following: plan for PM once bacteremia fully resolved Assessment & Plan (07/07/2025 3:17 PM EDT): Code event 06/28 Continue Isuprel Cardiology EP following: plan for PM once bacteremia fully resolved Assessment & Plan (07/12/2025 4:02 PM EDT): - Code event 06/28 - Continue Isuprel - Cardiology EP following: plan for PM once bacteremia fully resolved Assessment & Plan (07/09/2025 5:35 PM EDT): - Code event 06/28 - Continue Isuprel - Cardiology EP following: plan for PM once bacteremia fully resolved Assessment & Plan (07/11/2025 11:20 PM EDT): - Code event 8/ - Continue Isuprel - Cardiology EP following Assessment & Plan (07/03/2025 9:26 AM EDT): - Code event 8 - Continue Isuprel - Cardiology EP following Assessment & Plan (07/01/2025 2:40 PM EDT): Isuprel Cardiology EP involved Assessment & Plan (06/30/2025 12:00 PM EDT): Isuprel EP involved Assessment & Plan (06/25/2025 12:10 PM EDT): Patient with sinus bradycardic pauses on telemetry causing decrease in MAP ECG obtained Attempted to float transvenous pacer at bedside without success TVP placed overnight after asystolic events EP consulted and placed new TVP Continue to monitor need for PPM Assessment & Plan (06/24/2025 10:05 PM EDT): Patient with sinus bradycardic pauses on telemetry causing decrease in MAP ECG obtained Attempted to float transvenous pacer at bedside without success TVP placed overnight after asystolic events EP consulted and placed new TVP Continue to monitor need for PPM Assessment & Plan (07/05/2025 6:19 AM EDT): Patient with sinus bradycardic pauses on telemetry causing decrease in MAP ECG obtained Attempted to float transvenous pacer at bedside without success TVP placed overnight after asystolic events EP consulted and placed new TVP Continue to monitor need for PPM Assessment & Plan (06/23/2025 10:30 PM EDT): Patient with sinus bradycardic pauses on telemetry causing decrease in MAP ECG obtained Attempted to float transvenous pacer at bedside without success TVP placed overnight after asystolic events EP consulted and placed new TVP Continue to monitor need for PPM Assessment & Plan (07/05/2025 6:20 AM EDT): Patient with sinus bradycardic pauses on telemetry causing decrease in MAP ECG obtained Attempted to float transvenous pacer at bedside without success TVP placed overnight after asystolic events EP consulted and placed new TVP Continue to monitor need for PPM Assessment & Plan (06/22/2025 10:48 PM EDT): Patient with sinus bradycardic pauses on telemetry causing decrease in MAP ECG obtained Attempted to float transvenous pacer at bedside without success TVP placed overnight after asystolic events EP consulted and placed new TVP Continue to monitor need for PPM Assessment & Plan (06/22/2025 3:20 PM EDT): Patient with sinus bradycardic pauses on telemetry causing decrease in MAP ECG obtained Attempted to float transvenous pacer at bedside without success TVP placed overnight after asystolic events EP consulted and placed new TVP Continue to monitor need for PPM Assessment & Plan (06/21/2025 10:37 PM EDT): Patient with sinus bradycardic pauses on telemetry causing decrease in MAP ECG obtained Attempted to float transvenous pacer at bedside without success TVP placed overnight after asystolic events EP consulted and placed new TVP Continue to monitor need for PPM Assessment & Plan (06/21/2025 4:53 PM EDT): Patient with sinus bradycardic pauses on telemetry causing decrease in MAP ECG obtained Attempted to float transvenous pacer at bedside without success TVP placed overnight after asystolic events EP consulted and placed new TVP Continue to monitor need for PPM Assessment & Plan (06/21/2025 7:17 AM EDT): Patient with sinus bradycardic pauses on telemetry causing decrease in MAP ECG obtained Attempted to float transvenous pacer at bedside without success TVP placed overnight after asystolic events EP consulted and placed new TVP appreciate recs Assessment & Plan (06/20/2025 3:30 PM EDT): Patient with sinus bradycardic pauses on telemetry causing decrease in MAP ECG obtained Attempted to float transvenous pacer at bedside without success TVP placed overnight after asystolic events EP consulted and placed new TVP appreciate recs Assessment & Plan (06/19/2025 10:39 PM EDT): Patient with sinus bradycardic pauses on telemetry causing decrease in MAP ECG obtained Attempted to float transvenous pacer at bedside without success TVP placed overnight after asystolic events EP consulted for concern of TVP not capturing appropriately ---> Attempting to get patient on can labeler schedule. Assessment & Plan (06/19/2025 3:46 PM EDT): Patient with sinus bradycardic pauses on telemetry causing decrease in MAP ECG obtained Attempted to float transvenous pacer at bedside without success TVP placed overnight after asystolic events EP consulted for concern of TVP not capturing appropriately ---> Attempting to get patient on can labeler schedule. Assessment & Plan (06/18/2025 10:41 PM EDT): Patient with sinus bradycardic pauses on telemetry causing decrease in MAP ECG obtained Attempted to float transvenous pacer at bedside without success Cardiology consulted, appreciate recs Assessment & Plan (06/18/2025 3:57 PM EDT): Patient with sinus bradycardic pauses on telemetry causing decrease in MAP ECG obtained Attempted to float transvenous pacer at bedside without success Cardiology consulted, appreciate recs Transaminitis 06/16/2025 07/09/2025 Overview (06/16/2025): - LFT's up trending - Liver US obtained and wnl - Trending LFTs Assessment & Plan (07/10/2025 7:25 AM EDT): CTM Assessment & Plan (07/12/2025 4:04 PM EDT): CTM Assessment & Plan (07/08/2025 12:35 PM EDT): CTM Assessment & Plan (07/12/2025 4:02 PM EDT): CTM Assessment & Plan (07/09/2025 5:35 PM EDT): CTM Assessment & Plan (07/11/2025 11:20 PM EDT): CTM Assessment & Plan (07/03/2025 9:26 AM EDT): CTM Assessment & Plan (07/01/2025 11:01 AM EDT): NTD Assessment & Plan (06/30/2025 12:00 PM EDT): NTD Assessment & Plan (06/25/2025 12:10 PM EDT): - LFT's stable - Liver US obtained and wnl - Trending LFTs Assessment & Plan (06/24/2025 10:05 PM EDT): - LFT's stable - Liver US obtained and wnl - Trending LFTs Assessment & Plan (07/05/2025 6:19 AM EDT): - LFT's stable - Liver US obtained and wnl - Trending LFTs Assessment & Plan (06/23/2025 10:30 PM EDT): - LFT's stable - Liver US obtained and wnl - Trending LFTs Assessment & Plan (07/05/2025 6:20 AM EDT): - LFT's stable - Liver US obtained and wnl - Trending LFTs Assessment & Plan (06/22/2025 10:48 PM EDT): - LFT's stable - Liver US obtained and wnl - Trending LFTs Assessment & Plan (06/22/2025 3:20 PM EDT): - LFT's stable - Liver US obtained and wnl - Trending LFTs Assessment & Plan (06/21/2025 10:37 PM EDT): - LFT's stable - Liver US obtained and wnl - Trending LFTs Assessment & Plan (06/21/2025 4:53 PM EDT): - LFT's stable - Liver US obtained and wnl - Trending LFTs Assessment & Plan (06/21/2025 7:17 AM EDT): - LFT's up trending - Liver US obtained and wnl - Trending LFTs Assessment & Plan (06/20/2025 3:30 PM EDT): - LFT's up trending - Liver US obtained and wnl - Trending LFTs Assessment & Plan (06/19/2025 10:39 PM EDT): - LFT's up trending - Liver US obtained and wnl - Trending LFTs Assessment & Plan (06/19/2025 3:46 PM EDT): - LFT's up trending - Liver US obtained and wnl - Trending LFTs Assessment & Plan (06/18/2025 10:41 PM EDT): - LFT's up trending - Liver US obtained and wnl - Trending LFTs Assessment & Plan (06/18/2025 3:57 PM EDT): - LFT's up trending - Liver US obtained and wnl - Trending LFTs Assessment & Plan (06/18/2025 6:21 AM EDT): - LFT's up trending - Liver US obtained and wnl - Trending LFTs Assessment & Plan (06/17/2025 5:22 AM EDT): - LFT's up trending - Liver US obtained and wnl - Trending LFTs Assessment & Plan (06/20/2025 8:06 AM EDT): - LFT's up trending - Liver US obtained and wnl - Trending LFTs Acute lower extremity ischemia 06/16/2025 06/30/2025 Overview (06/16/2025): - Duplex US LE ordered Assessment & Plan (06/25/2025 12:10 PM EDT): - Duplex US -Monitor per protocol Assessment & Plan (06/24/2025 10:05 PM EDT): - Duplex US -Monitor per protocol Assessment & Plan (07/05/2025 6:19 AM EDT): - Duplex US -Monitor per protocol Assessment & Plan (06/23/2025 10:30 PM EDT): - Duplex US -Monitor per protocol Assessment & Plan (07/05/2025 6:20 AM EDT): - Duplex US -Monitor per protocol Assessment & Plan (06/22/2025 10:48 PM EDT): - Duplex US -Monitor per protocol Assessment & Plan (06/22/2025 3:20 PM EDT): - Duplex US -Monitor per protocol Assessment & Plan (06/21/2025 10:37 PM EDT): - Duplex US -Monitor per protocol Assessment & Plan (06/21/2025 4:53 PM EDT): - Duplex US -Monitor per protocol Assessment & Plan (06/21/2025 7:17 AM EDT): - Duplex US ordered Assessment & Plan (06/20/2025 3:30 PM EDT): - Duplex US ordered Assessment & Plan (06/19/2025 10:39 PM EDT): - Duplex US ordered Assessment & Plan (06/19/2025 3:46 PM EDT): - Duplex US ordered Assessment & Plan (06/18/2025 10:41 PM EDT): - Duplex US ordered Assessment & Plan (06/18/2025 3:57 PM EDT): - Duplex US ordered Assessment & Plan (06/18/2025 6:21 AM EDT): - Duplex US ordered Assessment & Plan (06/17/2025 5:22 AM EDT): - Duplex US ordered Assessment & Plan (06/20/2025 8:06 AM EDT): - Duplex US ordered Bacteremia 06/15/2025 08/04/2025 Assessment & Plan (08/04/2025 12:59 PM EDT): Klebisella oxytoca (from cultures) ID following ECHO is negative for endocarditis 07/09: MRI T/C- spine negative for osteomyelitis Cefepime per ID (Course completed 08/02 per ID recs) Assessment & Plan (08/03/2025 2:10 PM EDT): Klebisella oxytoca (from cultures) ID following ECHO is negative for endocarditis 07/09: MRI T/C- spine negative for osteomyelitis Cefepime per ID (Course completing 08/06) Assessment & Plan (08/02/2025 11:41 AM EDT): - Klebisella oxytoca (from cultures) -ID following -Echo is negative for endocarditis -07/09: MRI T/C- spine negative for osteomyelitis - continuous Cefepime per ID (Course completing 08/06) Assessment & Plan (08/01/2025 12:55 PM EDT): - Klebisella oxytoca (from cultures) -ID following -Echo is negative for endocarditis -8/18: MRI T/C- spine negative for osteomyelitis - continuous Cefepime per ID (Course completing 08/06) Assessment & Plan (07/31/2025 3:31 PM EDT): - Klebisella oxytoca (from cultures) -ID following -Echo is negative for endocarditis -8/18: MRI T/C- spine negative for osteomyelitis - continuous Cefepime per ID (Course completing 08/06) Assessment & Plan (07/30/2025 9:43 AM EDT): - Klebisella oxytoca (from cultures) -ID following -Echo is negative for endocarditis -8/18: MRI T/C- spine negative for osteomyelitis - continuous Cefepime per ID (Course completing 08/06) Assessment & Plan (07/29/2025 3:17 PM EDT): - Klebisella oxytoca (from cultures) -ID following -Echo is negative for endocarditis -8/18: MRI T/C- spine negative for osteomyelitis - continuous Cefepime per ID (Course completing 08/06) Assessment & Plan (07/28/2025 8:16 AM EDT): -ID following -Echo is negative for endocarditis -8/18: MRI T/C- spine negative for osteomyelitis - continuous Cefepime per ID (Course completing 08/06) Assessment & Plan (07/28/2025 11:31 PM EDT): -ID following -Echo is negative for endocarditis -8/18: MRI T/C- spine negative for osteomyelitis - continuous Cefepime per ID (Course completing 08/06) Assessment & Plan (07/26/2025 9:39 AM EDT): -ID following -Echo is negative for endocarditis -8/18: MRI T/C- spine negative for osteomyelitis - continuous Cefepime per ID (Course completing 08/06) Assessment & Plan (07/25/2025 7:57 AM EDT): -ID following -Echo is negative for endocarditis -8/18: MRI T/C- spine negative for osteomyelitis - continuous Cefepime per ID (Course completing 08/06) Assessment & Plan (07/24/2025 10:29 AM EDT): -ID following -Echo is negative for endocarditis -8/18: MRI T/C- spine negative for osteomyelitis - continuous Cefepime per ID (Course completing 08/06) Assessment & Plan (07/23/2025 3:33 PM EDT): -ID following -Echo is negative for endocarditis -8/18: MRI T/C- spine negative for osteomyelitis - Cefepime (Course completing 08/06) Assessment & Plan (07/23/2025 3:34 PM EDT): -ID following -Echo is negative for endocarditis -8/18: MRI T/C- spine negative for osteomyelitis - Cefepime (Course completing 08/06) Assessment & Plan (07/23/2025 3:33 PM EDT): -ID following -Echo is negative for endocarditis -8/18: MRI T/C- spine negative for osteomyelitis - Cefepime (Course completing 08/06) Assessment & Plan (07/23/2025 4:43 PM EDT): -ID following -Echo is negative for endocarditis -8/18: MRI T/C- spine negative for osteomyelitis - Cefepime (Course completing 08/06) Assessment & Plan (07/23/2025 4:38 PM EDT): -ID following -Echo is negative for endocarditis -8/18: MRI T/C- spine negative for osteomyelitis - Cefepime (Course completing 08/06) Assessment & Plan (07/23/2025 4:36 PM EDT): -ID following -Echo is negative for endocarditis -8/18: MRI T/C- spine negative for osteomyelitis - Cefepime (Course completing 08/06) Assessment & Plan (07/23/2025 4:34 PM EDT): -ID following -Echo is negative for endocarditis -8/18: MRI T/C- spine negative for osteomyelitis - Cefepime (Course completing 08/06) Assessment & Plan (07/23/2025 4:29 PM EDT): -ID following -Echo is negative for endocarditis -8/18: MRI T/C- spine negative for osteomyelitis - Cefepime (Course completing 08/06) Assessment & Plan (07/22/2025 3:19 PM EDT): -ID following -Echo is negative for endocarditis -8/18: MRI T/C- spine negative for osteomyelitis - Cefepime (Course completing 08/06) Assessment & Plan (07/22/2025 3:17 PM EDT): -ID following -Echo is negative for endocarditis -8/18: MRI T/C- spine negative for osteomyelitis - Cefepime (Course completing 08/06) Assessment & Plan (07/13/2025 4:02 PM EDT): -ID following -Echo is negative for endocarditis -8/18: MRI T/C- spine negative for osteomyelitis - Cefepime (Course completing 08/06) Assessment & Plan (07/13/2025 7:18 AM EDT): -ID following -Echo is negative for endocarditis -8/18: MRI T/C- spine negative for osteomyelitis - Transition Antbx to Cefepime Assessment & Plan (07/12/2025 7:45 AM EDT): -ID following -Echo is negative for endocarditis -8/18: MRI T/C- spine negative for osteomyelitis Assessment & Plan (07/11/2025 7:37 AM EDT): -ID following -Echo is negative for endocarditis -8/18: MRI T/C- spine negative for osteomyelitis Assessment & Plan (07/10/2025 7:25 AM EDT): -ID following -Echo is negative for endocarditis -07/09: MRI T/C- spine negative for osteomyelitis Assessment & Plan (07/12/2025 4:04 PM EDT): -ID following -Was on meropenem and transitioned to Rocpehin on 07/06 given susceptibility -WBC continue to trend up with persistent fever -Repeat blood cultures, BAL/UA -Echo is negative for endocarditis -MRI T/C- spine to r/o osteomyelitis Assessment & Plan (07/08/2025 12:35 PM EDT): -ID following -Was on meropenem and transitioned to [place]pe[place] on 07/06 given susceptibility -WBC continue to trend up with persistent fever -Repeat blood cultures, BAL/UA -Echo is negative for endocarditis -MRI T/C- spine to r/o osteomyelitis Assessment & Plan (07/07/2025 3:17 PM EDT): ID following Continue Rocpehin Assessment & Plan (07/12/2025 4:02 PM EDT): - ID following - Continue Meropenem Assessment & Plan (07/09/2025 5:35 PM EDT): - ID signed off 06/27 - Continue Unasyn, course completing 07/08 Assessment & Plan (07/11/2025 11:20 PM EDT): - ID signed off 06/27 - Continue Unasyn, course completing 07/08 Assessment & Plan (07/03/2025 9:26 AM EDT): - ID signed off 06/27 - Continue Unasyn, course completing 07/08 Assessment & Plan (07/01/2025 11:01 AM EDT): Unasyn Assessment & Plan (06/30/2025 12:00 PM EDT): Unasyn Assessment & Plan (06/25/2025 12:10 PM EDT): - BC + acinetebactor - currently on minocycline and meropenem -ID consulted, appreciate recs - CTM BC until clear Assessment & Plan (06/24/2025 10:05 PM EDT): - BC + acinetebactor - currently on minocycline and meropenem -ID consulted, appreciate recs - CTM BC until clear Assessment & Plan (07/05/2025 6:19 AM EDT): - BC + acinetebactor - currently on minocycline and meropenem -ID consulted, appreciate recs - CTM BC until clear Assessment & Plan (06/23/2025 10:30 PM EDT): - BC + acinetebactor - currently on minocycline and meropenem -ID consulted, appreciate recs - CTM BC until clear Assessment & Plan (07/05/2025 6:20 AM EDT): - BC + acinetebactor - currently on minocycline and meropenem -ID consulted, appreciate recs - CTM BC until clear Assessment & Plan (06/22/2025 10:48 PM EDT): - BC + acinetebactor - currently on minocycline and meropenem -ID consulted, appreciate recs - CTM BC until clear Assessment & Plan (06/22/2025 3:20 PM EDT): - BC + acinetebactor - currently on minocycline and meropenem -ID consulted, appreciate recs - CTM BC until clear Assessment & Plan (06/21/2025 10:37 PM EDT): - BC + acinetebactor - currently on minocycline and meropenem -ID consulted, appreciate recs - CTM BC until clear Assessment & Plan (06/21/2025 4:53 PM EDT): - BC + acinetebactor - currently on minocycline and meropenem -ID consulted, appreciate recs - CTM BC until clear Assessment & Plan (06/21/2025 7:17 AM EDT): - BC + acinetebactor - currently on minocycline and meropenem - CTM BC until clear Assessment & Plan (06/20/2025 3:30 PM EDT): - BC + acinetebactor - currently on minocycline and meropenem - CTM BC until clear Assessment & Plan (06/19/2025 10:39 PM EDT): - BC + acinetebactor - currently on minocycline and meropenem - CTM BC until clear Assessment & Plan (06/19/2025 3:46 PM EDT): - BC + acinetebactor - currently on minocycline and meropenem - CTM BC until clear Assessment & Plan (06/18/2025 10:41 PM EDT): - BC + acinetebactor - currently on minocycline and meropenem - CTM BC until clear Assessment & Plan (06/18/2025 3:57 PM EDT): - BC + acinetebactor - currently on minocycline and meropenem - CTM BC until clear Assessment & Plan (06/18/2025 6:21 AM EDT): - BC + acinetebactor - zosyn to merrem - CTM BC until clear Assessment & Plan (06/17/2025 5:22 AM EDT): - BC + acinetebactor - zosyn to merrem - CTM BC until clear Assessment & Plan (06/20/2025 8:06 AM EDT): - BC + acinetebactor - zosyn to merrem - CTM BC until clear Assessment & Plan (06/16/2025 6:49 AM EDT): - BC + acinetebactor - zosyn to merrem - CTM BC until clear Assessment & Plan (06/17/2025 10:20 PM EDT): - BC + acinetebactor - zosyn to merrem - CTM BC until clear Hypernatremia 06/15/2025 06/29/2025 Assessment & Plan (06/25/2025 12:10 PM EDT): - on FW - Resolved; will d/c D5 Assessment & Plan (06/24/2025 10:05 PM EDT): - on FW - trend Na Q4 - on d5 1/2 NS decreasing to 50ml/hr -Downtrending Assessment & Plan (07/05/2025 6:19 AM EDT): - on FW - trend Na Q4 - on d5 1/2 NS decreasing to 50ml/hr -Downtrending Assessment & Plan (06/23/2025 10:30 PM EDT): - on FW - trend Na Q4 - on d5 1/2 NS decreasing to 50ml/hr -Downtrending Assessment & Plan (07/05/2025 6:20 AM EDT): - on FW - trend Na Q4 - on d5 1/2 NS decreasing to 50ml/hr -Downtrending Assessment & Plan (06/22/2025 10:48 PM EDT): - on FW - trend Na Q4 - on d5 1/2 NS decreasing to 50ml/hr -Downtrending Assessment & Plan (06/22/2025 3:20 PM EDT): - on FW - trend Na Q4 - on d5 1/2 NS decreasing to 50ml/hr -Downtrending Assessment & Plan (06/21/2025 10:37 PM EDT): - on FW - trend Na Q4 - on d5 1/2 NS decreasing to 50ml/hr -Downtrending Assessment & Plan (06/21/2025 4:53 PM EDT): - on FW - trend Na Q4 - on d5 1/2 NS decreasing to 50ml/hr -Downtrending Assessment & Plan (06/21/2025 7:17 AM EDT): - on FW - trend Na Q4 - on d5 1/2 NS -Downtrending Assessment & Plan (06/20/2025 3:30 PM EDT): - on FW - trend Na Q4 - on d5 1/2 NS -Downtrending Assessment & Plan (06/19/2025 10:39 PM EDT): - on FW - trend Na Q4 - on d5W -Nephrology consulted, appreciate recs Assessment & Plan (06/19/2025 3:46 PM EDT): - on FW - trend Na Q4 - on d5W -Nephrology consulted, appreciate recs Assessment & Plan (06/18/2025 10:41 PM EDT): - on FW - trend Na Q4 - on d5W -Nephrology consulted, appreciate recs Assessment & Plan (06/18/2025 3:57 PM EDT): - on FW - trend Na Q4 - on d5W -Nephrology consulted, appreciate recs Assessment & Plan (06/18/2025 6:21 AM EDT): - on FW - trend NA Assessment & Plan (06/17/2025 5:22 AM EDT): - on FW - trend NA Assessment & Plan (06/20/2025 8:06 AM EDT): - on FW - trend NA Assessment & Plan (06/16/2025 6:49 AM EDT): - on - trend NA Assessment & Plan (06/17/2025 10:20 PM EDT): - on - trend NA Patient receiving extracorpo real membrane oxygenation (ECMO) 06/14/2025 06/30/2025 Overview (06/14/2025): - Assessment & Plan (06/25/2025 12:10 PM EDT): - large aspiration event 06/13 - re-intubated and developed hypotension, tachypnea, and increasing pressor requirements - cannulated of pVV ecmo - wean as able - 06/24/25 @ 0830 - ECMO capped, possible decannulation 06/25/25 Assessment & Plan (06/24/2025 10:05 PM EDT): - large aspiration event 06/13 - re-intubated and developed hypotension, tachypnea, and increasing pressor requirements - cannulated of pVV ecmo - wean as able - 06/24/25 @ 0830 - ECMO capped, possible decannulation 06/25/25 Assessment & Plan (07/05/2025 6:19 AM EDT): - large aspiration event 06/13 - re-intubated and developed hypotension, tachypnea, and increasing pressor requirements - cannulated of pVV ecmo - wean as able - 06/24/25 @ 0830 - ECMO capped, possible decannulation 06/25/25 Assessment & Plan (06/23/2025 10:30 PM EDT): - large aspiration event 06/13 - re-intubated and developed hypotension, tachypnea, and increasing pressor requirements - cannulated of pVV ecmo - wean as able Assessment & Plan (07/05/2025 6:20 AM EDT): - large aspiration event 06/13 - re-intubated and developed hypotension, tachypnea, and increasing pressor requirements - cannulated of pVV ecmo - wean as able Assessment & Plan (06/22/2025 10:48 PM EDT): - large aspiration event 06/13 - re-intubated and developed hypotension, tachypnea, and increasing pressor requirements - cannulated of pVV ecmo - wean as able Assessment & Plan (06/22/2025 3:20 PM EDT): - large aspiration event 06/13 - re-intubated and developed hypotension, tachypnea, and increasing pressor requirements - cannulated of pVV ecmo - wean as able Assessment & Plan (06/21/2025 10:37 PM EDT): - large aspiration event 06/13 - re-intubated and developed hypotension, tachypnea, and increasing pressor requirements - cannulated of pVV ecmo - wean as able Assessment & Plan (06/21/2025 4:53 PM EDT): - large aspiration event 06/13 - re-intubated and developed hypotension, tachypnea, and increasing pressor requirements - cannulated of pVV ecmo - wean as able Assessment & Plan (06/21/2025 7:17 AM EDT): - large aspiration event 06/13 - re-intubated and developed hypotension, tachypnea, and increasing pressor requirements - cannulated of pVV ecmo - wean as able Assessment & Plan (06/20/2025 3:30 PM EDT): - large aspiration event 06/13 - re-intubated and developed hypotension, tachypnea, and increasing pressor requirements - cannulated of pVV ecmo - wean as able Assessment & Plan (06/19/2025 10:39 PM EDT): - large aspiration event 06/13 - re-intubated and developed hypotension, tachypnea, and increasing pressor requirements - cannulated of pVV ecmo - wean as able Assessment & Plan (06/19/2025 3:46 PM EDT): - large aspiration event 06/13 - re-intubated and developed hypotension, tachypnea, and increasing pressor requirements - cannulated of pVV ecmo - wean as able Assessment & Plan (06/18/2025 10:41 PM EDT): - large aspiration event 06/13 - re-intubated and developed hypotension, tachypnea, and increasing pressor requirements - cannulated of pVV ecmo - wean as able Assessment & Plan (06/18/2025 3:57 PM EDT): - large aspiration event 06/13 - re-intubated and developed hypotension, tachypnea, and increasing pressor requirements - cannulated of pVV ecmo - wean as able Assessment & Plan (06/18/2025 6:21 AM EDT): - large aspiration event 06/13 - re-intubated and developed hypotension, tachypnea, and increasing pressor requirements - cannulated of pVV ecmo - wean as able Assessment & Plan (06/17/2025 5:22 AM EDT): - large aspiration event 06/13 - re-intubated and developed hypotension, tachypnea, and increasing pressor requirements - cannulated of pVV ecmo - wean as able Assessment & Plan (06/20/2025 8:06 AM EDT): - large aspiration event 06/13 - re-intubated and developed hypotension, tachypnea, and increasing pressor requirements - cannulated of pVV ecmo - wean as able Assessment & Plan (06/16/2025 6:49 AM EDT): - large aspiration event 06/13 - re-intubated and developed hypotension, tachypnea, and increasing pressor requirements - cannulated of pVV ecmo - wean as able Assessment & Plan (06/17/2025 10:20 PM EDT): - large aspiration event 06/13 - re-intubated and developed hypotension, tachypnea, and increasing pressor requirements - cannulated of pVV ecmo - wean as able Assessment & Plan (06/14/2025 5:44 PM EDT): - large aspiration event 06/13 - re-intubated and developed hypotension, tachypnea, and increasing pressor requirements - cannulated of pVV ecmo - wean as able Acute respiratory failure with hypoxia 06/06/2025 09/09/2025 Overview (06/06/2025): Intubated prior to arrival Full vent support, Increasing PEEP and addition of veletri today for worsening hypoxia Assessment & Plan (08/03/2025 2:10 PM EDT): 06/05: Intubated [facility] [facility] in route to OSH 06/13: Extubated and reintubated 07/04: Extubated to HFNC and reintubated S/p trach 07/06, tolerating TC 9/11: On 5L, will continue to reevaluate decannulation Assessment & Plan (08/02/2025 11:51 AM EDT): 06/05: Intubated [employer] in route to OSH 06/13: Extubated and reintubated 07/04: Extubated to HFNC and reintubated S/p trach 15, tolerating TC 9/11: On 5L, will continue to reevaluate decannulation Assessment & Plan (08/01/2025 12:55 PM EDT): 06/05: Intubated [employer] in route to OSH 06/13: Extubated and reintubated 07/04: Extubated to HFNC and reintubated S/p trach /15, tolerating TC 9/10: Attempting to wean to 5L, will continue to reevaluate decannulation Assessment & Plan (07/31/2025 3:31 PM EDT): 06/05: Intubated [employer] in route to OSH 06/13: Extubated and reintubated 8: Extubated to HFNC and reintubated S/p trach 8/15, tolerating TC Assessment & Plan (07/30/2025 1:03 PM EDT): 06/05: Intubated [employer] in route to OSH 06/13: Extubated and reintubated 07/04: Extubated to HFNC and reintubated S/p trach /15, tolerating TC Assessment & Plan (07/29/2025 3:07 PM EDT): 06/05: Intubated [employer] in route to OSH 06/13: Extubated and reintubated 07/04: Extubated to HFNC and reintubated S/p trach /15 As of 07/26/25, has been tolerating trach collar for majority of day, intermittently placed on MV Assessment & Plan (07/28/2025 8:16 AM EDT): 06/05: Intubated [employer] in route to OSH 06/13: Extubated and reintubated 07/04: Extubated to HFNC and reintubated S/p trach /15 As of 07/26/25, has been tolerating trach collar for majority of day, intermittently placed on MV Assessment & Plan (07/28/2025 11:31 PM EDT): 06/05: Intubated [employer] in route to OSH 06/13: Extubated and reintubated 07/04: Extubated to HFNC and reintubated S/p trach /15 As of 07/26/25, has been tolerating trach collar for majority of day, intermittently placed on MV Assessment & Plan (07/26/2025 9:39 AM EDT): 06/05: Intubated [employer] in route to OSH 06/13: Extubated and reintubated 07/04: Extubated to HFNC and reintubated S/p trach /15 Daily SBT per protocol Continue mechanical ventilation, Titrate FiO2 to keep SpO2 > 92% TC today as tolerated, may be able to fully liberate. Suctioning needs minimal. PMV as tolerated, do not leave on for long periods of time. Assessment & Plan (07/25/2025 7:57 AM EDT): 06/05: Intubated [employer] in route to OSH 06/13: Extubated and reintubated 07/04: Extubated to HFNC and reintubated S/p trach 07/06 Daily SBT per protocol Continue mechanical ventilation, Titrate FiO2 to keep SpO2 > 92% Assessment & Plan (07/24/2025 9:30 AM EDT): 06/05: Intubated [employer] in route to OSH 06/13: Extubated and reintubated 07/04: Extubated to HFNC and reintubated S/p trach 07/06 Daily SBT per protocol Continue mechanical ventilation, Titrate FiO2 to keep SpO2 > 92% Assessment & Plan (07/23/2025 3:33 PM EDT): 06/05: Intubated [employer] in route to OSH 06/13: Extubated and reintubated 07/04: Extubated to HFNC and reintubated S/p trach 07/06 Daily SBT per protocol Continue mechanical ventilation, Titrate FiO2 to keep SpO2 > 92% Assessment & Plan (07/23/2025 3:34 PM EDT): 06/05: Intubated [employer] in route to OSH 06/13: Extubated and reintubated 07/04: Extubated to HFNC and reintubated S/p trach 07/06 Daily SBT per protocol Continue mechanical ventilation, Titrate FiO2 to keep SpO2 > 92% Assessment & Plan (07/23/2025 3:33 PM EDT): 06/05: Intubated [employer] in route to OSH 06/13: Extubated and reintubated 07/04: Extubated to HFNC and reintubated S/p trach 07/06 Daily SBT per protocol Continue mechanical ventilation, Titrate FiO2 to keep SpO2 > 92% Assessment & Plan (07/23/2025 4:43 PM EDT): 06/05: Intubated [employer] in route to OSH 06/13: Extubated and reintubated 07/04: Extubated to HFNC and reintubated S/p trach 07/06 Daily SBT per protocol Continue mechanical ventilation, Titrate FiO2 to keep SpO2 > 92% Assessment & Plan (07/23/2025 4:38 PM EDT): 06/05: Intubated [employer] in route to OSH 06/13: Extubated and reintubated 07/04: Extubated to HFNC and reintubated S/p trach 07/06 Daily SBT per protocol Continue mechanical ventilation, Titrate FiO2 to keep SpO2 > 92% Assessment & Plan (07/23/2025 4:36 PM EDT): 06/05: Intubated [employer] in route to OSH 06/13: Extubated and reintubated 07/04: Extubated to HFNC and reintubated S/p trach 07/06 Daily SBT per protocol Continue mechanical ventilation, Titrate FiO2 to keep SpO2 > 92% Wean PS as able Assessment & Plan (07/23/2025 4:34 PM EDT): 06/05: Intubated [employer] in route to OSH 06/13: Extubated and reintubated 07/04: Extubated to HFNC and reintubated S/p trach 07/06 Daily SBT per protocol Continue mechanical ventilation, Titrate FiO2 to keep SpO2 > 92% Wean vent as able Assessment & Plan (07/23/2025 4:29 PM EDT): 06/05: Intubated [employer] in route to OSH 06/13: Extubated and reintubated 07/04: Extubated to HFNC and reintubated S/p trach 07/06 Daily SBT per protocol Continue mechanical ventilation, Titrate FiO2 to keep SpO2 > 92% Wean vent as able Assessment & Plan (07/22/2025 3:19 PM EDT): 06/05: Intubated [employer] in route to OSH 06/13: Extubated and reintubated 07/04: Extubated to HFNC and reintubated S/p trach 07/06 Daily SAT/SBT per protocol Continue mechanical ventilation, Titrate FiO2 to keep SpO2 > 92% Wean vent as able Assessment & Plan (07/22/2025 3:17 PM EDT): 06/05: Intubated [employer] in route to OSH 06/13: Extubated and reintubated 07/04: Extubated to HFNC and reintubated S/p trach 07/06 Daily SAT/SBT per protocol Continue mechanical ventilation, Titrate FiO2 to keep SpO2 > 92% Wean vent as able Assessment & Plan (07/13/2025 4:02 PM EDT): 06/05: Intubated [employer] in route to OSH 06/13: Extubated and reintubated 07/04: Extubated to HFNC and reintubated S/p trach 07/06 Daily SAT/SBT per protocol Continue mechanical ventilation, Titrate FiO2 to keep SpO2 > 92% Wean vent as able Assessment & Plan (07/13/2025 7:18 AM EDT): 06/05: Intubated [employer] in route to OSH 06/13: Extubated and reintubated 07/04: Extubated to HFNC and reintubated S/p trach 07/06 Daily SAT/SBT per protocol Continue mechanical ventilation, Titrate FiO2 to keep SpO2 > 92% Wean vent as able Assessment & Plan (07/12/2025 7:45 AM EDT): 06/05: Intubated [employer] in route to OSH 06/13: Extubated and reintubated 07/04: Extubated to HFNC and reintubated S/p trach 07/06 Daily SAT/SBT per protocol Continue mechanical ventilation, Titrate FiO2 to keep SpO2 > 92% Wean vent as able Assessment & Plan (07/11/2025 7:37 AM EDT): 06/05: Intubated [employer] in route to OSH 06/13: Extubated and reintubated 07/04: Extubated to HFNC and reintubated S/p trach 07/06 Daily SAT/SBT per protocol Wean vent as able Assessment & Plan (07/10/2025 7:25 AM EDT): 06/05: Intubated [employer] in route to OSH 06/13: Extubated and reintubated 07/04: Extubated to HFNC and reintubated S/p trach 07/06 Daily SAT/SBT per protocol Wean vent as able Assessment & Plan (07/12/2025 4:04 PM EDT): 06/05: Intubated [employer] in route to OSH 06/13: Extubated and reintubated 07/04: Extubated to HFNC and reintubated S/p trach 07/06 Wean vent as able Assessment & Plan (07/08/2025 12:35 PM EDT): 06/05: Intubated [employer] in route to OSH 06/13: Extubated and reintubated 07/04: Extubated to HFNC and reintubated S/p trach 07/06 Wean vent as able Assessment & Plan (07/07/2025 3:17 PM EDT): 06/05: Intubated [employer] in route to OSH 06/13: Extubated and reintubated 07/04: Extubated to HFNC and reintubated S/p trach 07/06 Assessment & Plan (07/12/2025 4:02 PM EDT): - 06/05: Intubated [employer] in route to OSH - 06/13: Extubated and reintubated - 07/04: Extubated to HFNC and reintubated - Continue MV, wean FiO2 to keep SpO2 > 92% - Aggressive pulmonary toilet: MetaNeb and Hypertonic nebs - Daily SAT/SBT per protocol Assessment & Plan (07/05/2025 1:17 PM EDT): - 06/05: Intubated [employer]ER[facility] in route to OSH - Continue MV, wean FiO2 to keep SpO2 > 92% - Aggressive pulmonary toilet: MetaNeb and Hypertonic nebs - Daily SAT/SBT per protocol - Extubate today to HFNC Assessment & Plan (07/09/2025 5:35 PM EDT): - 06/05: Intubated [employer] in route to OSH - Continue MV, wean FiO2 to keep SpO2 > 92% - Aggressive pulmonary toilet: MetaNeb and Hypertonic nebs - Daily SAT/SBT per protocol - Extubate today to [facility] Assessment & Plan (07/11/2025 11:20 PM EDT): - 06/05: Intubated [employer]ERMAN in route to OSH - Continue MV, wean FiO2 to keep SpO2 > 92% - Aggressive pulmonary toilet: MetaNeb and Hypertonic nebs - Daily SAT/SBT per protocol - Consider Tracheostomy soon Assessment & Plan (07/03/2025 9:26 AM EDT): - 06/05: Intubated [employer] in route to OSH - Continue MV, wean FiO2 to keep SpO2 > 92% - Aggressive pulmonary toilet: MetaNeb and Hypertonic nebs - Daily SAT/SBT per protocol - Consider Tracheostomy soon Assessment & Plan (07/01/2025 2:40 PM EDT): Continue MV, wean settings as able Aggressive pulmonary toilet SAT/SBT when appropriate Assessment & Plan (06/30/2025 12:00 PM EDT): Low lung volume ventilation PEEP as needed SAT and SBT daily when appropriate Assessment & Plan (07/05/2025 1:39 AM EDT): Wean supplemental ventilator as able Assessment & Plan (07/05/2025 1:36 AM EDT): Wean supplemental ventilator as able Assessment & Plan (07/05/2025 1:34 AM EDT): Wean supplemental ventilator as able Assessment & Plan (07/05/2025 1:31 AM EDT): Wean supplemental ventilator as able Assessment & Plan (06/25/2025 10:52 AM EDT): Wean supplemental ventilator as able Assessment & Plan (06/25/2025 12:10 PM EDT): -Intubated prior to arrival - extubated and reintubated due to large aspiration event - Intubated on 06/13 due to increasing oxygenation requirements - developed hypotension, tachypnea, hypoxemia, and increasing pressor requirements - cannulated on pVV ecmo on 06/14 - wean vent and ECMO as able - 06/23/25 - bronch completed, thick foul smelling mucus, sample sent - ECMO clamped since 06/24/2025; possible decannulation 06/25/2025 -Will diurese today -Repeat BAL Assessment & Plan (06/24/2025 10:05 PM EDT): -Intubated prior to arrival - extubated and reintubated due to large aspiration event - Intubated on 06/13 due to increasing oxygenation requirements - developed hypotension, tachypnea, hypoxemia, and increasing pressor requirements - cannulated on pVV ecmo on 06/14 - wean vent and ECMO as able -06/23/25 - bronch completed, thick foul smelling mucus, sample sent Assessment & Plan (06/24/2025 5:44 PM EDT): Wean supplemental ventilator as able Assessment & Plan (07/05/2025 6:19 AM EDT): -Intubated prior to arrival - extubated and reintubated due to large aspiration event - Intubated on 06/13 due to increasing oxygenation requirements - developed hypotension, tachypnea, hypoxemia, and increasing pressor requirements - cannulated on pVV ecmo on 06/14 - wean vent and ECMO as able -06/23/25 - bronch completed, thick foul smelling mucus, sample sent Assessment & Plan (06/23/2025 10:30 PM EDT): -Intubated prior to arrival - extubated and reintubated due to large aspiration event - Intubated on 06/13 due to increasing oxygenation requirements - developed hypotension, tachypnea, hypoxemia, and increasing pressor requirements - cannulated on pVV ecmo on 06/14 - wean vent and ECMO as able -06/23/25 - bronch completed, thick foul smelling mucus, sample sent Assessment & Plan (06/23/2025 5:02 PM EDT): Wean supplemental ventilator as able Assessment & Plan (07/05/2025 6:20 AM EDT): -Intubated prior to arrival - extubated and reintubated due to large aspiration event - Intubated on 06/13 due to increasing oxygenation requirements - developed hypotension, tachypnea, hypoxemia, and increasing pressor requirements - cannulated on pVV ecmo on 06/14 - wean vent and ECMO as able -06/23/25 - bronch completed, thick foul smelling mucus, sample sent Assessment & Plan (06/22/2025 10:48 PM EDT): -Intubated prior to arrival - extubated and reintubated due to large aspiration event - Intubated on 06/13 due to increasing oxygenation requirements - developed hypotension, tachypnea, hypoxemia, and increasing pressor requirements - cannulated on pVV ecmo on 06/14 - wean vent and ECMO as able Assessment & Plan (06/22/2025 3:20 PM EDT): -Intubated prior to arrival - extubated and reintubated due to large aspiration event - Intubated on 06/13 due to increasing oxygenation requirements - developed hypotension, tachypnea, hypoxemia, and increasing pressor requirements - cannulated on pVV ecmo on 06/14 - wean vent and ECMO as able Assessment & Plan (06/21/2025 10:37 PM EDT): -Intubated prior to arrival - extubated and reintubated due to large aspiration event - Intubated on 06/13 due to increasing oxygenation requirements - developed hypotension, tachypnea, hypoxemia, and increasing pressor requirements - cannulated on pVV ecmo on 06/14 - wean vent and ECMO as able Assessment & Plan (06/21/2025 1:06 PM EDT): Wean supplemental ventilator as able Assessment & Plan (06/21/2025 4:53 PM EDT): -Intubated prior to arrival - extubated and reintubated due to large aspiration event - Intubated on 06/13 due to increasing oxygenation requirements - developed hypotension, tachypnea, hypoxemia, and increasing pressor requirements - cannulated on pVV ecmo on 06/14 - wean vent and ECMO as able Assessment & Plan (06/21/2025 7:17 AM EDT): -Intubated prior to arrival - extubated and reintubated due to large aspiration event - Intubated on 06/13 due to increasing oxygenation requirements - developed hypotension, tachypnea, hypoxemia, and increasing pressor requirements - cannulated on pVV ecmo - wean vent as able Assessment & Plan (06/20/2025 2:38 PM EDT): Wean supplemental ventilator as able Assessment & Plan (06/20/2025 3:30 PM EDT): -Intubated prior to arrival - extubated and reintubated due to large aspiration event - Intubated on 06/13 due to increasing oxygenation requirements - developed hypotension, tachypnea, hypoxemia, and increasing pressor requirements - cannulated on pVV ecmo - wean vent as able Assessment & Plan (06/19/2025 10:39 PM EDT): -Intubated prior to arrival - extubated and reintubated due to large aspiration event - Intubated on 06/13 due to increasing oxygenation requirements - developed hypotension, tachypnea, hypoxemia, and increasing pressor requirements - cannulated on pVV ecmo - wean vent as able Assessment & Plan (06/19/2025 3:46 PM EDT): -Intubated prior to arrival - extubated and reintubated due to large aspiration event - Intubated on 06/13 due to increasing oxygenation requirements - developed hypotension, tachypnea, hypoxemia, and increasing pressor requirements - cannulated on pVV ecmo - wean vent as able Assessment & Plan (06/18/2025 10:41 PM EDT): -Intubated prior to arrival - extubated and reintubated due to large aspiration event - Intubated on 06/13 due to increasing oxygenation requirements - developed hypotension, tachypnea, hypoxemia, and increasing pressor requirements - cannulated on pVV ecmo - wean vent as able Assessment & Plan (06/18/2025 3:57 PM EDT): -Intubated prior to arrival - extubated and reintubated due to large aspiration event - Intubated on 06/13 due to increasing oxygenation requirements - developed hypotension, tachypnea, hypoxemia, and increasing pressor requirements - cannulated on pVV ecmo - wean vent as able Assessment & Plan (06/18/2025 11:52 AM EDT): Wean supplemental ventilator as able Assessment & Plan (06/18/2025 6:21 AM EDT): -Intubated prior to arrival - extubated and reintubated due to large aspiration event - Intubated on 06/13 due to increasing oxygenation requirements - developed hypotension, tachypnea, hypoxemia, and increasing pressor requirements - cannulated on pVV ecmo - wean vent as able Assessment & Plan (06/17/2025 5:22 AM EDT): -Intubated prior to arrival - extubated and reintubated due to large aspiration event - Intubated on 06/13 due to increasing oxygenation requirements - developed hypotension, tachypnea, hypoxemia, and increasing pressor requirements - cannulated on pVV ecmo - wean vent as able Assessment & Plan (06/20/2025 8:06 AM EDT): -Intubated prior to arrival - extubated and reintubated due to large aspiration event - Intubated on 06/13 due to increasing oxygenation requirements - developed hypotension, tachypnea, hypoxemia, and increasing pressor requirements - cannulated on pVV ecmo - wean vent as able Assessment & Plan (06/16/2025 6:49 AM EDT): -Intubated prior to arrival - extubated and reintubated due to large aspiration event - Intubated on 06/13 due to increasing oxygenation requirements - developed hypotension, tachypnea, hypoxemia, and increasing pressor requirements - cannulated on pVV ecmo - wean vent as able Assessment & Plan (06/17/2025 10:20 PM EDT): -Intubated prior to arrival - extubated and reintubated due to large aspiration event - Intubated on 06/13 due to increasing oxygenation requirements - developed hypotension, tachypnea, hypoxemia, and increasing pressor requirements - cannulated on pVV ecmo - wean vent as able Assessment & Plan (06/14/2025 5:44 PM EDT): -Intubated prior to arrival - extubated and reintubated due to large aspiration event - Intubated on 06/13 due to increasing oxygenation requirements - developed hypotension, tachypnea, hypoxemia, and increasing pressor requirements - cannulated on pVV ecmo Assessment & Plan (06/21/2025 3:45 PM EDT): Wean supplemental ventilator as able Assessment & Plan (06/21/2025 3:43 PM EDT): Wean supplemental ventilator as able Assessment & Plan (06/21/2025 3:42 PM EDT): Wean supplemental ventilator as able Assessment & Plan (06/19/2025 7:18 PM EDT): Wean supplemental ventilator as able Assessment & Plan (06/19/2025 7:14 PM EDT): Wean supplemental ventilator as able Traumatic pneumothorax 06/06/202507/02 Overview (06/06/2025): Bilateral,CT on left 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,right chest tube placed in trauma bay Monitor output Assessment & Plan (07/03/2025 9:26 AM EDT): B/L chest tubes placed for pneumothorax on admission, now resolved with chest tubes out Assessment & Plan (07/01/2025 2:40 PM EDT): B/L chest tubes placed for pneumothorax on admission, now resolved with chest tubes out Assessment & Plan (06/30/2025 12:00 PM EDT): B/l Chest tubes to suction 8/7: L CT removed Assessment & Plan (07/05/2025 1:39 AM EDT): B/l Chest tubes to suction 8/7: L CT removed Assessment & Plan (07/05/2025 1:36 AM EDT): B/l Chest tubes to suction 8/7: L CT removed Assessment & Plan (07/05/2025 1:34 AM EDT): B/l Chest tubes to suction Assessment & Plan (07/05/2025 1:31 AM EDT): B/l Chest tubes to suction Assessment & Plan (06/25/2025 10:52 AM EDT): B/l Chest tubes to suction Assessment & Plan (06/25/2025 12:10 PM EDT): -Bilateral, CT on left 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,right chest tube placed in trauma bay - continue to monitor with daily CXR - increased pneumothorax noted on 06/14, pigtail catheter placed with improvement in pneumo -CTM with Daily CXR Assessment & Plan (06/24/2025 10:05 PM EDT): -Bilateral,CT on left 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,right chest tube placed in trauma bay - continue to monitor with daily CXR - increased pneumothorax noted on 06/14, pigtail catheter placed with improvement in pneumo -CTM with Daily CXR Assessment & Plan (06/24/2025 5:44 PM EDT): B/l Chest tubes to suction Assessment & Plan (07/05/2025 6:19 AM EDT): -Bilateral,CT on left 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,right chest tube placed in trauma bay - continue to monitor with daily CXR - increased pneumothorax noted on 06/14, pigtail catheter placed with improvement in pneumo -CTM with Daily CXR Assessment & Plan (06/23/2025 10:30 PM EDT): -Bilateral,CT on left 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,right chest tube placed in trauma bay - continue to monitor with daily CXR - increased pneumothorax noted on 06/14, pigtail catheter placed with improvement in pneumo -CTM with Daily CXR Assessment & Plan (06/23/2025 5:02 PM EDT): B/l Chest tubes to suction Assessment & Plan (07/05/2025 6:20 AM EDT): -Bilateral,CT on left 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,right chest tube placed in trauma bay - continue to monitor with daily CXR - increased pneumothorax noted on 06/14, pigtail catheter placed with improvement in pneumo -CTM with Daily CXR Assessment & Plan (06/22/2025 10:48 PM EDT): -Bilateral,CT on left 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,right chest tube placed in trauma bay - continue to monitor with daily CXR - increased pneumothorax noted on 06/14, pigtail catheter placed with improvement in pneumo -CTM with Daily CXR Assessment & Plan (06/22/2025 3:20 PM EDT): -Bilateral,CT on left 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,right chest tube placed in trauma bay - continue to monitor with daily CXR - increased pneumothorax noted on 06/14, pigtail catheter placed with improvement in pneumo -CTM with Daily CXR Assessment & Plan (06/21/2025 10:37 PM EDT): -Bilateral,CT on left 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,right chest tube placed in trauma bay - continue to monitor with daily CXR - increased pneumothorax noted on 06/14, pigtail catheter placed with improvement in pneumo -CTM with Daily CXR Assessment & Plan (06/21/2025 1:06 PM EDT): B/l Chest tubes to suction Assessment & Plan (06/21/2025 4:53 PM EDT): -Bilateral,CT on left 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,right chest tube placed in trauma bay - continue to monitor with daily CXR - increased pneumothorax noted on 06/14, pigtail catheter placed with improvement in pneumo -CTM with Daily CXR Assessment & Plan (06/21/2025 7:17 AM EDT): -Bilateral,CT on left 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,right chest tube placed in trauma bay - continue to monitor with daily CXR - increased pneumothorax noted on 06/14, pigtail catheter placed with improvement in pneumo Assessment & Plan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 09/18/2025 10:16 AM EDT 09/18/2025 10:59 AM EDT Tyler Suresh MD LAB BLOOD ORDERABLES Final Re sult [facility] [address] [place] [address] * (ABNORMAL) CBC and differential (09/18/2025 10:16 AM EDT) Only the most recent of14 resultswithin the time period is included. Pathologist [facility] WBC Count 15.34(H) 3.70 - 10.30 10*3/uL LAB HEMATOLOGY METHOD 09/18/2025 2:03 PM EDT [facility] RBC Count 3.14(L) 4.60 - 6.10 10*6/uL LAB HEMATOLOGY METHOD 09/18/2025 2:03 PM EDT [facility] HGB 9.2(L) 13.7 - 17.5 g/dL LAB HEMATOLOGY METHOD 09/18/2025 2:03 PM EDT [facility] HCT 29.7(L) 40.0 - 51.0 % LAB HEMATOLOGY METHOD 09/18/2025 2:03 PM EDT [facility] Platelet Count 998(H) 155 - 369 10*3/uL LAB HEMATOLOGY METHOD 09/18/2025 2:03 PM EDT [facility] MCV 95 79 - 98 fL LAB HEMATOLOGY METHOD 09/18/2025 2:03 PM EDT [facility] MCH 29.3 26.0 - 32.0 pg LAB HEMATOLOGY METHOD 09/18/2025 2:03 PM EDT [facility] MCHC 31.0 30.7 - 35.5 g/dL LAB HEMATOLOGY METHOD 09/18/2025 2:03 PM EDT [facility] RDW 16.8(H) 11.5 - 14.5 % LAB HEMATOLOGY METHOD 09/18/2025 2:03 PM EDT [facility] MPV 9.5 8.8 - 12.5 fL LAB HEMATOLOGY METHOD 09/18/2025 2:03 PM EDT [facility] nRBC 0.0 <=0.0 per 100 WBCs LAB HEMATOLOGY METHOD 09/18/2025 2:03 PM EDT [facility] Differential Type Automated LAB HEMATOLOGY METHOD 09/18/2025 2:03 PM EDT [facility] Neutrophils % 74 % LAB HEMATOLOGY METHOD 09/18/2025 2:03 PM EDT [facility] Lymphocytes % 19 % LAB HEMATOLOGY METHOD 09/18/2025 2:03 PM EDT [facility] Monocytes % 6 % LAB HEMATOLOGY METHOD 09/18/2025 2:03 PM EDT [facility] Eosinophils % 1 % LAB HEMATOLOGY METHOD 09/18/2025 2:03 PM EDT [facility] Basophils % 0 % LAB HEMATOLOGY METHOD 09/18/2025 2:03 PM EDT [facility] Immature Granulocytes % 0 % LAB HEMATOLOGY METHOD 09/18/2025 2:03 PM EDT [facility] Neutrophils Absolute 11.25(H) 1.60 - 6.10 10*3/uL LAB HEMATOLOGY METHOD 09/18/2025 2:03 PM EDT [facility] Lymphocytes Absolute 2.96 1.20 - 3.90 10*3/uL LAB HEMATOLOGY METHOD 09/18/2025 2:03 PM EDT [facility] Monocytes Absolute 0.88 0.30 - 0.90 10*3/uL LAB HEMATOLOGY METHOD 09/18/2025 2:03 PM EDT [facility] Eosinophils Absolute 0.16 0.00 - 0.50 10*3/uL LAB HEMATOLOGY METHOD 09/18/2025 2:03 PM EDT [facility] Basophils Absolute 0.04 0.00 - 0.10 10*3/uL LAB HEMATOLOGY METHOD 09/18/2025 2:03 PM EDT [facility] Immature Granulocytes Absolute 0.05 0.00 - 0.06 10*3/uL LAB HEMATOLOGY METHOD 09/18/2025 2:03 PM EDT [facility] Blood Venous blood specimen / Unknown Venipuncture / Unknown 09/18/2025 10:16 AM EDT 09/18/2025 10:59 AM EDT Narrative [facility] - 09/18/2025 2:03 PM EDT Therapeutic decision making should be based on absolute values, rather than percentages. Tyler Suresh MD LAB BLOOD ORDERABLES Final Re sult Performing Organization Address [facility] Co de Phone Number [facility] [address] [place] [address] * (ABNORMAL) C-reactive protein (09/18/2025 10:16 AM EDT) Only the most recent of7 resultswithin the time period is included. CRP, Plasma 9.8(H) <=8.0 mg/L 09/18/2025 1:32 PM EDT [facility] Blood Venous blood specimen / Unknown Venipuncture / Unknown 09/18/2025 10:16 AM EDT 09/18/2025 10:59 AM EDT Narrative [facility] - 09/18/2025 1:32 PM EDT This CRP test is appropriate for assessment of infection, systemic inflammation and/or tissue injury. To assess cardiovascular disease risk order high sensitivity CRP (CRPH). us Tyler Suresh MD LAB BLOOD ORDERABLES Final Re sult Performing Organization Address City/[facility]/ZIP Co de Phone Number [facility] [address] [place] [address] * Urea Nitrogen, Plasma (09/18/2025 10:16 AM EDT) Only the most recent of2 resultswithin the time period is included. BUN, Plasma 7 7 - 21 mg/dL 09/18/2025 1:32 PM EDT [facility] Blood Venous blood specimen / Unknown Venipuncture / Unknown 09/18/2025 10:16 AM EDT 09/18/2025 10:59 AM EDT Tyler Suresh MD LAB BLOOD ORDERABLES Final Re sult Performing Organization Address [facility] de Phone Number [facility] [address] [place] [address] * SEND LUZMARIA MESSAGE (09/05/2025 9:59 AM EDT) Only the most recent of2 resultswithin the time period is included. Urine Urine specimen obtained by clean catch procedure / Unknown Non-blood Collection / Unknown 09/05/2025 9:59 AM EDT 09/05/2025 10:22 AM EDT Peggy Draper MD LAB URINE ORDERABLES Final Resu lt Performing Organization Address [facility] [place] [address] * Urine Venegas Panel (09/05/2025 9:59 AM EDT) Only the most recent of2 resultswithin the time period is included. Extra Sent for Culture 09/05/2025 12:02 PM EDT [facility] Urine Urine specimen obtained by clean catch procedure / Unknown Non-blood Collection / Unknown 09/05/2025 9:59 AM EDT 09/05/2025 10:22 AM EDT Peggy Draper MD LAB URINE ORDERABLES Final Resu lt Performing Organization Address [facility] [place] [address] * Urinalysis Microscopic Examination (09/05/2025 9:59 AM EDT) Only the most recent of3 resultswithin the time period is included. Urine Urine specimen obtained by clean catch procedure / Unknown Non-blood Collection / Unknown 09/05/2025 9:59 AM EDT 09/05/2025 10:02 AM EDT us Peggy Draper MD LAB URINE ORDERABLES Final Resu lt [facility] [address] [place] [address] * (ABNORMAL) Urinalysis with reflex microscopic (Culture NOT Included) (09/05/2025 9:59 AM EDT) Only the most recent of3 resultswithin the time period is included. Color, Urine Yellow LAB URINALYSIS - AUTOMATED METHOD 09/05/2025 10:39 AM EDT [facility] Clarity, Urine Cloudy LAB URINALYSIS - AUTOMATED METHOD 09/05/2025 10:39 AM EDT [facility] Spec Milo, Urine 1.023 1.005 - 1.030 LAB URINALYSIS - AUTOMATED METHOD 09/05/2025 10:39 AM EDT [facility] pH, Urine 6.0 5.0 - 8.0 LAB URINALYSIS - AUTOMATED METHOD 09/05/2025 10:39 AM EDT [facility] Protein, Urine 30(A) Negative mg/dL LAB URINALYSIS - AUTOMATED METHOD 09/05/2025 10:39 AM EDT [facility] Glucose, Urine Negative Negative mg/dL LAB URINALYSIS - AUTOMATED METHOD 09/05/2025 10:39 AM EDT [facility] Ketones, Urine Trace(A) Negative mg/dL LAB URINALYSIS - AUTOMATED METHOD 09/05/2025 10:39 AM EDT [facility] Blood, Urine Negative Negative LAB URINALYSIS - AUTOMATED METHOD 09/05/2025 10:39 AM EDT [facility] Bilirubin, Urine Negative Negative LAB URINALYSIS - AUTOMATED METHOD 09/05/2025 10:39 AM EDT [facility] Urobilinogen, Urine 0.2 0.2 to 1.0 mg/dL LAB URINALYSIS - AUTOMATED METHOD 09/05/2025 10:39 AM EDT [facility] Leukocytes, Urine Large(A) Negative LAB URINALYSIS - AUTOMATED METHOD 09/05/2025 10:39 AM EDT [facility] Nitrite, Urine Negative Negative LAB URINALYSIS - AUTOMATED METHOD 09/05/2025 10:39 AM EDT [facility] RBC, Urine <1 0 to 3 /HPF LAB URINALYSIS - AUTOMATED METHOD 09/05/2025 10:39 AM EDT [facility] Comment:This result was prev iously suppressed from the chart. WBC, Urine >50(A) 0 to 5 /HPF LAB URINALYSIS - AUTOMATED METHOD 09/05/2025 10:39 AM EDT [facility] Comment:This result was prev iously suppressed from the chart. Squamous Epithelial Cells 0 - 2 0 to 5 /HPF LAB URINALYSIS - AUTOMATED METHOD 09/05/2025 10:39 AM EDT [facility] Comment:This result was prev iously suppressed from the chart. Hyaline Casts 3 - 5 0 to 5 /LPF LAB URINALYSIS - AUTOMATED METHOD 09/05/2025 10:39 AM EDT [facility] Comment:This result was prev iously suppressed from the chart. Bacteria, Urine Negative Negative LAB URINALYSIS - AUTOMATED METHOD 09/05/2025 10:39 AM EDT [facility] Comment:This result was prev iously suppressed from the chart. Urine Urine specimen obtained by clean catch procedure / Unknown Non-blood Collection / Unknown 09/05/2025 9:59 AM EDT 09/05/2025 10:02 AM EDT Peggy Draper MD LAB URINE ORDERABLES Final Resu lt Performing Organization Address City/State/[facility] Co de Phone Number [facility] [address] [place] [address] * (ABNORMAL) Urine Culture (09/05/2025 9:59 AM EDT) Only the most recent of2 resultswithin the time period is included. Culture Unable to quantitate due to interfering substance Pseudomonas aeruginosa MDR(AA) KLAUDIA 09/09/2025 11:38 AM EDT [facility] Comment: This isolate has been identified using the FDA Approved [employer] [place] System Edited result: Previously reported as [...] MDR Levofloxacin ETEST 4.0 ug/ml: Resistant Peggy Draper MD LAB MICROBIOLOGY [facility] Final Result [facility] [address] [place] [address] * POCT glucose meter (09/05/2025 9:35 AM EDT) Only the most recent of22 resultswithin the time period is included. POCT Glucose 91 74 - 99 mg/dL 09/05/2025 9:36 AM EDT [facility] Comment:Accuracy of a glucos e [...] for testing. Comment 09/05/2025 9:36 AM EDT [facility] Oral Surgeon ID Ashley Cordero Tiffanie 09/05/2025 9:36 AM EDT [facility] Device ID [id number] 09/05/2025 9:36 AM EDT [facility] Specimen Type POC Capillary 09/05/2025 9:36 AM EDT [facility] Blood Capillary blood specimen / Unknown 09/05/2025 9:35 AM EDT 09/05/2025 9:36 AM EDT Tyler Velasquez MD LAB POINT OF CARE T EST DOCKED DEVICE UNSOLICITED RESULTS Final Result Performing Organization Address [facility] de Phone Number [facility] [address] [place] [address] * (ABNORMAL) Troponin T, High Sensitivity, 2 Hour, Plasma (09/05/2025 8:00 AM EDT) Only the most recent of2 resultswithin the time period is included. Pathologist [facility] Troponin T, High Sensitivity, 2 Hour 20(H) <19 ng/L 09/05/2025 8:25 AM EDT [facility] Troponin Delta 6 <10 ng/L 09/05/2025 8:25 AM EDT [facility] Troponin Delta Interpretation Not Significant 09/05/2025 8:25 AM EDT [facility] Comment:Not Significant. No acute change in troponin observed between the baseline and 2 hour samples. Blood Venous blood specimen / Unknown Venipuncture / Unknown 09/05/2025 8:00 AM EDT 09/05/2025 8:02 AM EDT Peggy Draper MD LAB BLOOD ORDERABLES Final Resu lt Performing Organization Address [facility] de Phone Number [facility] [address] [place] [address] * EKG now - STAT (adult) (09/05/2025 5:05 AM EDT) Only the most recent of6 resultswithin the time period is included. EKG DIAGNOSIS CLASS Abnormal MUSE ECG Ventricular Rate 93 BPM MUSE ECG Atrial Rate 93 BPM MUSE ECG CA Interval 128 ms MUSE ECG QRSD Interval 88 ms MUSE ECG QT Interval 336 ms MUSE ECG QTC Interval 417 ms MUSE ECG P [place] 58 degrees MUSE ECG R [place] 71 degrees MUSE ECG T Wave [place] -53 degrees MUSE ECG Diagnosis Normal sinus rhythm MUSE ECG Diagnosis Nonspecific T wave abnormality MUSE ECG Diagnosis Abnormal ECG MUSE ECG Diagnosis MUSE ECG Diagnosis Confirmed by Tre Balderas ([id number]) on 09/05/2025 11:43:06 AM MUSE ECG 09/05/2025 5:05 AM EDT 09/05/2025 11:43 AM EDT us Peggy Draper MD ECG ORDERABLES Final Result MUSE ECG * (ABNORMAL) FINN IgG Gel (09/05/2025 5:03 AM EDT) FINN IgG Positive(A) 09/05/2025 7:37 AM EDT [facility] Blood Venous blood specimen / Unknown Venipuncture / Unknown 09/05/2025 5:03 AM EDT 09/05/2025 5:10 AM EDT us Peggy Draper MD LAB BLOOD BANK TEST ORDERABLES Final Result Performing Organization Address City/[facility] Co de Phone Number [facility] [address] [place] [address], [place] * [place] Screen (09/05/2025 5:03 AM EDT) [place] Screen Negative 09/05/2025 7:44 AM EDT [facility] Blood Venous blood specimen / Unknown Venipuncture / Unknown 09/05/2025 5:03 AM EDT 09/05/2025 5:10 AM EDT us Peggy Draper MD LAB BLOOD BANK TEST ORDERABLES Final Result Performing Organization Address City/[facility] Co de Phone Number [facility]LOOD BANK [address] [place] [address], [place] * (ABNORMAL) Troponin now and 120 min (09/05/2025 5:03 AM EDT) Only the most recent of2 resultswithin the time period is included. Troponin T, High Sensitivity, 0 Hour 26(H) <19 ng/L 09/05/2025 6:16 AM EDT [facility] Blood Venous blood specimen / Unknown Venipuncture / Unknown 09/05/2025 5:03 AM EDT 09/05/2025 5:15 AM EDT us Peggy Draper MD LAB BLOOD ORDERABLES Final Resu lt [facility] [address] [place] [address] * Difficult Crossmatch, Pathologist Interpretation (09/05/2025 5:03 AM EDT) Clinical Diagnosis, Difficult Crossmatch Anemia 09/06/2025 11:03 [...] TEST ORDERABLES Final Result Performing Organization Address City/[facility]/ZIP Co de Phone Number BLOOD BANK [address] [place] [address], * Antibody Identification (09/05/2025 5:03 AM EDT) Antibody ID Non-specif ic [place] 09/05/2025 8:51 AM EDT [facility]LO[facility] Blood Venous blood specimen / Unknown Venipuncture / Unknown 09/05/2025 5:03 AM EDT 09/05/2025 5:10 AM EDT Peggy Draper MD LAB BLOOD BANK TEST ORDERABLES Final Result Performing Organization Address [facility] de Phone Number BLOOD BANK [address] [place] [address], * (ABNORMAL) Sed rate, automated (09/05/2025 5:03 AM EDT) Only the most recent of2 resultswithin the time period is included. Sedimentation Rate 97(H) <15 mm/hr 2024 6:00 AM EDT [facility] Blood Venous blood specimen / Unknown Venipuncture / Unknown 09/05/2025 5:03 AM EDT 09/05/2025 5:10 AM EDT Peggy Draper MD LAB BLOOD ORDERABLES Final Resu lt Performing Organization Address City/[facility]/ZIP Co de Phone Number [facility] [address] [place] [address] * (ABNORMAL) Type and screen (09/05/2025 5:03 AM EDT) Only the most recent of4 resultswithin the time period is included. ABO/Rh O Positive 09/05/2025 5:10 AM EDT [facility]LO[facility] Antibody Screen Positive(A) 09/05/2025 5:10 AM EDT [facility] Specimen Expiration 09/08/2025 23:59 09/05/2025 5:10 AM EDT [facility] Blood Venous blood specimen / Unknown Venipuncture / Unknown 09/05/2025 5:03 AM EDT 09/05/2025 5:10 AM EDT Peggy Draper MD LAB BLOOD BANK TEST ORDERABLES Final Result Performing Organization Address City/[facility]/ZIP Co de Phone Number BLOOD BANK [address] [place] [address], * (ABNORMAL) Magnesium (09/05/2025 5:03 AM EDT) Only the most recent of20 resultswithin the time period is included. Magnesium, Plasma 1.3(L) 1.9 - 2.4 mg/dL 09/05/2025 6:16 AM EDT [facility] Blood Venous blood specimen / Unknown Venipuncture / Unknown 09/05/2025 5:03 AM EDT 09/05/2025 5:15 AM EDT Peggy Draper MD LAB BLOOD ORDERABLES Final Resu lt [facility] [address] [place] [address] * (ABNORMAL) CMP (09/05/2025 5:03 AM EDT) Only the most recent of11 resultswithin the time period is included. Glucose, Plasma 86 74 - 99 mg/dL 09/05/2025 6:16 AM EDT [facility] BUN, Plasma 5(L) 7 - 21 mg/dL 09/05/2025 6:16 AM EDT [facility] Creatinine, Plasma 0.26(L) 0.70 - 1.20 mg/dL 09/05/2025 6:16 AM EDT [facility] BUN/Creatinine Ratio 19 09/05/2025 6:16 AM EDT [facility] Sodium, Plasma 136 136 - 145 mmol/L 09/05/2025 6:16 AM EDT [facility] Potassium, Plasma 3.5(L) 3.6 - 4.9 mmol/L 09/05/2025 6:16 AM EDT [facility] Chloride, Plasma 103 97 - 107 mmol/L 09/05/2025 6:16 AM EDT [facility] CO2, Plasma 23 22 - 29 mmol/L 09/05/2025 6:16 AM EDT [facility] Anion Gap 10 6 - 16 mmol/L 09/05/2025 6:16 AM EDT [facility] Total Calcium, Plasma 9.3 8.9 - 10.2 mg/dL 09/05/2025 6:16 AM EDT [facility] Total Protein 7.2 6.3 - 7.9 g/dL 09/05/2025 6:16 AM EDT [facility] Albumin, Plasma 3.2(L) 3.5 - 5.2 g/dL 09/05/2025 6:16 AM EDT [facility] AST, Plasma 12 10 - 50 U/L 09/05/2025 6:16 AM EDT [facility] ALT, Plasma <5(L) 10 - 50 U/L 09/05/2025 6:16 AM EDT [facility] Alkaline Phosphatase, Plasma 63 40 - 115 U/L 09/05/2025 6:16 AM EDT [facility] Total Bilirubin, Plasma 0.2 0.2 - 1.1 mg/dL 09/05/2025 6:16 AM EDT [facility] eGFRcr 181.3 mL/min/1.7 3m*2 09/05/2025 6:16 AM EDT [facility] Comment:Reported eGFRcr in m L/min/1.73m2 is based the CKD-EPI 2020 equation that does not use a race coefficient. Blood Venous blood specimen / Unknown Venipuncture / Unknown 09/05/2025 5:03 AM EDT 09/05/2025 5:15 AM EDT us Peggy Draper MD LAB BLOOD ORDERABLES Final Resu lt [facility] [address] [place] [address] * PICC SINGLE LUMEN (SMART[employer] LINK) (08/21/2025 3:10 AM EDT) Narrative Vamsi Garza RN - 08/21/2025 3:10 AM EDT Vamsi Garza RN 08/21/2025 4:03 AM Insert PICC line Performed by: Vamsi Garza RN Authorized by: Monica Denny DO R[place]ana Protocol: Verbal consent obtained?: Yes Written consent [...] Left Location (Adult): Basilic vein (largest vein, [id number] ratio 21%) Site selection rationale: Patient's preference, non-dominate arm. Patient position: Supine Catheter Lot #: [id number] Catheter car wrecker: Bard Power PICC Solo Catheter placed: Single lumen Catheter size: 4 Fr Catheter trimmed length: 46 Catheter threaded length: 46 Vein placed in: SVC Catheter cm indwellin Catheter cm outside: 0 Placement confirmed by: John 3CG technology Pre-procedure: Landmarks identified Ultrasound guidance: [...] the patient.: Yes Comments: VAT consult for PICC per ID recommendations. Images of vein and Sherlock 3CG uploaded to PACS. Green alcohol cap placed on end of lumen hub/heplock. [place] limb precaution armband placed on left wrist for PICC precautions while PICC is in place (No sticks/BP's). VAT consult completed. Monica Denny DO IV THERAPY ORDERABLES Edited [...] - 40.0 ug/mL 08/19/2025 8:53 PM EDT [facility] Blood Venous blood specimen / Unknown Venipuncture / Unknown 08/19/2025 8:07 PM EDT 08/19/2025 8:15 PM EDT Narrative [facility] - 08/19/2025 8:53 PM EDT Therapeutic Peak level: 20-40ug/mL Supra-therapeutic Peak level: >40 ug/mL us Lena Sanchez DO LAB BLOOD ORDERABLES Final Resu lt [facility] [address] [place] [address] * Vancomycin, Trough, Plasma Please draw ~30 minutes prior to dose due at 1700 on Sunday 08/19. [place] NOT hold dose awaiting level to return.Consider obtaining level via peripheral stick. If peripheral stick is not feasible, please ensure that l... (08/19/2025 4:41 PM EDT) Vancomycin, Trough, Plasma 14.6 10.0 - 20.0 ug/mL 08/19/2025 5:27 PM EDT [facility] Blood Venous blood specimen / Unknown Venipuncture / Unknown 08/19/2025 4:41 PM EDT 08/19/2025 4:47 PM EDT Narrative [facility] - 08/19/2025 5:27 PM EDT Therapeutic Trough level: 10-20ug/mL Supra-therapeutic Trough level: >20 ug/mL Lena Moreno Laura DO LAB BLOOD ORDERABLES Final Resu lt [facility] [address] [place] [address] * (ABNORMAL) CBC W/O Differential (08/19/2025 4:43 AM EDT) Only the most recent of23 resultswithin the time period is included. WBC Count 13.72(H) 3.70 - 10.30 10*3/uL LAB HEMATOLOGY METHOD 08/19/2025 4:52 AM EDT [facility] RBC Count 3.23(L) 4.60 - 6.10 10*6/uL LAB HEMATOLOGY METHOD 08/19/2025 4:52 AM EDT [facility] HGB 9.7(L) 13.7 - 17.5 g/dL LAB HEMATOLOGY METHOD 08/19/2025 4:52 AM EDT [facility] HCT 29.2(L) 40.0 - 51.0 % LAB HEMATOLOGY METHOD 08/19/2025 4:52 AM EDT [facility] Platelet Count 673(H) 155 - 369 10*3/uL LAB HEMATOLOGY METHOD 08/19/2025 4:52 AM EDT [facility] MCV 90 79 - 98 fL LAB HEMATOLOGY METHOD 08/19/2025 4:52 AM EDT [facility] MCH 30.0 26.0 - 32.0 pg LAB HEMATOLOGY METHOD 08/19/2025 4:52 AM EDT [facility] MCHC 33.2 30.7 - 35.5 g/dL LAB HEMATOLOGY METHOD 08/19/2025 4:52 AM EDT [facility] RDW 15.9(H) 11.5 - 14.5 % LAB HEMATOLOGY METHOD 08/19/2025 4:52 AM EDT [facility] MPV 8.9 8.8 - 12.5 fL LAB HEMATOLOGY METHOD 08/19/2025 4:52 AM EDT [facility] nRBC 0.0 <=0.0 per 100 WBCs LAB HEMATOLOGY METHOD 08/19/2025 4:52 AM EDT [facility] Blood Venous blood specimen / Unknown Venipuncture / Unknown 08/19/2025 4:43 AM EDT 08/19/2025 4:51 AM EDT [facility] BLOOD ORDERABLES Final Resu lt Performing Organization Address [facility] Co de Phone Number [facility] [address] [place] [address] * Methicillin Resistant Staphylococcus aureus (MRSA) by PCR (08/18/2025 6:30 AM EDT) Pathologist [facility] Methicillin Resistant Staphylococcus aureus (MRSA) by PCR Not Detected Not Detected 08/18/2025 8:50 AM EDT [facility] Swab Both anterior nares / Unknown Non-blood Collection / Unknown 08/18/2025 6:30 AM EDT 08/18/2025 7:18 AM EDT Narrative [facility] - 08/18/2025 8:50 AM EDT This test is FDA approved for use with nares swab specimens using the eSwabs. This test is used for clinical purposes. It should not be regarded as investigational or for research. This laboratory is certified under the Clinical Laboratory improvement Amendments of 1988 (CLIA-88 as qualified to perform high complexity clinical laboratory testing. [facility] MICROBIOLOGY - GENERAL ORDE RABLES Final Result Performing Organization Address [facility] de Phone Number [address] [address] * MR Pelvis w and wo IV [...] amount of presacral fluid. Procedure Note Bridger Calderon MD - 08/18/2025 CLINICAL INDICATION: Osteomyelitis suspected, [...] WOUND Moderate Growth 08/20/2025 1:55 PM EDT [facility] CULTURE READING WOUND 4+ Mixed skin dedra(A) KLAUDIA 08/20/2025 1:55 PM EDT [facility] Comment:The organism value f or this result has been updated. These results have been appended to the previously preliminary verified report. CULTURE READING WOUND 4+ Staphylococcus aureus(A) KLAUDIA 08/20/2025 1:55 PM EDT [facility] Comment:The organism value f or this result has been updated. These results have been appended to the previously preliminary verified report. CULTURE READING WOUND 1+ Escherichia coli(A) KLAUDIA 08/20/2025 1:55 PM EDT [facility] Comment: This isolate has been identified using the FDA Approved Segopot[employer] CA System The organism value for this result has been updated. These results have been appended to the previously preliminary verified report. Edited result: Previously reported as Gram Negative Ousmane on 08/19/2025 at 1356 EDT. Gram Stain Result Numerous Polymorphonuclear leukocytes(A) 08/20/2025 1:55 PM EDT [facility] Gram Stain Result Numerous Gram positive cocci in pairs(A) 08/20/2025 1:55 PM EDT [facility] Swab Skin structure / Unknown Non-blood [...] Trimethoprim/Sulfame thoxazol e KLAUDIA <=0.5/9.5 ug/ml: Susceptible Nakul Agarwal MD LAB MICROBIOLOGY - YingYang NERAL ORDERABLES Final Result [facility] [address] [place] [address] * CT Bony Pelvis (08/17/2025 10:36 PM [...] Decubitus ulcer extends to the coccyx and [id number] segment with changes of osteomyelitis in the [...] Haresh Carranza MD on 08/17/2025 11:58 PM Nakul Agarwal MD IMG CT PROCEDURES Fin al Result * CT Abdomen Pelvis w IV Contrast (08/17/2025 10:36 PM EDT) Only the most recent of2 resultswithin the time period is included. Anatomical Region Laterality Modality Abdomen, Pelvis Computed [...] Haresh Carranza MD on 08/17/2025 11:07 PM us Nakul Agarwal MD IMG CT PROCEDURES Fin al Result * Blood Culture (Aerobic/Anaerobet Set) (08/17/2025 8:17 PM EDT) Only the most recent of6 resultswithin the time period is included. Culture No growth at day 5 08/22/2025 9:01 PM EDT [facility] Blood Structure of left wrist region / Unknown Venipuncture / Unknown 08/17/2025 8:17 PM EDT 08/17/2025 8:38 PM EDT Narrative [facility] - 08/22/2025 9:01 PM EDT Low blood volume submitted, results may be compromised us Nakul Agarwal MD LAB MICROBIOLOGY - GE NERAL ORDERABLES Final Result [facility] [address] [place] [address] * XR Chest 1 View (08/17/2025 7:49 PM EDT) Only the most recent of30 resultswithin the time period is included. Anatomical Region Laterality Modality Chest Digital Radiogra [...] Leija MD on 08/17/2025 8:31 PM us Nakul Agarwal MD IMG XR PROCEDURES Fin al Result * Lactic acid, venous (08/17/2025 6:52 PM EDT) Only the most recent of2 resultswithin the time period is included. Lactate, Venous, Whole Blood 1.6 0.5 - 2.2 mmol/L LAB HEMATOLOGY METHOD 08/17/2025 7:09 PM EDT [facility] Blood Venous blood specimen / Unknown Venipuncture / Unknown 08/17/2025 6:52 PM EDT 08/17/2025 7:07 PM EDT us Nakul Agarwal MD LAB BLOOD ORDERABLES Final Result [facility] [address] [place] [address] * (ABNORMAL) Procalcitonin (08/17/2025 6:52 PM EDT) Only the most recent of6 resultswithin the time period is included. Procalcitonin, Plasma 0.12(H) <0.09 ng/mL 08/17/2025 7:32 PM EDT [facility] Blood Venous blood specimen / Unknown Venipuncture / Unknown 08/17/2025 6:52 PM EDT 08/17/2025 6:57 PM EDT Narrative [facility] - 08/17/2025 7:32 PM EDT Procalcitonin [...] predict 28 day mortality risk. Please consult www.grpghf-gxz-oktnixisdl.com for more information. Test performed at [facility]. us Nakul Agarwal MD LAB BLOOD ORDERABLES Final Result Performing Organization Address [facility] Co de Phone Number [facility] [address] [place] [address] * (ABNORMAL) PT-INR (08/17/2025 6:52 PM EDT) Only the most recent of3 resultswithin the time period is included. Prothrombin Time 15.7(H) 12.0 - 14.3 sec 08/17/2025 7:18 PM EDT [facility] INR 1.2(H) 0.9 - 1.1 08/17/2025 7:18 PM EDT [facility] Blood Venous blood specimen / Unknown Venipuncture / Unknown 08/17/2025 6:52 PM EDT 08/17/2025 6:57 PM EDT Narrative [facility] - 08/17/2025 7:18 PM EDT OPTIMAL INR RANGES FOR PATIENT ON ORAL ANTICOAGULANT THERAPY Prevention of venous thromboembolism INR 2.0 to 3.0 In patients with heart disease: Atrial fibrillation INR 2.0 to 3.0 Valvular heart disease INR 2.0 to 3.0 Tissue heart valves INR 2.0 to 3.0 Mechanical prosthetic valves INR 2.5 to 3.5 Prevention of recurrent PA INR 2.5 to 3.5 us Nakul Agarwal MD LAB BLOOD ORDERABLES Final Result Performing Organization Address [facility] Co de Phone Number [facility] [address] [place] [address] * Phosphorus (08/17/2025 6:52 PM EDT) Only the most recent of26 resultswithin the time period is included. Phosphorus, Plasma 4.2 2.5 - 4.5 mg/dL 08/17/2025 7:32 PM EDT [facility] Blood Venous blood specimen / Unknown Venipuncture / Unknown 08/17/2025 6:52 PM EDT 08/17/2025 6:57 PM EDT Nakul Agarwal MD LAB BLOOD ORDERABLES Final Result [facility] [address] [place] [address] * CA DEBRIDEMENT OPEN WOUND 20 SQ CM< (08/17/2025 [...] provider verified the correct patient, procedure, equipment, software support engineer, and site/side marked as required. Debridement Details [...] Response to treatment: procedure was tolerated well us Chan Zhang DO IN CLINIC/BEDSIDE ORDERABLES F inal Result * Lavender Top (08/04/2025 3:59 AM EDT) Extra Hold for add-ons 08/04/2025 6:01 AM EDT [facility] Comment:Auto resulted. Blood Venous blood specimen / Unknown 08/04/2025 3:59 AM EDT 08/04/2025 3:59 AM EDT Marin Bradford MD LAB BLOOD ORDERABLES Final R esult Performing Organization Address [facility] Co de Phone Number [facility] [address] [place] [address] * TSH (08/04/2025 3:53 AM EDT) Only the most recent of2 resultswithin the time period is included. Thyroid Stimulating Hormone, Plasma 2.18 0.40 - 4.20 uIU/mL 08/04/2025 4:39 AM EDT [facility] Blood Venous blood specimen / Unknown Venipuncture / Unknown 08/04/2025 3:53 AM EDT 08/04/2025 3:59 AM EDT Natalie HINES LAB BLOOD ORDERABLES Final Re sult Performing Organization Address [facility] de Phone Number [facility] [address] [place] [address] * (ABNORMAL) T4, free (08/04/2025 3:53 AM EDT) Only the most recent of2 resultswithin the time period is included. Free T4, Plasma 1.8(H) 0.8 - 1.7 ng/dL 08/04/2025 4:39 AM EDT [facility] Blood Venous blood specimen / Unknown Venipuncture / Unknown 08/04/2025 3:53 AM EDT 08/04/2025 3:59 AM EDT Natalie HINES LAB BLOOD ORDERABLES Final Re sult Performing Organization Address [facility] Co de Phone Number [facility] [address] [place] [address] * Light Green Top (08/03/2025 4:20 AM EDT) Extra Hold for add-ons 08/03/2025 7:01 AM EDT [facility] Comment:Auto resulted. Blood Venous blood specimen / Unknown 08/03/2025 4:20 AM EDT 08/03/2025 4:27 AM EDT us Jayden Perera MD LAB BLOOD ORDERABLES Final R esult [facility] [address] [place] [address] * Tracheostomy Replacement (08/02/2025 2:35 PM EDT) Narrative Charlene Campuzano PA - 08/02/2025 2:35 PM EDT Charlene Campuzano PA 08/02/2025 2:38 PM Tracheostomy Replacement Performed by: Charlene Campuzano PA Authorized by: Charlene Campuzano PA Consent: Verbal consent obtained Risks and benefits: risks, benefits and alternatives were discussed Consent given by: patient Patient understanding: patient states understanding of the procedure being performed Patient identity confirmed: verbally with patient Indications: weaning protocol Local anesthesia used: no Anesthesia: Local anesthesia used: no Sedation: Patient sedated: no Tube cuff: cuffless Tube size: 6.0 mm Patient tolerance: patient tolerated the procedure well with no immediate complications Charlene HINES IN CLINIC/BEDSIDE ORDERABLES Fi nal Result * XR Abdomen 1 View (08/01/2025 11:29 PM EDT) Only the most recent of6 resultswithin the time period is included. Anatomical Region Laterality Modality Body Digital Radiogra phy Impressions 08/01/2025 11:30 PM EDT Nonobstructive bowel gas pattern CRITICAL RESULT: No. COMMUNICATION: Per this written report. Drafted by Melquiades Peters MD on 08/01/2025 11:30 PM Final report signed by Melquiades Peters MD on 08/01/2025 11:30 PM Narrative 08/01/2025 11:30 PM EDT CLINICAL INDICATION: nausea, vomiting TECHNIQUE: Supine radiograph of the abdomen. COMPARISON: None. FINDINGS: Moderate diffuse distention of colon with gas and stool. The bowel gas pattern is nonobstructive. Instrumentation in bilateral femurs. Enteric tube tip overlies peripyloric region. Procedure Note Melquiades Peters MD - 08/01/2025 CLINICAL INDICATION: nausea, vomiting TECHNIQUE: Supine radiograph of the abdomen. COMPARISON: None. FINDINGS: Moderate diffuse distention of colon with gas and stool. The bowel gaspattern is nonobstructive. Instrumentation in bilateral femurs. Enterictube tip overlies peripyloric region. IMPRESSION: Nonobstructive bowel gas pattern CRITICAL RESULT: No. COMMUNICATION: Per this written report. Drafted by Melquiades Peters MD on 08/01/2025 11:30 PM Final report signed by Melquiades Peters MD on 08/01/2025 11:30 PM us Marin Bradford MD IMG XR PROCEDURES Final Resu lt * XR Foot Left 3+ Views (08/01/2025 6:16 PM EDT) Anatomical Region Laterality Modality Lower Extremities, Foot Left Digital Radiography Impressions 08/02/2025 4:54 AM EDT Left foot: Age-indeterminate avulsion fracture of the tip of the medial malleolus. Redemonstration of an acute fracture of the third digit distal metatarsal diaphysis. Right femur, knee: Removal of the external fixation hardware. Interval retrograde intramedullary nail through the femur. Similar alignment of the displaced fracture of the distal femoral diaphysis. Similar alignment of the displaced fracture of the proximal fibular diaphysis. Plate and screw fixation construct of the proximal tibia is again seen. Similar alignment of the tibial plateau fractures. No apparent hardware complication. Left femur: Intramedullary nail through the femur, with femoral neck screw. No apparent hardware complication. Similar alignment of the fracture of the femoral diaphysis. CRITICAL RESULT: No. COMMUNICATION: Per this written report. Drafted by Twan Hickman MD on 08/02/2025 4:45 AM Final report signed by Twan Hickman MD on 08/02/2025 4:54 AM Narrative 08/02/2025 4:54 AM EDT CLINICAL INDICATION: post-op TECHNIQUE: XR FOOT LEFT 3+ VIEWS, XR KNEE RIGHT 3 VIEWS, XR FEMUR LEFT 2+ VIEWS, XR FEMUR RIGHT 2+ VIEWS COMPARISON: Radiographs July 02, 2025 and June 05, 2025 FINDINGS: Left foot: Age-indeterminate avulsion fracture of the tip of the medial malleolus. Redemonstration of an acute fracture of the third digit distal metatarsal diaphysis. Right femur, knee: Removal of the external fixation hardware. Interval retrograde intramedullary nail through the femur. Similar alignment of the displaced fracture of the distal femoral diaphysis. Similar alignment of the displaced fracture of the proximal fibular diaphysis. Plate and screw fixation construct of the proximal tibia is again seen. Similar alignment of the tibial plateau fractures. No apparent hardware complication. Left femur: Intramedullary nail through the femur, with femoral neck screw. No apparent hardware complication. Similar alignment of the fracture of the femoral diaphysis. Procedure Note Twan Hickman MD - 08/02/2025 CLINICAL INDICATION: post-op TECHNIQUE: XR FOOT LEFT 3+ VIEWS, XR KNEE RIGHT 3 VIEWS, XR FEMUR LEFT 2+ VIEWS, XRFEMUR RIGHT 2+ VIEWS COMPARISON: Radiographs July 02, 2025 and June 05, 2025 FINDINGS: Left foot: Age-indeterminate avulsion fracture of the tip of the medial malleolus.Redemonstration of an acute fracture of the third digit distal metatarsaldiaphysis. Right femur, knee: Removal of the external fixation hardware. Interval retrogradeintramedullary nail through the femur. Similar alignment of the displacedfracture of the distal femoral diaphysis. Similar alignment of thedisplaced fracture of the proximal fibular diaphysis. Plate and screwfixation construct of the proximal tibia is again seen. Similar alignmentof the tibial plateau fractures. No apparent hardware complication. Left femur: Intramedullary nail through the femur, with femoral neck screw. Noapparent hardware complication. Similar alignment of the fracture of thefemoral diaphysis. IMPRESSION: Left foot: Age-indeterminate avulsion fracture of the tip of the medial malleolus.Redemonstration of an acute fracture of the third digit distal metatarsaldiaphysis. Right femur, knee: Removal of the external fixation hardware. Interval retrogradeintramedullary nail through the femur. Similar alignment of the displacedfracture of the distal femoral diaphysis. Similar alignment of thedisplaced fracture of the proximal fibular diaphysis. Plate and screwfixation construct of the proximal tibia is again seen. Similar alignmentof the tibial plateau fractures. No apparent hardware complication. Left femur: Intramedullary nail through the femur, with femoral neck screw. Noapparent hardware complication. Similar alignment of the fracture of thefemoral diaphysis. CRITICAL RESULT: No. COMMUNICATION: Per this written report. Drafted by Twan Hickman MD on 08/02/2025 4:45 AM Final report signed by Twan Hickman MD on 08/02/2025 4:54 AM us Marin Bradford MD IMG XR PROCEDURES Final Resu lt * XR Knee Right 3 Views (08/01/2025 6:16 PM EDT) Only the most recent of2 resultswithin the time period is included. Anatomical Region Laterality Modality Lower Extremities, Knee Right Digital Radiography Impressions 08/02/2025 4:54 AM EDT Left foot: Age-indeterminate avulsion fracture of the tip of the medial malleolus. Redemonstration of an acute fracture of the third digit distal metatarsal diaphysis. Right femur, knee: Removal of the external fixation hardware. Interval retrograde intramedullary nail through the femur. Similar alignment of the displaced fracture of the distal femoral diaphysis. Similar alignment of the displaced fracture of the proximal fibular diaphysis. Plate and screw fixation construct of the proximal tibia is again seen. Similar alignment of the tibial plateau fractures. No apparent hardware complication. Left femur: Intramedullary nail through the femur, with femoral neck screw. No apparent hardware complication. Similar alignment of the fracture of the femoral diaphysis. CRITICAL RESULT: No. COMMUNICATION: Per this written report. Drafted by Twan Hickman MD on 08/02/2025 4:45 AM Final report signed by Twan Hickman MD on 08/02/2025 4:54 AM Narrative 08/02/2025 4:54 AM EDT CLINICAL INDICATION: post-op TECHNIQUE: XR FOOT LEFT 3+ VIEWS, XR KNEE RIGHT 3 VIEWS, XR FEMUR LEFT 2+ VIEWS, XR FEMUR RIGHT 2+ VIEWS COMPARISON: Radiographs July 02, 2025 and June 05, 2025 FINDINGS: Left foot: Age-indeterminate avulsion fracture of the tip of the medial malleolus. Redemonstration of an acute fracture of the third digit distal metatarsal diaphysis. Right femur, knee: Removal of the external fixation hardware. Interval retrograde intramedullary nail through the femur. Similar alignment of the displaced fracture of the distal femoral diaphysis. Similar alignment of the displaced fracture of the proximal fibular diaphysis. Plate and screw fixation construct of the proximal tibia is again seen. Similar alignment of the tibial plateau fractures. No apparent hardware complication. Left femur: Intramedullary nail through the femur, with femoral neck screw. No apparent hardware complication. Similar alignment of the fracture of the femoral diaphysis. Procedure Note Twan Hickman MD - 08/02/2025 CLINICAL INDICATION: post-op TECHNIQUE: XR FOOT LEFT 3+ VIEWS, XR KNEE RIGHT 3 VIEWS, XR FEMUR LEFT 2+ VIEWS, XRFEMUR RIGHT 2+ VIEWS COMPARISON: Radiographs July 02, 2025 and June 05, 2025 FINDINGS: Left foot: Age-indeterminate avulsion fracture of the tip of the medial malleolus.Redemonstration of an acute fracture of the third digit distal metatarsaldiaphysis. Right femur, knee: Removal of the external fixation hardware. Interval retrogradeintramedullary nail through the femur. Similar alignment of the displacedfracture of the distal femoral diaphysis. Similar alignment of thedisplaced fracture of the proximal fibular diaphysis. Plate and screwfixation construct of the proximal tibia is again seen. Similar alignmentof the tibial plateau fractures. No apparent hardware complication. Left femur: Intramedullary nail through the femur, with femoral neck screw. Noapparent hardware complication. Similar alignment of the fracture of thefemoral diaphysis. IMPRESSION: Left foot: Age-indeterminate avulsion fracture of the tip of the medial malleolus.Redemonstration of an acute fracture of the third digit distal metatarsaldiaphysis. Right femur, knee: Removal of the external fixation hardware. Interval retrogradeintramedullary nail through the femur. Similar alignment of the displacedfracture of the distal femoral diaphysis. Similar alignment of thedisplaced fracture of the proximal fibular diaphysis. Plate and screwfixation construct of the proximal tibia is again seen. Similar alignmentof the tibial plateau fractures. No apparent hardware complication. Left femur: Intramedullary nail through the femur, with femoral neck screw. Noapparent hardware complication. Similar alignment of the fracture of thefemoral diaphysis. CRITICAL RESULT: No. COMMUNICATION: Per this written report. Drafted by Twan Hickman MD on 08/02/2025 4:45 AM Final report signed by Twan Hickman MD on 08/02/2025 4:54 AM us Marin Bradford MD IMG XR PROCEDURES Final Resu lt * XR Femur Right 2+ Views (08/01/2025 6:16 PM EDT) Anatomical Region Laterality Modality Lower Extremities, Femur Right Digital Radiography Impressions 08/02/2025 4:54 AM EDT Left foot: Age-indeterminate avulsion fracture of the tip of the medial malleolus. Redemonstration of an acute fracture of the third digit distal metatarsal diaphysis. Right femur, knee: Removal of the external fixation hardware. Interval retrograde intramedullary nail through the femur. Similar alignment of the displaced fracture of the distal femoral diaphysis. Similar alignment of the displaced fracture of the proximal fibular diaphysis. Plate and screw fixation construct of the proximal tibia is again seen. Similar alignment of the tibial plateau fractures. No apparent hardware complication. Left femur: Intramedullary nail through the femur, with femoral neck screw. No apparent hardware complication. Similar alignment of the fracture of the femoral diaphysis. CRITICAL RESULT: No. COMMUNICATION: Per this written report. Drafted by Twan Hickman MD on 08/02/2025 4:45 AM Final report signed by Twan Hickman MD on 08/02/2025 4:54 AM Narrative 08/02/2025 4:54 AM EDT CLINICAL INDICATION: post-op TECHNIQUE: XR FOOT LEFT 3+ VIEWS, XR KNEE RIGHT 3 VIEWS, XR FEMUR LEFT 2+ VIEWS, XR FEMUR RIGHT 2+ VIEWS COMPARISON: Radiographs July 02, 2025 and June 05, 2025 FINDINGS: Left foot: Age-indeterminate avulsion fracture of the tip of the medial malleolus. Redemonstration of an acute fracture of the third digit distal metatarsal diaphysis. Right femur, knee: Removal of the external fixation hardware. Interval retrograde intramedullary nail through the femur. Similar alignment of the displaced fracture of the distal femoral diaphysis. Similar alignment of the displaced fracture of the proximal fibular diaphysis. Plate and screw fixation construct of the proximal tibia is again seen. Similar alignment of the tibial plateau fractures. No apparent hardware complication. Left femur: Intramedullary nail through the femur, with femoral neck screw. No apparent hardware complication. Similar alignment of the fracture of the femoral diaphysis. Procedure Note Twan Hickman MD - 08/02/2025 CLINICAL INDICATION: post-op TECHNIQUE: XR FOOT LEFT 3+ VIEWS, XR KNEE RIGHT 3 VIEWS, XR FEMUR LEFT 2+ VIEWS, XRFEMUR RIGHT 2+ VIEWS COMPARISON: Radiographs July 02, 2025 and June 05, 2025 FINDINGS: Left foot: Age-indeterminate avulsion fracture of the tip of the medial malleolus.Redemonstration of an acute fracture of the third digit distal metatarsaldiaphysis. Right femur, knee: Removal of the external fixation hardware. Interval retrogradeintramedullary nail through the femur. Similar alignment of the displacedfracture of the distal femoral diaphysis. Similar alignment of thedisplaced fracture of the proximal fibular diaphysis. Plate and screwfixation construct of the proximal tibia is again seen. Similar alignmentof the tibial plateau fractures. No apparent hardware complication. Left femur: Intramedullary nail through the femur, with femoral neck screw. Noapparent hardware complication. Similar alignment of the fracture of thefemoral diaphysis. IMPRESSION: Left foot: Age-indeterminate avulsion fracture of the tip of the medial malleolus.Redemonstration of an acute fracture of the third digit distal metatarsaldiaphysis. Right femur, knee: Removal of the external fixation hardware. Interval retrogradeintramedullary nail through the femur. Similar alignment of the displacedfracture of the distal femoral diaphysis. Similar alignment of thedisplaced fracture of the proximal fibular diaphysis. Plate and screwfixation construct of the proximal tibia is again seen. Similar alignmentof the tibial plateau fractures. No apparent hardware complication. Left femur: Intramedullary nail through the femur, with femoral neck screw. Noapparent hardware complication. Similar alignment of the fracture of thefemoral diaphysis. CRITICAL RESULT: No. COMMUNICATION: Per this written report. Drafted by Twan Hickman MD on 08/02/2025 4:45 AM Final report signed by Twan Hickman MD on 08/02/2025 4:54 AM us Marin Bradford MD IMG XR PROCEDURES Final Resu lt * XR Femur Left 2+ Views (08/01/2025 6:16 PM EDT) Anatomical Region Laterality Modality Lower Extremities, Femur Left Digital Radiography Impressions 08/02/2025 4:54 AM EDT Left foot: Age-indeterminate avulsion fracture of the tip of the medial malleolus. Redemonstration of an acute fracture of the third digit distal metatarsal diaphysis. Right femur, knee: Removal of the external fixation hardware. Interval retrograde intramedullary nail through the femur. Similar alignment of the displaced fracture of the distal femoral diaphysis. Similar alignment of the displaced fracture of the proximal fibular diaphysis. Plate and screw fixation construct of the proximal tibia is again seen. Similar alignment of the tibial plateau fractures. No apparent hardware complication. Left femur: Intramedullary nail through the femur, with femoral neck screw. No apparent hardware complication. Similar alignment of the fracture of the femoral diaphysis. CRITICAL RESULT: No. COMMUNICATION: Per this written report. Drafted by Twan Hickman MD on 08/02/2025 4:45 AM Final report signed by Twan Hickman MD on 08/02/2025 4:54 AM Narrative 08/02/2025 4:54 AM EDT CLINICAL INDICATION: post-op TECHNIQUE: XR FOOT LEFT 3+ VIEWS, XR KNEE RIGHT 3 VIEWS, XR FEMUR LEFT 2+ VIEWS, XR FEMUR RIGHT 2+ VIEWS COMPARISON: Radiographs July 02, 2025 and June 05, 2025 FINDINGS: Left foot: Age-indeterminate avulsion fracture of the tip of the medial malleolus. Redemonstration of an acute fracture of the third digit distal metatarsal diaphysis. Right femur, knee: Removal of the external fixation hardware. Interval retrograde intramedullary nail through the femur. Similar alignment of the displaced fracture of the distal femoral diaphysis. Similar alignment of the displaced fracture of the proximal fibular diaphysis. Plate and screw fixation construct of the proximal tibia is again seen. Similar alignment of the tibial plateau fractures. No apparent hardware complication. Left femur: Intramedullary nail through the femur, with femoral neck screw. No apparent hardware complication. Similar alignment of the fracture of the femoral diaphysis. Procedure Note Twan Hickman MD - 08/02/2025 CLINICAL INDICATION: post-op TECHNIQUE: XR FOOT LEFT 3+ VIEWS, XR KNEE RIGHT 3 VIEWS, XR FEMUR LEFT 2+ VIEWS, XRFEMUR RIGHT 2+ VIEWS COMPARISON: Radiographs July 02, 2025 and June 05, 2025 FINDINGS: Left foot: Age-indeterminate avulsion fracture of the tip of the medial malleolus.Redemonstration of an acute fracture of the third digit distal metatarsaldiaphysis. Right femur, knee: Removal of the external fixation hardware. Interval retrogradeintramedullary nail through the femur. Similar alignment of the displacedfracture of the distal femoral diaphysis. Similar alignment of thedisplaced fracture of the proximal fibular diaphysis. Plate and screwfixation construct of the proximal tibia is again seen. Similar alignmentof the tibial plateau fractures. No apparent hardware complication. Left femur: Intramedullary nail through the femur, with femoral neck screw. Noapparent hardware complication. Similar alignment of the fracture of thefemoral diaphysis. IMPRESSION: Left foot: Age-indeterminate avulsion fracture of the tip of the medial malleolus.Redemonstration of an acute fracture of the third digit distal metatarsaldiaphysis. Right femur, knee: Removal of the external fixation hardware. Interval retrogradeintramedullary nail through the femur. Similar alignment of the displacedfracture of the distal femoral diaphysis. Similar alignment of thedisplaced fracture of the proximal fibular diaphysis. Plate and screwfixation construct of the proximal tibia is again seen. Similar alignmentof the tibial plateau fractures. No apparent hardware complication. Left femur: Intramedullary nail through the femur, with femoral neck screw. Noapparent hardware complication. Similar alignment of the fracture of thefemoral diaphysis. CRITICAL RESULT: No. COMMUNICATION: Per this written report. Drafted by Twan Hickman MD on 08/02/2025 4:45 AM Final report signed by Twan Hickman MD on 08/02/2025 4:54 AM us Marin Bradford MD IMG XR PROCEDURES Final Resu lt * (ABNORMAL) Basic metabolic panel (07/31/2025 12:25 PM EDT) Only the most recent of19 resultswithin the time period is included. Glucose, Plasma 98 74 - 99 mg/dL 07/31/2025 1:08 PM EDT [facility] BUN, Plasma 17 7 - 21 mg/dL 07/31/2025 1:08 PM EDT [facility] Creatinine, Plasma 0.18(L) 0.70 - 1.20 mg/dL 07/31/2025 1:08 PM EDT [facility] BUN/Creatinine Ratio 94 07/31/2025 1:08 PM EDT [facility] Sodium, Plasma 136 136 - 145 mmol/L 07/31/2025 1:08 PM EDT [facility] Potassium, Plasma 4.5 3.6 - 4.9 mmol/L 07/31/2025 1:08 PM EDT [facility] Chloride, Plasma 97 97 - 107 mmol/L 07/31/2025 1:08 PM EDT [facility] CO2, Plasma 27 22 - 29 mmol/L 07/31/2025 1:08 PM EDT [facility] Anion Gap 12 6 - 16 mmol/L 07/31/2025 1:08 PM EDT [facility] Total Calcium, Plasma 10.1 8.9 - 10.2 mg/dL 07/31/2025 1:08 PM EDT [facility] eGFRcr 202.6 mL/min/1.7 3m*2 07/31/2025 1:08 PM EDT [facility] Comment:Reported eGFRcr in m L/min/1.73m2 is based the CKD-EPI 2020 equation that does not use a race coefficient. Blood Venous blood specimen / Unknown Venipuncture / Unknown 07/31/2025 12:25 PM EDT 07/31/2025 12:39 PM EDT us Nick [facility] BLOOD ORDERABLES Final Res ult [facility] [address] [place] [address] * XR Elbow Left 1 or 2 Views (07/30/2025 3:10 PM EDT) Anatomical Region Laterality Modality Upper Extremities, Elbow Left Digital Radiography Impressions 07/30/2025 3:24 PM EDT Normal evaluation of the left elbow. CRITICAL RESULT: No. COMMUNICATION: Per this written report. Drafted by Vinnie Stapleton MD on 07/30/2025 3:23 PM Final report signed by Vinnie Stapleton MD on 07/30/2025 3:24 PM Narrative 07/30/2025 3:24 PM EDT CLINICAL INDICATION: neurological injury with prolonged period of relative immobility TECHNIQUE: XR ELBOW LEFT 1 OR 2 VIEWS COMPARISON: None. FINDINGS: 2 views of the left elbow show normal elbow joint space and alignment. No fracture or effusion. No erosive changes. Soft tissues are normal. Procedure Note Vinnie Stapleton MD - 07/30/2025 CLINICAL INDICATION: neurological injury with prolonged period of relative immobility TECHNIQUE: XR ELBOW LEFT 1 OR 2 VIEWS COMPARISON: None. FINDINGS: 2 views of the left elbow show normal elbow joint space and alignment. Nofracture or effusion. No erosive changes. Soft tissues are normal. IMPRESSION: Normal evaluation of the left elbow. CRITICAL RESULT: No. COMMUNICATION: Per this written report. Drafted by Vinnie Stapleton MD on 07/30/2025 3:23 PM Final report signed by Vinnie Stapleton MD on 07/30/2025 3:24 PM Nick HINES IMTamir XR PROCEDURES Final Result * XR Thoracic Spine 2 Views (07/30/2025 5:00 AM EDT) Only the most recent of2 resultswithin the time period is included. Anatomical Region Laterality Modality Spine, T-spine Computed Radiogr aphy Impressions 07/30/2025 8:20 AM EDT Unchanged appearance of posterior fusion from C5 to T5. CRITICAL RESULT: No. COMMUNICATION: Per this written report. Drafted by Vinnie Stapleton MD on 07/30/2025 8:14 AM Final report signed by Vinnie Stapleton MD on 07/30/2025 8:20 AM Narrative 07/30/2025 8:20 AM EDT CLINICAL INDICATION: post op (C5-T5) TECHNIQUE: XR THORACIC SPINE 2 VIEWS COMPARISON: July 07, 2025 FINDINGS: 2 views of the thoracic spine show posterior fusion that extends from C5 to T5 with unchanged appearance of hardware. Pedicle screw at T1 extends to the superior inferior endplate of T1 and terminates slightly beyond the anterior cortex of the vertebral body, unchanged. Vertebral alignment is unchanged. Tracheostomy tube is in place with tip 6.5 cm superior to the juan. Feeding tube in place. Hypoinflated chest with patchy left mid lung and right lower lung airspace opacity. Cardiac silhouette is appropriate in size and configuration.. Procedure Note Vinnie Stapleton MD - 07/30/2025 CLINICAL INDICATION: post op (C5-T5) TECHNIQUE: XR THORACIC SPINE 2 VIEWS COMPARISON: July 07, 2025 FINDINGS: 2 views of the thoracic spine show posterior fusion that extends from C5to T5 with unchanged appearance of hardware. Pedicle screw at T1 extendsto the superior inferior endplate of T1 and terminates slightly beyond theanterior cortex of the vertebral body, unchanged. Vertebral alignment isunchanged. Tracheostomy tube is in place with tip 6.5 cm superior to thecarina. Feeding tube in place. Hypoinflated chest with patchy left midlung and right lower lung airspace opacity. Cardiac silhouette isappropriate in size and configuration.. IMPRESSION: Unchanged appearance of posterior fusion from C5 to T5. CRITICAL RESULT: No. COMMUNICATION: Per this written report. Drafted by Vinnie Stapleton MD on 07/30/2025 8:14 AM Final report signed by Vinnie Stapleton MD on 07/30/2025 8:20 AM Marin Bradford MD IMG XR PROCEDURES Final Resu lt * Tracheostomy Replacement (07/29/2025 11:20 AM EDT) Narrative Nette Worrell MD - 07/29/2025 11:20 AM EDT Nette Worrell MD 08/01/2025 10:21 AM Tracheostomy Replacement Performed by: Dea Caruso MD Authorized by: Aviva Bateman MD Consent: Verbal consent obtained Risks and benefits: risks, benefits and alternatives were discussed Consent given by: patient and parent Patient understanding: patient states understanding of the procedure being performed Patient identity confirmed: verbally with patient, hospital-assigned identification number and arm band Indications: weaning protocol Sedation: Patient sedated: no Tube type: single cannula Tube cuff: single cuff Tube size: 6.0 mm Cuff inflation: inflated Cuff type: air Comments: Episode of emesis during procedure, suctioned trach after exchange with minimal return. No desats. Will monitor closely. us Aviva Bateman MD IN CLINIC/BEDSIDE ORDERABLES F inal Result * [place] CRITICAL CARE, E/M 30-74 MINUTES (07/27/2025 7:21 AM EDT) Narrative Sanyd Simmons MD - 07/27/2025 7:21 AM EDT Sandy Simmons MD 07/28/2025 11:31 PM Critical Care Performed by: Sandy Simmons MD Authorized by: Sandy Simmons MD Critical care provider statement: Critical care time (minutes): 30 Critical care time was exclusive of: Separately billable procedures and treating other patients and teaching time Critical care was time spent personally by me on the following activities: Development of treatment plan with patient or surrogate, discussions with consultants, evaluation of patient's response to treatment, examination of patient, obtaining history from patient or surrogate, ventilator management, ordering and review of radiographic studies, ordering and review of laboratory studies and ordering and performing treatments and interventions I assumed subsequent critical care for this patient from a provider in my division, on the same day: no Critical care statement: I saw and evaluated the patient with the resident/ fellow. I discussed the case with the resident/ fellow and agree with the findings and plan as documented. Comments: The patient remains critically ill requiring ongoing life and organ-supporting interventions. Slow ventilator wean. Required ventilator support overnight. Managing anxiety around being off the ventilator. us Sandy Simmons MD IN CLINIC/BEDSIDE ORDERAB LES Final Result * (ABNORMAL) Respiratory Culture and Gram Stain (07/25/2025 1:28 PM EDT) Culture Light Growth 07/27/2025 12:42 PM EDT [facility] Culture Mixed upper respiratory dedra(A) 07/27/2025 12:42 PM EDT [facility] Comment:The organism value f or this result has been updated. These results have been appended to the previously preliminary verified report. Gram Stain Result Fewer than 10 Epithelial cells/LPF(A) 07/27/2025 12:42 PM EDT [facility] Gram Stain Result Greater than 25 WBC/LPF(A) 07/27/2025 12:42 PM EDT [facility] Gram Stain Result Rare Gram negative rods(A) 07/27/2025 12:42 PM EDT [facility] Gram Stain Result Rare Gram positive rods(A) 07/27/2025 12:42 PM EDT [facility] Sputum Specimen from endotracheal tube / Unknown Non-blood Collection / Unknown 07/25/2025 1:28 PM EDT 07/25/2025 1:59 PM EDT us Marin Bradford MD LAB MICROBIOLOGY - GENERAL O RDERABLES Final Result [facility] [address] [place] [address] * [place] CRITICAL CARE, E/M 30-74 MINUTES (07/22/2025 9:45 AM EDT) Narrative Marin Bradford MD - 07/22/2025 9:45 AM EDT Marin Bradford MD 07/23/2025 3:34 PM Critical Care Performed by: Marin Bradford MD Authorized by: Marin Bradford MD Critical care provider statement: Critical care time (minutes): 32 Critical care time was exclusive of: Separately billable procedures and treating other patients and teaching time Critical care was time spent personally by me on the following activities: Development of treatment plan with patient or surrogate, evaluation of patient's response to treatment, examination of patient, ventilator management, ordering and review of radiographic studies, ordering and review of laboratory studies and ordering and performing treatments and interventions Critical care statement: I saw and evaluated the patient with the resident/ fellow. I discussed the case with the resident/ fellow and agree with the findings and plan as documented. us Marin Bradford MD IN CLINIC/BEDSIDE ORDERABLES Final Result * CA CRITICAL CARE, E/M 30-74 MINUTES (07/21/2025 4:16 PM EDT) Narrative Marin Bradford MD - 07/21/2025 4:16 PM EDT Marin Bradford MD 07/23/2025 3:33 PM Critical Care Performed by: Marin Bradford MD Authorized by: Marin Bradford MD Critical care provider statement: Critical care time (minutes): 34 Critical care time was exclusive of: Separately billable procedures and treating other patients and teaching time Critical care was time spent personally by me on the following activities: Development of treatment plan with patient or surrogate, evaluation of patient's response to treatment, examination of patient, ventilator management, ordering and review of radiographic studies, ordering and review of laboratory studies and ordering and performing treatments and interventions Critical care statement: I saw and evaluated the patient with the resident/ fellow. I discussed the case with the resident/ fellow and agree with the findings and plan as documented. us Marin Bradford MD IN CLINIC/BEDSIDE ORDERABLES Final Result * [place] CRITICAL CARE, E/M 30-74 MINUTES (07/20/2025 11:32 AM EDT) Aviva Blount MD - 07/20/2025 11:32 AM EDT Aviva Bateman MD 07/23/2025 4:43 PM Critical Care Performed by: Aviva Bateman MD Authorized by: Aviva Bateman MD Critical care provider statement: Critical care time (minutes): 60 Critical care time was exclusive of: Separately billable procedures and treating other patients and teaching time Critical care was time spent personally by me on the following activities: Development of treatment plan with patient or surrogate, ordering and review of radiographic studies, ordering and review of laboratory studies, ordering and performing treatments and interventions, ventilator management and examination of patient Comments: I attest to being involved in more than half the total time for 60 minutes in patient care. us Aviva Bateman MD IN CLINIC/BEDSIDE ORDERABLES F inal Result * [place] CRITICAL CARE, E/M 30-74 MINUTES (07/19/2025 1:43 PM EDT) Aviva Blount MD - 07/19/2025 1:43 PM EDT Aviva Bateman MD 07/23/2025 4:38 PM Critical Care Performed by: Aviva Bateman MD Authorized by: Aviva Bateman MD Critical care provider statement: Critical care time (minutes): 60 Critical care time was exclusive of: Separately billable procedures and treating other patients and teaching time Critical care was time spent personally by me on the following activities: Ordering and performing treatments and interventions, ordering and review of laboratory studies, ordering and review of radiographic studies, ventilator management and examination of patient Comments: I attest to being involved in more than half the total time for 60 minutes in patient care. Ventilator dependent hypoxic respiratory failure: decreasing FiO2 after increased requirements with large PTX. Left Pneumothorax: left pigtail placed; to suction. Dysphagia; ongoing tube feeding. Aviva Bateman MD IN CLINIC/BEDSIDE ORDERABLES F inal Result * CA PERQ DRAINAGE PLEURA INSERT CATH W/O IMAGING, HC PERQ DRAINAGE PLEURA INSERT CATH W/O IMAGING (07/19/2025 11:50 AM EDT) Narrative Aviva Bateman MD - 07/19/2025 11:50 AM EDT Aviva Bateman MD 07/20/2025 8:36 AM Chest Tube Insertion Performed by: Jamie Lee DO Authorized by: Aviva Bateman MD Consent: Consent obtained: Verbal and written Consent given by: Patient Risks, benefits, and alternatives were discussed: yes Risks discussed: Bleeding, incomplete drainage, nerve damage, pain, infection and damage to surrounding structures Alternatives discussed: No treatment, delayed treatment, alternative treatment, observation and referral Roxana protocol: Procedure explained and questions answered to patient or proxy's satisfaction: yes Relevant documents present and verified: yes Test results available: yes Imaging studies available: yes Required blood products, implants, devices, and special equipment available: yes Site/side marked: yes Patient identity confirmed: Arm band Attending Supervision?: yes Pre-procedure details: Skin preparation: Chlorhexidine Preparation: Patient was prepped and draped in the usual sterile fashion Antibiotic: none Sedation: Sedation type: Anxiolysis Anesthesia: Anesthesia method: Local infiltration Local anesthetic: Lidocaine 1% w/o epi Procedure details: Approach: Percutaneous Technique: Seldinger technique Placement location: L lateral Scalpel size: 10 Tube size (Fr): 16 Dilation Performed: yes Ultrasound guidance: no Tension pneumothorax: no Tube connected to: Suction Drainage characteristics: Air only Suture material: 2-0 silk Dressing: Petrolatum-impregnated gauze and 4x4 sterile gauze Post-procedure details: Procedure completion: Tolerated us Aviva Bateman MD IN CLINIC/BEDSIDE ORDERABLES F inal Result * [place] CRITICAL CARE, E/M 30-74 MINUTES (07/18/2025 2:04 PM EDT) Aviva Blount MD - 07/18/2025 2:04 PM EDT Aviva Bateman MD 07/23/2025 4:36 PM Critical Care Performed by: Aviva Bateman MD Authorized by: Aviva Bateman MD Critical care provider statement: Critical care time (minutes): 60 Critical care time was exclusive of: Separately billable procedures and treating other patients and teaching time Critical care was time spent personally by me on the following activities: Development of treatment plan with patient or surrogate, ordering and review of laboratory studies, ordering and review of radiographic studies, ordering and performing treatments and interventions, ventilator management and examination of patient Comments: I attest to being involved in more than half the total time for 60 minutes in patient care. Ventilator dependent hypoxic respiratory failure: ongoing vent weaning Pneumonia treatment: completing antibiotics Recurrent, loculated left PTX: will treat conservatively now due to normal hemodynamics. Aviva Bateman MD [facility] Department of Surgery [facility] us Aviva Bateman MD IN CLINIC/BEDSIDE ORDERABLES F inal Result * [place] CRITICAL CARE, E/M 30-74 MINUTES (07/17/2025 11:36 AM EDT) Aviva Blount MD - 07/17/2025 11:36 AM EDT Aviva Bateman MD 07/23/2025 4:34 PM Critical Care Performed by: Aviva Bateman MD Authorized by: Aviva Bateman MD Critical care provider statement: Critical care time (minutes): 60 Critical care time was exclusive of: Separately billable procedures and treating other patients and teaching time Critical care was time spent personally by me on the following activities: Development of treatment plan with patient or surrogate, ordering and performing treatments and interventions, ordering and review of laboratory studies, ordering and review of radiographic studies, ventilator management and examination of patient Comments: I attest to being involved in more than half the total time for 60 minutes in patient care. us Aviva Bateman MD IN CLINIC/BEDSIDE ORDERABLES F inal Result * (ABNORMAL) Renal Function Panel, Plasma (07/17/2025 12:16 AM EDT) Only the most recent of2 resultswithin the time period is included. Glucose, Plasma 110(H) 74 - 99 mg/dL 07/17/2025 12:47 AM EDT [facility] BUN, Plasma 31(H) 7 - 21 mg/dL 07/17/2025 12:47 AM EDT [facility] Creatinine, Plasma 0.17(L) 0.70 - 1.20 mg/dL 07/17/2025 12:47 AM EDT [facility] BUN/Creatinine Ratio 182 07/17/2025 12:47 AM EDT [facility] Sodium, Plasma 137 136 - 145 mmol/L 07/17/2025 12:47 AM EDT [facility] Potassium, Plasma 3.9 3.6 - 4.9 mmol/L 07/17/2025 12:47 AM EDT [facility] Chloride, Plasma 99 97 - 107 mmol/L 07/17/2025 12:47 AM EDT [facility] CO2, Plasma 27 22 - 29 mmol/L 07/17/2025 12:47 AM EDT [facility] Anion Gap 11 6 - 16 mmol/L 07/17/2025 12:47 AM EDT [facility] Total Calcium, Plasma 9.6 8.9 - 10.2 mg/dL 07/17/2025 12:47 AM EDT [facility] Phosphorus, Plasma 4.2 2.5 - 4.5 mg/dL 07/17/2025 12:47 AM EDT [facility] Albumin, Plasma 3.6 3.5 - 5.2 g/dL 07/17/2025 12:47 AM EDT [facility] eGFRcr 206.1 mL/min/1.7 3m*2 07/17/2025 12:47 AM EDT [facility] Comment:Reported eGFRcr in m L/min/1.73m2 is based the CKD-EPI 2020 equation that does not use a race coefficient. Blood Venous blood specimen / Unknown Venipuncture / Unknown 07/17/2025 12:16 AM EDT 07/17/2025 12:21 AM EDT us Shayne [facility] BLOOD ORDERABLES Final Res ult [facility] [address] [place] [address] * [place] CRITICAL CARE, E/M 30-74 MINUTES (07/16/2025 1:35 PM EDT) Aviva Blount MD - 07/16/2025 1:35 PM EDT Aviva Bateman MD 07/23/2025 4:29 PM Critical Care Performed by: Aviva Bateman MD Authorized by: Aviva Bateman MD Critical care provider statement: Critical care time (minutes): 60 Critical care time was exclusive of: Separately billable procedures and treating other patients and teaching time Critical care was time spent personally by me on the following activities: Development of treatment plan with patient or surrogate, ordering and performing treatments and interventions, ordering and review of laboratory studies, ordering and review of radiographic studies and examination of patient Comments: I attest to being involved in more than half the total time for 60 minutes in patient care. us Aviva Bateman MD IN CLINIC/BEDSIDE ORDERABLES F inal Result * Cefepime Random (07/16/2025 11:45 AM EDT) Cefepime Random 51.6 ug/mL 11:55 AM EDT [facility] Blood Venous blood specimen / Unknown Venipuncture / Unknown 07/16/2025 11:45 AM EDT 07/16/2025 11:56 AM EDT Narrative [facility] - 07/17/2025 11:55 AM EDT The serum concentration depends on the dose given, duration of infusion, and the time post administration. Consult pharmacy guidelines for the individual target values. Testing performed by LC-MS/MS at the [facility]. This test was developed and its performance characteristics determined by [facility]. This assay has not been cleared by the FDA. The laboratory is regulated under CLIA as qualified to perform high-complexity testing. This test is used for clinical purposes. us Avery [facility] BLOOD ORDERABLES Final Resul t [facility] [address] [place] [address] * CA CRITICAL CARE, E/M 30-74 MINUTES (07/15/2025 4:12 PM EDT) Narrative Sandy Simmons MD - 07/15/2025 4:12 PM EDT Sandy Simmons MD 07/22/2025 3:19 PM Critical Care Performed by: Sandy Simmons MD Authorized by: Sandy Simmons MD Critical care provider statement: Critical care time (minutes): 30 Critical care time was exclusive of: Separately billable procedures and treating other patients and teaching time Critical care was time spent personally by me on the following activities: Development of treatment plan with patient or surrogate, discussions with consultants, evaluation of patient's response to treatment, examination of patient, obtaining history from patient or surrogate, ventilator management, ordering and review of radiographic studies, ordering and review of laboratory studies and ordering and performing treatments and interventions I assumed subsequent critical care for this patient from a provider in my division, on the same day: no Critical care statement: I saw and evaluated the patient with the resident/ fellow. I discussed the case with the resident/ fellow and agree with the findings and plan as documented. Comments: The patient remains critically ill requiring ongoing life and organ-supporting interventions. Weaning ventilator. On pressure support. Anxiety is barrier to trach collar. Adjusting sedation and anxiety regimen to facilitiate Discuss terminal make up operator plan with cardiology regarding isoproterenol us Sandy Simmons MD IN CLINIC/BEDSIDE ORDERAB LES Final Result * MR Femur Right w and wo IV Contrast (07/15/2025 3:50 AM EDT) Anatomical Region Laterality Modality Femur Right Magnetic Resonan ce Impressions 07/15/2025 9:07 AM EDT Susceptibility artifact significantly limits evaluation of the femur and tibia. Femoral nail in place with large T2 and T1 hyperintense collection extending from the fracture tracking into the adjacent musculature with some peripheral enhancement. Given the T1 hyperintensity this could represent a hematoma. The sterility of this cannot be ascertained via imaging. Likewise there is a small T1 and T2 hyperintense structure within the anterior compartment musculature of the foreleg. This could represent a hematoma as well. Artifact limits evaluation of enhancement of this structure. Large knee effusion with thickened synovial enhancement. The joint effusion is T1 hyperintense which could represent blood products. Edema and enhancement throughout the musculature of the lower extremity as described which could represent myositis. Areas of nonenhancement involving the biceps femoris and semitendinosus near the myotendinous junction could represent muscle necrosis. Site of prior mid tibial external fixation pin placement with nonspecific T2 hyperintensity and enhancement in the tibia in this region. Severe foreleg subcutaneous edema extending into the ankle. Edema like signal within the posterior calcaneus and talus CRITICAL RESULT: No. COMMUNICATION: Per this written report. Drafted by Bridger Calderon MD on 07/15/2025 8:47 AM Final report signed by Bridger Calderon MD on 07/15/2025 9:07 AM Narrative 07/15/2025 9:07 AM EDT CLINICAL INDICATION: s/p surgery with hardware, sepsis of unknown origin,evaluate for infection TECHNIQUE: Significant impinging of the right femur and tib-fib prior to and following intravenous administration of 6.6 mL Gadavist COMPARISON: Radiographs 05/02/2025, CT 04/27/2025 FINDINGS: Right femur: Susceptibility artifact from retrograde femoral nail limits evaluation. Bone and bone marrow: Retrograde femoral nail in place spanning a mid to distal femoral diaphyseal fracture with large fracture fragment seen laterally. Minimal femoral head neck junction osteophytosis. At the level of the fracture extending from the lateral aspect of the fracture is a large T2 hyperintense T1 hypointense structure which measures 2.9 x 5.2 x 14 cm. The majority of this demonstrates peripheral enhancement. There is increased T2 signal and enhancement within the femur at the level of the fracture. Soft tissues: Moderate edema is seen in the vastus musculature with enhancement. There is abnormal T2 hyperintense signal within the biceps femoris muscle with nonenhancement of the muscle following contrast administration. There is similar nonenhancement at the semitendinosus myotendinous junction. There is a T1 and T2 hyperintense large knee effusion with synovial enhancement and low signal intensity foci within the joint fluid. Right tib-fib: Susceptibility artifact from proximal tibial ORIF limits evaluation. Bone and bone marrow: There is a linear tract of the mid tibia consistent with external fixation site. There is an overlying skin defect. At this level there is subtle increased STIR signal within the tibia. Edema like signal within the medial malleolus. Edema like signal in the posterior calcaneus and talar neck. Patchy enhancement is seen throughout the mid tibial diaphysis. Soft tissues: In the anterior compartment musculature at the level of the proximal tib-fib there is a T1 and T2 hyperintense structure seen on image 20 series 14 measuring 11 mm. No definite enhancement but artifact makes evaluation for enhancement in this region difficult. There is subtle edema and enhancement in the anterior compartment musculature. Moderate medial gastrocnemius muscle edema and enhancement. There is marked subcutaneous edema throughout the mid to distal foreleg most pronounced anteriorly. Severe medial and lateral ankle subcutaneous edema. Procedure Note Bridger Calderon MD - 07/15/2025 CLINICAL INDICATION: s/p surgery with hardware, sepsis of unknown origin,evaluate forinfection TECHNIQUE: Significant impinging of the right femur and tib-fib prior to andfollowing intravenous administration of 6.6 mL Gadavist COMPARISON: Radiographs 05/02/2025, CT 04/27/2025 FINDINGS: Right femur: Susceptibility artifact from retrograde femoral nail limitsevaluation. Bone and bone marrow: Retrograde femoral nail in place spanning a mid todistal femoral diaphyseal fracture with large fracture fragment seenlaterally. Minimal femoral head neck junction osteophytosis. At the level of the fracture extending from the lateral aspect of thefracture is a large T2 hyperintense T1 hypointense structure whichmeasures 2.9 x 5.2 x 14 cm. The majority of this demonstrates peripheralenhancement. There is increased T2 signal and enhancement within the femurat the level of the fracture. Soft tissues: Moderate edema is seen in the vastus musculature withenhancement. There is abnormal T2 hyperintense signal within the biceps femoris musclewith nonenhancement of the muscle following contrast administration. Thereis similar nonenhancement at the semitendinosus myotendinous junction. There is a T1 and T2 hyperintense large knee effusion with synovialenhancement and low signal intensity foci within the joint fluid. Right tib-fib: Susceptibility artifact from proximal tibial ORIF limitsevaluation. Bone and bone marrow: There is a linear tract of the mid tibia consistentwith external fixation site. There is an overlying skin defect. At thislevel there is subtle increased STIR signal within the tibia. Edema likesignal within the medial malleolus. Edema like signal in the posteriorcalcaneus and talar neck. Patchy enhancement is seen throughout the midtibial diaphysis. Soft tissues: In the anterior compartment musculature at the level of theproximal tib-fib there is a T1 and T2 hyperintense structure seen on image20 series 14 measuring 11 mm. No definite enhancement but artifact makesevaluation for enhancement in this region difficult. There is subtle edemaand enhancement in the anterior compartment musculature. Moderate medialgastrocnemius muscle edema and enhancement. There is marked subcutaneousedema throughout the mid to distal foreleg most pronounced anteriorly.Severe medial and lateral ankle subcutaneous edema. IMPRESSION: Susceptibility artifact significantly limits evaluation of the femur andtibia. Femoral nail in place with large T2 and T1 hyperintense collectionextending from the fracture tracking into the adjacent musculature withsome peripheral enhancement. Given the T1 hyperintensity this couldrepresent a hematoma. The sterility of this cannot be ascertained viaimaging. Likewise there is a small T1 and T2 hyperintense structure within theanterior compartment musculature of the foreleg. This could represent ahematoma as well. Artifact limits evaluation of enhancement of thisstructure. Large knee effusion with thickened synovial enhancement. The jointeffusion is T1 hyperintense which could represent blood products. Edema and enhancement throughout the musculature of the lower extremity asdescribed which could represent myositis. Areas of nonenhancement involving the biceps femoris and semitendinosusnear the myotendinous junction could represent muscle necrosis. Site of prior mid tibial external fixation pin placement with nonspecificT2 hyperintensity and enhancement in the tibia in this region. Severe foreleg subcutaneous edema extending into the ankle. Edema like signal within the posterior calcaneus and talus CRITICAL RESULT: No. COMMUNICATION: Per this written report. Drafted by Bridger Calderon MD on 07/15/2025 8:47 AM Final report signed by Bridger Calderon MD on 07/15/2025 9:07 AM [facility] MRI PROCEDURES Final Result * MR Tibia Fibula Right w and wo IV Contrast (07/15/2025 3:50 AM EDT) Anatomical Region Laterality Modality Lower Extremities Right Magnetic Reson ance Impressions 07/15/2025 9:07 AM EDT Susceptibility artifact significantly limits evaluation of the femur and tibia. Femoral nail in place with large T2 and T1 hyperintense collection extending from the fracture tracking into the adjacent musculature with some peripheral enhancement. Given the T1 hyperintensity this could represent a hematoma. The sterility of this cannot be ascertained via imaging. Likewise there is a small T1 and T2 hyperintense structure within the anterior compartment musculature of the foreleg. This could represent a hematoma as well. Artifact limits evaluation of enhancement of this structure. Large knee effusion with thickened synovial enhancement. The joint effusion is T1 hyperintense which could represent blood products. Edema and enhancement throughout the musculature of the lower extremity as described which could represent myositis. Areas of nonenhancement involving the biceps femoris and semitendinosus near the myotendinous junction could represent muscle necrosis. Site of prior mid tibial external fixation pin placement with nonspecific T2 hyperintensity and enhancement in the tibia in this region. Severe foreleg subcutaneous edema extending into the ankle. Edema like signal within the posterior calcaneus and talus CRITICAL RESULT: No. COMMUNICATION: Per this written report. Drafted by Bridger Calderon MD on 07/15/2025 8:47 AM Final report signed by Bridger Calderon MD on 07/15/2025 9:07 AM Narrative 07/15/2025 9:07 AM EDT CLINICAL INDICATION: s/p surgery with hardware, sepsis of unknown origin,evaluate for infection TECHNIQUE: Significant impinging of the right femur and tib-fib prior to and following intravenous administration of 6.6 mL Gadavist COMPARISON: Radiographs 05/02/2025, CT 04/27/2025 FINDINGS: Right femur: Susceptibility artifact from retrograde femoral nail limits evaluation. Bone and bone marrow: Retrograde femoral nail in place spanning a mid to distal femoral diaphyseal fracture with large fracture fragment seen laterally. Minimal femoral head neck junction osteophytosis. At the level of the fracture extending from the lateral aspect of the fracture is a large T2 hyperintense T1 hypointense structure which measures 2.9 x 5.2 x 14 cm. The majority of this demonstrates peripheral enhancement. There is increased T2 signal and enhancement within the femur at the level of the fracture. Soft tissues: Moderate edema is seen in the vastus musculature with enhancement. There is abnormal T2 hyperintense signal within the biceps femoris muscle with nonenhancement of the muscle following contrast administration. There is similar nonenhancement at the semitendinosus myotendinous junction. There is a T1 and T2 hyperintense large knee effusion with synovial enhancement and low signal intensity foci within the joint fluid. Right tib-fib: Susceptibility artifact from proximal tibial ORIF limits evaluation. Bone and bone marrow: There is a linear tract of the mid tibia consistent with external fixation site. There is an overlying skin defect. At this level there is subtle increased STIR signal within the tibia. Edema like signal within the medial malleolus. Edema like signal in the posterior calcaneus and talar neck. Patchy enhancement is seen throughout the mid tibial diaphysis. Soft tissues: In the anterior compartment musculature at the level of the proximal tib-fib there is a T1 and T2 hyperintense structure seen on image 20 series 14 measuring 11 mm. No definite enhancement but artifact makes evaluation for enhancement in this region difficult. There is subtle edema and enhancement in the anterior compartment musculature. Moderate medial gastrocnemius muscle edema and enhancement. There is marked subcutaneous edema throughout the mid to distal foreleg most pronounced anteriorly. Severe medial and lateral ankle subcutaneous edema. Procedure Note Bridger Calderon MD - 07/15/2025 CLINICAL INDICATION: s/p surgery with hardware, sepsis of unknown origin,evaluate forinfection TECHNIQUE: Significant impinging of the right femur and tib-fib prior to andfollowing intravenous administration of 6.6 mL Gadavist COMPARISON: Radiographs 05/02/2025, CT 04/27/2025 FINDINGS: Right femur: Susceptibility artifact from retrograde femoral nail limitsevaluation. Bone and bone marrow: Retrograde femoral nail in place spanning a mid todistal femoral diaphyseal fracture with large fracture fragment seenlaterally. Minimal femoral head neck junction osteophytosis. At the level of the fracture extending from the lateral aspect of thefracture is a large T2 hyperintense T1 hypointense structure whichmeasures 2.9 x 5.2 x 14 cm. The majority of this demonstrates peripheralenhancement. There is increased T2 signal and enhancement within the femurat the level of the fracture. Soft tissues: Moderate edema is seen in the vastus musculature withenhancement. There is abnormal T2 hyperintense signal within the biceps femoris musclewith nonenhancement of the muscle following contrast administration. Thereis similar nonenhancement at the semitendinosus myotendinous junction. There is a T1 and T2 hyperintense large knee effusion with synovialenhancement and low signal intensity foci within the joint fluid. Right tib-fib: Susceptibility artifact from proximal tibial ORIF limitsevaluation. Bone and bone marrow: There is a linear tract of the mid tibia consistentwith external fixation site. There is an overlying skin defect. At thislevel there is subtle increased STIR signal within the tibia. Edema likesignal within the medial malleolus. Edema like signal in the posteriorcalcaneus and talar neck. Patchy enhancement is seen throughout the midtibial diaphysis. Soft tissues: In the anterior compartment musculature at the level of theproximal tib-fib there is a T1 and T2 hyperintense structure seen on image20 series 14 measuring 11 mm. No definite enhancement but artifact makesevaluation for enhancement in this region difficult. There is subtle edemaand enhancement in the anterior compartment musculature. Moderate medialgastrocnemius muscle edema and enhancement. There is marked subcutaneousedema throughout the mid to distal foreleg most pronounced anteriorly.Severe medial and lateral ankle subcutaneous edema. IMPRESSION: Susceptibility artifact significantly limits evaluation of the femur andtibia. Femoral nail in place with large T2 and T1 hyperintense collectionextending from the fracture tracking into the adjacent musculature withsome peripheral enhancement. Given the T1 hyperintensity this couldrepresent a hematoma. The sterility of this cannot be ascertained viaimaging. Likewise there is a small T1 and T2 hyperintense structure within theanterior compartment musculature of the foreleg. This could represent ahematoma as well. Artifact limits evaluation of enhancement of thisstructure. Large knee effusion with thickened synovial enhancement. The jointeffusion is T1 hyperintense which could represent blood products. Edema and enhancement throughout the musculature of the lower extremity asdescribed which could represent myositis. Areas of nonenhancement involving the biceps femoris and semitendinosusnear the myotendinous junction could represent muscle necrosis. Site of prior mid tibial external fixation pin placement with nonspecificT2 hyperintensity and enhancement in the tibia in this region. Severe foreleg subcutaneous edema extending into the ankle. Edema like signal within the posterior calcaneus and talus CRITICAL RESULT: No. COMMUNICATION: Per this written report. Drafted by Bridger Calderon MD on 07/15/2025 8:47 AM Final report signed by Bridger Calderon MD on 07/15/2025 9:07 AM Dariusz [facility] MRI PROCEDURES Final Result * CA CRITICAL CARE, E/M 30-74 MINUTES (07/14/2025 4:05 PM EDT) Narrative Sandy Simmons MD - 07/14/2025 4:05 PM EDT Sandy Simmons MD 07/22/2025 3:17 PM Critical Care Performed by: Sandy Simmons MD Authorized by: Sandy Simmons MD Critical care provider statement: Critical care time (minutes): 30 Critical care time was exclusive of: Separately billable procedures and treating other patients and teaching time Critical care was time spent personally by me on the following activities: Development of treatment plan with patient or surrogate, discussions with consultants, evaluation of patient's response to treatment, examination of patient, obtaining history from patient or surrogate, ventilator management, ordering and review of radiographic studies, ordering and review of laboratory studies and ordering and performing treatments and interventions I assumed subsequent critical care for this patient from a provider in my division, on the same day: no Critical care statement: I saw and evaluated the patient with the resident/ fellow. I discussed the case with the resident/ fellow and agree with the findings and plan as documented. Comments: The patient remains critically ill requiring ongoing life and organ-supporting interventions. Managing mech ventilator. Not yet able to tolerate trach collar. Treating PNA. Managing significant anxiety Sandy Simmons MD IN CLINIC/BEDSIDE ORDERAB LES Final Result * CA CRITICAL CARE, E/M 30-74 MINUTES (07/13/2025 10:04 AM EDT) Narrative Natalie Li MD - 07/13/2025 10:04 AM EDT Natalie Li MD 07/13/2025 4:02 PM Critical Care-standard Performed by: Natalie Li MD Authorized by: Natalie Li MD Critical care provider statement: Critical care time (minutes): 40 Critical care time was exclusive of: Separately billable procedures and treating other patients and teaching time Critical care was time spent personally by me on the following activities: Discussions with consultants, discussions with primary provider, evaluation of patient's response to treatment, examination of patient, ordering and performing treatments and interventions, ordering and review of laboratory studies, ordering and review of radiographic studies, review of old charts and ventilator management Comments: I attest to being involved in more than half the total time for 40 minutes in patient care. Natalie Li MD us Natalie Li MD IN CLINIC/BEDSIDE ORDERABL ES Final Result * CA CRITICAL CARE, E/M 30-74 MINUTES (07/12/2025 3:48 PM EDT) Narrative Natalie Li MD - 07/12/2025 3:48 PM EDT Natalie Li MD 07/13/2025 7:18 AM Critical Care-standard Performed by: Natalie Li MD Authorized by: Natalie Li MD Critical care provider statement: Critical care time (minutes): 40 Critical care time was exclusive of: Separately billable procedures and treating other patients and teaching time Critical care was time spent personally by me on the following activities: Discussions with consultants, discussions with primary provider, evaluation of patient's response to treatment, examination of patient, ordering and performing treatments and interventions, ordering and review of laboratory studies, ordering and review of radiographic studies, review of old charts and ventilator management Comments: I attest to being involved in more than half the total time for 40 minutes in patient care. Natalie Li MD Natalie Li MD IN CLINIC/BEDSIDE ORDERABL ES Final Result * Meropenem Trough (07/11/2025 10:15 PM EDT) Meropenum Trough <2.5 ug/mL 07/12/2025 11:41 AM EDT [facility] Blood Venous blood specimen / Unknown Venipuncture / Unknown 07/11/2025 10:15 PM EDT 07/11/2025 10:27 PM EDT Narrative [facility] - 07/12/2025 11:41 AM EDT The serum concentration depends on the dose given, duration of infusion, and the time post administration. Consult pharmacy guidelines for the individual target values. Testing performed by LC-MS/MS at the [facility]. This test was developed and its performance characteristics determined by [facility] [facility] This assay has not been cleared by the FDA. The laboratory is regulated under CLIA as qualified to perform high-complexity testing. This test is used for clinical purposes. [facility] BLOOD ORDERABLES Final Resu lt Performing Organization Address [facility] de Phone Number [facility] [address] [place] [address] * Meropenem Peak (07/11/2025 5:31 PM EDT) Meropenum Peak 35.4 ug/mL 07/12/2025 11:41 AM EDT [facility] Blood Venous blood specimen / Unknown Venipuncture / Unknown 07/11/2025 5:31 PM EDT 07/11/2025 5:40 PM EDT Narrative [facility] - 07/12/2025 11:41 AM EDT The serum concentration depends on the dose given, duration of infusion, and the time post administration. Consult pharmacy guidelines for the individual target values. Testing performed by LC-MS/MS at the [facility]. This test was developed and its performance characteristics determined by [facility]. This assay has not been cleared by the FDA. The laboratory is regulated under CLIA as qualified to perform high-complexity testing. This test is used for clinical purposes. [facility] BLOOD ORDERABLES Final Resu lt Performing Organization Address [facility] Co de Phone Number [facility] [address] [place] [address] * CA CRITICAL CARE, E/M 30-74 MINUTES (07/11/2025 9:21 AM EDT) Narrative Natalie Li MD - 07/11/2025 9:21 AM EDT Natalie Li MD 07/12/2025 7:45 AM Critical Care-standard Performed by: Natalie Li MD Authorized by: Natalie Li MD Critical care provider statement: Critical care time (minutes): 40 Critical care time was exclusive of: Separately billable procedures and treating other patients and teaching time Critical care was time spent personally by me on the following activities: Discussions with consultants, discussions with primary provider, evaluation of patient's response to treatment, examination of patient, ordering and performing treatments and interventions, ordering and review of laboratory studies, ordering and review of radiographic studies, review of old charts and ventilator management Comments: I attest to being involved in more than half the total time for 40 minutes in patient care. Natalie Li MD us Natalie Li MD IN CLINIC/BEDSIDE ORDERABL ES Final Result * CA CRITICAL CARE, E/M 30-74 MINUTES (07/10/2025 1:40 PM EDT) Narrative Natalie Li MD - 07/10/2025 1:40 PM EDT Natalie Li MD 07/11/2025 7:37 AM Critical Care-standard Performed by: Natalie Li MD Authorized by: Natalie Li MD Critical care provider statement: Critical care time (minutes): 40 Critical care time was exclusive of: Separately billable procedures and treating other patients and teaching time Critical care was time spent personally by me on the following activities: Discussions with consultants, discussions with primary provider, evaluation of patient's response to treatment, examination of patient, ordering and performing treatments and interventions, ordering and review of laboratory studies, ordering and review of radiographic studies, review of old charts and ventilator management Comments: I attest to being involved in more than half the total time for 40 minutes in patient care. Natalie Li MD us Natalie Li MD IN CLINIC/BEDSIDE ORDERABL ES Final Result * CT Chest w IV Contrast (07/10/2025 11:43 AM EDT) Only the most recent of2 resultswithin the time period is included. Anatomical Region Laterality Modality Chest Computed Tomogra phy Impressions 07/10/2025 1:16 PM EDT Moderate chronic appearing left pneumothorax with associated left-sided volume loss Right lower lobe consolidation superimposed on right lower lobe collapse. CRITICAL RESULT: No. COMMUNICATION: Per this written report. Drafted by Gavino Frazier MD on 07/10/2025 12:38 PM Final report signed by Gavino Frazier MD on 07/10/2025 1:16 PM Narrative 07/10/2025 1:16 PM EDT CLINICAL INDICATION: concern for LLL pneumatocele TECHNIQUE: Multiple CT axial images were obtained from thoracic inlet through upper abdomen following administration of IV contrast, Omnipaque 300, 1 mL. Total DLP (Dose-Length Product): 192.29 mGy.cm. Please note: The reported value represents the total of one or more individual components during the CT acquisition on this date and at this time, and as such, the same value may appear in more than one CT report depending on the interpreting/reporting physicians. COMPARISON: July 03, 2025 FINDINGS: Lymph Nodes: There is bilateral hilar marylin enlargement. Thyroid: The thyroid is normal. Cardiovascular: Heart size normal. Small pericardial effusion. Lungs: There is consolidation superimposed on atelectasis in the right lower lobe. There is also volume loss with patchy consolidation throughout the left lung. There is cavitation in the left apex. Tracheostomy cannula in expected position. Pleura: There is a complex loculated moderate-sized left pleural effusion. There is a right thoracostomy tube in expected position terminating in the apex. Musculoskeletal and Body Wall: No suspicious osseous abnormality. Cervical fusion. The feeding tube is seen entering the duodenum. Procedure Note Gavino Frazier MD - 07/10/2025 CLINICAL INDICATION: concern for LLL pneumatocele TECHNIQUE: Multiple CT axial images were obtained from thoracic inlet through upperabdomen following administration of IV contrast, Omnipaque 300, 1 mL. Total DLP (Dose-Length Product): 192.29 mGy.cm. Please note: The reportedvalue represents the total of one or more individual components during theCT acquisition on this date and at this time, and as such, the same valuemay appear in more than one CT report depending on theinterpreting/reporting physicians. COMPARISON: July 03, 2025 FINDINGS: Lymph Nodes: There is bilateral hilar marylin enlargement. Thyroid: The thyroid is normal. Cardiovascular: Heart size normal. Small pericardial effusion. Lungs: There is consolidation superimposed on atelectasis in the rightlower lobe. There is also volume loss with patchy consolidation throughoutthe left lung. There is cavitation in the left apex. Tracheostomy cannulain expected position. Pleura: There is a complex loculated moderate-sized left pleural effusion.There is a right thoracostomy tube in expected position terminating in theapex. Musculoskeletal and Body Wall: No suspicious osseous abnormality. Cervicalfusion. The feeding tube is seen entering the duodenum. IMPRESSION: Moderate chronic appearing left pneumothorax with associated left-sidedvolume loss Right lower lobe consolidation superimposed on right lower lobecollapse. CRITICAL RESULT: No. COMMUNICATION: Per this written report. Drafted by Gavino Frazier MD on 07/10/2025 12:38 PM Final report signed by Gavino Frazier MD on 07/10/2025 1:16 PM us [facility] IMG CT PROCEDURES Final Result * VAS US Venous Duplex Upper Extremity Bilateral (07/10/2025 10:23 AM EDT) Anatomical Region Laterality Modality Upper Extremities, Vascular Bilateral Ultr asound Impressions 07/11/2025 11:10 PM EDT Right: Abnormal study; no evidence of acute DVT is identified. Superficial thrombus identified in the basilic and cephalic veins. Left: Abnormal study; no evidence of acute DVT is identified. Superficial thrombus identified in the cephalic vein. COMMUNICATION: Per this written report. Preliminary report signed by Freddie Velez RVT on 07/10/2025 10:43 AM By electronically signing this report, I, the attending physician, attest that I have personally reviewed the images/data for the above examination(s) and I agree with the final edited report. Drafted by Freddie Velez RVT on 07/10/2025 10:33 AM Final report signed by Dottie Talbot MD on 07/11/2025 11:10 PM Narrative 07/11/2025 11:10 PM EDT CLINICAL INDICATION: Fever; R/O DVT TECHNIQUE: Non-invasive, real time duplex exam of the upper extremity venous circulation with Doppler ultrasonic waveform and spectral analysis was performed. COMPARISON: None. FINDINGS: Right: The IJV was not visualized due to C-collar. Venous duplex demonstrates compressible subclavian, axillary, and brachial veins. The venous spectral analysis demonstrates a spontaneous, phasic and augmentable flow signal. Superficial thrombus identified in the noncompressible basilic and cephalic veins. Left: The IJV was not visualized due to C-collar. Venous duplex demonstrates compressible subclavian, axillary, brachial, and basilic veins. The venous spectral analysis demonstrates a spontaneous, phasic and augmentable flow signal. Superficial thrombus identified in the noncompressible cephalic vein. Procedure Note Dottie Talbot MD - 07/11/2025 CLINICAL INDICATION: Fever; R/O DVT TECHNIQUE: Non-invasive, real time duplex exam of the upper extremity venouscirculation with Doppler ultrasonic waveform and spectral analysis wasperformed. COMPARISON: None. FINDINGS: Right: The IJV was not visualized due to C-collar. Venous duplex demonstrates compressible subclavian, axillary, and brachialveins. The venous spectral analysis demonstrates a spontaneous, phasic andaugmentable flow signal. Superficial thrombus identified in the noncompressible basilic andcephalic veins. Left: The IJV was not visualized due to C-collar. Venous duplex demonstrates compressible subclavian, axillary, brachial,and basilic veins. The venous spectral analysis demonstrates aspontaneous, phasic and augmentable flow signal. Superficial thrombus identified in the noncompressible cephalic vein. IMPRESSION: Right: Abnormal study; no evidence of acute DVT is identified. Superficial thrombus identified in the basilic and cephalic veins. Left: Abnormal study; no evidence of acute DVT is identified. Superficial thrombus identified in the cephalic vein. COMMUNICATION: Per this written report. Preliminary report signed by Freddie Velez RVT on 07/10/2025 10:43 AM By electronically signing this report, I, the attending physician, attestthat I have personally reviewed the images/data for the aboveexamination(s) and I agree with the final edited report. Drafted by Freddie Velez RVT on 07/10/2025 10:33 AM Final report signed by Dottie Talbot MD on 07/11/2025 11:10 PM us Dariusz [facility] CV VASCULAR PROCEDURES Final Re sult * VAS US Venous Duplex Lower Extremity Bilateral (07/10/2025 10:22 AM EDT) Anatomical Region Laterality Modality Lower Extremities Bilateral Ultrasound Impressions 07/11/2025 1:04 AM EDT Right: Normal study; no evidence of acute DVT is identified. Left: Normal study; no evidence of acute DVT is identified. COMMUNICATION: Per this written report. Preliminary report signed by Freddie Velez RVT on 07/10/2025 10:32 AM By electronically signing this report, I, the attending physician, attest that I have personally reviewed the images/data for the above examination(s) and I agree with the final edited report. Drafted by Freddie Velez RVT on 07/10/2025 10:27 AM Final report signed by Dottie Talbot MD on 07/11/2025 1:04 AM Narrative 07/11/2025 1:04 AM EDT CLINICAL INDICATION: Fever; R/O DVT TECHNIQUE: Non-invasive, real time duplex exam of the lower extremity venous circulation with Doppler ultrasonic waveform and spectral analysis was performed. COMPARISON: None. FINDINGS: Right: Venous duplex demonstrates compressible common femoral, femoral, popliteal, posterior tibial and peroneal veins. The venous spectral analysis demonstrates a spontaneous, phasic, augmentable and nonpulsatile flow signal. Left: Venous duplex demonstrates compressible common femoral, femoral, popliteal, posterior tibial and peroneal veins. The venous spectral analysis demonstrates a spontaneous, phasic, augmentable and nonpulsatile flow signal. Procedure Note Dottie Talbot MD - 07/11/2025 CLINICAL INDICATION: Fever; R/O DVT TECHNIQUE: Non-invasive, real time duplex exam of the lower extremity venouscirculation with Doppler ultrasonic waveform and spectral analysis wasperformed. COMPARISON: None. FINDINGS: Right: Venous duplex demonstrates compressible common femoral, femoral,popliteal, posterior tibial and peroneal veins. The venous spectralanalysis demonstrates a spontaneous, phasic, augmentable and nonpulsatileflow signal. Left: Venous duplex demonstrates compressible common femoral, femoral,popliteal, posterior tibial and peroneal veins. The venous spectralanalysis demonstrates a spontaneous, phasic, augmentable and nonpulsatileflow signal. IMPRESSION: Right: Normal study; no evidence of acute DVT is identified. Left: Normal study; no evidence of acute DVT is identified. COMMUNICATION: Per this written report. Preliminary report signed by Freddie Velez RVT on 07/10/2025 10:32 AM By electronically signing this report, I, the attending physician, attestthat I have personally reviewed the images/data for the aboveexamination(s) and I agree with the final edited report. Drafted by Freddie Velez RVT on 07/10/2025 10:27 AM Final report signed by Dottie Talbot MD on 07/11/2025 1:04 AM us D[facility]z [facility] CV VASCULAR PROCEDURES Final Re sult * HIV 1 & 2 Antibody/Antigen Screen (07/10/2025 1:01 AM EDT) HIV 1 & 2 Antibody/Antigen Screen Non Reactive Non Reactive 07/10/2025 1:52 AM EDT [facility] Comment:Screening for HIV 1 & 2 antibodies, and P24 antigen is NONREACTIVE. No confirmatory testing is required. Blood Venous blood specimen / Unknown Venipuncture / Unknown 07/10/2025 1:01 AM EDT 07/10/2025 1:10 AM EDT us D[facility]z [facility] BLOOD ORDERABLES Final Resu lt [facility] [address] [place] [address] * CA CRITICAL CARE, E/M 30-74 MINUTES (07/09/2025 11:14 AM EDT) Narrative Natalie Li MD - 07/09/2025 11:14 AM EDT Natalie Li MD 08/07/2025 10:11 AM Critical Care-standard Performed by: Natalie Li MD Authorized by: Natalie Li MD Critical care provider statement: Critical care time (minutes): 40 Critical care time was exclusive of: Separately billable procedures and treating other patients and teaching time Critical care was time spent personally by me on the following activities: Discussions with primary provider, discussions with consultants, evaluation of patient's response to treatment, examination of patient, ordering and performing treatments and interventions, ordering and review of laboratory studies, ordering and review of radiographic studies, review of old charts and ventilator management Comments: I saw and evaluated the patient with the medical/AIRPLANE INSPECTOR/PA student. I discussed the case with the medical/AIRPLANE INSPECTOR/PA student and agree with the findings and plan as documented. I personally performed the Exam and Medical Decision Making. Natalie Li MD us Natalie Li MD IN CLINIC/BEDSIDE ORDERABL ES Edited Result - Final * MR Thoracic Spine w and wo IV Contrast (07/09/2025 2:40 AM EDT) Anatomical Region Laterality Modality T-spine Magnetic Resonan ce Impressions 07/09/2025 3:23 AM EDT Posttraumatic changes of the posterior elements of the mid and lower cervical spine and the C7 vertebral body with posterior fusion of the mid cervical spine to the partially imaged upper thoracic spine. Posterior back changes of the cord from the C7 level to the partially imaged upper thoracic spine. No findings to suggest discitis osteomyelitis or epidural abscess. There is dural thickening and enhancement within the lower cervical spine extending to the upper thoracic spine likely a combination of posttraumatic change and changes related to recent postprocedural state. MRI THORACIC SPINE TECHNIQUE: Multiplanar multiecho sequences were obtained through the thoracic spine utilizing T1 and T2 weighting with and without the administration of intravenous contrast. 15 series were obtained including localizer series. 7.7mL of Gadavist. FINDINGS: Diagnostic Quality: Adequate. Alignment: Fixation hardware extends from the cervical spine to the T5 level. Artifact from hardware limits evaluation of the hardware itself and the surrounding structures. There is focal kyphosis at T2 related to multiple compression and burst fractures of the upper thoracic vertebral bodies as seen on comparison study. Marrow: Artifact limits evaluation of the vertebral bodies within the upper thoracic spine. Within these limits, there is fairly diffuse low T1 marrow signal throughout the T1, T2, and T3 vertebral bodies with associated mild STIR hyperintensity. While a component of this is related to the known fractures, superimposed other etiologies such as infection cannot be entirely excluded as this would cause similar signal changes. However, there are no secondary findings to suggest the presence of infection such as abnormal enhancement of the disc spaces or the cortices. Vertebrae and Intervertebral Discs: There is mild loss of T1 vertebral body height at the superior endplate. There is anterior wedging at T2 with 50% height loss anteriorly. Mild height loss at T3 vertebral body. Remaining thoracic vertebral body heights are maintained. The signal within the intervertebral disc spaces at the upper thoracic spine, the traumatic levels, is relatively normal. Normal intervertebral disc space signal throughout the remainder of the thoracic spine Ligaments: Artifact from hardware limits evaluation of the integrity of the posterior longitudinal ligament and the ligamentum flavum. The anterior longitudinal ligament appears intact. Spinal Cord and Spinal Canal: Abnormal expansion and increased signal within the cervicothoracic cord. The distal extent is difficult to discern given the artifact from hardware at the T5 level. The cord signal and caliber is normal however below the T5 level. Evaluation for abnormal enhancement within the spinal canal in the upper thoracic spine is limited due to artifact from hardware. No abnormal enhancement throughout the remainder of the thoracic spine however. Significant findings by level: There is epidural thickening and enhancement within the posterior aspect of the upper thoracic spine, likely reactive to posttraumatic and postsurgical state. This causes a degree of stenosis throughout the upper thoracic spine, not well evaluated due to artifact. Outside of this, there is no significant spinal canal stenosis. Prevertebral and Paraspinal Soft Tissues: Postsurgical changes of the posterior midline paraspinal soft tissues from the cervicothoracic junction to the T5 level. Other Findings: There is a chest tube present within the posterior right chest cavity. There is streaky T2 hyperintensity throughout the dependent left lung and the lower right lung. A more focal area of heterogeneous T2 hyperintensity is present within the posterior aspect of the left upper lobe. These may represent combination of atelectasis and infection. IMPRESSION: Posttraumatic and surgical changes of the upper thoracic spine with fixation hardware extending from the cervical spine to T5 level. Artifact from the hardware limits evaluation of the upper thoracic spine. Within the limits of the exam, the marrow signal abnormality of the T1, T2, and T3 vertebral bodies must be related to the known fractures, superimposed other etiologies such as infection cannot be entirely excluded as this would cause similar signal changes. However, there are no secondary findings to suggest the presence of infection such as abnormal enhancement of the disc spaces or the cortices. There may be pneumonia within the posterior lungs, most suspicious at the posterior left upper lobe. CRITICAL RESULT: No. COMMUNICATION: Per this written report. Drafted by Chelsea Yan on 07/09/2025 2:58 AM Final report signed by Chelsea Yan on 07/09/2025 3:23 AM Narrative 07/09/2025 3:23 AM EDT MRI CERVICAL AND THORACIC SPINE CLINICAL INDICATION: Osteomyelitis, thoracic, cervical COMPARISON: CT cervical and thoracic spine 06/05/2025 MRI CERVICAL SPINE TECHNIQUE: Multiplanar multiecho sequences were obtained through the cervical spine utilizing T1 and T2 weighting with and without the administration of intravenous contrast. 17 series were obtained including localizer series. 7.7mL Gadavist. FINDINGS: Diagnostic Quality: Adequate. Alignment: There is fixation hardware within the mid and lower cervical spine extending to the thoracic spine. This extends from C4 level on the right and C5 level on the left. Artifact from hardware limits evaluation of the hardware itself and the surrounding structures. Alignment of the cervical vertebral bodies is within normal limits. Marrow: Heterogeneous STIR hyperintensity involves the posterior elements of the mid and lower cervical vertebral bodies compatible with known numerous fractures from trauma as seen on comparison CT examination. There is mild increased STIR signal throughout the C7 vertebral body, likely edema and related to known fracture at this level. Vertebrae and Intervertebral Discs: Cervical vertebral body heights are maintained. Intervertebral disc space heights are maintained. There is no marrow signal abnormality or signal abnormality of the discs or abnormal enhancement of the structures to suggest discitis osteomyelitis. Ligaments: There is probable disruption of the posterior longitudinal ligament at the C7 level and disruption of the ligamentum flavum at the C6-7 and C7-T1 levels. Spinal Cord and Spinal Canal: There is expansion of the cord with heterogeneous abnormal increased signal at the C7 level extending to the thoracic cord. This is compatible with sequela of cord injury and edema. There is a T2 dark signal within the anterior aspect of the spinal canal, likely epidural or subdural hemorrhage. There is diffuse leptomeningeal enhancement, likely reactive. There is dural thickening and enhancement from the C6-7 level to the thoracic spine, greatest posteriorly, likely reactive and/or related to postprocedural state. No fluid collection within the spinal canal with associated enhancement to suggest abscess. These findings cause spinal canal stenosis from C7 level to the partially imaged upper thoracic spine without high-grade spinal canal stenosis in the cervical spine. Prevertebral and Paraspinal Soft Tissues: Heterogeneous T2 hyperintensity and enhancement within the posterior paraspinal soft tissues at the midline, related to postoperative change. Other Findings: There is a tracheostomy tube in place. Fluid layers within the imaged paranasal sinuses and pharynx. Enteric tube is placed through the left nasal passage. There are large bilateral mastoid air cell effusions are present. Procedure Note Chelsea Yan MD - 07/09/2025 MRI CERVICAL AND THORACIC SPINE CLINICAL INDICATION: Osteomyelitis, thoracic, cervical COMPARISON: CT cervical and thoracic spine 06/05/2025 MRI CERVICAL SPINE TECHNIQUE: Multiplanar multiecho sequences were obtained through the cervical spineutilizing T1 and T2 weighting with and without the administration ofintravenous contrast. 17 series were obtained including localizer series.7.7mL Gadavist. FINDINGS: Diagnostic Quality: Adequate. Alignment: There is fixation hardware within the mid and lower cervicalspine extending to the thoracic spine. This extends from C4 level on theright and C5 level on the left. Artifact from hardware limits evaluationof the hardware itself and the surrounding structures. Alignment of thecervical vertebral bodies is within normal limits. Marrow: Heterogeneous STIR hyperintensity involves the posterior elementsof the mid and lower cervical vertebral bodies compatible with knownnumerous fractures from trauma as seen on comparison CT examination. Thereis mild increased STIR signal throughout the C7 vertebral body, likelyedema and related to known fracture at this level. Vertebrae and Intervertebral Discs: Cervical vertebral body heights aremaintained. Intervertebral disc space heights are maintained. There is nomarrow signal abnormality or signal abnormality of the discs or abnormalenhancement of the structures to suggest discitis osteomyelitis. Ligaments: There is probable disruption of the posterior longitudinalligament at the C7 level and disruption of the ligamentum flavum at theC6-7 and C7-T1 levels. Spinal Cord and Spinal Canal: There is expansion of the cord withheterogeneous abnormal increased signal at the C7 level extending to thethoracic cord. This is compatible with sequela of cord injury and edema.There is a T2 dark signal within the anterior aspect of the spinal canal,likely epidural or subdural hemorrhage. There is diffuse leptomeningealenhancement, likely reactive. There is dural thickening and enhancementfrom the C6-7 level to the thoracic spine, greatest posteriorly, likelyreactive and/or related to postprocedural state. No fluid collectionwithin the spinal canal with associated enhancement to suggest abscess. These findings cause spinal canal stenosis from C7 level to the partiallyimaged upper thoracic spine without high-grade spinal canal stenosis inthe cervical spine. Prevertebral and Paraspinal Soft Tissues: Heterogeneous T2 hyperintensityand enhancement within the posterior paraspinal soft tissues at themidline, related to postoperative change. Other Findings: There is a tracheostomy tube in place. Fluid layers withinthe imaged paranasal sinuses and pharynx. Enteric tube is placed throughthe left nasal passage. There are large bilateral mastoid air celleffusions are present. IMPRESSION: Posttraumatic changes of the posterior elements of the mid and lowercervical spine and the C7 vertebral body with posterior fusion of the midcervical spine to the partially imaged upper thoracic spine. Posterior back changes of the cord from the C7 level to the partiallyimaged upper thoracic spine. No findings to suggest discitis osteomyelitis or epidural abscess. Thereis dural thickening and enhancement within the lower cervical spineextending to the upper thoracic spine likely a combination ofposttraumatic change and changes related to recent postprocedural state. MRI THORACIC SPINE TECHNIQUE: Multiplanar multiecho sequences were obtained through the thoracic spineutilizing T1 and T2 weighting with and without the administration ofintravenous contrast. 15 series were obtained including localizer series.7.7mL of Gadavist. FINDINGS: Diagnostic Quality: Adequate. Alignment: Fixation hardware extends from the cervical spine to the [id number]. Artifact from hardware limits evaluation of the hardware itself andthe surrounding structures. There is focal kyphosis at T2 related tomultiple compression and burst fractures of the upper thoracic vertebralbodies as seen on comparison study. Marrow: Artifact limits evaluation of the vertebral bodies within theupper thoracic spine. Within these limits, there is fairly diffuse low [id number] signal throughout the T1, T2, and T3 vertebral bodies withassociated mild STIR hyperintensity. While a component of this is relatedto the known fractures, superimposed other etiologies such as infectioncannot be entirely excluded as this would cause similar signal changes.However, there are no secondary findings to suggest the presence ofinfection such as abnormal enhancement of the disc spaces or the cortices. Vertebrae and Intervertebral Discs: There is mild loss of T1 vertebralbody height at the superior endplate. There is anterior wedging at T2 with50% height loss anteriorly. Mild height loss at T3 vertebral body.Remaining thoracic vertebral body heights are maintained. The signalwithin the intervertebral disc spaces at the upper thoracic spine, thetraumatic levels, is relatively normal. Normal intervertebral disc spacesignal throughout the remainder of the thoracic spine Ligaments: Artifact from hardware limits evaluation of the integrity ofthe posterior longitudinal ligament and the ligamentum flavum. Theanterior longitudinal ligament appears intact. Spinal Cord and Spinal Canal: Abnormal expansion and increased signalwithin the cervicothoracic cord. The distal extent is difficult to discerngiven the artifact from hardware at the T5 level. The cord signal andcaliber is normal however below the T5 level. Evaluation for abnormalenhancement within the spinal canal in the upper thoracic spine is limiteddue to artifact from hardware. No abnormal enhancement throughout theremainder of the thoracic spine however. Significant findings by level: There is epidural thickening andenhancement within the posterior aspect of the upper thoracic spine,likely reactive to posttraumatic and postsurgical state. This causes adegree of stenosis throughout the upper thoracic spine, not well evaluateddue to artifact. Outside of this, there is no significant spinal canalstenosis. Prevertebral and Paraspinal Soft Tissues: Postsurgical changes of theposterior midline paraspinal soft tissues from the cervicothoracicjunction to the T5 level. Other Findings: There is a chest tube present within the posterior rightchest cavity. There is streaky T2 hyperintensity throughout the dependentleft lung and the lower right lung. A more focal area of heterogeneous [id number] is present within the posterior aspect of the left upperlobe. These may represent combination of atelectasis and infection. IMPRESSION: Posttraumatic and surgical changes of the upper thoracic spine withfixation hardware extending from the cervical spine to T5 level. Artifactfrom the hardware limits evaluation of the upper thoracic spine. Within the limits of the exam, the marrow signal abnormality of the T1,T2, and T3 vertebral bodies must be related to the known fractures,superimposed other etiologies such as infection cannot be entirelyexcluded as this would cause similar signal changes. However, there are nosecondary findings to suggest the presence of infection such as abnormalenhancement of the disc spaces or the cortices. There may be pneumonia within the posterior lungs, most suspicious at theposterior left upper lobe. CRITICAL RESULT: No. COMMUNICATION: Per this written report. Drafted by Chelsea Yan on 07/09/2025 2:58 AM Final report signed by Chelsea Yan on 07/09/2025 3:23 AM us Fransisca Estrada RN IMG MRI PROCEDURES Final Res ult * MR Cervical Spine w and wo IV Contrast (07/09/2025 2:40 AM EDT) Anatomical Region Laterality Modality C-spine Magnetic Resonan ce Impressions 07/09/2025 3:23 AM EDT Posttraumatic changes of the posterior elements of the mid and lower cervical spine and the C7 vertebral body with posterior fusion of the mid cervical spine to the partially imaged upper thoracic spine. Posterior back changes of the cord from the C7 level to the partially imaged upper thoracic spine. No findings to suggest discitis osteomyelitis or epidural abscess. There is dural thickening and enhancement within the lower cervical spine extending to the upper thoracic spine likely a combination of posttraumatic change and changes related to recent postprocedural state. MRI THORACIC SPINE TECHNIQUE: Multiplanar multiecho sequences were obtained through the thoracic spine utilizing T1 and T2 weighting with and without the administration of intravenous contrast. 15 series were obtained including localizer series. 7.7mL of Gadavist. FINDINGS: Diagnostic Quality: Adequate. Alignment: Fixation hardware extends from the cervical spine to the T5 level. Artifact from hardware limits evaluation of the hardware itself and the surrounding structures. There is focal kyphosis at T2 related to multiple compression and burst fractures of the upper thoracic vertebral bodies as seen on comparison study. Marrow: Artifact limits evaluation of the vertebral bodies within the upper thoracic spine. Within these limits, there is fairly diffuse low T1 marrow signal throughout the T1, T2, and T3 vertebral bodies with associated mild STIR hyperintensity. While a component of this is related to the known fractures, superimposed other etiologies such as infection cannot be entirely excluded as this would cause similar signal changes. However, there are no secondary findings to suggest the presence of infection such as abnormal enhancement of the disc spaces or the cortices. Vertebrae and Intervertebral Discs: There is mild loss of T1 vertebral body height at the superior endplate. There is anterior wedging at T2 with 50% height loss anteriorly. Mild height loss at T3 vertebral body. Remaining thoracic vertebral body heights are maintained. The signal within the intervertebral disc spaces at the upper thoracic spine, the traumatic levels, is relatively normal. Normal intervertebral disc space signal throughout the remainder of the thoracic spine Ligaments: Artifact from hardware limits evaluation of the integrity of the posterior longitudinal ligament and the ligamentum flavum. The anterior longitudinal ligament appears intact. Spinal Cord and Spinal Canal: Abnormal expansion and increased signal within the cervicothoracic cord. The distal extent is difficult to discern given the artifact from hardware at the T5 level. The cord signal and caliber is normal however below the T5 level. Evaluation for abnormal enhancement within the spinal canal in the upper thoracic spine is limited due to artifact from hardware. No abnormal enhancement throughout the remainder of the thoracic spine however. Significant findings by level: There is epidural thickening and enhancement within the posterior aspect of the upper thoracic spine, likely reactive to posttraumatic and postsurgical state. This causes a degree of stenosis throughout the upper thoracic spine, not well evaluated due to artifact. Outside of this, there is no significant spinal canal stenosis. Prevertebral and Paraspinal Soft Tissues: Postsurgical changes of the posterior midline paraspinal soft tissues from the cervicothoracic junction to the T5 level. Other Findings: There is a chest tube present within the posterior right chest cavity. There is streaky T2 hyperintensity throughout the dependent left lung and the lower right lung. A more focal area of heterogeneous T2 hyperintensity is present within the posterior aspect of the left upper lobe. These may represent combination of atelectasis and infection. IMPRESSION: Posttraumatic and surgical changes of the upper thoracic spine with fixation hardware extending from the cervical spine to T5 level. Artifact from the hardware limits evaluation of the upper thoracic spine. Within the limits of the exam, the marrow signal abnormality of the T1, T2, and T3 vertebral bodies must be related to the known fractures, superimposed other etiologies such as infection cannot be entirely excluded as this would cause similar signal changes. However, there are no secondary findings to suggest the presence of infection such as abnormal enhancement of the disc spaces or the cortices. There may be pneumonia within the posterior lungs, most suspicious at the posterior left upper lobe. CRITICAL RESULT: No. COMMUNICATION: Per this written report. Drafted by Chelsea Yan on 07/09/2025 2:58 AM Final report signed by Chelsea Yan on 07/09/2025 3:23 AM Narrative 07/09/2025 3:23 AM EDT MRI CERVICAL AND THORACIC SPINE CLINICAL INDICATION: Osteomyelitis, thoracic, cervical COMPARISON: CT cervical and thoracic spine 06/05/2025 MRI CERVICAL SPINE TECHNIQUE: Multiplanar multiecho sequences were obtained through the cervical spine utilizing T1 and T2 weighting with and without the administration of intravenous contrast. 17 series were obtained including localizer series. 7.7mL Gadavist. FINDINGS: Diagnostic Quality: Adequate. Alignment: There is fixation hardware within the mid and lower cervical spine extending to the thoracic spine. This extends from C4 level on the right and C5 level on the left. Artifact from hardware limits evaluation of the hardware itself and the surrounding structures. Alignment of the cervical vertebral bodies is within normal limits. Marrow: Heterogeneous STIR hyperintensity involves the posterior elements of the mid and lower cervical vertebral bodies compatible with known numerous fractures from trauma as seen on comparison CT examination. There is mild increased STIR signal throughout the C7 vertebral body, likely edema and related to known fracture at this level. Vertebrae and Intervertebral Discs: Cervical vertebral body heights are maintained. Intervertebral disc space heights are maintained. There is no marrow signal abnormality or signal abnormality of the discs or abnormal enhancement of the structures to suggest discitis osteomyelitis. Ligaments: There is probable disruption of the posterior longitudinal ligament at the C7 level and disruption of the ligamentum flavum at the C6-7 and C7-T1 levels. Spinal Cord and Spinal Canal: There is expansion of the cord with heterogeneous abnormal increased signal at the C7 level extending to the thoracic cord. This is compatible with sequela of cord injury and edema. There is a T2 dark signal within the anterior aspect of the spinal canal, likely epidural or subdural hemorrhage. There is diffuse leptomeningeal enhancement, likely reactive. There is dural thickening and enhancement from the C6-7 level to the thoracic spine, greatest posteriorly, likely reactive and/or related to postprocedural state. No fluid collection within the spinal canal with associated enhancement to suggest abscess. These findings cause spinal canal stenosis from C7 level to the partially imaged upper thoracic spine without high-grade spinal canal stenosis in the cervical spine. Prevertebral and Paraspinal Soft Tissues: Heterogeneous T2 hyperintensity and enhancement within the posterior paraspinal soft tissues at the midline, related to postoperative change. Other Findings: There is a tracheostomy tube in place. Fluid layers within the imaged paranasal sinuses and pharynx. Enteric tube is placed through the left nasal passage. There are large bilateral mastoid air cell effusions are present. Procedure Note Chelsea Yan MD - 07/09/2025 MRI CERVICAL AND THORACIC SPINE CLINICAL INDICATION: Osteomyelitis, thoracic, cervical COMPARISON: CT cervical and thoracic spine 06/05/2025 MRI CERVICAL SPINE TECHNIQUE: Multiplanar multiecho sequences were obtained through the cervical spineutilizing T1 and T2 weighting with and without the administration ofintravenous contrast. 17 series were obtained including localizer series.7.7mL Gadavist. FINDINGS: Diagnostic Quality: Adequate. Alignment: There is fixation hardware within the mid and lower cervicalspine extending to the thoracic spine. This extends from C4 level on theright and C5 level on the left. Artifact from hardware limits evaluationof the hardware itself and the surrounding structures. Alignment of thecervical vertebral bodies is within normal limits. Marrow: Heterogeneous STIR hyperintensity involves the posterior elementsof the mid and lower cervical vertebral bodies compatible with knownnumerous fractures from trauma as seen on comparison CT examination. Thereis mild increased STIR signal throughout the C7 vertebral body, likelyedema and related to known fracture at this level. Vertebrae and Intervertebral Discs: Cervical vertebral body heights aremaintained. Intervertebral disc space heights are maintained. There is nomarrow signal abnormality or signal abnormality of the discs or abnormalenhancement of the structures to suggest discitis osteomyelitis. Ligaments: There is probable disruption of the posterior longitudinalligament at the C7 level and disruption of the ligamentum flavum at theC6-7 and C7-T1 levels. Spinal Cord and Spinal Canal: There is expansion of the cord withheterogeneous abnormal increased signal at the C7 level extending to thethoracic cord. This is compatible with sequela of cord injury and edema.There is a T2 dark signal within the anterior aspect of the spinal canal,likely epidural or subdural hemorrhage. There is diffuse leptomeningealenhancement, likely reactive. There is dural thickening and enhancementfrom the C6-7 level to the thoracic spine, greatest posteriorly, likelyreactive and/or related to postprocedural state. No fluid collectionwithin the spinal canal with associated enhancement to suggest abscess. These findings cause spinal canal stenosis from C7 level to the partiallyimaged upper thoracic spine without high-grade spinal canal stenosis inthe cervical spine. Prevertebral and Paraspinal Soft Tissues: Heterogeneous T2 hyperintensityand enhancement within the posterior paraspinal soft tissues at themidline, related to postoperative change. Other Findings: There is a tracheostomy tube in place. Fluid layers withinthe imaged paranasal sinuses and pharynx. Enteric tube is placed throughthe left nasal passage. There are large bilateral mastoid air celleffusions are present. IMPRESSION: Posttraumatic changes of the posterior elements of the mid and lowercervical spine and the C7 vertebral body with posterior fusion of the midcervical spine to the partially imaged upper thoracic spine. Posterior back changes of the cord from the C7 level to the partiallyimaged upper thoracic spine. No findings to suggest discitis osteomyelitis or epidural abscess. Thereis dural thickening and enhancement within the lower cervical spineextending to the upper thoracic spine likely a combination ofposttraumatic change and changes related to recent postprocedural state. MRI THORACIC SPINE TECHNIQUE: Multiplanar multiecho sequences were obtained through the thoracic spineutilizing T1 and T2 weighting with and without the administration ofintravenous contrast. 15 series were obtained including localizer series.7.7mL of Gadavist. FINDINGS: Diagnostic Quality: Adequate. Alignment: Fixation hardware extends from the cervical spine to the T0suvyv. Artifact from hardware limits evaluation of the hardware itself andthe surrounding structures. There is focal kyphosis at T2 related tomultiple compression and burst fractures of the upper thoracic vertebralbodies as seen on comparison study. Marrow: Artifact limits evaluation of the vertebral bodies within theupper thoracic spine. Within these limits, there is fairly diffuse low [id number] signal throughout the T1, T2, and T3 vertebral bodies withassociated mild STIR hyperintensity. While a component of this is relatedto the known fractures, superimposed other etiologies such as infectioncannot be entirely excluded as this would cause similar signal changes.However, there are no secondary findings to suggest the presence ofinfection such as abnormal enhancement of the disc spaces or the cortices. Vertebrae and Intervertebral Discs: There is mild loss of T1 vertebralbody height at the superior endplate. There is anterior wedging at T2 with50% height loss anteriorly. Mild height loss at T3 vertebral body.Remaining thoracic vertebral body heights are maintained. The signalwithin the intervertebral disc spaces at the upper thoracic spine, thetraumatic levels, is relatively normal. Normal intervertebral disc spacesignal throughout the remainder of the thoracic spine Ligaments: Artifact from hardware limits evaluation of the integrity ofthe posterior longitudinal ligament and the ligamentum flavum. Theanterior longitudinal ligament appears intact. Spinal Cord and Spinal Canal: Abnormal expansion and increased signalwithin the cervicothoracic cord. The distal extent is difficult to discerngiven the artifact from hardware at the T5 level. The cord signal andcaliber is normal however below the T5 level. Evaluation for abnormalenhancement within the spinal canal in the upper thoracic spine is limiteddue to artifact from hardware. No abnormal enhancement throughout theremainder of the thoracic spine however. Significant findings by level: There is epidural thickening andenhancement within the posterior aspect of the upper thoracic spine,likely reactive to posttraumatic and postsurgical state. This causes adegree of stenosis throughout the upper thoracic spine, not well evaluateddue to artifact. Outside of this, there is no significant spinal canalstenosis. Prevertebral and Paraspinal Soft Tissues: Postsurgical changes of theposterior midline paraspinal soft tissues from the cervicothoracicjunction to the T5 level. Other Findings: There is a chest tube present within the posterior rightchest cavity. There is streaky T2 hyperintensity throughout the dependentleft lung and the lower right lung. A more focal area of heterogeneous [id number] is present within the posterior aspect of the left upperlobe. These may represent combination of atelectasis and infection. IMPRESSION: Posttraumatic and surgical changes of the upper thoracic spine withfixation hardware extending from the cervical spine to T5 level. Artifactfrom the hardware limits evaluation of the upper thoracic spine. Within the limits of the exam, the marrow signal abnormality of the T1,T2, and T3 vertebral bodies must be related to the known fractures,superimposed other etiologies such as infection cannot be entirelyexcluded as this would cause similar signal changes. However, there are nosecondary findings to suggest the presence of infection such as abnormalenhancement of the disc spaces or the cortices. There may be pneumonia within the posterior lungs, most suspicious at theposterior left upper lobe. CRITICAL RESULT: No. COMMUNICATION: Per this written report. Drafted by Chelsea Yan on 07/09/2025 2:58 AM Final report signed by Chelsea Yan on 07/09/2025 3:23 AM Fransisca Estrada RN IMG MRI PROCEDURES Final Res ult * Triglycerides (07/09/2025 12:24 AM EDT) Only the most recent of3 resultswithin the time period is included. Triglycerides, Plasma 123 <150 mg/dL 07/09/2025 12:59 AM EDT [facility] Comment: Triglyceride Reference Range (age >17 years): Desirable: <150 mg/dL Borderline high: 150 to 199 mg/dL High: 200 to 499 mg/dL Very high: >499 mg/dL Increased risk of pancreatitis: >1000 mg/dL Fasting greater than or equal to 12 hours? No 07/09/2025 12:59 AM EDT [facility] Blood Venous blood specimen / Unknown Venipuncture / Unknown 07/09/2025 12:24 AM EDT 07/09/2025 12:29 AM EDT [facility] BLOOD ORDERABLES Final R esult [facility] [address] [place] [address] * (ABNORMAL) Quantitative BAL/PAL/Bronch Wash Culture and Gram StainProtected Alveolar Lavage (07/08/2025 12:17 PM EDT) Only the most recent of2 resultswithin the time period is included. Culture >=100,000 CFU/mL Acinetobacter baumannii/calcoaceti cus complex(A) KLAUDIA 07/10/2025 4:12 PM EDT [facility] Comment: This isolate has been identified using the FDA Approved [employer] [place] System The organism value for this result has been updated. These results have been appended to the previously preliminary verified report. Gram Stain Result Numerous Polymorphonuclear leukocytes(A) 07/10/2025 4:12 PM EDT [facility] Gram Stain Result Rare Gram positive cocci in pairs(A) 07/10/2025 4:12 PM EDT [facility] Gram Stain Result Rare Gram positive rods(A) 07/10/2025 4:12 PM EDT [facility] Protected Alveolar Lavage (Protected Alveolar Lavage) 07/08/2025 12:17 PM EDT 07/08/2025 12:34 PM EDT Narrative Organism Antibiotic Method Susceptibility Acinetobacter baumannii/calcoaceticus complex Amikacin KLAUDIA <=8 ug/ml: Susceptible Acinetobacter baumannii/calcoaceticus complex Ampicillin/Sulbactam KLAUDIA 2/1 ug/ml: Susceptible Acinetobacter baumannii/calcoaceticus complex Cefepime KLAUDIA 2 ug/ml: Susceptible Acinetobacter baumannii/calcoaceticus complex Ciprofloxacin KLAUDIA <=0.25 ug/ml: Susceptible Acinetobacter baumannii/calcoaceticus complex Gentamicin KLAUDIA <=2 ug/ml: Susceptible Acinetobacter baumannii/calcoaceticus complex Levofloxacin KLAUDIA <=0.25 ug/ml: Susceptible Acinetobacter baumannii/calcoaceticus complex Meropenem KLAUDIA <=0.5 ug/ml: Susceptible Acinetobacter baumannii/calcoaceticus complex Minocycline KLAUDIA <=1 ug/ml: Susceptible Acinetobacter baumannii/calcoaceticus complex Tobramycin KLAUDIA <=2 ug/ml: Susceptible Acinetobacter baumannii/calcoaceticus complex Trimethoprim/Sulfamethoxaz ole KLAUDIA <=0.5/9.5 ug/ml: Susceptible us [place] [facility] ORDERABLES Final Result Performing Organization Address [facility] de Phone Number [facility] [address] [place] [address] * (ABNORMAL) Ionized calcium, whole blood (07/08/2025 2:31 AM EDT) Only the most recent of4 resultswithin the time period is included. Ionized Calcium, Whole Blood 4.5(L) 4.6 - 5.1 mg/dL LAB HEMATOLOGY METHOD 07/08/2025 2:42 AM EDT [facility] Blood Venous blood specimen / Unknown Venipuncture / Unknown 07/08/2025 2:31 AM EDT 07/08/2025 2:40 AM EDT us Fransisca Estrada RN LAB BLOOD ORDERABLES Final R esult Performing Organization Address [facility] de Phone Number [facility] [address] [place] [address] * [place] CRITICAL CARE, E/M 30-74 MINUTES (07/06/2025 6:08 PM EDT) Narrative Sandy Simmons MD - 07/06/2025 6:08 PM EDT Sandy Simmons MD 07/07/2025 12:53 PM Critical Care Performed by: Sandy Simmons MD Authorized by: Sandy Simmons MD Critical care provider statement: Critical care time (minutes): 35 Critical care time was exclusive of: Separately billable procedures and treating other patients and teaching time Critical care was time spent personally by me on the following activities: Development of treatment plan with patient or surrogate, discussions with consultants, evaluation of patient's response to treatment, examination of patient, obtaining history from patient or surrogate, ventilator management, ordering and review of radiographic studies, ordering and review of laboratory studies and ordering and performing treatments and interventions I assumed subsequent critical care for this patient from a provider in my division, on the same day: no us Sandy Simmons MD IN CLINIC/BEDSIDE ORDERAB LES Final Result * CA CRITICAL CARE, E/M 30-74 MINUTES (07/06/2025 4:27 PM EDT) Narrative Sandy Simmons MD - 07/06/2025 4:27 PM EDT Sandy Simmons MD 07/12/2025 4:04 PM Critical Care Performed by: Sandy Simmons MD Authorized by: Sandy Simmons MD Critical care provider statement: Critical care time (minutes): 30 Critical care time was exclusive of: Separately billable procedures and treating other patients and teaching time Critical care was time spent personally by me on the following activities: Development of treatment plan with patient or surrogate, discussions with consultants, evaluation of patient's response to treatment, examination of patient, obtaining history from patient or surrogate, ventilator management, ordering and review of radiographic studies, ordering and review of laboratory studies and ordering and performing treatments and interventions I assumed subsequent critical care for this patient from a provider in my division, on the same day: no Critical care statement: I saw and evaluated the patient with the resident/ fellow. I discussed the case with the resident/ fellow and agree with the findings and plan as documented. us Sandy Simmons MD IN CLINIC/BEDSIDE ORDERAB LES Final Result * ECHO, ADULT TRANSTHORACIC COMPLETE (07/06/2025 8:20 AM EDT) BSA 1.94 m2 ALEXIS ISCV Height 177.8 ALEXIS ISCV Weight 76.7 ALEXIS ISCV LV V1 VTI 15.0 cm ALEXIS ISCV MV E Vmax 82.3 cm/s ALEXIS ISCV MV A Vmax 78.1 cm/s ALEXIS ISCV MV E/A 1.1 cm/s ALEXIS ISCV PA V2 VTI 18.0 cm ALEXIS ISCV RV s' Errol 13.2 cm/s ALEXIS ISCV TAPSE 27 mm ALEXIS ISCV LV V1 Vmax 88.9 cm/s ALEXIS ISCV Ao V2 VTI 19.1 cm ALEXIS ISCV Ao mean PG 3 mmHg ALEXIS ISCV Ao V2 Vmax 115.0 cm/s ALEXIS ISCV Ao max PG 5 mmHg ALEXIS ISCV AV VTI Index 0.79 ALEXIS ISCV MV dec time 170 ms ALEXIS ISCV MV P1/2t 49 ms ALEXIS ISCV MVA(P1/2t) 4.5 cm2 ALEXIS ISCV PA MG 2 mmHg ALEXIS ISCV PA V2 Vmax 99.7 cm/s ALEXIS ISCV PA PG 4 mmHg ALEXIS ISCV LV mean PG 2.0 mmHG ALEXIS ISCV LV V1 mean 59.0 cm/sec ALEXIS ISCV LV max PG 3.2 mmHg ALEXIS ISCV AV-pr VR 0.8 ALEXIS ISCV Ao V2 mean 77.7 cm/s ALEXIS ISCV IVSd 9 mm ALEXIS ISCV LVIDd 48 mm ALEXIS ISCV LVPWd 10 mm ALEXIS ISCV LV MASS(C)D 158 g ALEXIS ISCV [facility] CV ECHO LV MASS INDEX 82 g/m2 ALEXIS ISCV LV RWT 0.40 mm ALEXIS ISCV Ao Root Diam 25 mm ALEXIS ISCV LVIDs 33 mm ALEXIS ISCV LA dimension 31 mm ALEXIS ISCV LVOT diam 21 mm ALEXIS ISCV LVOT AREA 3.5 cm2 ALEXIS ISCV SV(LVOT) 52 mL ALEXIS ISCV TEMITOPE(I,D) 2.7 cm2 ALEXIS ISCV TEMITOPE(VTI)/BSA_ph l 1.4 cm2/m2 ALEXIS ISCV LAV(MOD-4ch) 17 mL ALEXIS ISCV LV EDV(MOD-4ch) 98 mL ALEXIS ISCV LV ESV(MOD4ch) 47 mL ALEXIS ISCV EF(MOD-sp4) 52 % ALEXIS ISCV LV EDV(MOD-2ch) 55 mL ALEXIS ISCV EDV(MOD-bp) 77 mL ALEXIS ISCV LV ESV(MOD2ch) 24 mL ALEXIS ISCV EF(MOD-sp2) 56 % ALEXIS ISCV ESV(MOD-bp) 36 mL ALEXIS ISCV EF(MOD-bp) 54 % ALEXIS ISCV LVLs ap2 6.4 mm ALEXIS ISCV RA MOD 4Ch 35 mL ALEXIS ISCV SUKUMAR 18 mL/m2 ALEXIS ISCV RV base 44 mm ALEXIS ISCV Anatomical Region Laterality Modality Echocardiography Narrative 07/06/2025 12:35 PM EDT There is no definite echocardiographic evidence of endocarditis. Left Ventricle: The left ventricle is normal size. The left ventricular systolic function is normal. The LVEF is visually estimated at 55 - 60%. The diastolic function is normal. No regional wall motion abnormalities are seen. Right Ventricle: The right ventricle is dilated. The right ventricular systolic function is normal. Pericardium: No pericardial effusion. Compared to the most recently available prior study, and allowing for differences in image quality and technique, there is no significant interval change noted. Left Ventricle The left ventricle is normal size. The left ventricular systolic function is normal. The LVEF is visually estimated at 55 - 60%. The diastolic function is normal. No regional wall motion abnormalities are seen. Right Ventricle The right ventricle is dilated. The right ventricular systolic function is normal. Unable to estimate the right ventricular systolic pressure (RVSP) due to inadequate TR signal. Left Atrium The left atrial size is normal with an indexed volume of 16-34 mL/m2. The interatrial septum is intact with no evidence for an atrial septal defect. Right Atrium The right atrial volume index is normal (18-32mL/m2). IVC/SVC Due to positive pressure ventilation, the right atrial pressure cannot be estimated. An assumed pressure of 8mmHg was used for calculations. Mitral Valve The mitral valve leaflets are normal in appearance with no evidence of mitral valve prolapse. There is no mitral valve vegetation. There is trace mitral regurgitation. There is no mitral stenosis. Tricuspid Valve The tricuspid valve is normal in appearance. There is no tricuspid valve vegetation. There is mild tricuspid regurgitation. There is no tricuspid stenosis. Aortic Valve The aortic valve appears to be trileaflet. There is no aortic valve vegetation. There is no valvular regurgitation. There is no hemodynamically significant valvular aortic stenosis. Pulmonic Valve The pulmonic valve is normal in appearance. There is trace pulmonic regurgitation. There is no pulmonic stenosis. Pericardium No pericardial effusion. Great Vessels The aortic root is normal in size. The main pulmonary artery is normal in size. Study Details A complete transthoracic echocardiogram using two-dimensional (2D), m-mode, color and spectral flow Doppler imaging was performed. During the study the apical, parasternal and subcostal view was captured. Overall the study quality was adequate. Height: 177.8 cm. Weight: 76.7 kg. BSA: 1.94 m2. The heart rhythm during this exam was most suggestive of a sinus rhythm. Study Recommendation There is no definite echocardiographic evidence of endocarditis. Compared to the most recently available prior study, and allowing for differences in image quality and technique, there is no significant interval change noted. Shaheed HINES CV ECHO PROCEDURES Final Resul t * (ABNORMAL) Blood gas, venous (07/06/2025 3:19 AM EDT) pH, Venous 7.45(H) 7.32 - 7.43 LAB HEMATOLOGY METHOD 07/06/2025 3:30 AM EDT [facility] pCO2, Venous 46 40 - 55 mmHg LAB HEMATOLOGY METHOD 07/06/2025 3:30 AM EDT [facility] pO2, Venous 38 25 - 40 mmHg LAB HEMATOLOGY METHOD 07/06/2025 3:30 AM EDT [facility] SO2, Measured, Venous 72 65 - 80 % LAB HEMATOLOGY METHOD 07/06/2025 3:30 AM EDT [facility] Base Excess, Venous 7.3(H) -2.0 - 3.0 mmol/L LAB HEMATOLOGY METHOD 07/06/2025 3:30 AM EDT [facility] Bicarbonate, Calculated, Venous 32(H) 22 - 26 mmol/L LAB HEMATOLOGY METHOD 07/06/2025 3:30 AM EDT [facility] Hematocrit, Whole Blood 25.1(L) 40.0 - 51.0 % LAB HEMATOLOGY METHOD 07/06/2025 3:30 AM EDT [facility] Sodium, Whole Blood 140 136 - 145 mmol/L LAB HEMATOLOGY METHOD 07/06/2025 3:30 AM EDT [facility] Potassium, Whole Blood 4.5 3.6 - 4.9 mmol/L LAB HEMATOLOGY METHOD 07/06/2025 3:30 AM EDT [facility] Chloride, Whole Blood 102 97 - 107 mmol/L LAB HEMATOLOGY METHOD 07/06/2025 3:30 AM EDT [facility] Glucose, Whole Blood 101(H) 74 - 99 mg/dL LAB HEMATOLOGY METHOD 07/06/2025 3:30 AM EDT [facility] Lactate, Venous, Whole Blood 0.9 0.5 - 2.2 mmol/L LAB HEMATOLOGY METHOD 07/06/2025 3:30 AM EDT [facility] Ionized Calcium, Whole Blood 4.7 4.6 - 5.1 mg/dL LAB HEMATOLOGY METHOD 07/06/2025 3:30 AM EDT [facility] Blood Venous blood specimen / Unknown Venipuncture / Unknown 07/06/2025 3:19 AM EDT 07/06/2025 3:28 AM EDT us Sandy Simmons MD LAB BLOOD ORDERABLES Nadege l Result [facility] [address] [place] [address] * [place] CRITICAL CARE, E/M 30-74 MINUTES (07/05/2025 1:06 PM EDT) Narrative Sandy Simmons MD - 07/05/2025 1:06 PM EDT Sandy Simmons MD 07/12/2025 4:02 PM Critical Care Performed by: Sandy Simmons MD Authorized by: Sandy Simmons MD Critical care provider statement: Critical care time (minutes): 30 Critical care time was exclusive of: Separately billable procedures and treating other patients and teaching time Critical care was time spent personally by me on the following activities: Development of treatment plan with patient or surrogate, discussions with consultants, evaluation of patient's response to treatment, examination of patient, obtaining history from patient or surrogate, ventilator management, ordering and review of radiographic studies, ordering and review of laboratory studies and ordering and performing treatments and interventions I assumed subsequent critical care for this patient from a provider in my division, on the same day: no Comments: Seen and examined with the Advanced Practice Provider (MATI). I attest to being personally involved in more than half the total time in patient care including obtaining and reviewing the history, performing and documenting the exam, and medical decision making. The patient remains critically ill requiring ongoing life and organ-supporting interventions. Hypoxic respiratory failure. Re-intubated overnight. Tracheostomy tomorrow to facilitate weaning us Sandy Simmons MD IN CLINIC/BEDSIDE ORDERAB LES Final Result * CA CRITICAL CARE, ADDL 30 MIN (07/04/2025 9:33 PM EDT) Nette Pleitez MD - 07/04/2025 9:33 PM EDT Nette Worrell MD 07/13/2025 6:29 PM Critical Care Performed by: Nette Worrell MD Authorized by: Nette Worrell MD Critical care provider statement: Critical care time (minutes): 38 Critical care time was exclusive of: Separately billable procedures and treating other patients and teaching time Critical care was time spent personally by me on the following activities: Development of treatment plan with patient or surrogate, evaluation of patient's response to treatment, examination of patient, ordering and performing treatments and interventions, ordering and review of laboratory studies, ordering and review of radiographic studies and ventilator management I assumed subsequent critical care for this patient from a provider in my division, on the same day: yes Comments: I attest to being involved in more than half the total time for 38 minutes in patient care. Patient with worsening respiratory decline despite frequent suctioning, non invasive positive pressure ventilation, and aggressive pulmonary toilet. Despite continuous bedside presence to encourage secretion mobilization and close involvement of respiratory therapy, patient increasingly hypoxic with significantly increased work of breathing. After multiple non invasive respiratory interventions, decision was made to re-intubate. Subsequent time spent at the bedside titrating ventilator settings to correct for hypoxia and hypercapnea, as well as monitoring hemodynamic status after sedation provided for intubation. Nette Worrell MD Nette Worrell MD IN CLINIC/BEDSIDE ORDERAB LES Final Result * INTUBATION (07/04/2025 7:52 PM EDT) Nette Pleitez MD - 07/04/2025 7:52 PM EDT Nette Worrell MD 07/04/2025 11:38 PM Intubation Performed by: Teo Calvo PA Authorized by: Teo Calvo PA Consent: Consent obtained: Written Consent given by: Parent Roxana protocol: Patient identity confirmed: Arm band Attending Supervision?: yes Pre-procedure details: Indications: airway protection and respiratory failure Patient status: Awake Mouth opening - incisor distance: 2 finger widths Hyoid-mental distance: 3 or more finger widths Mallampati score: III Neck mobility: reduced C-Collar present: yes Pharmacologic strategy: RSI Induction agents: Etomidate Paralytics: Rocuronium Procedure details: Preoxygenation: HFNC. Number of attempts: 1 Successful intubation attempt details: Intubation method: Oral Intubation technique: video assisted Laryngoscope blade: Mac 3 Tube size (mm): 7.5 Tube type: Cuffed Tube visualized through cords: yes Placement assessment: Tube secured with: ETT interiano Breath sounds: Equal Placement verification: chest rise, colorimetric ETCO2, direct visualization and equal breath sounds Chest x-ray findings: CXR pending. Post-procedure details: Procedure completion: Tolerated well, no immediate complications Teo HINES IN CLINIC/BEDSIDE ORDERABLES Final Result * Total Protein, Pleural Fluid - Pleural Right (07/04/2025 11:56 AM EDT) Total Protein, Fluid 2.8 g/dL 07/04/2025 2:06 PM EDT [facility] Pleural Fluid Structure of right pleural cavity / Unknown Non-blood Collection / Unknown 07/04/2025 11:56 AM EDT 07/04/2025 12:48 PM EDT Narrative [facility] - 07/04/2025 2:06 PM EDT This test was developed and its performance characteristics determined by [facility]. The [place]. Food and Drug Administration has not approved or cleared this test. However, FDA clearance or approval is not currently required for clinical use. The results are not intended to be used as the sole means for clinical diagnosis or patient management decisions. Shayne HINES LAB BODY FLUIDS AND STOOLS ORD ERABLES Final Result [facility] [address] [place] [address] * Lactate Dehydrogenase, Pleural Fluid - Right (07/04/2025 11:56 AM EDT) LDH, Fluid 378 U/L 07/04/2025 2:06 PM EDT [facility] Pleural Fluid Structure of right pleural cavity / Unknown Non-blood Collection / Unknown 07/04/2025 11:56 AM EDT 07/04/2025 12:48 PM EDT Narrative [facility] - 07/04/2025 2:06 PM EDT No established reference interval. Results should be interpreted in comparison to the concentration in blood and in conjunction with the clinical context. Pleural fluid LDH and total protein measurements are used for differentiation of exudates and transudates. Light's criteria can be used to identify most pleural exudative effusions if one or more of the following criteria are present: (1) pleural juouv-mk-inykc protein ratio of >0.5, (2) pleural rmtlj-fu-jqcka LDH ratio of >0.6, or (3) a pleural fluid LDH activity that is >2/3 the upper limit of a normal serum LDH activity. Light's criteria may misclassify ~25% of transudates as exudates in heart failure. These can be identified by calculating a snyzh-rx-zddsgzg albumin gradient (>1.2 g/dL) and/or a ofqqp-ql-ojpxv protein gradient (>3.1 g/dL). Shayne HINES LAB BODY FLUIDS AND STOOLS ORD ERABLES Final Result [facility] [address] [place] [address] * pH, pleural fluid (07/04/2025 11:56 AM EDT) pH, Pleural Fluid >7.60 7.60 - 7.66 LAB HEMATOLOGY METHOD 07/04/2025 12:10 PM EDT [facility] Pleural Fluid Pleural fluid specimen / Unknown Non-blood Collection / Unknown 07/04/2025 11:56 AM EDT 07/04/2025 12:07 PM EDT Narrative [facility] - 07/04/2025 12:10 PM EDT Normal pleural fluid has a pH of 7.60-7.66 Transudate pleural fluid effusion has a pH of 7.45-7.55 Exudate pleural effusion has a pH of 7.30-7.40 In patients with a parapneumonic pleural effusion, pH <7.2 indicates advance disease and a need for tube drainage pH >7.2 indicates antibiotic therapy alone is probably sufficient In patients with a malignant pleural effusion, pH <7.3 indicates reduced survival, and is contraindiction for pleurodesis This test was developed, and its performance characteristics determined by the [facility]. Pleural pH is measured by potentiometry using a blood gas analyzer. it has not been approved by the [place] Food and Drug Administration. this test is used for clinical purposes and should not be regarded as investigational or for research. this laboratory is certified under the Clinical Laboratory Improvement Amendment of 1988 (CLIA-88) as qualified to perform high complexity clinical laboratory testing. us Shayne HINES LAB BODY FLUIDS AND STOOLS ORD ERABLES Final Result [facility] [address] [place] [address] * (ABNORMAL) Body Fluid Cell Count w/ Diff - Pleural Right (07/04/2025 11:00 AM EDT) Color, Body fluid Red LAB HEMATOLOGY METHOD 07/04/2025 8:37 PM EDT [facility] Appearance, Body fluid Cloudy(A) LAB HEMATOLOGY METHOD 07/04/2025 8:37 PM EDT [facility] Volume, Body fluid 4.0 cc LAB HEMATOLOGY METHOD 07/04/2025 8:37 PM EDT [facility] Fluid Container Specimen received in miscellaneous container LAB HEMATOLOGY METHOD 07/04/2025 8:37 PM EDT [facility] Red Blood Cell Count, Body fluid 10,000 uL LAB HEMATOLOGY METHOD 07/04/2025 8:37 PM EDT [facility] Total Nucleated Cell Count, Body fluid 3,742 uL LAB HEMATOLOGY METHOD 07/04/2025 8:37 PM EDT [facility] Neutrophils %, Body fluid 86 % LAB HEMATOLOGY METHOD 07/04/2025 8:37 PM EDT [facility] Lymphocytes %, Body fluid 5 % LAB HEMATOLOGY METHOD 07/04/2025 8:37 PM EDT [facility] Monocytes/Macr ophages %, Body fluid 8 % LAB HEMATOLOGY METHOD 07/04/2025 8:37 PM EDT [facility] Eosinophils %, Body fluid 0 % LAB HEMATOLOGY METHOD 07/04/2025 8:37 PM EDT [facility] Lining/Mesothe lial Cells %, Body fluid 1 % LAB HEMATOLOGY METHOD 07/04/2025 8:37 PM EDT [facility] Neutrophils Absolute (PMN), Body fluid 3,218 uL LAB HEMATOLOGY METHOD 07/04/2025 8:37 PM EDT [facility] Lymphocytes Absolute, Body fluid 187 uL LAB HEMATOLOGY METHOD 07/04/2025 8:37 PM EDT [facility] Monocytes/Macr ophages Absolute, Body fluid 299 uL LAB HEMATOLOGY METHOD 07/04/2025 8:37 PM EDT [facility] Eosinophils Absolute, Body fluid 0 uL LAB HEMATOLOGY METHOD 07/04/2025 8:37 PM EDT [facility] Basophils Absolute, Body fluid 0 uL LAB HEMATOLOGY METHOD 07/04/2025 8:37 PM EDT [facility] Lining/Mesothe lial Cells Absolute, Body fluid 37 uL LAB HEMATOLOGY METHOD 07/04/2025 8:37 PM EDT [facility] Basophils %, Body fluid 0 % LAB HEMATOLOGY METHOD 07/04/2025 8:37 PM EDT [facility] Body Fluid Body fluid specimen obtained via chest tube / Unknown Non-blood Collection / Unknown 07/04/2025 11:00 AM EDT 07/04/2025 12:48 PM EDT Shayne HINES LAB BODY FLUIDS AND STOOLS ORDERABLES NO SPECIMEN TYPE/SOURCE Final Result [facility] [address] [place] [address] * Body fluid, cytospin, pathologist interpretation (07/04/2025 11:00 AM EDT) Specimen Type Body Fluid LAB HEMATOLOGY METHOD 07/05/2025 11:45 AM EDT [facility] Specimen Source, Body Fluid Chest Tube, Right LAB HEMATOLOGY METHOD 07/05/2025 11:45 AM EDT [facility] Clinical Diagnosis, Body Fluid Respiratory failure LAB HEMATOLOGY METHOD 07/05/2025 11:45 AM EDT [facility] Interpretation , Body Fluid Bloody fluid with abundant acute inflammation. No evidence of malignancy. A resident was involved in the service. I attest I examined the relevant preparations for the specimens and confirmed the diagnosis or interpretation. 07/05/2025 11:45 AM EDT [facility] Pathologist Signature, Body Fluid 07/05/2025 11:45 AM EDT [facility] Comment:Reviewed by: Otoniel Whitt MD LAB CP ASR DISCLAIMER Yes 07/05/2025 11:45 AM EDT [facility] Body Fluid Body fluid specimen obtained via chest tube / Unknown Non-blood Collection / Unknown 07/04/2025 11:00 AM EDT 07/04/2025 12:48 PM EDT us Shayne HINES LAB BODY FLUIDS AND STOOLS ORD ERABLES Final Result [facility] [address] [place] [address] * [place] CRITICAL CARE, E/M 30-74 MINUTES (07/04/2025 10:13 AM EDT) Narrative Sandy Simmons MD - 07/04/2025 10:13 AM EDT Sandy Simmons MD 07/09/2025 5:35 PM Critical Care Performed by: Sandy Simmons MD Authorized by: Sandy Simmons MD Critical care provider statement: Critical care time (minutes): 30 Critical care time was exclusive of: Separately billable procedures and treating other patients and teaching time Critical care was time spent personally by me on the following activities: Development of treatment plan with patient or surrogate, discussions with consultants, evaluation of patient's response to treatment, examination of patient, obtaining history from patient or surrogate, ventilator management, ordering and review of radiographic studies, ordering and review of laboratory studies and ordering and performing treatments and interventions I assumed subsequent critical care for this patient from a provider in my division, on the same day: no Comments: Seen and examined with the Advanced Practice Provider (MATI). I attest to being personally involved in more than half the total time in patient care including obtaining and reviewing the history, performing and documenting the exam, and medical decision making. The patient remains critically ill requiring ongoing life and organ-supporting interventions. Managing hypoxemic respiratory failure, on vent. Weaning, anticipate trial of extubation today us Sandy Simmons MD IN CLINIC/BEDSIDE ORDERAB LES Final Result * (ABNORMAL) Lactate dehydrogenase (07/04/2025 4:18 AM EDT) LDH, Plasma 364(H) 116 - 250 U/L 07/04/2025 11:19 AM EDT [facility] Blood Venous blood specimen / Unknown Venipuncture / Unknown 07/04/2025 4:18 AM EDT 07/04/2025 4:22 AM EDT us Shayne HINES LAB BLOOD ORDERABLES Final Res ult [facility] [address] [place] [address] * CA PERQ DRAINAGE PLEURA INSERT CATH W/O IMAGING, HC PERQ DRAINAGE PLEURA INSERT CATH W/O IMAGING (07/04/2025 3:47 AM EDT) Narrative Nette Worrell MD - 07/04/2025 3:47 AM EDT Nette Worrell MD 07/04/2025 11:38 PM Chest Tube Insertion Performed by: Shaheed Contreras PA Authorized by: Shaheed Contreras PA Consent: Consent obtained: Verbal and written Consent given by: Parent Risks, benefits, and alternatives were discussed: yes Risks discussed: Bleeding, damage to surrounding structures, infection, incomplete drainage, nerve damage and pain Roxana protocol: Immediately prior to procedure, a time out was called: yes Patient identity confirmed: Arm band Attending Supervision?: yes Pre-procedure details: Skin preparation: Chlorhexidine with alcohol Preparation: Patient was prepped and draped in the usual sterile fashion Antibiotic: cefazolin Sedation: Sedation type: Moderate sedation Anesthesia: Anesthesia method: Local infiltration Local anesthetic: Lidocaine 1% w/o epi Procedure details: Approach: Percutaneous Placement location: R lateral Scalpel size: 10 Tube size (Fr): 28 Dilation Performed: yes Dissection instrument: Gabi clamp and finger Ultrasound guidance: no Tension pneumothorax: no Tube connected to: Suction Drainage characteristics: Bloody and yellow Suture material: 0 silk Dressinx4 sterile gauze and petrolatum-impregnated gauze Post-procedure details: Post-insertion x-ray findings comment: CXR pending Procedure completion: Tolerated well, no immediate complications us Shaheed HINES IN CLINIC/BEDSIDE ORDERABLES F inal Result * CA CRITICAL CARE, E/M 30-74 MINUTES (07/03/2025 3:06 PM EDT) Narrative Sandy Simmons MD - 07/03/2025 3:06 PM EDT Sandy Simmons MD 07/11/2025 11:20 PM Critical Care Performed by: Sandy Simmons MD Authorized by: Sandy Simmons MD Critical care provider statement: Critical care time (minutes): 30 Critical care time was exclusive of: Separately billable procedures and treating other patients and teaching time Critical care was time spent personally by me on the following activities: Development of treatment plan with patient or surrogate, discussions with consultants, evaluation of patient's response to treatment, examination of patient, obtaining history from patient or surrogate, ventilator management, ordering and review of radiographic studies, ordering and review of laboratory studies and ordering and performing treatments and interventions I assumed subsequent critical care for this patient from a provider in my division, on the same day: no Comments: Seen and examined with the Advanced Practice Provider (MATI). I attest to being personally involved in more than half the total time in patient care including obtaining and reviewing the history, performing and documenting the exam, and medical decision making. The patient remains critically ill requiring ongoing life and organ-supporting interventions. On vent, passed SBT, will trial extubation. High risk for re-intubation. Extubate to high flow, aggressive pulm hygiene. Anxiety control, as this has been major barrier previously. Sepsis workup for fevers, unclear source us Sandy Simmons MD IN CLINIC/BEDSIDE ORDERAB LES Final Result * (ABNORMAL) Bacterial ID Gram Negative (07/03/2025 6:32 AM EDT) Klebsiella oxytoca Result Detected( A) Not Detected 07/03/2025 8:23 PM EDT [facility] Blood Venous blood specimen / Unknown Venipuncture / Unknown 07/03/2025 6:32 AM EDT 07/03/2025 7:21 AM EDT Narrative [facility] - 07/03/2025 8:23 PM EDT Analytes Tested Include: Acinetobacter baumannii, Bacteroides fragilis, Citrobacter, Cronobacter sakazakii, Enterobacter (non-cloacae complex), Enterobacter cloacae complex, Escherichia coli, Fusobacterium necrophorum, Fusobacterium nucleatum, Haemophilus influenze, Klebsiella oxytoca, Klebsiella pneumoniae group, Morganella morganii, Neisseria meningitidis, Proteus, Proteus mirabilis, Pseudomonas aeruginosa, Salmonella, Serratia, Serratia marcescens, Stenotrophomonas maltophilia, White Juan target, White gram negative target, and CTX-M, IMP, KPC, NDM, OXA and VIM resistance genes. NOTE: A not detected result for a resistance gene does not indicate susceptibility to antimicrobials. Gram Negative bacteria can be resistant to antimicrobials by mechanisms other than carrying the resistance genes detected by the BCID-GN Version 2.0 Panel. . WHITE JUAN: Inclusive of Juan albicans, Juan glabrata, Pichia kudriavzevii (formerly Juan krusei) and Juan parasilosis only. . OXA: Inclusive of OXA groups 23 and 48 only. . Klebsiella pneumoniae group: Includes Klesiella pneumoniae, Klebsiella quasipneumoniae and Klebsiella varicola. . Reference Value: Not detected for all analytes tested. Shaheed HINES LAB MICROBIOLOGY - GENERAL ORD ERABLES Final Result [facility] [address] [place] [address] * (ABNORMAL) Hemoglobin and hematocrit, blood (07/03/2025 6:22 AM EDT) HGB 7.6(L) 13.7 - 17.5 g/dL LAB HEMATOLOGY METHOD 07/03/2025 6:38 AM EDT [facility] HCT 23.6(L) 40.0 - 51.0 % LAB HEMATOLOGY METHOD 07/03/2025 6:38 AM EDT [facility] Blood Venous blood specimen / Unknown Venipuncture / Unknown 07/03/2025 6:22 AM EDT 07/03/2025 6:28 AM EDT Shaheed HINES LAB BLOOD ORDERABLES Final Res ult [facility] [address] [place] [address] * Transfuse RBC (07/03/2025 6:00 AM EDT) Only the most recent of2 resultswithin the time period is included. Shaheed HINES BLOOD TRANSFUSION ORDERABLES F inal Result * Prepare Leukocyte Reduced RBC: 1 Units (07/03/2025 2:39 AM EDT) Only the most recent of2 resultswithin the time period is included. [facility] Signature Product Code [id number] BLOO D BANK Dispense Status Transfused BLOOD BANK Blood Expiration Date [id number] BLOOD BANK Unit Number [id number] CH B LOOD BANK Product Blood Type 5100 BLOOD BANK Blood Type O+ BLOOD BANK Crossmatch Compatible BLOOD BANK Other Shaheed HINES BLOOD BANK PRODUCT ORDERABLES Final Result Performing Organization Address City/State/[facility] Co de Phone Number BLOOD BANK [address] [place] [address], [place] * [place] CRITICAL CARE, E/M 30-74 MINUTES (07/02/2025 3:00 PM EDT) Narrative Sandy Simmons MD - 07/02/2025 3:00 PM EDT Sandy Simmons MD 07/03/2025 9:26 AM Critical Care Performed by: Sandy Simmons MD Authorized by: Sandy Simmons MD Critical care provider statement: Critical care time (minutes): 30 Critical care time was exclusive of: Separately billable procedures and treating other patients and teaching time Critical care was time spent personally by me on the following activities: Development of treatment plan with patient or surrogate, discussions with consultants, evaluation of patient's response to treatment, examination of patient, obtaining history from patient or surrogate, ventilator management, ordering and review of radiographic studies, ordering and review of laboratory studies and ordering and performing treatments and interventions I assumed subsequent critical care for this patient from a provider in my division, on the same day: no Comments: Seen and examined with the Advanced Practice Provider (MATI). I attest to being personally involved in more than half the total time in patient care including obtaining and reviewing the history, performing and documenting the exam, and medical decision making. The patient remains critically ill requiring ongoing life and organ-supporting interventions. OR today for orthopedic surgery. Remains on [facility] ventilator for respiratory failure. Making good progress, but failed SBT due to tachypnea, tidal volumes. Continue weaning support. Febrile, on abx, will watch for now and likely re-culture us Sandy Simmons MD IN CLINIC/BEDSIDE ORDERAB LES Final Result * XR Tibia Fibula Right 2+ Views (07/02/2025 1:21 PM EDT) Anatomical Region Laterality Modality Lower Extremities, Lower Leg Right Dig ital Radiography Impressions 07/02/2025 1:29 PM EDT 1. Retrograde intramedullary fixation of healing fracture of the distal right femoral diaphysis with unchanged alignment of displaced butterfly fragment. 2. Expected postoperative changes of open reduction and internal fixation of bicondylar tibial plateau fracture with improved fracture fragment alignment. CRITICAL RESULT: No. COMMUNICATION: Per this written report. Drafted by Vinnie Stapleton MD on 07/02/2025 1:23 PM Final report signed by Vinnie Stapleton MD on 07/02/2025 1:29 PM Narrative 07/02/2025 1:29 PM EDT CLINICAL INDICATION: postop TECHNIQUE: XR KNEE RIGHT 3 VIEWS, XR TIBIA FIBULA RIGHT 2+ VIEWS COMPARISON: June 26, 2025 FINDINGS: 3 views of the right knee and 2 views of the right tibia and fibula show retrograde intramedullary fixation of healing comminuted fracture of the distal femoral diaphysis with displaced butterfly fragment. Medial and lateral plate and screw fixation of bicondylar tibial plateau fracture with improved fracture fragment alignment. Comminuted fracture of the tibial spines. Fracture of the proximal fibular diaphysis. Ankle joint space and alignment are normal. Sequelae of prior external fixation are appreciated in the tibia and femur. Sequelae of traction pin in the posterior calcaneus. Procedure Note Vinnie Stapleton MD - 07/02/2025 CLINICAL INDICATION: postop TECHNIQUE: XR KNEE RIGHT 3 VIEWS, XR TIBIA FIBULA RIGHT 2+ VIEWS COMPARISON: June 26, 2025 FINDINGS: 3 views of the right knee and 2 views of the right tibia and fibula showretrograde intramedullary fixation of healing comminuted fracture of thedistal femoral diaphysis with displaced butterfly fragment. Medial andlateral plate and screw fixation of bicondylar tibial plateau fracturewith improved fracture fragment alignment. Comminuted fracture of thetibial spines. Fracture of the proximal fibular diaphysis. Ankle jointspace and alignment are normal. Sequelae of prior external fixation areappreciated in the tibia and femur. Sequelae of traction pin in theposterior calcaneus. IMPRESSION: 1.Retrograde intramedullary fixation of healing fracture of the distalright femoral diaphysis with unchanged alignment of displaced butterflyfragment. 2.Expected postoperative changes of open reduction and internal fixationof bicondylar tibial plateau fracture with improved fracture fragmentalignment. CRITICAL RESULT: No. COMMUNICATION: Per this written report. Drafted by Vinnie Stapleton MD on 07/02/2025 1:23 PM Final report signed by Vinnie Stapleton MD on 07/02/2025 1:29 PM Sandy Simmons MD IMG XR PROCEDURES Final R esult * FL Less than 1 Hour Intraoperative (07/02/2025 10:28 AM EDT) Narrative IMAGING - 07/02/2025 10:29 AM EDT Images were obtained for surgical purposes. See Ismael Bruce's surgical note in the patient's chart for the findings. Ismael Bruce MD IMG FLUOROSCOPY PROCEDURES F inal Result IMAGING * BEDSIDE BRONCHOSCOPY (07/01/2025 12:10 PM EDT) Narrative Teo Calvo PA - 07/01/2025 12:10 PM EDT Teo Calvo PA 07/01/2025 12:12 PM Bronchoscopy Performed by: Teo Calvo PA Authorized by: Teo Calvo PA Consent: Consent obtained: Written Timeout: Patient identity confirmed: Hospital-assigned identification number Sedation: Sedation: Continuous IV sedation being administered. No additional sedation given during procedure Procedure details: Indication: Mucus plugging A cleaned bronchoscope was inserted via: Endotracheal tube Mucus plugs were identified in the: Right lower lobe, right middle lobe and right upper lobe Post-procedure details: The procedure was performed: Without difficulty Patient tolerance of procedure: Tolerated well, no immediate complications us Teo HINES IN CLINIC/BEDSIDE ORDERABLES Final Result * (ABNORMAL) Conjugated Bilirubin, Plasma (06/30/2025 4:14 AM EDT) Only the most recent of3 resultswithin the time period is included. Direct Bilirubin, Plasma 0.7(H) <=0.3 mg/dL 06/30/2025 5:01 AM EDT [facility] Blood Arterial blood specimen / Unknown Venipuncture / Unknown 06/30/2025 4:14 AM EDT 06/30/2025 4:26 AM EDT us Teo HINES LAB BLOOD ORDERABLES Final R esult [facility] [address] [place] [address] * (ABNORMAL) Blood gas panel, arterial (06/30/2025 1:29 AM EDT) Only the most recent of3 resultswithin the time period is included. pH, Arterial 7.48(H) 7.35 - 7.45 LAB HEMATOLOGY METHOD 06/30/2025 1:44 AM EDT [facility] pCO2, Arterial 39 32 - 45 mmHg LAB HEMATOLOGY METHOD 06/30/2025 1:44 AM EDT [facility] pO2, Arterial 80(L) 83 - 108 mmHg LAB HEMATOLOGY METHOD 06/30/2025 1:44 AM EDT [facility] SO2, Measured, Arterial 98 94 - 98 % LAB HEMATOLOGY METHOD 06/30/2025 1:44 AM EDT [facility] Base Excess, Arterial 4.8(H) -2.0 - 3.0 mmol/L LAB HEMATOLOGY METHOD 06/30/2025 1:44 AM EDT [facility] Bicarbonate, Calculated, Arterial 29(H) 22 - 26 mmol/L LAB HEMATOLOGY METHOD 06/30/2025 1:44 AM EDT [facility] Hematocrit, Whole Blood 23.7(L) 40.0 - 51.0 % LAB HEMATOLOGY METHOD 06/30/2025 1:44 AM EDT [facility] Sodium, Whole Blood 141 136 - 145 mmol/L LAB HEMATOLOGY METHOD 06/30/2025 1:44 AM EDT [facility] Potassium, Whole Blood 4.1 3.6 - 4.9 mmol/L LAB HEMATOLOGY METHOD 06/30/2025 1:44 AM EDT [facility] Chloride, Whole Blood 106 97 - 107 mmol/L LAB HEMATOLOGY METHOD 06/30/2025 1:44 AM EDT [facility] Glucose, Whole Blood 79 74 - 99 mg/dL LAB HEMATOLOGY METHOD 06/30/2025 1:44 AM EDT [facility] Ionized Calcium, Whole Blood 4.5(L) 4.6 - 5.1 mg/dL LAB HEMATOLOGY METHOD 06/30/2025 1:44 AM EDT [facility] Lactate, Arterial, Whole Blood 0.6 0.5 - 1.6 mmol/L LAB HEMATOLOGY METHOD 06/30/2025 1:44 AM EDT [facility] Blood Arterial blood specimen / Unknown Arterial Puncture / Unknown 06/30/2025 1:29 AM EDT 06/30/2025 1:39 AM EDT [facility] Jason HINES LAB BLOOD ORDERABLES Final R esult [facility] [address] [place] [address] * BEDSIDE BRONCHOSCOPY (06/29/2025 6:00 PM EDT) Narrative Merced Timmons MD - 06/29/2025 6:00 PM EDT Merced Timmons MD 07/05/2025 1:43 AM Bronchoscopy Performed by: Shaheed Contreras PA Authorized by: Shaheed Contreras PA Consent: Consent obtained: Written and verbal Consent given by: Parent Risks discussed: Bleeding and pneumothorax Timeout: Immediately prior to procedure, a time out was called: yes Patient identity confirmed: Arm band Attending Supervision?: yes Sedation: Sedation type: Deep Agent(s) Used: 50 Santiago mcg given: 100 mg given: 6 Procedure details: Indication: Mucus plugging and Pneumonia This procedure was performed by: Shaheed Contreras Was cervical spine stabilized during the procedure?: No A cleaned bronchoscope was inserted via: Endotracheal tube Mucus plugs were identified in the: Left upper lobe and left lower lobe Bronchoalveolar lavage was performed in: Left lower lobe A stat portable chest xray was ordered Post-procedure details: The procedure was performed: Without difficulty Patient tolerance of procedure: Tolerated well, no immediate complications Complications: No us Shaheed HINES IN CLINIC/BEDSIDE ORDERABLES E dited Result - Final * [place] CRITICAL CARE, E/M 30-74 MINUTES (06/29/2025 1:38 PM EDT) Narrative Merced Timmons MD - 06/29/2025 1:38 PM EDT Merced Timmons MD 07/05/2025 1:39 AM Critical Care Performed by: Merced Timmons MD Authorized by: Merced Timmons MD Critical care provider statement: Critical care time (minutes): 40 Critical care time was exclusive of: Separately billable procedures and treating other patients and teaching time Critical care was time spent personally by me on the following activities: Development of treatment plan with patient or surrogate, discussions with primary provider, evaluation of patient's response to treatment, examination of patient, ordering and performing treatments and interventions, ordering and review of laboratory studies, ordering and review of radiographic studies and ventilator management I assumed subsequent critical care for this patient from a provider in my division, on the same day: no Comments: Seen and examined with the Advanced Practice Provider (MATI). I attest to being involved in more than half the total time in patient care including obtaining and reviewing the history, performing and documenting the exam, reviewing available data, facilitating treatments, and medical decision making. I evaluated and treated the patient multiple times throughout the day, starting at 6:30 AM. The patient remains critically ill requiring ongoing life and organ-supporting interventions. Had another sinus pause off isoproterenol. Will discuss with EP. Failed SBT due to agitation. Diurese, wean FiO2. Having concern for mucous plugging, will bronch. Merced Timmons MD, PhD Acute Care Surgery, Trauma and Surgical Critical Care us Merced Timmons MD IN CLINIC/BEDSIDE ORDERABLES Fin al Result * (ABNORMAL) N-Terminal Probnp (06/28/2025 7:24 PM EDT) N-Terminal, PROBNP, Plasma 2,808(H) 0 - 449 pg/mL 06/28/2025 8:05 PM EDT [facility] Blood Venous blood specimen / Unknown Venipuncture / Unknown 06/28/2025 7:24 PM EDT 06/28/2025 7:34 PM EDT us Sandor Gallo MD LAB BLOOD ORDERABLES Final Res ult Performing Organization Address [facility] Co de Phone Number [facility] [address] [place] [address] * APTT (06/28/2025 7:24 PM EDT) aPTT 31 25 - 35 sec LAB COAGULATION METHOD 06/28/2025 8:10 PM EDT [facility] Blood Venous blood specimen / Unknown Venipuncture / Unknown 06/28/2025 7:24 PM EDT 06/28/2025 7:34 PM EDT Sandor Gallo MD LAB BLOOD ORDERABLES Final Res ult Performing Organization Address [facility] Co de Phone Number [facility] [address] [place] [address] * [place] CRITICAL CARE, E/M 30-74 MINUTES (06/28/2025 4:44 PM EDT) Narrative Merced Timmons MD - 06/28/2025 4:44 PM EDT Merced Timmons MD 07/05/2025 1:36 AM Critical Care Performed by: Merced Timmons MD Authorized by: Merced Timmons MD Critical care provider statement: Critical care time (minutes): 40 Critical care time was exclusive of: Separately billable procedures and treating other patients and teaching time Critical care was time spent personally by me on the following activities: Development of treatment plan with patient or surrogate, discussions with primary provider, evaluation of patient's response to treatment, examination of patient, ordering and performing treatments and interventions, ordering and review of laboratory studies, ordering and review of radiographic studies and ventilator management I assumed subsequent critical care for this patient from a provider in my division, on the same day: no Comments: Seen and examined with the Advanced Practice Provider (MATI). I attest to being involved in more than half the total time in patient care including obtaining and reviewing the history, performing and documenting the exam, reviewing available data, facilitating treatments, and medical decision making. I evaluated and treated the patient multiple times throughout the day, starting at 6:30 AM. The patient remains critically ill requiring ongoing life and organ-supporting interventions. Continuing to have agitation issues, adjusting sedation. Failed SBT due to tachypnea. Vent settings improving. Wean isoproterenol. Merced Timmons MD, PhD Acute Care Surgery, Trauma and Surgical Critical Care us Merced Timmons MD IN CLINIC/BEDSIDE ORDERABLES Fin al Result * Clostridiodes (Clostridium) difficile PCR (06/28/2025 3:37 PM EDT) C difficile PCR toxin B gene DNA Result Not Detected Not Detected 06/28/2025 5:19 PM EDT [facility] Stool Rectum structure / Unknown Non-blood Collection / Unknown 06/28/2025 3:37 PM EDT 06/28/2025 4:27 PM EDT Narrative [facility] - 06/28/2025 5:19 PM EDT This test is FDA approved for use with liquid stool specimens. This test is used for clinical purposes. It should not be regarded as investigational or for research. This laboratory is certified under the Clinical Laboratory Improvement Amendments of 1988 (CLIA-88) as qualified to perform high complexity clinical laboratory testing. us Sandor Gallo MD LAB MICROBIOLOGY - GENERAL ORD ERABLES Final Result [facility] [address] [place] [address] * Acute Hepatitis Panel (06/15/2025 3:40 AM EDT) Hepatitis B Surf Antigen Negative Negative 06/15/2025 5:23 AM EDT [facility] Hepatitis C Antibody Negative Negative 06/15/2025 5:23 AM EDT [facility] Hepatitis A Antibody IgM Negative Negative 06/15/2025 5:23 AM EDT [facility] Hepatitis B Core Antibody IgM Negative Negative 06/15/2025 5:23 AM EDT [facility] Blood Venous blood specimen / Unknown Venipuncture / Unknown 06/15/2025 3:40 AM EDT 06/15/2025 3:49 AM EDT us Rupinder Platt IMPORT/EXPORT CLERK LAB BLOOD ORDERABLES Nadege padilla Result [facility] [address] [place] [address] from Last 3 Months or Most Recently Relevant to Health Maintenance Additional Health Concerns Infection Onset Date Last Indicated Pseudomonas - MDRO Comment:Urine culture collected 09/05/2025 resulted positive for Pseudomonas aeruginosa MDRO. This patient will require contact precautions indefinitely. Do not resolve this infection. 09/09/2025 09/09/[address] [place] [address] [place] [id number] ANTHEM Advance Directives * Full Code (Latest Code Status on File) Date Activated Date Inactivated Comments 08/18/2025 5:33 AM 08/23/2025 6:47 PM Question Answer Comments I have reviewed the capacity from the link above and, if needed, have updated to appropriate status: Yes * Full Code Date Activated Date Inactivated Comments 06/28/2025 7:17 PM 08/04/2025 4:14 PM Question Answer Comments I have reviewed the capacity from the link above and, if needed, have updated to appropriate status: Yes * DNR - Ok to intubate Date Activated Date Inactivated Comments 06/20/2025 2:38 PM 06/28/2025 7:17 PM father Question Answer Comments DNR determined on/before admission date? No I have reviewed the capacity from the link above and, if needed, have updated to appropriate status: Yes * Full Code Date Activated Date Inactivated Comments 06/06/2025 12:51 PM 06/20/2025 2:38 PM Question Answer Comments I have reviewed the capacity from the link above and, if needed, have updated to appropriate status: Yes Care Teams Record Clerk Salesperson Relationship Specialty Start Date End Date Pcp, Nia [address] [place] [address] PCP - General Family Medicine 06/04/25
--- OUTSIDE RECORDS SUMMARY | 2025-09-28 13:42 | XMS_ITS | Encounter Summary ---
Author Organization [facility] Address [address] [place] [address] Care Team Providers Care Greenhouse Technician Name Role Phone Pcp, No Primary Care Provider Unavailabl e Encounter Details Date Type Department Care Team (Latest Contact Info) Description 07/30/2025 Travel Social History Tobacco Use Types Packs/Day [...] time in the past 12 m [facility], were you homeless or living in a fdc (including now)? No 06/06/2025 Utilities Answer Date [...] Date of Assessment Author No Risk Indicated 07/30/2025 9:00 PM EDT Chelsea Thornton RN * Question Answer Date of Assessment Author 1. Wish to be (Past 1 Month) No 025 9:00 PM EDT Chelsea Thornton RN 2. Non-Specific Active Suici abdullahi Thoughts (Past 1 Month) No 07/30/2025 9:00 PM EDT Toribio Thornton RN 6. Suicidal Behavior (Lifetime) No 9:00 PM EDT Chelsea Thornton RN documented as of this encounter Plan of Treatment Upcoming Encounters Date Type Department Care Team (Late st Contact Info) Description 10/11/2025 1:30 PM EST Office Visit [facility] [address] [place] [address] Michael Scales MD [address] [place] [address] 10/16/2025 8:30 AM EST Office Visit [facility] [address] [place] [address] Tyler Suresh MD [address] [facility] [address] [place] [address] documented as of this encounter Visit Diagnoses Not on filedocumented in this encounter Additional Health Concerns Assessment Noted Time A Body Mass Index follow-up plan has been documented for the patient 08/04/2025 1:51 PM EDT documented as of this encounter Care Teams Greenhouse Technician Relationship Specialty Start Date End Date Pcp, [place] [address] PCP - General Family Medicine 06/04/25 documented as of this encounter
--- OUTSIDE RECORDS SUMMARY | 2025-09-28 13:42 | XMS_ITS | Encounter Summary ---
Author Organization [facility] Address [address] [place] [address] Care Team Providers Care Anaesthesiologist Name Role Phone Pcp, No Primary Care Provider Unavailabl e Encounter Details Date Type Department Care Team (Latest Contact Info) Description 08/01/2025 Travel Social History Tobacco Use Types Packs/Day Years Used Date Smoking Tobacco: Never Passive Smoke Exposure: Never Smokeless Tobacco: Never Humiliation, Afraid, Rape, a nd Kick questionnaire [...] in a senior living (including now)? No 06/06/2025 Utilities Answer Date [...] Date of Assessment Author No Risk Indicated 08/01/2025 8:00 PM EDT Chelsea Portillo RN * Question Answer Date of Assessment Author 1. Wish to be (Past 1 Month) No 08/01/2025 8:00 PM EDT Chelsea Hernandez RN 2. Non-Specific Active Suici abdullahi Thoughts (Past 1 Month) No 08/01/2025 8:00 PM EDT Kati Hernandez RN 6. Suicidal Behavior (Lifetime) No 8:00 PM EDT Chelsea Hernandez RN documented as of this encounter Plan of Treatment Upcoming Encounters Date Type Department Care Team (Late st Contact Info) Description 10/11/2025 1:30 PM EST Office Visit [facility] [address] [place] [address] Michael Scales MD [address] [place] [address] 10/16/2025 8:30 AM EST Office Visit [facility] [address] [place] [address] Tyler Suresh MD [address] [facility] [address] [place] [address] documented as of this encounter Visit Diagnoses Not on filedocumented in this encounter Additional Health Concerns Assessment Noted Time A Body Mass Index follow-up plan has been documented for the patient 08/04/2025 1:51 PM EDT documented as of this encounter Care Teams Anaesthesiologist Relationship Specialty Start Date End Date Pcp, [place] [address] PCP - General Family Medicine 06/04/25 documented as of this encounter
--- OUTSIDE RECORDS SUMMARY | 2025-09-28 13:42 | XMS_ITS | Encounter Summary ---
Author Organization [facility] Address [address] [place] [address] Care Team Providers Care Road Patcher Name Role Phone Pcp, No Primary Care Provider Unavailabl e Encounter Details Date Type Department Care Team (Latest Contact Info) Description 08/18/2025 Travel Social History Tobacco Use Types Packs/Day [...] in a care home (including now)? No 06/06/2025 Utilities Answer Date [...] Date of Assessment Author No Risk Indicated 08/18/2025 8:00 PM EDT Maureen Bradley RN * Question Answer Date of Assessment Author 1. Wish to be (Past 1 Month) No 025 8:00 PM EDT Maureen Cerna RN 2. Non-Specific Active Suici abdullahi Thoughts (Past 1 Month) No 08/18/2025 8:00 PM EDT Cara Cerna RN 6. Suicidal Behavior (Lifetime) No 8:00 PM EDT Maureen Cerna RN documented as of this encounter Plan of Treatment Upcoming Encounters Date Type Department Care Team (Late st Contact Info) Description 10/11/2025 1:30 PM EST Office Visit [facility] [address] [place] [address] Michael Scales MD [address] [place] [address] 10/16/2025 8:30 AM EST Office Visit [facility] [address] [place] [address] Tyler Suresh MD [address] [facility] [address] [place] [address] documented as of this encounter Visit Diagnoses Not on filedocumented in this encounter Additional Health Concerns Assessment Noted Time A Body Mass Index follow-up plan has been documented for the patient 08/23/2025 4:03 PM EDT documented as of this encounter Care Teams Road Patcher Relationship Specialty Start Date End Date Pcp, Nia [address] [place] [address] PCP - General Family Medicine 06/04/25 documented as of this encounter
--- OUTSIDE RECORDS SUMMARY | 2025-09-28 13:42 | XMS_ITS | Encounter Summary ---
Author Organization [facility] Address [address] [place] [address] Care Team Providers Care Home Health Care Social Worker Name Role Phone Pcp, No Primary Care Provider Unavailabl e Encounter Details Date Type Department Care Team (Late st Contact Info) Description 08/15/2025 Telephone Vascular Surgery [address] [place] [address] Bradley Richardson, NICKEL PLATER Social History Tobacco Use Types Packs/Day Years [...] time in the past 12 m [facility], were you homeless or living in a prison (including now)? No 06/06/2025 Utilities Answer Date [...] encounter Miscellaneous Notes * Nursing Note - Bradley Richardson, RN - 08/15/2025 12:52 PM EDT Tried to call the patient on both phone numbers listed and could not leave a voicemail. Appointment reminders mailed to the address listed. documented in this encounter Plan of Treatment Upcoming Encounters Date Type Department Care Team (Late st Contact Info) Description 10/11/2025 1:30 PM EST Office Visit [facility] [address] [place] [address] Michael Scales MD [address] [place] [address] 10/16/2025 8:30 AM EST Office Visit [facility] [address] [place] [address] Tyler Suresh MD [address] [facility] [address] [place] [address] documented as of this encounter Visit Diagnoses Not on filedocumented in this encounter Additional Health Concerns Assessment Noted Time A Body Mass Index follow-up plan has been documented for the patient 08/04/2025 1:51 PM EDT documented as of this encounter Care Teams Home Health Care Social Worker Relationship Specialty Start Date End Date Pcp, [place] [address] PCP - General Family Medicine 06/04/25 documented as of this encounter
--- OUTSIDE RECORDS SUMMARY | 2025-09-28 13:42 | XMS_ITS | Encounter Summary ---
Author Organization [facility] Address [address] [place] [address] Care Team Providers Care Administration Manager Name Role Phone Pcp, No Primary Care Provider Unavailabl e Encounter Details Date Type Department Care Team (Latest Contact Info) Description 08/17/2025 Travel Social History Tobacco Use Types Packs/Day [...] Date of Assessment Author No Risk Indicated 08/17/2025 6:10 PM EDT Shireen Faith RN * Question Answer Date of Assessment Author 1. Wish to be (Past 1 Month) No 08/17/2025 6:10 PM EDT Shireen Johnson, RN 2. Non-Specific Active Suici abdullahi Thoughts (Past 1 Month) No 08/17/2025 6:10 PM EDT Anuradha Johnson RN 6. Suicidal Behavior (Lifetime) No 6:10 PM EDT Shireen Johnson RN documented as of this encounter Plan of Treatment Upcoming Encounters Date Type Department Care Team (Late st Contact Info) Description 10/11/2025 1:30 PM EST Office Visit [facility] [address] [place] [address] Michael Scales MD [address] [place] [address] 10/16/2025 8:30 AM EST Office Visit [facility] [address] [place] [address] Tyler Suresh MD [address] [facility] [address] [place] [address] documented as of this encounter Visit Diagnoses Not on filedocumented in this encounter Additional Health Concerns Assessment Noted Time A Body Mass Index follow-up plan has been documented for the patient 08/23/2025 4:03 PM EDT documented as of this encounter Care Teams Administration Manager Relationship Specialty Start Date End Date Pcp, [place] [address] PCP - General Family Medicine 06/04/25 documented as of this encounter
--- OUTSIDE RECORDS SUMMARY | 2025-09-28 13:42 | XMS_ITS | Encounter Summary ---
Author Organization [facility] Address [address] [place] [address] Care Team Providers Care Geometry Teacher Name Role Phone Pcp, No Primary Care Provider Mariel Pablo Unavailable Unavailable Encounter Details Date Type Department Care Team (Late st Contact Info) Description 07/13/2025 Social Work Ch Palliative Care Virtual Dept. [address] [place] [address] Mariel Roy Social History Tobacco Use Types Packs/Day Years [...] any time in the past 12 m [facility], were you homeless or living in a halfway (including now)? No 06/06/2025 Utilities Answer Date [...] Date of Assessment Author No Risk Indicated 07/16/2025 8:00 PM TOLUT Sandy Madrigal RN * Question Answer Date of Assessment Author 1. Wish to be (Past 1 Month) No 025 8:00 PM Ana Lilia Anderson, LETY 2. Non-Specific Active Suici abdullahi Thoughts (Past 1 Month) No 07/16/2025 8:00 PM TOLUT Gisell Madrigal RN 6. Suicidal Behavior (Lifetime) No 8:00 PM Ana Lilia Anderson, RN documented as of this encounter Plan of Treatment Upcoming Encounters Date Type Department Care Team (Late st Contact Info) Description 10/11/2025 1:30 PM EST Office Visit [facility] [address] [place] [address] Michael Scales MD [address] [place] [address] 10/16/2025 8:30 AM EST Office Visit [facility] [address] [place] [address] Tyler Suresh MD [address] [facility] [address] [place] [address] documented as of this encounter [...] documented as of this encounter Care Teams Geometry Teacher Relationship Specialty Start Date End Date Pcp, [place] [address] PCP - General Family Medicine 06/04/25 Mariel Varela Fruit Inspector Hydraulic Repairer 08/20/25 08/23/25 documented as of this encounter
[2025-09-28 13:49] LABS: Hematocrit 29.4 % (42.0-52.0); Hemoglobin 9.8 g/dL (14.1-18.0); Immature Granulocytes % 0.3 %; Mean Corpuscular HGB Conc 33.3 g/dL (31.8-35.4); Mean Corpuscular Hemoglobin 30.7 pg (27.0-31.2); Mean Corpuscular Volume 92.2 fl (80-94); Nucleated Red Blood Cells % 0 %; Platelet Count 680 K/mm3 (142-424); Red Blood Count 3.19 M/mm3 (4.60-6.20); Red Cell Distribution Width-SD 53.1 fL; White Blood Count 10.7 K/mm3 (4.8-10.8)
[2025-09-28 13:58] LABS: Blood Urea Nitrogen 6 mg/dl (9-20); Creatinine Clearance Estimated 236 mL/min (50-200); Creatinine,Serum 0.40 mg/dl (0.66-1.25); Estimated Glomerular Filt Rate 272 ml/min (>60); GFR (African American) 329 ML/MIN (>60)
[2025-09-28 14:03] LABS: C-Reactive Protein 39.6 mg/L (0-4)
== END 2025-09-28 23:59 | disposition home or self-care (01) ==
LOC: INF 13:33
PROVIDERS: Visit Provider Internal Medicine Infectious Disease
DX: M46.28 Osteomyelitis of vertebra, sacral and sacrococcygeal region (principal)
CPT/HCPCS: 36592; 82565; 84520; 85025; 86140; 99202; G0463